=== PATIENT | female | born 1940 | race Native Hawaiian/Other Pacific Islander ===

== ENCOUNTER 2020-03-01 14:12 | Inpatient (IN) | payer MEDICARE, BC, SELFPAY ==
[2020-03-01] VITALS (22 sets, daily range): BP systolic 125–171; BP diastolic 63–90; PULSE 86–110; RESP 13–28; TEMP 36.6–37; O2SAT 82–94; BMI 30.8
--- NOTE | 2020-03-01 14:44 | ECG_ITS ---
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 Security Manager: : 1940 Requested By: Prema Vega Order Number: [id number] Reading MD: CLARK ELLIS Measurements Intervals [place] Rate: 91 P: 61 LA: 145 QRS: 78 QRSD: 129 T: -20 QT: 328 QTc: 405 Interpretive Statements SINUS RHYTHM MODERATE INTRAVENTRICULAR CONDUCTION DELAY [105+ ms QRS DURATION, 80+ ms Q/S IN V1/V2, NO Q AND 60+ ms R IN I/aVL/V5/V6] ABNORMAL QRS-T ANGLE [QRS-T AXIS DIFFERENCE > 60] No previous ECG available for comparison Electronically Signed On 03-02-2020 19:29:42 INVESTIGATOR INTERNAL AFFAIRS by CLARK ELLIS [id number]
--- NOTE | 2020-03-01 14:44 | XR_ITS ---
WS: [id number] XR chest 1V portable [id number] REASON FOR EXAM: sob FINDINGS: There is presumed marked elevation of the right hemidiaphragm which was present on examination of . No change. Inspiratory effort is not optimal however there is concern for early infiltrative change in both lowe r lungs. No other interval change or new finding. XR/XR chest 1V portable [id number] IMPRESSION: Possible early infiltrative changes in the lung bases. Follow-up chest x-ray w ith better inspiration. CT chest without contrast would be definitive. As per u coty the differentiation here is between congestive heart failure and Covid pne umonitis in the aged patient.
--- NOTE | 2020-03-01 14:45 | ED_ITS ---
HPI - COVID General: Chief Complaint: COVID symptoms Stated Complaint: COVID + (02.28.20), LOW O2 Time Seen by Provider: 03/01/20 14:27 Source: patient Mode of arrival: ambulatory Limitations: no limitations Triage information: Has fever, cough or shortness of breath . Exposure to COVID + person last 14 days History of Present Illness: HPI Narrative: 80-year-old female states she tested positive for Covid 2 days ago. She states she had increasing shortness of breath. She does have a history of COPD. She is typically on 2 L oxygen is currently requiring 5 L. She denies any fever she had a slight cough. She said generalized weakness COVID 19 common symptoms: positive dyspnea; negative fever(s), chills, body aches, headache(s), throat pain, nausea, vomiting or diarrhea COVID 19 other sytmptoms: negative chest pain COVID Results: No Data to Display Review of Systems Const: Denies: fever(s), chills, body aches or change in appetite Eyes: Denies: blurry vision or eye discomfort ENMT: Denies: throat pain or dental pain Card: Denies: chest pain Resp: Reports: dyspnea GI: Denies: abdominal pain, nausea, vomiting or diarrhea : Denies: dysuria Musc: Denies: neck pain or back pain Skin/Breast: Denies: rash Neuro: Denies: headache(s) Psych: Denies: depression Norbert/Lymph: Denies: easy bruising All/Imm: Denies: urticaria Physical Exam Const: COMMON NORMALS: patient oriented x3 GENERAL APPEARANCE: in distress and ill appearing HENMT: COMMON NORMALS: normocephalic and atraumatic HEAD & SCALP: normocephalic and atraumatic Eye: COMMON NORMALS: Equal, round and reactive pupils present and EOMs intact bilaterally PUPIL: Yes Equal, round and reactive pupils present Neck/C-Spine: COMMON NORMALS: full ROM and supple Chest: COMMONS NORMALS: normal inspection of the chest and normal palpation of entire chest wall Resp: COMMON NORMALS: No retractions and No use of accessory muscles EFFORT & INSPECTION: Yes respiratory distress AUSCULTATION: rales Cardio: COMMON NORMALS: regular rate, regular rhythm and No murmurs present (Cardio) RATE: regular rate RHYTHM: regular rhythm GI: COMMON NORMALS: Normal to inspection, nondistended, normoactive bowel sounds present, Soft to palpation, non-tender and no masses PALPATION: Yes So ft to palpation Extremity: COMMON NORMALS: normal to inspection and full ROM Neuro: COMMON NORMALS: patient oriented x3, moves all extremities and no focal motor deficits Psych: COMMON NORMALS: mental status grossly normal, Normal thought process present and cooperative THOUGHT PROCESS: Normal thought process present Skin: COMMON NORMALS: no rashes or lesions noted and no wounds GENERAL SKIN EXAM: no rashes or lesions noted Course Vital Signs: Vital signs: Vital Signs Temperature 98.6 F 03/01/20 14:37 Pulse Rate 92 03/01/20 14:37 Respiratory Rate 28 H 03/01/20 14:37 Blood Pressure 171/86 03/01/20 14:37 Pulse Oximetry 93 03/01/20 14:37 MDM - COVID MDM Narrative Medical decision making narrative: Patient presents here with shortness of breath with COVID-19 pneumonia. Patient is requiring more oxygen at this time. She is typically on 2 L and is currently on 5. Patient given remdesivir along with steroid. Spoke to hospitalist will admit to the viral ICU. Patient has b een stable while in the ER. Lab Data Result diagrams: 03/01/20 15:19 03/01/20 15:19 Labs: Lab Results 03/01/20 03/01/20 03/01/20 Range/Units 15:11 15:19 15:19 WBC 9.2 (4.0-10.0) 10^3/uL RBC 4.72 (4.1-5.3) 10^6/uL Hgb 13.3 (11.5-15.3) g/dL Hct 43.4 (37.0-47.0) % MCV 91.9 (81-99) fL MCH 28.2 (28.0-34.0) pg MCHC 30.6 (30.0-36.0) g/dL RDW 12.5 (12.1-15.1) % Plt Count 246 (130-400) 10^3/cmm MPV 10.3 (7.4-10.4) fL Neut % (Auto) 65.3 % Lymph % (Auto) 17.4 % [place] % (Auto) 16.6 % Eos % (Auto) 0.0 % Baso % (Auto) 0.2 % Neut # (Auto) 5.98 (1.8-7.7) 10^3/uL Lymph # (Auto) 1.6 (0.8-4.8) 10^3/uL [place] # (Auto) 1.5 H (0.2-0.9) 10^3/uL Eos # (Auto) 0.0 (0.0-0.8) 10^3/uL Baso # (Auto) 0.0 (0.0-0.1) 10^3/uL Nucleated RBC % (auto) 0 % Nucleated RBCs # 0.0 /100WBC PT 13.40 (12.1-14.9) SECONDS INR 0.99 (0.8-1.2) Fibrinogen 603 H (174-498) mg/dL D-Dimer 1.45 H (0-0.59) ug/mIFEU Specimen Type Arterial Sample Site Radial, right ABG pH 7.37 (7.35-7.45) ABG pCO2 57.0 H (35-45) mmHg ABG pO2 72.4 L (80.0-100.0) mmHg ABG HCO3 33.1 H (22-26) mmol/L ABG Base Excess 6.1 H (-2.0-2.0) mmol/L Jean Paul Test Pos Hematocrit 42.0 (37-47) % O2 Delivery Device Nc O2 Liters/Min 6.0 % FiO2 44.0 % Forest Fire Management Officer ID Ed Sodium (136-145) mmol/L Potassium (3.5-5.1) mmol/L Chloride (98-107) mmol/L Carbon Dioxide (22-29) mmol/L Anion Gap (5-19) BUN (8-23) mg/dL Creatinine (0.5-0.9) mg/dL GFR Calculation Glucose (65-115) mg/dL Calculated Osmolality (285-295) mOsm/kg Lactic Acid (0.5-2.2) mmol/L Calcium (8.5-10.5) mg/dL Total Bilirubin (0.15-1.2) mg/dL AST (0-32) U/L ALT (0-33) U/L Alkaline Phosphatase (35-105) IU/L C-Reactive Protein (0.0-4.9) mg/L NT-Pro-B Natriuret Pep (0-450) pg/mL Total Protein (6.6-8.7) g/dL Albumin (3.5-5.2) g/dL Globulin (1.3-4.6) g/dL 03/01/20 03/01/20 Range/Units 15:19 15:19 WBC (4.0-10.0) 10^3/uL RBC (4.1-5.3) 10^6/uL Hgb (11.5-15.3) g/dL Hct (37.0-47.0) % MCV (81-99) fL MCH (28.0-34.0) pg MCHC (30.0-36.0) g/dL RDW (12.1-15.1) % Plt Count (130-400) 10^3/cmm MPV (7.4-10.4) fL Neut % (Auto) % Lymph % (Auto) % [place] % (Auto) % Eos % (Auto) % Baso % (Auto) % Neut # (Auto) (1.8-7.7) 10^3/uL Lymph # (Auto) (0.8-4.8) 10^3/uL [place] # (Auto) (0.2-0.9) 10^3/uL Eos # (Auto) (0.0-0.8) 10^3/uL Baso # (Auto) (0.0-0.1) 10^3/uL Nucleated RBC % (auto) % Nucleated RBCs # /100WBC PT (12.1-14.9) SECONDS INR (0.8-1.2) Fibrinogen (174-498) mg/dL D-Dimer (0-0.59) ug/mIFEU Specimen Type Sample Site ABG pH (7.35-7.45) ABG pCO2 (35-45) mmHg ABG pO2 (80.0-100.0) mmHg ABG HCO3 (22-26) mmol/L ABG Base Excess (-2.0-2.0) mmol/L Jean Paul Test Hematocrit (37-47) % O2 Delivery Device O2 Liters/Min % FiO2 % Forest Fire Management Officer ID Sodium 139 (136-145) mmol/L Potassium 4.9 (3.5-5.1) mmol/L Chloride 100 (98-107) mmol/L Carbon Dioxide 32 H (22-29) mmol/L Anion Gap 11.9 (5-19) BUN 16 (8-23) mg/dL Creatinine 0.6 (0.5-0.9) mg/dL GFR Calculation Not Reportable Glucose 125 H (65-115) mg/dL Calculated Osmolality 291 (285-295) mOsm/kg Lactic Acid 1.0 (0.5-2.2) mmol/L Calcium 8.9 (8.5-10.5) mg/dL Total Bilirubin 0.2 (0.15-1.2) mg/dL AST 35 H (0-32) U/L ALT 19 (0-33) U/L Alkaline Phosphatase 89 (35-105) IU/L C-Reactive Protein 99.2 H (0.0-4.9) mg/L NT-Pro-B Natriuret Pep 849 H (0-450) pg/mL Total Protein 7.0 (6.6-8.7) g/dL Albumin 3.1 L (3.5-5.2) g/dL Globulin 3.9 (1.3-4.6) g/dL COVID Results: No Data to Display Imaging Data CXR: Attestation: I personally reviewed and interpreted this imaging study as follows: Radiologist's impression: [address] [address] XRay Report Signed Patient: La Aranda Unit #: [id number] : 1940 Age/Sex: 80 / F ADM Date: 03/01/20 Loc: ER Room/Bed: Attending Dr: Ordering Provider/Ordering MD: Prema Vega MD Date of Service: 03/01/20 Procedure(s): XR chest 1V portable [id number] Accession Number(s): [id number] Report Number: [id number] WS: [id number] XR chest 1V portable [id number] REASON FOR EXAM: sob FINDINGS: There is presumed marked elevation of the right hemidiaphragm which was present on examination of 06/21/2018. No change. Inspiratory effort is not optimal however there is concern for early infiltrative change in both lower lungs. No other interval change or new finding. XR/XR chest 1V portable [id number] IMPRESSION: Possible early infiltrative changes in the lung bases. Follow-up chest x-ray with better inspiration. CT chest without contrast would be definitive. As per usual the differentiation here is between congestive heart failure and Covid pneumonitis in the aged patient. CT Chest: Attestation: I personally reviewed and interpreted this imaging study as follows: Radiologist's impression: [address] [address] [address] Scan Report Signed Patient: La Aranda Unit #: [id number] : 1940 Age/Sex: 80 / F ADM Date: 03/01/20 Loc: ER Room/Bed: Attending Dr: Ordering Provider/Ordering MD: Prema Vega MD Date of Service: 03/01/20 Procedure(s): CT angio chest PE protcl [id number] Accession Number(s): [id number] Report Number: [id number] PROCEDURE INFORMATION: Exam: CT Angiography Chest With Contrast Exam date and time: 03/01/2020 4:21 PM Age: 80 years old Clinical indication: Shortness of breath; Patient HX: Covid +. HX copd; Additional info: SOB TECHNIQUE: Imaging protocol: Computed tomographic angiography of the chest with intravenous contrast. 3D rendering (Not supervised by radiologist): MIP and/or 3D reconstructed images were created by the technologist. Radiation optimization: All CT scans at this facility use at least one of these dose optimization techniques: automated exposure control; mA and/or kV adjustment per patient size (includes targeted exams where dose is matched to clinical indication); or iterative reconstruction. Contrast material: OMNI 350; Contrast volume: 65 ml; Contrast route: INTRAVENOUS (IV); COMPARISON: CR XR chest 1V portable [id number] 03/01/2020 2:47 PM RADIATION DOSE METRICS: Total DLP (mGy-cm): 511.83 FINDINGS: Pulmonary arteries: There is no pulmonary embolus. Aorta: Unremarkable. No aortic aneurysm. No aortic dissection. Lungs: Multifocal extensive airspace and ground-glass opacities are noted in both lungs. Pleural space: Unremarkable. No pneumothorax. No pleural effusion. Heart: The heart is enlarged. Lymph nodes: There is no axillary adenopathy. There is mediastinal adenopathy including the 1.3 cm short axis right paratracheal lymph node image 126. There is a 1.4 cm right paratracheal lymph node image 157. There is a 1.2 cm short axis left hilar lymph node image 172. There is a right hilar lymph node measuring 1.4 cm in short axis image 176. Diaphragm: There is nonspecific elevation of the right hemidiaphragm. Kidneys and ureters: There is a 2.3 cm upper pole simple cyst in the left kidney. No follow-up is necessary. Stomach and bowel: Moderate diverticulosis is present in the distal colon. Bones/joints: Unremarkable. No acute fracture. Soft tissues: Unremarkable. CT/CT angio chest PE protcl [id number] IMPRESSION: 1. There is no pulmonary embolus. 2. Multifocal extensive airspace and ground-glass opacities are noted in both lungs. Commonly reported imaging features of COVID-19 pneumonia are present. Other processes such as influenza pneumonia and organizing pneumonia, as can be seen with drug toxicity and connective tissue disease, can cause a similar imaging pattern. (Reference: Red) EKG Data EKG 1: Attestation: I personally reviewed and interpreted this EKG as follows: EKG interpretation date: 03/01/20 EKG interpretation time: 15:09 Interpretation: nsr hr [address] or t wave abnormalities qrs 129 qtc 377 Critical Care Time Critical Care Time: Critical Care Time: Yes Total Critical Care Time: 35 Attestation: This case had a high probability of a clinically significant, sudden, or life threatening deterioration of this patient's condition which required my full and direct attention, intervention and personal management. Discharge Plan Discharge Patient Disposition: Admitted As Inpatient Clinical Impression: Suspected severe acute respiratory syndrome coronavirus 2 (SARS-CoV-2) infection Condition: Stable Referrals: Gloria Urbina MD [Primary Care Provider] - Coding Level of Care Code ED Watch Parts Inspector for Chg Fwd Exam Comprehensive
[2020-03-01 15:21] LABS: ABG PH Result 7.37 (7.35-7.45); Base Excess ABG 6.1 mmol/L (-2.0-2.0); Blood Gas Allen Test Pos; Blood Gas Sample Type Arterial; HCO3 ABG 33.1 mmol/L (22-26); PO2 ABG 72.4 mmHg (80.0-100.0)
[2020-03-01 15:22] LABS: Blood Gas Operator Identificat ED; Blood Gas Sample Site Radial, right; Oxygen Device NC
[2020-03-01 15:28] LABS: Basophils % 0.2 %; Hematocrit 43.4 % (37.0-47.0); Hemoglobin 13.3 g/dL (11.5-15.3); Lymphocytes # 1.6 10^3/uL (0.8-4.8); Lymphocytes % 17.4 %; Mean Corpuscular HGB Conc 30.6 g/dL (30.0-36.0); Mean Corpuscular Hemoglobin 28.2 pg (28.0-34.0); Mean Corpuscular Volume 91.9 fL (81-99); Mean Platelet Volume 10.3 fL (7.4-10.4); Monocytes # 1.5 10^3/uL (0.2-0.9); Monocytes % 16.6 %; Neutrophils # 5.98 10^3/uL (1.8-7.7); Neutrophils % 65.3 %; Nucleated Red Blood Cells % 0 %; Platelet Count 246 10^3/cmm (130-400); Red Blood Count 4.72 10^6/uL (4.1-5.3); Red Cell Distribution Width 12.5 % (12.1-15.1); White Blood Count 9.2 10^3/uL (4.0-10.0)
[2020-03-01] MEDS: dexamethasone 4 mg/mL INJ 6 MG IVP (15:33)
[2020-03-01 15:58] LABS: Fibrinogen 603 mg/dL (174-498); INR 0.99 (0.8-1.2)
[2020-03-01 16:01] LABS: D Dimer 1.45 ug/mIFEU (0-0.59)
--- NOTE | 2020-03-01 16:02 | CTR_ITS ---
PROCEDURE INFORMATION: Exam: CT Angiography Chest With Contrast Exam date and time: 03/01/2020 4:21 PM Age: 80 years old Clinical indication: Shortness of breath; Patient HX: Covid +. HX copd; Additional info: SOB TECHNIQUE: Imaging protocol: Computed tomographic angiography of the chest with intravenous contrast. 3D rendering (Not supervised by radiologist): MIP and/or 3D reconstructed images were created by the technologist. Radiation optimization: All CT scans at this facility use at least one of these dose optimization techniques: automated exposure control; mA and/or kV adjustment per patient size (includes targeted exams where dose is matched to clinical indication); or iterative reconstruction. Contrast material: OMNI 350; Contrast volume: 65 ml; Contrast route: INTRAVENOUS (IV); COMPARISON: CR XR chest 1V portable [id number] 03/01/2020 2:47 PM RADIATION DOSE METRICS: Total DLP (mGy-cm): 511.83 FINDINGS: Pulmonary arteries: There is no pulmonary embolus. Aorta: Unremarkable. No aortic aneurysm. No aortic dissection. Lungs: Multifocal extensive airspace and ground-glass opacities are noted in both lungs. Pleural space: Unremarkable. No pneumothorax. No pleural effusion. Heart: The heart is enlarged. Lymph nodes: There is no axillary adenopathy. There is mediastinal adenopathy including the 1.3 cm short axis right paratracheal lymph node image 126. There is a 1.4 cm right paratracheal lymph node image 157. There is a 1.2 cm short axis left hilar lymph node image 172. There is a right hilar lymph node measuring 1.4 cm in short axis image 176. Diaphragm: There is nonspecific elevation of the right hemidiaphragm. Kidneys and ureters: There is a 2.3 cm upper pole simple cyst in the left kidney. No follow-up is necessary. Stomach and bowel: Moderate diverticulosis is present in the distal colon. Bones/joints: Unremarkable. No acute fracture. Soft tissues: Unremarkable. CT/CT angio chest PE protcl [id number] IMPRESSION: 1. There is no pulmonary embolus. 2. Multifocal extensive airspace and ground-glass opacities are noted in both lungs. Commonly reported imaging features of COVID-19 pneumonia are present. Other processes such as influenza pneumonia and organizing pneumonia, as can be seen with drug toxicity and connective tissue disease, can cause a similar imaging pattern. (Reference: Red) COMMENTS: Consistent with the [place] [employer]'s Incidental Findings Committee white paper (J Am Dorian Radiol 2018): Any incidental renal lesion less than 1 cm or classified as too small to characterize, or any incidental cystic renal lesion characterized as simple-appearing, is likely benign. No follow-up imaging is recommended for these lesions per consensus recommendations based on imaging criteria. REFERENCES: Red Mcclain et al., Radiological Society of [place] Expert Consensus Statement on Reporting Chest CT Findings Related to COVID-19. Endorsed by the Society of Thoracic Radiology, the [place] [employer], and RSNA. Published July 20, 2019. Radiation Dose CTDIVOL = (mGy): DLP = 511.83 (mGy-cm)
[2020-03-01 16:09] LABS: Alanine Aminotransferase 19 U/L (0-33); Albumin Level 3.1 g/dL (3.5-5.2); Alkaline Phosphatase 89 IU/L (35-105); Anion Gap 11.9 (5-19); Aspartate Amino Transferase 35 U/L (0-32); Blood Urea Nitrogen 16 mg/dL (8-23); C Reactive Protein 99.2 mg/L (0.0-4.9); Calcium 8.9 mg/dL (8.5-10.5); Carbon Dioxide 32 mmol/L (22-29); Chloride 100 mmol/L (98-107); Globulin 3.9 g/dL (1.3-4.6); Glucose 125 mg/dL (65-115); NT Pro B Type Natriuretic Pept 849 pg/mL (0-450); Osmolality Calculated 291 mOsm/kg (285-295); Potassium 4.9 mmol/L (3.5-5.1); Sodium 139 mmol/L (136-145); Total Bilirubin 0.2 mg/dL (0.15-1.2)
[2020-03-01] MEDS: iohexol 350 mg/mL 100 mL Btl IV (16:54)
--- NOTE | 2020-03-01 19:59 | P.HP_ITS ---
Providers/Chief Complaint Admitting Physician: Jax Villa Primary Care Provider: Gloria Urbina MD Chief Complaint: COVID + (02.28.20), LOW O2 History of Present Illness La Aranda is a pleasant 80-year-old lady with history of COPD, chronically on 2 L of oxygen came to ER due to progressive shortness of breath over the last 2 days, nonproductive cough, and fatigue. In ER she is noted with worsening hypoxia. She is requiring 5 L of oxygen by nasal cannula. D-dimer is found elevated at 1.45. CTA without PE. Multifocal extensive airspace groundglass opacities consistent with COVID-19 pneumonia. Review of Systems Const: Reports: body aches, change in appetite, fatigue and malaise; Denies: fever(s) or chills Eyes: Denies: change in vision or eye redness ENMT: Denies: throat pain, oral sores or ear or mastoid pain Card: Reports: dyspnea on exertion; Denies: chest pain, edema, pre-syncope or orthopnea Resp: Reports: dyspnea and non-productive cough; Denies: productive cough, change in phlegm color or hemoptysis GI: Denies: abdominal pain, nausea, vomiting, diarrhea, constipation, hematochezia or melena : Denies: flank pain, urinary frequency or hematuria Musc: Denies: back pain, joint swelling or joint redness Skin/Breast: Denies: rash, sores or new lesions Neuro: Denies: headache(s), numbness in extremities, weakness in extremities, dizziness, confusion or seizure-like activity Endo: Denies: polyuria or polydipsia Norbert/Lymph: Denies: easy bleeding or purpura All/Imm: Denies: urticaria, throat swelling or tongue swelling Medications/Allergies Home Medications Medication Instructions Recorded Confirmed Last Taken Type CoQ-10 1 tab PO DAILY 03/01/20 03/01/20 03/01/20 History calcium carbonate [Calcium 600] 600 mg PO DAILY 03/01/20 03/01/20 Unknown History fluticasone propion-salmeterol See Rx Instructions .ROUTE .COMPLEX 03/01/20 03/01/20 03/01/20 History [Advair Diskus] glucosamine-chondroitin [Osteo 1 tab PO DAILY 03/01/20 03/01/20 Unknown History Bi-Flex] levofloxacin 500 mg PO DAILY 03/01/20 03/01/20 03/01/20 History lisinopril 20 mg PO DAILY 03/01/20 03/01/20 03/01/20 History lovastatin 20 mg PO DAILY 03/01/20 03/01/20 03/01/20 History metformin 500 mg PO DAILY 03/01/20 03/01/20 03/01/20 History geyU-K2-B-D-dnsska-hqzpgns-min 1 tab PO DAILY 03/01/20 03/01/20 Unknown History [ICaps] Allergies Allergy/AdvReac Type Severity Reaction Status Date / Time No Known Allergies Allergy Verified 03/01/20 14:44 PFSH Acute PFSH: Medical History COPD (chronic obstructive pulmonary disease) DM type 2 (diabetes mellitus, type 2) Surgical History History of ectopic Family History Mother Heart disease Father Heart disease Social History Smoking and tobacco status: former smoker Quit status (tobacco): has quit using tobacco Year quit tobacco: Many decades ago Alcohol intake: current Alcohol intake frequency: 0-2 Drinks per Day Alcohol use comment: 1 drink of whiskey daily Substance/Drug Use: never Lives independently: Yes Household members: spouse Marital status: Vitals/I&O/Wt Last Vital Signs Temp 98.6 F 03/01/20 14:37 Pulse 92 03/01/20 14:37 Resp 28 H 03/01/20 14:37 BP 171/86 03/01/20 14:37 Pulse Ox 93 03/01/20 18:58 Weight last 48 hrs Weight 78.925 kg Physical Exam Const: COMMON NORMALS: no acute distress and patient oriented x3 NUTRITIONAL APPEARANCE: obese HENMT: COMMON NORMALS: oropharynx normal Neck/C-Spine: COMMON NORMALS: no JVD Resp: COMMON NORMALS: normal respiratory effort AUSCULTATION: crackles and diminished lung sounds Cardio: COMMON NORMALS: no JVD, regular rhythm, S1 normal heart sound present, S2 normal heart sound present and No murmurs present (Cardio) RHYTHM: regular rhythm HEART SOUNDS: S1 normal heart sound present and S2 normal heart sound present GI: COMMON NORMALS: Normal to inspection, nondistended, normoactive bowel sounds present, Soft to palpation and non-tender PALPATION: Yes Soft to palpation Extremity: COMMON NORMALS: no joint enlargement GENERAL: Yes edema (1-2+ ankle edema) Neuro: COMMON NORMALS: patient oriented x3 and moves all extremities Skin: COMMON NORMALS: no rashes or lesions noted GENERAL SKIN EXAM: no rashes or lesions noted Data : 03/01/20 15:19 03/01/20 15:19 Micro: Microbiology 03/01/20 18:20 Blood Culture - Preliminary Blood SPECIMEN COLLECTED 03/01/20 17:16 Blood Culture - Preliminary Blood SPECIMEN COLLECTED A&P Assessment and plan (1) Severe acute respiratory syndrome coronavirus 2 (SARS-CoV-2) detected: Reports tested positive for COVID-19 at her PCPs office on Thursday. Hypoxia with severe COVID-19 pneumonia. Continue oxygen support. Remdesivir Decadron Self proning as tolerated. Albuterol MDI. Sputum culture if possible. Continue Levaquin as prescribed by her PCP. Follow-up blood letter. Incentive spirometry. Read D-dimer, CRP. Lovenox DVT prophylaxis. Famotidine GI prophylaxis. Status: Acute (2) COPD (chronic obstructive pulmonary disease): Underlying COPD noted with liters of oxygen. Continue Advair. Albuterol as needed. Status: Acute (3) DM type 2 (diabetes mellitus, type 2): Consistent carbohydrate diet. Mild sliding scale. Hold Metformin for now. Monitor renal function. Status: Acute (4) HTN (hypertension): Syndrome. Monitor blood pressure. Renal function. Status: Acute Attestations Medical Necessity Statement*: Admission of over 2 midnights is continued for assessment management of severe COVID-19 pneumonia, acute on chronic hypoxia, with underlying COPD and additional medical comorbidities. Coding Level of Care Code Acute Laundry Machine Operator for [facility] Diagnoses Severe acute respiratory syndrome coronavirus 2 (SARS-CoV-2) detected U07.1 COPD (chronic obstructive pulmonary disease) J44.9 DM type 2 (diabetes mellitus, type 2) E11.9 HTN (hypertension) I10
--- NOTE | 2020-03-01 20:30 | PC.NURSE ---
Patient recieved to unit via wheelchair accompanied by nurse and security. Patient stable and Alert and oriented X4. No skin issues noted per two skin nurse assessment with Kelley REYNOLDS. Patient able to stand and ambulate with stand by assistance. Patient able to answer questions appropriately. Partient hard of hearing and requires hearing aids which the battery charger tester of said hearing aids is at home. Patient uses oxygen therapy at home at 2 Liters. Patient also uses walker and cane at home for ambulation. Will continue to monitor and assist as needed following CPOC
[2020-03-01] MEDS: enoxaparin 40 mg/0.4 mL Syringe SUBCUT (21:30)
[2020-03-01] MEDS: albuterol 8 gm MDI 2 PUFF INHALATION (21:44)
[2020-03-02] VITALS (78 sets, daily range): BP systolic 109–167; BP diastolic 40–96; PULSE 0–102; RESP 13–31; TEMP 36.6–37.1; O2SAT 78–97; BMI 30.8
[2020-03-02] MEDS: albuterol 8 gm MDI 1 PUFF INHALATION ×7 (00:11→23:50)
[2020-03-02 04:27] LABS: Basophils % 0.3 %; Hematocrit 46.3 % (37.0-47.0); Hemoglobin 14.1 g/dL (11.5-15.3); Lymphocytes # 0.6 10^3/uL (0.8-4.8); Lymphocytes % 8.2 %; Mean Corpuscular HGB Conc 30.5 g/dL (30.0-36.0); Mean Corpuscular Hemoglobin 28.5 pg (28.0-34.0); Mean Corpuscular Volume 93.5 fL (81-99); Mean Platelet Volume 10.9 fL (7.4-10.4); Monocytes # 0.7 10^3/uL (0.2-0.9); Monocytes % 8.6 %; Neutrophils # 6.38 10^3/uL (1.8-7.7); Neutrophils % 81.6 %; Nucleated Red Blood Cells % 0 %; Platelet Count 252 10^3/cmm (130-400); Red Blood Count 4.95 10^6/uL (4.1-5.3); Red Cell Distribution Width 12.6 % (12.1-15.1); White Blood Count 7.8 10^3/uL (4.0-10.0)
[2020-03-02 04:45] LABS: D Dimer 1.78 ug/mIFEU (0-0.59)
[2020-03-02 09:33] LABS: Glucose Point of Care 226 mg/dL (70-110)
[2020-03-02] MEDS: famotidine 20 mg Tablet PO ×2 (09:36→17:10)
[2020-03-02] MEDS: atorvastatin 40 mg Tablet 20 MG PO (09:36)
[2020-03-02] MEDS: levoFLOXacin 500 mg Tablet PO (09:36)
[2020-03-02] MEDS: lisinopril 20 mg Tablet PO (09:37)
[2020-03-02 10:05] LABS: Alanine Aminotransferase 16 U/L (0-33); Albumin Level 2.5 g/dL (3.5-5.2); Alkaline Phosphatase 82 IU/L (35-105); Blood Urea Nitrogen 20 mg/dL (8-23); Carbon Dioxide 29 mmol/L (22-29); Chloride 98 mmol/L (98-107); Globulin 4.3 g/dL (1.3-4.6); Glucose 249 mg/dL (65-115); Osmolality Calculated 295 mOsm/kg (285-295); Sodium 137 mmol/L (136-145); Total Bilirubin 0.2 mg/dL (0.15-1.2); Total Protein 6.8 g/dL (6.6-8.7)
[2020-03-02 10:09] LABS: Anion Gap 14.9 (5-19); Aspartate Amino Transferase 27 U/L (0-32); Potassium 4.9 mmol/L (3.5-5.1)
[2020-03-02 11:45] LABS: Glucose Point of Care 236 mg/dL (70-110)
--- NOTE | 2020-03-02 13:57 | ECG_ITS ---
[facility] ED Test Date: 2020-03-02 Pat Name: La Aranda Department: Room: ICU19 Gender: Female Oracle Analyst: : 1940 Requested By: Jax Villa Order Number: [id number] Iglseia MD: Christina Jama M.D. Measurements Intervals [employer] Rate: 84 P: 36 MI: 147 QRS: 75 QRSD: 137 T: -29 QT: 360 QTc: 426 Interpretive Statements SINUS RHYTHM WITH SINUS ARRHYTHMIA INTRAVENTRICULAR CONDUCTION DELAY [130+ ms QRS DURATION] Compared to ECG 03/01/2020 15:09:11 No significant changes Electronically Signed On 03-03-2020 11:31:19 CUSTOMER SUPPORT AGENT by Christina Jama M.D. [id number]
[2020-03-02] MEDS: dexamethasone 4 mg/mL INJ 6 MG IVP (14:56)
[2020-03-02 15:14] LABS: Troponin(5th) Baseline 32 ng/L (0-10)
--- NOTE | 2020-03-02 15:35 | PC.RESP ---
Pulmonary Rehab information sent to patient.
--- NOTE | 2020-03-02 15:54 | PC.NURSE ---
pATIENT COMPLAINS OF CHEST PRESURE. b/p NOTED. SR 90 PER TELEMETRY. REPORTED TO DR HEREDIA ORDERS RECEIVED FOR tROPONIN SERIES WITH EKG
--- NOTE | 2020-03-02 16:00 | ECG_ITS ---
[facility] ED Test Date: 2020-03-02 Pat Name: La Aranda Department: Room: ICU19 Gender: Female Freight Team Associate: : 1940 Requested By: Jax Villa Order Number: [id number] Iglesia MD: Christina Jama M.D. Measurements Intervals [place] Rate: 85 P: 40 LA: 147 QRS: 75 QRSD: 137 T: -17 QT: 393 QTc: 470 Interpretive Statements SINUS RHYTHM WITH OCCASIONAL SUPRAVENTRICULAR PREMATURE COMPLEXES INTRAVENTRICULAR CONDUCTION DELAY [130+ ms QRS DURATION] POSSIBLE LATERAL MYOCARDIAL INFARCTION [30 ms Q WAVE IN I/aVL/V5/V6], OF INDETERMINATE AGE Compared to ECG 03/02/2020 14:03:21 Myocardial infarct finding now present Sinus arrhythmia no longer present Electronically Signed On 03-03-2020 11:38:22 MIXING MACHINE OPERATOR by Christina Jama M.D. [id number]
--- NOTE | 2020-03-02 16:04 | PC.NURSE ---
ORDERS RECEIVED PER DR CHAU FOR PO XANAX Q6HR PRN PO
[2020-03-02 16:25] LABS: Glucose Point of Care 149 mg/dL (70-110)
[2020-03-02] MEDS: ALPRAZolam 0.25 mg Tablet 0.125 MG PO (17:10)
[2020-03-02 17:11] LABS: Troponin 5 2HR 34.47 ng/L (0-10); Troponin 5 2HR Delta 2.47 ABS# (0-10)
--- NOTE | 2020-03-02 18:25 | P.PN_ITS ---
Subjective Subjective: Interval history: Subjectively she is not feeling well. Having malaise. Otherwise going through the review of systems denies chest pain, no nausea, vomiting. No diarrhea. No abdominal discomfort. Does have some headache. She is extremely hard of hearing, and batteries ran out in hearing aids. Later in the day brought her supervisor production. Vitals/I&O/Wt Last Vital Signs Temp 98.2 F 03/02/20 08:00 Pulse 80 03/02/20 17:12 Resp 16 03/02/20 17:10 BP 120/58 03/02/20 08:00 Pulse Ox 92 03/02/20 17:10 03/02/20 03/02/20 03/02/20 06:59 14:59 22:59 Intake Total 100 / 200 240 / 240 100 / 340 Output Total 150 / 150 Balance 99 / 199 90 / 90 100 / 190 Weight last 48 hrs Weight 78.925 kg Weight 78.925 kg Physical Exam Const: COMMON NORMALS: no acute distress and patient oriented x3 NUTRITIONAL APPEARANCE: obese OTHER: Sitting up in bed. Irritable mood. HENMT: COMMON NORMALS: oropharynx normal Neck/C-Spine: COMMON NORMALS: no JVD Resp: COMMON NORMALS: normal respiratory effort AUSCULTATION: crackles and diminished lung sounds Cardio: COMMON NORMALS: no JVD, regular rhythm, S1 normal heart sound present, S2 normal heart sound present and No murmurs present (Cardio) RHYTHM: regular rhythm HEART SOUNDS: S1 normal heart sound present and S2 normal heart sound present GI: COMMON NORMALS: Normal to inspection, nondistended, normoactive bowel sounds present, Soft to palpation and non-tender PALPATION: Yes Soft to palpation Extremity: COMMON NORMALS: no joint enlargement GENERAL: Yes edema (1-2+ ankle edema) Neuro: COMMON NORMALS: patient oriented x3 and moves all extremities Skin: COMMON NORMALS: no rashes or lesions noted GENERAL SKIN EXAM: no rashes or lesions noted Data : 03/02/20 03:20 03/02/20 09:26 Micro: Microbiology 03/01/20 18:20 Blood Culture - Preliminary Blood NEGATIVE TO DATE 03/01/20 17:16 Blood Culture - Preliminary Blood NEGATIVE TO DATE A&P Assessment and plan (1) Severe acute respiratory syndrome coronavirus 2 (SARS-CoV-2) detected: Oxygenation appears to have plateaued somewhat around 6 L. Subjectively she is not feeling well, but on review of systems only has some headache. Some difficulties in communication due to hearing impairment, but does understand well if spoken to loudly. reportedly brought her hearing aid supervisor production today. At this time continue oxygen support, wean down as tolerating. Continue remdesivir Decadron Decadron Self proning as tolerated. Albuterol MDI. Sputum culture if possible. Continue Levaquin as prescribed by her PCP. Fo llow-up blood culture. So far negative Incentive spirometry. Recheck D-dimer, CRP. Today both are slightly higher. Lovenox DVT prophylaxis. Famotidine GI prophylaxis. Discussed with her . Status: Acute (2) COPD (chronic obstructive pulmonary disease): Underlying COPD noted with liters of oxygen. Continue Advair. Albuterol as needed. Status: Acute (3) DM type 2 (diabetes mellitus, type 2): Consistent carbohydrate diet. Mild sliding scale. Hold Metformin for now. Monitor renal function. reports some episodes of hypoglycemia at home. Recently her oral medications have been changed due to this. No hypoglycemia noted here. Monitor glucose. Status: Acute (4) HTN (hypertension): At goal. Monitor blood pressure. Renal function. Status: Acute Attestations Medical Necessity Statement*: Continue admission for assessment of management of severe COVID-19 pneumonia, respiratory failure with hypoxia. Coding Level of Care Code Acute Central Sterilization Technician for [facility] Fwd Diagnoses Severe acute respiratory syndrome coronavirus 2 (SARS-CoV-2) detected U07.1 COPD (chronic obstructive pulmonary disease) J44.9 DM type 2 (diabetes mellitus, type 2) E11.9 HTN (hypertension) I10
--- NOTE | 2020-03-02 20:00 | ECG_ITS ---
[facility] ED Test Date: 2020-03-02 Pat Name: La Aranda Department: Room: ICU19 Gender: Female Nuclear Engineering Technician: ANITRA DUPREE: 1940 Requested By: Jxa Villa Order Number: [id number] Iglesia MD: Christina Jama M.D. Measurements Intervals [place] Rate: 87 P: 61 OR: 141 QRS: 66 QRSD: 140 T: -3 QT: 381 QTc: 459 Interpretive Statements SINUS RHYTHM RIGHT BUNDLE BRANCH BLOCK [120+ ms QRS DURATION, UPRIGHT V1, 40+ ms S IN I/aVL/V4/V5/V6] Compared to ECG 03/02/2020 16:03:04 Right bundle-branch block now present Intraventricular conduction delay no longer present Myocardial infarct finding no longer present Electronically Signed On 03-03-2020 11:38:05 LIME KILN AND RECAUSTICIZING OPERATOR by Christina Jama M.D. [id number]
[2020-03-02 20:28] LABS: Glucose Point of Care 226 mg/dL (70-110)
[2020-03-02] MEDS: enoxaparin 40 mg/0.4 mL Syringe SUBCUT (21:44)
[2020-03-03] VITALS (113 sets, daily range): BP systolic 106–150; BP diastolic 48–93; PULSE 64–104; RESP 14–33; TEMP 36.3–37; O2SAT 76–98; BMI 30.8
[2020-03-03 01:16] LABS: Hematocrit 46.3 % (37.0-47.0); Hemoglobin 14.5 g/dL (11.5-15.3); Mean Corpuscular HGB Conc 31.3 g/dL (30.0-36.0); Mean Corpuscular Hemoglobin 28.8 pg (28.0-34.0); Mean Corpuscular Volume 91.9 fL (81-99); Mean Platelet Volume 10.9 fL (7.4-10.4); Platelet Count 303 10^3/cmm (130-400); Red Blood Count 5.04 10^6/uL (4.1-5.3); Red Cell Distribution Width 12.4 % (12.1-15.1)
[2020-03-03 01:17] LABS: Alanine Aminotransferase 15 U/L (0-33); Albumin Level 2.7 g/dL (3.5-5.2); Alkaline Phosphatase 84 IU/L (35-105); Aspartate Amino Transferase 26 U/L (0-32); Blood Urea Nitrogen 24 mg/dL (8-23); C Reactive Protein 59.8 mg/L (0.0-4.9); Calcium 8.9 mg/dL (8.5-10.5); Carbon Dioxide 33 mmol/L (22-29); Chloride 101 mmol/L (98-107); Globulin 3.9 g/dL (1.3-4.6); Glucose 241 mg/dL (65-115); Osmolality Calculated 302 mOsm/kg (285-295); Sodium 140 mmol/L (136-145); Total Bilirubin 0.2 mg/dL (0.15-1.2); Total Protein 6.6 g/dL (6.6-8.7)
[2020-03-03 01:18] LABS: Troponin T (5th) Once 27 ng/L (0-10)
[2020-03-03 01:20] LABS: Anion Gap 11.1 (5-19); Potassium 5.1 mmol/L (3.5-5.1)
[2020-03-03 01:38] LABS: Slide Review Slide Review Perform
[2020-03-03 01:43] LABS: Absolute Neutrophil 4.9 10^3/cmm (1.4-6.5); Absolute Segmented Neutrophil 4.1 10/cmm (1.6-7.1); Band Neutrophils Absolute 0.8 10^3/cmm (0.0-1.2); Eosinophils 0 %; Giant Platelets Trace; Lymphocytes 9 %; Monocytes Absolute 0.4 10^3/cmm (0.1-0.6); Platelet Estimate Normal (Normal); Segmented Neutrophils 68 %; Total Cells Counted 100 (0-100)
[2020-03-03 01:44] LABS: Poikilocytosis 1+; Polychromasia 1+
[2020-03-03] MEDS: albuterol 8 gm MDI 1 PUFF INHALATION ×5 (03:25→19:30)
[2020-03-03 07:54] LABS: Glucose Point of Care 155 mg/dL (70-110)
[2020-03-03] MEDS: levoFLOXacin 500 mg Tablet PO (08:20)
[2020-03-03] MEDS: atorvastatin 40 mg Tablet 20 MG PO (08:20)
[2020-03-03] MEDS: lisinopril 20 mg Tablet PO (08:20)
[2020-03-03] MEDS: famotidine 20 mg Tablet PO ×2 (08:20→17:14)
[2020-03-03 11:51] LABS: Glucose Point of Care 210 mg/dL (70-110)
[2020-03-03] MEDS: dexamethasone 4 mg/mL INJ 6 MG IVP (15:12)
[2020-03-03 17:02] LABS: Glucose Point of Care 103 mg/dL (70-110)
--- NOTE | 2020-03-03 17:23 | NUR.SHIFT ---
patient has remained stable throughout this shift and seems to be doing well saturation still dropping from time to time with excretion, patient has been able get her self to the BSC with stand by assistance. patient has set up in chair some today and rotated side to side while in bed. patients appetite has been good this shift. patient is pleasant.
--- NOTE | 2020-03-03 20:25 | PM.PN ---
Subjective Subjective: Interval history: This morning she is somewhat irritable about a number of issues, including that she needs to urinate, and that the hearing aid charging box is not closed. She says otherwise she is doing not the best in terms of breathing which she feels is not improving. She does deny any chest pain or pressure. Says no longer has any headache. No nausea or vomiting. Request for her mouthwash to be brought back. Vitals/I&O/Wt Last Vital Signs Temp 98.6 F 03/03/20 16:02 Pulse 85 03/03/20 19:31 Resp 18 03/03/20 19:31 BP 148/79 03/03/20 12:26 Pulse Ox 95 03/03/20 19:31 03/03/20 03/03/20 03/03/20 06:59 14:59 22:59 Intake Total 100 / 900 600 / 600 240 / 840 Balance 100 / -50 600 / 600 240 / 840 Weight last 48 hrs Weight 78.925 kg Weight 78.925 kg Physical Exam Const: COMMON NORMALS: no acute distress and patient oriented x3 NUTRITIONAL APPEARANCE: obese OTHER: Reclined in bed. We will bit less irritable than yesterday. HENMT: COMMON NORMALS: oropharynx normal Neck/C-Spine: COMMON NORMALS: no JVD Resp: COMMON NORMALS: normal respiratory effort AUSCULTATION: crackles Laterality: bilateral (Bases) Cardio: COMMON NORMALS: no JVD, regular rhythm, S1 normal heart sound present, S2 normal heart sound present and No murmurs present (Cardio) RHYTHM: regular rhythm HEART SOUNDS: S1 normal heart sound present and S2 normal heart sound present GI: COMMON NORMALS: Normal to inspection, nondistended, normoactive bowel sounds present, Soft to palpation and non-tender PALPATION: Yes Soft to palpation Extremity: COMMON NORMALS: no joint enlargement GENERAL: No edema Neuro: COMMON NORMALS: patient oriented x3 and moves all extremities Skin: COMMON NORMALS: no rashes or lesions noted GENERAL SKIN EXAM: no rashes or lesions noted Data : 03/03/20 00:09 03/03/20 00:09 Micro: Microbiology 03/01/20 18:20 Blood Culture - Preliminary Blood NEGATIVE TO DATE 03/01/20 17:16 Blood Culture - Preliminary Blood NEGATIVE TO DATE A&P Assessment and plan (1) Severe acute respiratory syndrome coronavirus 2 (SARS-CoV-2) detected: Oxygenation study, and oxygen requirement actually appears to be little bit better, down to 5 L today. Subjectively she is not feeling better. D-dimer is up a little bit. CRP is better, however. Continue remdesivir, Decadron. Lovenox DVT prophylaxis. Not tolerating proning. Albuterol MDI. We will see if we can get her mobilized little bit with PT. Sputum culture if possible. Continue Levaquin as prescribed by her PCP. Follow-up blood culture. So far negative Incentive spirometry. Recheck D-dimer, CRP. Famotidine GI prophylaxis. Status: Acute (2) COPD (chronic obstructive pulmonary disease): Underlying COPD noted with 2 liters of oxygen. Continue Advair. Albuterol as needed. Status: Acute (3) DM type 2 (diabetes mellitus, type 2): Consistent carbohydrate diet. Mild sliding scale. Hold Metformin for now. Monitor renal function. reports some episodes of hypoglycemia at home. Recently her oral medications have been changed due to this. No hypoglycemia noted here. Monitor glucose. Status: Acute (4) HTN (hypertension): At goal. Monitor blood pressure. Renal function. Status: Acute Attestations Medical Necessity Statement*: Continue admission for assessment and management of hypoxic respiratory failure, severe COVID-19 pneumonia. Coding Level of Care Code Acute Endband Sizer for [facility] Diagnoses Severe acute respiratory syndrome coronavirus 2 (SARS-CoV-2) detected U07.1 COPD (chronic obstructive pulmonary disease) J44.9 DM type 2 (diabetes mellitus, type 2) E11.9 HTN (hypertension) I10
[2020-03-03] MEDS: enoxaparin 40 mg/0.4 mL Syringe SUBCUT (20:52)
[2020-03-03 21:00] LABS: Glucose Point of Care 256 mg/dL (70-110)
[2020-03-04] VITALS (28 sets, daily range): BP systolic 115–171; BP diastolic 53–91; PULSE 59–110; RESP 14–27; TEMP 36.4–37.1; O2SAT 79–100
--- NOTE | 2020-03-04 00:34 | PC.NURSE ---
While assisting patient to the bedside commode, this nurse noticed a moist reddened rash under the patients abdominal fold on the left side. PT complained of itching and burning. Nurse cleansed affected area with NS, patted area dry with gauze, and applied interdry to ABD fold. Hospitalist notified and new orders received for nystatin powder.
[2020-03-04 05:43] LABS: Basophils % 0.1 %; Hematocrit 46.1 % (37.0-47.0); Hemoglobin 13.9 g/dL (11.5-15.3); Lymphocytes # 1.5 10^3/uL (0.8-4.8); Lymphocytes % 13.7 %; Mean Corpuscular HGB Conc 30.2 g/dL (30.0-36.0); Mean Corpuscular Hemoglobin 27.9 pg (28.0-34.0); Mean Corpuscular Volume 92.6 fL (81-99); Mean Platelet Volume 10.6 fL (7.4-10.4); Monocytes # 1.3 10^3/uL (0.2-0.9); Monocytes % 11.9 %; Neutrophils # 7.82 10^3/uL (1.8-7.7); Neutrophils % 73.5 %; Nucleated Red Blood Cells % 0 %; Platelet Count 340 10^3/cmm (130-400); Red Blood Count 4.98 10^6/uL (4.1-5.3); Red Cell Distribution Width 12.5 % (12.1-15.1); White Blood Count 10.6 10^3/uL (4.0-10.0)
[2020-03-04 06:01] LABS: Alanine Aminotransferase 15 U/L (0-33); Albumin Level 3.1 g/dL (3.5-5.2); Alkaline Phosphatase 83 IU/L (35-105); Anion Gap 9.6 (5-19); Aspartate Amino Transferase 19 U/L (0-32); Blood Urea Nitrogen 27 mg/dL (8-23); C Reactive Protein 23.3 mg/L (0.0-4.9); Calcium 9.2 mg/dL (8.5-10.5); Carbon Dioxide 36 mmol/L (22-29); Chloride 98 mmol/L (98-107); Globulin 3.7 g/dL (1.3-4.6); Glucose 177 mg/dL (65-115); Osmolality Calculated 297 mOsm/kg (285-295); Potassium 4.6 mmol/L (3.5-5.1); Sodium 139 mmol/L (136-145); Total Bilirubin 0.2 mg/dL (0.15-1.2); Total Protein 6.8 g/dL (6.6-8.7)
[2020-03-04 06:08] LABS: D Dimer 0.62 ug/mIFEU (0-0.59)
[2020-03-04 07:35] LABS: Glucose Point of Care 132 mg/dL (70-110)
[2020-03-04] MEDS: nystatin powder 15 gm Btl 1 APPLIC TOPICAL ×2 (08:17→17:08)
[2020-03-04] MEDS: lisinopril 20 mg Tablet PO (08:18)
[2020-03-04] MEDS: atorvastatin 40 mg Tablet 20 MG PO (08:18)
[2020-03-04] MEDS: famotidine 20 mg Tablet PO ×2 (08:18→17:08)
[2020-03-04] MEDS: levoFLOXacin 500 mg Tablet PO (08:18)
[2020-03-04] MEDS: albuterol 8 gm MDI 1 PUFF INHALATION ×4 (08:45→20:01)
[2020-03-04 11:40] LABS: Glucose Point of Care 140 mg/dL (70-110)
[2020-03-04] MEDS: dexamethasone 4 mg/mL INJ 6 MG IVP (15:05)
--- NOTE | 2020-03-04 16:24 | DCPLANNER ---
Pg 2 of IM updated and reviewed with Pt's Spouse; Jer via the phone. He appreciates the explanation. Number provided to him should he have any further questions.
[2020-03-04 17:04] LABS: Glucose Point of Care 124 mg/dL (70-110)
--- NOTE | 2020-03-04 18:45 | PC.NURSE ---
Received report on patient from Yuni REYNOLDS. Assumed care at this time.
--- NOTE | 2020-03-04 19:58 | PM.PN ---
Subjective Subjective: Interval history: Today she feels a little bit better. She is sitting up in chair. She worked with physical therapy. Denies chest pain. Has a little bit of a headache. No nausea. We went over how to use the flutter valve. Instructed on incentive spirometry. Vitals/I&O/Wt Last Vital Signs Temp 98.8 F 03/04/20 07:00 Pulse 70 03/04/20 16:00 Resp 22 H 03/04/20 16:00 BP 150/78 03/04/20 16:00 Pulse Ox 89 L 03/04/20 16:00 03/04/20 03/04/20 03/04/20 06:59 14:59 22:59 Intake Total 240 / 1300 720 / 720 360 / 1080 Output Total 600 / 1000 600 / 600 500 / 1100 Balance -360 / 300 120 / 120 -140 / -20 Weight last 48 hrs Weight 81.4 kg Weight 78.925 kg Physical Exam Const: COMMON NORMALS: no acute distress and patient oriented x3 NUTRITIONAL APPEARANCE: obese OTHER: Up in chair. Cooperative. In better spirits. HENMT: COMMON NORMALS: oropharynx normal Neck/C-Spine: COMMON NORMALS: no JVD Resp: COMMON NORMALS: normal respiratory effort AUSCULTATION: crackles Laterality: bilateral (Bases) and diminished lung sounds Cardio: COMMON NORMALS: no JVD, regular rhythm, S1 normal heart sound present, S2 normal heart sound present and No murmurs present (Cardio) RHYTHM: regular rhythm HEART SOUNDS: S1 normal heart sound present and S2 normal heart sound present GI: COMMON NORMALS: Normal to inspection, nondistended, normoactive bowel sounds present, Soft to palpation and non-tender PALPATION: Yes Soft to palpation Extremity: COMMON NORMALS: no joint enlargement GENERAL: No edema Neuro: COMMON NORMALS: patient oriented x3 and moves all extremities Skin: COMMON NORMALS: no rashes or lesions noted GENERAL SKIN EXAM: no rashes or lesions noted Data : 03/04/20 04:30 03/04/20 04:30 A&P Assessment and plan (1) Severe acute respiratory syndrome coronavirus 2 (SARS-CoV-2) detected: Today she is doing better. She is up in chair, working with physical therapy will bit this morning. Takes active interest in using flutter valve, incentive spirometry. In better spirits. Oxygenation with gradual improvement, down to 4 L, then this evening appears to be down to 2. Will request for transfer up to medical floor. Continue remdesivir, Decadron. Lovenox DVT prophylaxis. D-dimer is normalizing. CRP improving. Not tolerating proning. Albuterol MDI. Discussed with her . Sputum culture if possible. Continue Levaquin as prescribed by her PCP. Follow-up blood culture. So far negative. Incentive spirometry. Flutter valve. Recheck D-dimer, CRP. Famotidine GI prophylaxis. Status: Acute (2) COPD (chronic obstructive pulmonary disease): Underlying COPD noted with 2 liters of oxygen. Continue Advair. Albuterol as needed. Status: Acute (3) DM type 2 (diabetes mellitus, type 2): Consistent carbohydrate diet. Mild sliding scale. Hold Metformin for now. Monitor renal function. reports some episodes of hypoglycemia at home. Recently her oral medications have been changed due to this. No hypoglycemia noted here. Monitor glucose. Status: Acute (4) HTN (hypertension): At goal. Monitor blood pressure. Renal function. Status: Acute Attestations Medical Necessity Statement*: Continue admission for assessment management of hypoxic respiratory failure, severe COVID-19 pneumonia, possible bacterial superinfection, with underlying COPD, other comorbidities. Coding Level of Care Code Acute Creative Developer for [facility] Fwd Exam Comprehensive Diagnoses Severe acute respiratory syndrome coronavirus 2 (SARS-CoV-2) detected U07.1 COPD (chronic obstructive pulmonary disease) J44.9 DM type 2 (diabetes mellitus, type 2) E11.9 HTN (hypertension) I10
--- NOTE | 2020-03-04 20:00 | PC.NURSE ---
Patient sitting up in chair. Assessment completed. Patient denies any complaints of pain or discomfort. Tolerating activity well.
[2020-03-04] MEDS: enoxaparin 40 mg/0.4 mL Syringe SUBCUT (21:10)
[2020-03-04 21:15] LABS: Glucose Point of Care 317 mg/dL (70-110)
[2020-03-05] VITALS (18 sets, daily range): BP systolic 123–158; BP diastolic 64–110; PULSE 60–89; RESP 14–22; TEMP 36.5–36.8; O2SAT 92–100; BMI 31.8
[2020-03-05] MEDS: ALPRAZolam 0.25 mg Tablet 0.125 MG PO (03:00)
[2020-03-05 05:43] LABS: D Dimer 0.47 ug/mIFEU (0-0.59)
[2020-03-05 05:54] LABS: Alanine Aminotransferase 14 U/L (0-33); Albumin Level 2.9 g/dL (3.5-5.2); Alkaline Phosphatase 74 IU/L (35-105); Anion Gap 9.5 (5-19); Aspartate Amino Transferase 17 U/L (0-32); Blood Urea Nitrogen 29 mg/dL (8-23); C Reactive Protein 14.7 mg/L (0.0-4.9); Calcium 8.7 mg/dL (8.5-10.5); Carbon Dioxide 36 mmol/L (22-29); Chloride 100 mmol/L (98-107); Globulin 3.3 g/dL (1.3-4.6); Glucose 170 mg/dL (65-115); Osmolality Calculated 302 mOsm/kg (285-295); Potassium 4.5 mmol/L (3.5-5.1); Sodium 141 mmol/L (136-145); Total Bilirubin 0.3 mg/dL (0.15-1.2); Total Protein 6.2 g/dL (6.6-8.7)
[2020-03-05 07:14] LABS: Basophils % 0.2 %; Hematocrit 43.4 % (37.0-47.0); Hemoglobin 13.6 g/dL (11.5-15.3); Lymphocytes # 1.5 10^3/uL (0.8-4.8); Lymphocytes % 16.6 %; Mean Corpuscular HGB Conc 31.3 g/dL (30.0-36.0); Mean Corpuscular Hemoglobin 28.2 pg (28.0-34.0); Mean Platelet Volume 11.2 fL (7.4-10.4); Monocytes # 1.4 10^3/uL (0.2-0.9); Monocytes % 15.6 %; Neutrophils # 5.86 10^3/uL (1.8-7.7); Neutrophils % 66.7 %; Nucleated Red Blood Cells % 0 %; Platelet Count 335 10^3/cmm (130-400); Red Blood Count 4.82 10^6/uL (4.1-5.3); Red Cell Distribution Width 12.3 % (12.1-15.1); White Blood Count 8.8 10^3/uL (4.0-10.0)
[2020-03-05 07:44] LABS: Glucose Point of Care 125 mg/dL (70-110)
[2020-03-05] MEDS: lisinopril 20 mg Tablet PO (08:12)
[2020-03-05] MEDS: levoFLOXacin 500 mg Tablet PO (08:12)
[2020-03-05] MEDS: famotidine 20 mg Tablet PO (08:12)
[2020-03-05] MEDS: nystatin powder 15 gm Btl 1 APPLIC TOPICAL ×2 (08:13→17:16)
[2020-03-05] MEDS: albuterol 8 gm MDI 2 PUFF INHALATION ×2 (08:45→23:00)
[2020-03-05 09:09] LABS: Slide Review Slide Review Perform
[2020-03-05 11:30] LABS: Glucose Point of Care 154 mg/dL (70-110)
--- NOTE | 2020-03-05 13:15 | PC.NURSE ---
Report called to med surg floor to Cris REYNOLDS.
[2020-03-05 13:25] LABS: Thyroid Stimulating Hormone 1.03 uIU/mL (0.27-4.20)
[2020-03-05] MEDS: ascorbic acid 500 mg Tablet PO ×2 (13:34→14:48)
[2020-03-05] MEDS: zinc gluconate 50 mg Tablet PO ×2 (13:34→14:48)
[2020-03-05 13:56] LABS: Procalcitonin 0.06 ng/mL (0-0.5)
[2020-03-05 14:06] LABS: Iron 41 ug/dL (37-145); Total Iron Binding Capacity 178 mcg/dl; Unsaturated Iron Binding 137 ug/dL (112-347)
[2020-03-05] MEDS: benzonatate 100 mg Capsule PO ×4 (14:48→21:53)
[2020-03-05] MEDS: dexamethasone 4 mg/mL INJ 6 MG IVP (14:50)
[2020-03-05 15:57] LABS: Influenza A by IFA Negative (Negative)
[2020-03-05 15:58] LABS: Influenza B by IFA Negative (Negative)
[2020-03-05 16:58] LABS: Glucose Point of Care 115 mg/dL (70-110)
[2020-03-05] MEDS: ferrous gluconate 324 mg Tablet PO (17:17)
--- NOTE | 2020-03-05 17:19 | PM.PN ---
Subjective Subjective: Interval history: Hospital course, labs noted. Patient continues to do well. On examination sitting comfortably in chair saturating 94% 2 L. Denies any nausea, vomiting, headache. States appetite is improving. Vitals/I&O/Wt Last Vital Signs Temp 98.2 F 03/05/20 15:39 Pulse 70 03/05/20 15:39 Resp 16 03/05/20 15:39 BP 148/76 03/05/20 15:39 Pulse Ox 94 03/05/20 15:39 03/05/20 03/05/20 03/05/20 06:59 14:59 22:59 Intake Total 240 / 1680 580 / 580 Output Total 850 / 2451 Balance -610 / -771 580 / 580 Weight last 48 hrs Weight 81.4 kg Weight 81.4 kg Physical Exam Narrative: EXAM NARRATIVE: General: No acute distress, AO x3 HEENT: PERRLA, pupils bilaterally equal and reactive Chest: Bilateral occasional rhonchi, n bilateral bronchial breath sounds, equal good air entry. CVS: S1-S2 regular, no murmurs, no tachycardia, no gallops, no rubs Abdomen: Soft, nontender, no organomegaly, bowel sounds present Neuro: No focal deficits, no facial deformity, AO x3, power 5/5 in all limbs Data : 03/05/20 04:45 03/05/20 04:45 A&P Assessment and plan (1) Hypoxia: Status: Acute (2) Severe acute respiratory syndrome coronavirus 2 (SARS-CoV-2) detected: Status: Acute (3) COPD (chronic obstructive pulmonary disease): Underlying COPD noted with 2 liters of oxygen. Status: Acute (4) DM type 2 (diabetes mellitus, type 2): Status: Acute (5) HTN (hypertension): At goal. Monitor blood pressure. Renal function. Status: Acute Additional A&P Information Hypoxia secondary to COVID-19 pneumonia: Wean off oxygen supplementation keeping saturation over 92%. Continue with antiviral treatment with remdesivir with last dose today. Continue with dexamethasone 6 mg IV daily. We will switch over to prednisone tomorrow. Advair, Spiriva. Vitamin C, zinc. Tessalon Perles. Strict input output charting, daily weights. Continue to follow with inflammatory markers including ferritin, LDH, D-dimer, fibrinogen. D-dimer elevated but patient is improving so we will continue with Lovenox at prophylactic dose. If patient worsens will start on therapeutic dose. Will discharge patient on Eliquis at DVT prophylaxis dose for 14 days. Home O2 evaluation prior to discharge. Pulmonary toilet with flutter valve and incentive spirometry. Hypertension: Goal blood pressure less than 140/90 mmHg. Continue with home dose of lisinopril. If required will start patient on amlodipine. Type 2 diabetes mellitus: Carb consistent diet. Switch sliding scale at moderate dose. Continue to monitor glucose. Transfer patient to [facility] site today. Protonix for PUD prophylaxis. Carb consistent diet. Full code. Lovenox for DVT prophylaxis. Attestations Medical Necessity Statement*: Patient requires further hospitalization for management of hypoxia because of COVID-19 pneumonia while she finishes her antiviral treatment. Time Spent in Patient Care: Greater than 35 minutes (>than 50% of time spent in counselling and/or direct pt care on unit). Coding Level of Care Code Acute Small Wind Energy Installer for [facility] Diagnoses Hypoxia R09.02 Severe acute respiratory syndrome coronavirus 2 (SARS-CoV-2) detected U07.1 COPD (chronic obstructive pulmonary disease) J44.9 DM type 2 (diabetes mellitus, type 2) E11.9 HTN (hypertension) I10
[2020-03-05] MEDS: atorvastatin 40 mg Tablet 20 MG PO (21:10)
[2020-03-05] MEDS: enoxaparin 40 mg/0.4 mL Syringe SUBCUT (21:11)
[2020-03-05 21:32] LABS: Glucose Point of Care 320 mg/dL (70-110)
[2020-03-06] VITALS (14 sets, daily range): BP systolic 123–154; BP diastolic 64–86; PULSE 63–96; RESP 16–20; TEMP 36.4–37.1; O2SAT 88–96
--- NOTE | 2020-03-06 06:00 | XR_ITS ---
WS: [id number] XR chest 1V portable [id number] REASON FOR EXAM: covid FINDINGS: In comparison to the previous examination of 03/01/2020, infiltrative in consolidative changes in the lower lung chandler show some resolution. Moderate residual is present. No new chest findings. XR/XR chest 1V portable [id number] IMPRESSION: Significant interval improvement in the bilateral lung infiltrates compared to previous examination. Moderate residual remains.
--- NOTE | 2020-03-06 07:26 | NUR.SHIFT ---
Patient was able to transition from bed to commode multiple times last night with out aid. Patient had slept most of the night and had zero complaints of pain.
[2020-03-06] MEDS: lisinopril 20 mg Tablet PO ×2 (08:27→10:16)
[2020-03-06] MEDS: ferrous gluconate 324 mg Tablet PO ×2 (08:28→18:00)
[2020-03-06] MEDS: zinc gluconate 50 mg Tablet PO (08:28)
[2020-03-06] MEDS: levoFLOXacin 500 mg Tablet PO (08:28)
[2020-03-06] MEDS: benzonatate 100 mg Capsule PO ×3 (08:28→21:17)
[2020-03-06] MEDS: ascorbic acid 500 mg Tablet PO (08:28)
[2020-03-06] MEDS: albuterol 8 gm MDI 2 PUFF INHALATION ×4 (08:30→22:25)
[2020-03-06 08:45] LABS: Glucose Point of Care 123 mg/dL (70-110)
[2020-03-06] MEDS: nystatin powder 15 gm Btl 1 APPLIC TOPICAL (10:17)
--- NOTE | 2020-03-06 11:04 | PC.SOCIAL ---
IMM Update Pg. 2 of IMM updated with patient's spouse over the phone. Initialed, dated, and timed, placed in chart.
[2020-03-06 11:25] LABS: Glucose Point of Care 189 mg/dL (70-110)
[2020-03-06 11:53] LABS: Basophils % 0.3 %; Eosinophils % 0.1 %; Hematocrit 49.3 % (37.0-47.0); Hemoglobin 15.7 g/dL (11.5-15.3); Lymphocytes # 2.4 10^3/uL (0.8-4.8); Lymphocytes % 17.7 %; Mean Corpuscular HGB Conc 31.8 g/dL (30.0-36.0); Mean Corpuscular Hemoglobin 28.3 pg (28.0-34.0); Mean Corpuscular Volume 88.8 fL (81-99); Mean Platelet Volume 11.2 fL (7.4-10.4); Monocytes # 2.3 10^3/uL (0.2-0.9); Neutrophils # 8.25 10^3/uL (1.8-7.7); Neutrophils % 61.9 %; Nucleated Red Blood Cells % 0 %; Platelet Count 384 10^3/cmm (130-400); Red Blood Count 5.55 10^6/uL (4.1-5.3); Red Cell Distribution Width 12.2 % (12.1-15.1); White Blood Count 13.3 10^3/uL (4.0-10.0)
[2020-03-06 12:01] LABS: Fibrinogen 371 mg/dL (174-498)
[2020-03-06 12:06] LABS: D Dimer 2.38 ug/mIFEU (0-0.59)
[2020-03-06 12:53] LABS: Alanine Aminotransferase 18 U/L (0-33); Alkaline Phosphatase 92 IU/L (35-105); Anion Gap 15.2 (5-19); Aspartate Amino Transferase 23 U/L (0-32); Blood Urea Nitrogen 28 mg/dL (8-23); Calcium 9.4 mg/dL (8.5-10.5); Carbon Dioxide 31 mmol/L (22-29); Chloride 95 mmol/L (98-107); Glucose 156 mg/dL (65-115); Osmolality Calculated 293 mOsm/kg (285-295); Potassium 4.2 mmol/L (3.5-5.1); Sodium 137 mmol/L (136-145); Total Bilirubin 0.3 mg/dL (0.15-1.2)
[2020-03-06 13:04] LABS: C Reactive Protein 10.1 mg/L (0.0-4.9); Chol HDL Ratio 2.63 mg/dL (0.0-4.40); Cholesterol 71 mg/dL (0-200); Creatine Phosphokinase 29 U/L (26-192); Ferritin 377 ng/mL (15-150); HDL Cholesterol 27 mg/dL (60-100); LDL Cholesterol Calculated 10 mg/dL (50-129); Lactate Dehydrogenase 262 U/L (135-214); NT Pro B Type Natriuretic Pept 1014 pg/mL (0-450); Triglycerides 170 mg/dL (0-150); VLDL Cholestrol Calculation 34 mg/dL (0-30)
[2020-03-06 13:09] LABS: Slide Review Slide Review Perform
[2020-03-06] MEDS: dexamethasone 4 mg/mL INJ 6 MG IVP (14:24)
--- NOTE | 2020-03-06 17:02 | P.PN_ITS ---
Subjective Subjective: Interval history: No acute events overnight. Patient was transferred to floors yesterday. On examination she is sitting comfortably in chair able to have complete conversation with me without having any difficulty in breathing. During the day she has remained on 2 L maintaining saturation more than 92%. States her appetite is improving. Denies any nausea, vomiting, headache. Vitals/I&O/Wt Last Vital Signs Temp 98.5 F 03/06/20 15:13 Pulse 90 03/06/20 15:57 Resp 18 03/06/20 15:57 BP 150/86 03/06/20 15:13 Pulse Ox 94 03/06/20 15:57 03/06/20 03/06/20 03/06/20 06:59 14:59 22:59 Intake Total 360 / 360 Output Total 100 / 100 200 / 200 Balance -100 / 680 160 / 160 Weight last 48 hrs Weight 78.381 kg Weight 81.4 kg Physical Exam Narrative: EXAM NARRATIVE: General: No acute distress, AO x3 HEENT: PERRLA, pupils bilaterally equal and reactive Chest: Bilateral occasional rhonchi, n bilateral bronchial breath sounds, equal good air entry. CVS: S1-S2 regular, no murmurs, no tachycardia, no gallops, no rubs Abdomen: Soft, nontender, no organomegaly, bowel sounds present Neuro: No focal deficits, no facial deformity, AO x3, power 5/5 in all limbs Data : 03/06/20 10:42 03/06/20 12:20 Micro: Microbiology 03/05/20 14:40 MRSA Culture - Final Nose A&P Assessment and plan (1) Hypoxia: Status: Acute (2) Severe acute respiratory syndrome coronavirus 2 (SARS-CoV-2) detected: Status: Acute (3) COPD (chronic obstructive pulmonary disease): Underlying COPD noted with 2 liters of oxygen. Status: Acute (4) DM type 2 (diabetes mellitus, type 2): Status: Acute (5) HTN (hypertension): At goal. Monitor blood pressure. Renal function. Status: Acute Additional A&P Information Hypoxia secondary to COVID-19 pneumonia: Wean off oxygen supplementation keeping saturation over 92%. Last dose of remdesivir today. Switch over to prednisone tomorrow. Advair, Spiriva. Vitamin C, zinc. Tessalon Perles. Strict input output charting, daily weights. Continue to follow with inflammatory markers including ferritin, LDH, D-dimer, fibrinogen. D-dimer is elevated today. We will switch over to Eliquis 5 mg twice daily. Patient would most likely require Eliquis for 2 more weeks to finish a 2-week course. Home O2 evaluation prior to discharge. Pulmonary toilet with flutter valve and incentive spirometry. Hypertension: Goal blood pressure less than 140/90 mmHg. Increase to home dose of lisinopril to 40 mg daily. We will continue to monitor blood pressures if still elevated can add amlodipine. Type 2 diabetes mellitus: Carb consistent diet. Switch sliding scale at moderate dose. Continue to monitor glucose. Discharge planning: If patient continues to do well will monitor for 24 more hours and then plan to discharge her tomorrow to home with oxygen with advised to follow-up with her primary care provider within next 3 to 4 days. Protonix for PUD prophylaxis. Carb consistent diet. Full code. Lovenox for DVT prophylaxis. Attestations Medical Necessity Statement*: Requires further hospitalization for management of resolving hypoxia secondary to COVID-19 pneumonia. Time Spent in Patient Care: Greater than 35 minutes (>than 50% of time spent in counselling and/or direct pt care on unit) . Coding Level of Care Code Acute Conventions Assistant for [facility] Fwd Diagnoses Hypoxia R09.02 Severe acute respiratory syndrome coronavirus 2 (SARS-CoV-2) detected U07.1 COPD (chronic obstructive pulmonary disease) J44.9 DM type 2 (diabetes mellitus, type 2) E11.9 HTN (hypertension) I10
[2020-03-06 17:08] LABS: Estmated Average Glucose 108; Hemoglobin A1C 5.4 % (4.0-6.0)
[2020-03-06 17:36] LABS: Glucose Point of Care 203 mg/dL (70-110)
[2020-03-06] MEDS: apixaban 5 mg Tablet PO (18:01)
[2020-03-06 21:03] LABS: Glucose Point of Care 368 mg/dL (70-110)
[2020-03-06] MEDS: atorvastatin 40 mg Tablet 20 MG PO (21:17)
[2020-03-07] VITALS (7 sets, daily range): BP systolic 130–163; BP diastolic 72–83; PULSE 46–72; RESP 18–20; TEMP 36.4–37.1; O2SAT 76–98
[2020-03-07 07:57] LABS: Basophils # 0.1 10^3/uL (0.0-0.1); Basophils % 0.4 %; Hematocrit 45.7 % (37.0-47.0); Hemoglobin 14.6 g/dL (11.5-15.3); Lymphocytes # 1.9 10^3/uL (0.8-4.8); Lymphocytes % 12.8 %; Mean Corpuscular HGB Conc 31.9 g/dL (30.0-36.0); Mean Corpuscular Volume 87.7 fL (81-99); Mean Platelet Volume 10.7 fL (7.4-10.4); Monocytes # 2.1 10^3/uL (0.2-0.9); Monocytes % 14.3 %; Neutrophils # 10.09 10^3/uL (1.8-7.7); Neutrophils % 69.8 %; Nucleated Red Blood Cells % 0 %; Platelet Count 392 10^3/cmm (130-400); Red Blood Count 5.21 10^6/uL (4.1-5.3); Red Cell Distribution Width 12.2 % (12.1-15.1); White Blood Count 14.5 10^3/uL (4.0-10.0)
[2020-03-07 08:07] LABS: Fibrinogen 451 mg/dL (174-498)
[2020-03-07] MEDS: albuterol 8 gm MDI 2 PUFF INHALATION (08:09)
[2020-03-07 08:11] LABS: Glucose Point of Care 116 mg/dL (70-110)
[2020-03-07] MEDS: levoFLOXacin 500 mg Tablet PO (09:56)
[2020-03-07] MEDS: zinc gluconate 50 mg Tablet PO (09:56)
[2020-03-07] MEDS: predniSONE 20 mg Tablet 40 MG PO (09:57)
[2020-03-07] MEDS: ferrous gluconate 324 mg Tablet PO (09:57)
[2020-03-07] MEDS: benzonatate 100 mg Capsule PO ×2 (09:57→15:11)
[2020-03-07] MEDS: ascorbic acid 500 mg Tablet PO (09:57)
[2020-03-07] MEDS: lisinopril 20 mg Tablet 40 MG PO (09:57)
[2020-03-07] MEDS: apixaban 5 mg Tablet PO (09:57)
[2020-03-07] MEDS: nystatin powder 15 gm Btl 1 APPLIC TOPICAL ×2 (10:04→10:05)
--- NOTE | 2020-03-07 10:38 | P.DS_ITS ---
Discharge Providers Date of Admission: 03/01/20 16:22 Date of Discharge: March 07, 2020 Attending Provider at Admission: Jax Villa Attending Provider at Discharge: Jesus Manuel Dixon MD Primary Care Provider: Gloria Urbina MD Diagnoses at Discharge Discharge Diagnosis (1) Hypoxia: Status: Acute (2) Severe acute respiratory syndrome coronavirus 2 (SARS-CoV-2) detected: Status: Acute (3) COPD (chronic obstructive pulmonary disease): Status: Acute (4) DM type 2 (diabetes mellitus, type 2): Status: Acute (5) HTN (hypertension): Status: Acute Reason for Visit Reason for Visit: COVID + (02.28.20), LOW O2 Hospital Course Hospital Course La Aranda is a pleasant 80-year-old lady with history of COPD, chronically on 2 L of oxygen came to ER due to progressive shortness of breath over the last 2 days, nonproductive cough, and fatigue. In ER she is noted with worsening hypoxia. She is requiring 5 L of oxygen by nasal cannula. D-dimer is found elevated at 1.45. CTA without PE. Multifocal extensive airspace groundglass opacities consistent with COVID-19 pneumonia. She was admitted to the hospital and started on antiviral treatment with remdesivir, dexamethasone along with anticoagulation. She responded well to the treatment and at present is on 2 L to maintain a saturation over 90%. Her hospital stay was unremarkable. She is doing well with physical therapy as well. She has been discharged in hemodynamically stable condition with advised to follow-up with her primary care provider within next 1 to 3 days. She supposed to take anticoagulation with Eliquis for 2 more weeks, continue with Advair and Spiriva for 2 more weeks and vitamin C and zinc for 2 more weeks. Physical Exam Narrative: EXAM NARRATIVE: General: No acute distress, AO x3 HEENT: PERRLA, pupils bilaterally equal and reactive Chest: Bilateral occasional rhonchi, n bilateral bronchial breath sounds, equal good air entry. CVS: S1-S2 regular, no murmurs, no tachycardia, no gallops, no rubs Abdomen: Soft, nontender, no organomegaly, bowel sounds present Neuro: No focal deficits, no facial deformity, AO x3, power 5/5 in all limbs Discharge Data Data Completed and Pending: Completed Studies During Hospitalization Category Date Time Status CT angio chest PE protcl [id number] Urge nt Cat Scan 03/01/20 16:02 Completed XR chest 1V jay ble [id number] Q48H Exams 03/06/20 06:00 Completed XR chest 1V jay ble [id number] Stat Exams 03/01/20 14:44 Completed Pending at discharge Category Date Time Status XR chest 1V jay ble [id number] Q48H Exams 03/08/20 06:00 Ordered XR chest 1V jay ble [id number] Q48H Exams 03/10/20 06:00 Ordered C Reactive Protei n AM LABS Lab 03/08/20 04:00 Ordered C Reactive Protei n Timed Lab 03/07/20 07:36 Received Comprehensive Met abolic Panel AM LA BS Lab 03/07/20 07:36 Received Creatine Phosphok inase AM LABS Lab 03/08/20 04:00 Ordered Creatine Phosphok inase Timed Lab 03/07/20 07:36 Received D Dimer AM LABS Lab 03/07/20 07:36 Results D Dimer AM LABS Lab 03/08/20 04:00 Ordered Ferritin AM LABS Lab 03/08/20 04:00 Ordered Ferritin Timed Lab 03/07/20 07:36 Received Fibrinogen AM LAB S Lab 03/07/20 07:36 Results Fibrinogen AM LAB S Lab 03/08/20 04:00 Ordered Lactate Dehydroge nase AM LABS Lab 03/08/20 04:00 Ordered Lactate Dehydroge nase Timed Lab 03/07/20 07:36 Received NT Pro B Type Jannette riuretic Pept AM L ABS Lab 03/08/20 04:00 Ordered NT Pro B Type Jannette riuretic Pept Time d Lab 03/07/20 07:36 Received Sputum Culture an d Gram Stain Routi ne Lab 03/01/20 20:16 Uncollected Labs from last 24 hours 03/07/20 03/07/20 03/07/20 07:58 07:36 07:36 WBC 14.5 H RBC 5.21 Hgb 14.6 Hct 45.7 MCV 87.7 MCH 28.0 MCHC 31.9 RDW 12.2 Plt Count 392 MPV 10.7 H Neut % (Auto) 69.8 Lymph % (Auto) 12.8 [place] % (Auto) 14.3 Eos % (Auto) 0.0 Baso % (Auto) 0.4 Neut # (Auto) 10.09 H Lymph # (Auto) 1.9 [place] # (Auto) 2.1 H Eos # (Auto) 0.0 Baso # (Auto) 0.1 Nucleated RBC % (a uto) 0 Nucleated RBCs # 0.0 Fibrinogen D-Dimer Sodium Pending Potassium Pending Chloride Pending Carbon Dioxide Pending Anion Gap Pending BUN Pending Creatinine Pending GFR Calculation Pending Glucose Pending POC Glucose 116 Estimat Average Gl ucose Hemoglobin A1c Calculated Osmolal ity Pending Calcium Pending Ferritin Pending Total Bilirubin Pending AST Pending ALT Pending Alkaline Phosphata se Pending Lactate Dehydrogen ase Pending Creatine Kinase Pending C-Reactive Protein Pending NT-Pro-B Natriuret Pep Pending Total Protein Pending Albumin Pending Globulin Pending Triglycerides Cholesterol LDL Cholesterol, C alc Total VLDL Cholest [place] HDL Cholesterol Cholesterol/HDL Ra nelson 03/07/20 03/07/20 03/06/20 07:36 07:36 20:46 WBC RBC Hgb Hct MCV MCH MCHC RDW Plt Count MPV Neut % (Auto) Lymph % (Auto) [place] % (Auto) Eos % (Auto) Baso % (Auto) Neut # (Auto) Lymph # (Auto) [place] # (Auto) Eos # (Auto) Baso # (Auto) Nucleated RBC % (a uto) Nucleated RBCs # Fibrinogen 451 D-Dimer Pending Sodium Potassium Chloride Carbon Dioxide Anion Gap BUN Creatinine GFR Calculation Glucose POC Glucose 368 Estimat Average Gl ucose Hemoglobin A1c Calculated Osmolal ity Calcium Ferritin Cancelled Total Bilirubin AST ALT Alkaline Phosphata se Lactate Dehydrogen ase Cancelled Creatine Kinase Cancelled C-Reactive Protein Cancelled NT-Pro-B Natriuret Pep Cancelled Total Protein Albumin Globulin Triglycerides Cholesterol LDL Cholesterol, C alc Total VLDL Cholest madina HDL Cholesterol Cholesterol/HDL Ra nelson 03/06/20 03/06/20 03/06/20 17:28 12:20 12:20 WBC RBC Hgb Hct MCV MCH MCHC RDW Plt Count MPV Neut % (Auto) Lymph % (Auto) [place] % (Auto) Eos % (Auto) Baso % (Auto) Neut # (Auto) Lymph # (Auto) [place] # (Auto) Eos # (Auto) Baso # (Auto) Nucleated RBC % (a uto) Nucleated RBCs # Fibrinogen D-Dimer Sodium 137 Potassium 4.2 Chloride 95 L Carbon Dioxide 31 H Anion Gap 15.2 BUN 28 H Creatinine 0.6 GFR Calculation Not Reportable Glucose 156 H POC Glucose 203 Estimat Average Gl ucose Hemoglobin A1c Calculated Osmolal ity 293 Calcium 9.4 Ferritin 377 H Total Bilirubin 0.3 AST 23 ALT 18 Alkaline Phosphata se 92 Lactate Dehydrogen ase 262 H Creatine Kinase 29 C-Reactive Protein 10.1 H NT-Pro-B Natriuret Pep 1014 H Total Protein 7.0 Albumin 3.0 L Globulin 4.0 Triglycerides 170 H Cholesterol 71 LDL Cholesterol, C alc 10 L Total VLDL Cholest madina 34 H HDL Cholesterol 27 L Cholesterol/HDL Ra nelson 2.63 03/06/20 03/06/20 03/06/20 11:08 10:42 10:42 WBC 13.3 H RBC 5.55 H Hgb 15.7 H Hct 49.3 H MCV 88.8 MCH 28.3 MCHC 31.8 RDW 12.2 Plt Count 384 MPV 11.2 H Neut % (Auto) 61.9 Lymph % (Auto) 17.7 [place] % (Auto) 17.0 Eos % (Auto) 0.1 Baso % (Auto) 0.3 Neut # (Auto) 8.25 H Lymph # (Auto) 2.4 [place] # (Auto) 2.3 H Eos # (Auto) 0.0 Baso # (Auto) 0.0 Nucleated RBC % (a uto) 0 Nucleated RBCs # 0.0 Fibrinogen 371 D-Dimer 2.38 H Sodium Potassium Chloride Carbon Dioxide Anion Gap BUN Creatinine GFR Calculation Glucose POC Glucose 189 Estimat Average Gl ucose Hemoglobin A1c Calculated Osmolal ity Calcium Ferritin Total Bilirubin AST ALT Alkaline Phosphata se Lactate Dehydrogen ase Creatine Kinase C-Reactive Protein NT-Pro-B Natriuret Pep Total Protein Albumin Globulin Triglycerides Cholesterol LDL Cholesterol, C alc Total VLDL Cholest madina HDL Cholesterol Cholesterol/HDL Ra nelson 03/05/20 04:45 WBC RBC Hgb Hct MCV MCH MCHC RDW Plt Count MPV Neut % (Auto) Lymph % (Auto) [place] % (Auto) Eos % (Auto) Baso % (Auto) Neut # (Auto) Lymph # (Auto) [place] # (Auto) Eos # (Auto) Baso # (Auto) Nucleated RBC % (a uto) Nucleated RBCs # Fibrinogen D-Dimer Sodium Potassium Chloride Carbon Dioxide Anion Gap BUN Creatinine GFR Calculation Glucose POC Glucose Estimat Average Gl ucose 108 Hemoglobin A1c 5.4 Calculated Osmolal ity Calcium Ferritin Total Bilirubin AST ALT Alkaline Phosphata se Lactate Dehydrogen ase Creatine Kinase C-Reactive Protein NT-Pro-B Natriuret Pep Total Protein Albumin Globulin Triglycerides Cholesterol LDL Cholesterol, C alc Total VLDL Cholest [place] HDL Cholesterol Cholesterol/HDL Ra nelson Vitals: Last Vital Signs Temp 97.5 F L 03/07/20 08:00 Pulse 72 03/07/20 08:14 Resp 18 03/07/20 08:10 BP 138/72 03/07/20 08:00 Pulse Ox 98 03/07/20 08:10 Discharge Plan Discharge Patient Disposition: Home Condition: Stable Prescriptions: New lisinopril 20 mg Tablet 40 mg PO DAILY Qty: 60 RF: 0 Vitamin C 500 mg Tablet 500 mg PO DAILY 14 Days Qty: 14 RF: 0 benzonatate 100 mg Capsule 100 mg PO TID PRN (Reason: cough) Qty: 10 RF: 0 zinc gluconate 50 mg Tablet 50 mg PO DAILY Qty: 14 RF: 0 Spiriva with HandiHaler 18 mcg Capsule, W/Inhalation Device 18 mcg inhalation DAILY.RESPIRATORY Qty: 14 RF: 0 ferrous gluconate 324 mg (37.5 mg iron) Tablet 324 mg PO BIDWM Qty: 60 RF: 0 Eliquis 5 mg Tablet 5 mg PO BID 14 Days Qty: 28 RF: 0 Medrol (Emanuel) 4 mg tablets,dose pack See Rx Instructions .ROUTE .COMPLEX Qty: 21 RF: 0 Continued Calcium 600 600 mg calcium (1,500 mg) Tablet 600 mg PO DAILY RF: 0 lovastatin 20 mg tablet 20 mg PO DAILY RF: 0 metformin 500 mg tablet extended release 24 hr 500 mg PO DAILY RF: 0 Osteo Bi-Flex 250-200 mg Tablet 1 tab PO DAILY RF: 0 ICaps [id number],750-0-635-75 [id number]-unit Tablet Extended Release 1 tab PO DAILY RF: 0 CoQ-10 1 tab PO DAILY RF: 0 Advair Diskus 250-50 mcg/dose blister with device See Rx Instructions .ROUTE .COMPLEX Qty: 30 RF: 0 Discontinued lisinopril 20 mg tablet 20 mg PO DAILY RF: 0 levofloxacin 500 mg tablet 500 mg PO DAILY RF: 0 Discharge Orders: Discharge Order (Routine); Ordered 03/07/20 Ordered By: Jesus Manuel Zack Other Ambulatory Orders: DME: Oxygen (Order) Location: None Selected Ordered By: Jesus Manuel Dixon Referrals: Gloria Urbina MD [Primary Care Provider] - 1-3 days Discharge Diet: Cardiac Discharge Activity: Resume usual activity Discharge Attestations Time Spent in Discharge Care*: greater than 30 min Specific Discharge Activities: educating patient, educating and/or supporting family/caregiver, discussing with business case analyst/social workers/dc planners, documenting/other paperwork and evaluating patient/reviewing data Status at Discharge: Cognitive status at discharge: cognitively intact , Behavioral status at discharge: cooperative , Functional status at discharge: uses cane/walker Overall status at discharge: patient is progressing back to baseline Quality Metrics Clinical Quality Measures During this hospital stay, did patient experience: None Coding Level of Care Code Acute Field Return Repairer for Az Mukherjeed Diagnoses Hypoxia R09.02 Severe acute respiratory syndrome coronavirus 2 (SARS-CoV-2) detected U07.1 COPD (chronic obstructive pulmonary disease) J44.9 DM type 2 (diabetes mellitus, type 2) E11.9 HTN (hypertension) I10
[2020-03-07 12:19] LABS: Glucose Point of Care 246 mg/dL (70-110)
[2020-03-07 13:35] LABS: D Dimer <= 0.27 ug/mIFEU (0-0.59)
[2020-03-07 21:11] LABS: Alanine Aminotransferase 19 U/L (0-33); Albumin Level 3.2 g/dL (3.5-5.2); Alkaline Phosphatase 98 IU/L (35-105); Anion Gap 13.8 (5-19); Aspartate Amino Transferase 19 U/L (0-32); Blood Urea Nitrogen 32 mg/dL (8-23); C Reactive Protein 7.3 mg/L (0.0-4.9); Carbon Dioxide 30 mmol/L (22-29); Chloride 100 mmol/L (98-107); Creatine Phosphokinase 24 U/L (26-192); Ferritin 364 ng/mL (15-150); Globulin 2.9 g/dL (1.3-4.6); Glucose 127 mg/dL (65-115); Lactate Dehydrogenase 245 U/L (135-214); NT Pro B Type Natriuretic Pept 673 pg/mL (0-450); Osmolality Calculated 296 mOsm/kg (285-295); Potassium 4.8 mmol/L (3.5-5.1); Sodium 139 mmol/L (136-145); Total Bilirubin 0.4 mg/dL (0.15-1.2); Total Protein 6.1 g/dL (6.6-8.7)
--- NOTE | 2020-03-14 15:33 | PC.SOCIAL ---
Spoke with the patient on the phone about the discharge information they received spoke about signs and symptoms to watch for such as; blue lips or face, fever of 104 or higher, trouble breathing or catching breath, chest pain lasting longer than 5 minute, confusion or trouble waking up. We also spoke about ways to improve the immune system, these included; eating and drinking well, eating fruits and vegetables, lean meat, low fat dairy products, keeping up with immunizations such as flu/pneumonia/shingles shots, going to all appointments and follow ups, lessening and stress. We also spoke about ways to stop or prevent the spread of the COVID 19. These included; social distancing at all times, washing hands longer than 20 seconds with a good lather, sanitizing surfaces in home and in vehicle, masking up when possible and washing any cloth masks after use and allow them to dry completely before next use, sneezing or coughing into arm, restricting company or going out in public. We spoke a little about the benefits of plasma donation. She didn't think she would be able to donate but appreciated the info. She stated that she received the best of care while here. She did see Dr. Urbina on the this month in person. All went very well she said.
== END 2020-03-07 15:58 | disposition home or self-care (01) | DRG 177 ==
LOC: ER 17:28 → ICU 19:37 → MEDSURG 03-05 14:07
PROVIDERS: Family Medicine; Admitting Provider Internal Medicine; Emergency Provider Emergency Medicine; PCP Family Medicine; Visit Provider Student in an Organized Health Care Education/Training Program
DX: U07.1 COVID-19 (principal); J12.89 Other viral pneumonia; J96.21 Acute and chronic respiratory failure with hypoxia; J44.0 Chronic obstructive pulmonary disease with (acute) lower respiratory infection; Z99.81 Dependence on supplemental oxygen; E11.9 Type 2 diabetes mellitus without complications; Z87.891 Personal history of nicotine dependence; I10 Essential (primary) hypertension; Z79.84 Long term (current) use of oral hypoglycemic drugs
CPT/HCPCS: 12345; 36415; 36416; 36600; 71045; 71275; 80053; 80061; 82550; 82728; 82803; 82962; 83036; 83540; 83550; 83605; 83615; 83880; 84145; 84443; 84484; 85007; 85025; 85378; 85384; 85610; 86140; 87040; 87641; 87804; 93005; 94640; 96372; 96375; 97161; 97530; 99283; J1100; J1650; J1815; J3535; J7512; Q9967

== ENCOUNTER 2020-08-22 10:48 | Inpatient (IN) | payer MEDICARE, BC, SELFPAY ==
[2020-08-22] VITALS (49 sets, daily range): BP systolic 95–135; BP diastolic 58–99; PULSE 78–149; RESP 13–37; TEMP 36.6–36.8; O2SAT 89–99; BMI 28.3
--- NOTE | 2020-08-22 11:10 | ECG_ITS ---
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 Measurements Intervals [place] Rate: 128 P: AR: QRS: 106 QRSD: 133 T: -42 QT: 229 QTc: 335 Interpretive Statements ATRIAL FLUTTER/TACHYCARDIA WITH RAPID VENTRICULAR RESPONSE MARKED RIGHT AXIS DEVIATION [QRS AXIS > 100] INTRAVENTRICULAR CONDUCTION DELAY [130+ ms QRS DURATION] INFERIOR MYOCARDIAL INFARCTION [40+ ms Q WAVE AND/OR ST/T ABNORMALITY IN II/aVF], PROBABLY OLD Compared to ECG 08/22/2020 13:46:03 Right-axis deviation now present Intraventricular conduction delay now present Myocardial infarct finding now present Right bundle-branch block no longer present Left posterior fascicular block no longer present T-wave abnormality no longer present Possible ischemia no longer present Electronically Signed On 08-22-2020 18:24:21 CDT by Jerod Hall M.D. [email or web address]
--- NOTE | 2020-08-22 11:10 | XR_ITS ---
WS: [id number] Exam: XR chest 1V portable [id number] Date/Time of Exam: 08/22/2020 11:10 AM Reason For Exam: atrial flutter Comparison 03/06/2020. The lungs are fully expanded. Chronic elevation of the right diaphragm. Heart size is normal. The med iastinum is not widened. No pleural effusions. Regional bony structures are intact. XR/XR chest 1V portable [id number] IMPRESSION: 1. No acute cardiopulmonary finding. 2. Chronically elevated right diaphragm.
--- NOTE | 2020-08-22 11:12 | W.ED.ARRPALP ---
HPI - Arrhythmia/Palpitations General: Chief Complaint: Chest Pain Stated Complaint: irregular heart rate Time Seen by Provider: 08/22/20 11:10 History of Present Illness: HPI narrative: 80-year-old female sent to the emergency room from her primary care doctor's office after presenting with a rapid irregular heart rate on arrival here home rhythm monitor and EKG patient is in a flutter. She has a ventricular rate in the 140s to 150s. She is mildly symptomatic with his sensation of rapid heartbeat. She denies any chest pain lightheadedness or dizziness although she does state for a long time whenever she extends her neck she will get lightheaded and dizzy that is quite severe. She is not been particularly short of breath she is not previously had episodes like this she is only taking aspirin is not on any other anticoagulants. The patient is diabetic she denies any history of coronary artery disease. MD complaint: rapid heart beat and heart racing Onset (ago): day(s) (2) Duration: constant Severity: moderate Context: occurred during rest Associated symptoms: Reports short of breath; Deny anxiety, cough, diaphoresis, muscle cramps, nausea, paresthesias, pre-syncope, sense of impending doom, syncope or vomiting Review of Systems Const: Denies: diaphoresis ENMT: Denies: throat pain, ear or mastoid pain, nasal discharge or nasal congestion Card: Denies: syncope or pre-syncope Resp: Denies: dyspnea, productive cough or non-productive cough GI: Denies: nausea or vomiting : Denies: flank pain, difficulty voiding, dysuria, urinary frequency or urinary urgency Musc: Denies: muscle cramps Skin/Breast: Denies: rash or pruritus Psych: Denies: anxiety PFSH ED PFSH: Medical History COPD (chronic obstructive pulmonary disease) DM type 2 (diabetes mellitus, type 2) Suspected severe acute respiratory syndrome coronavirus 2 (SARS-CoV-2) infection Surgical History H/O: hysterectomy History of ectopic Family History Mother Heart disease Father Heart disease Social History Smoking and tobacco status: former smoker Quit status (tobacco): has quit using tobacco Year quit tobacco: Many decades ago Alcohol intake: current Alcohol intake frequency: 0-2 Drinks per Day Lives independently: Yes Household members: spouse Marital status: Physical Exam Const: COMMON NORMALS: no acute distress GENERAL APPEARANCE: cooperative and comfortable ORIENTATION/CONSCIOUSNESS: Yes awake, Yes oriented to person, Yes oriented to place and Yes oriented to time HENMT: COMMON NORMALS: normocephalic, atraumatic and hearing grossly normal bilaterally HEAD & SCALP: normocephalic and atraumatic Eye: COMMON NORMALS: Equal, round and reactive pupils present, EOMs intact bilaterally, conjunctivae normal and no scleral icterus CONJUNCTIVA: Yes conjunctivae normal PUPIL: Yes Equal, round and reactive pupils present Neck/C-Spine: COMMON NORMALS: no JVD Resp: COMMON NORMALS: normal respiratory effort, No retractions, No use of accessory muscles and clear to auscultation bilaterally AUSCULTATION: clear to auscultation bilaterally Cardio: COMMON NORMALS: no JVD, regular rate, regular rhythm and No murmurs present (Cardio) RATE: regular rate RHYTHM: regular rhythm GI: COMMON NORMALS: Soft to palpation and No hepatosplenomegaly present AUSCULTATION: Yes normoactive bowel sounds PALPATION: Yes Soft to palpation, No Tenderness to palpation present (GI), No Guarding due to palpation present (GI) and Yes No hepatosplenomegaly present Extremity: COMMON NORMALS: normal to inspection, capillary refill normal, no clubbing, cyanosis or edema, no calf tenderness and no pedal edema Neuro: SENSORIUM/ORIENTATION: Yes oriented to person, Yes oriented to place and Yes oriented to time Skin: COMMON NORMALS: no rashes or lesions noted GENERAL SKIN EXAM: no rashes or lesions noted Course Vital Signs: Vital signs: Vital Signs Temperature 98.1 F 08/27/20 10:47 Pulse Rate 114 H 08/27/20 10:47 Respiratory Rate 22 H 08/27/20 10:47 Blood Pressure 105/62 08/27/20 10:47 Pulse Oximetry 98 08/27/20 10:47 MDM - Arrhythmia/Palpitations MDM Narrative: Medical decision making narrative: Dr. Sanchez to consult discussed with Dr. Villa Lab Data: Labs: Lab Results 08/22/20 08/22/20 08/22/20 Range/Units 11:25 11:25 11:25 WBC 14.3 H (4.0-10.0) 10^3/ uL RBC 5.25 (4.1-5.3) 10^6/u L Hgb 15.2 (11.5-15.3) g/dL Hct 47.2 H (37.0-47.0) % MCV 89.9 (81-99) fL MCH 29.0 (28.0-34.0) pg MCHC 32.2 (30.0-36.0) g/dL RDW 13.0 (12.1-15.1) % Plt Count 337 (130-400) 10^3/c mm MPV 11.1 H (7.4-10.4) fL Neut % (Auto) 65.0 % Lymph % (Auto) 22.1 % [place] % (Auto) 11.5 % Eos % (Auto) 0.6 % Baso % (Auto) 0.5 % Neut # (Auto) 9.31 H (1.8-7.7) 10^3/u L Lymph # (Auto) 3.2 (0.8-4.8) 10^3/u L [place] # (Auto) 1.7 H (0.2-0.9) 10^3/u L Eos # (Auto) 0.1 (0.0-0.8) 10^3/u L Baso # (Auto) 0.1 (0.0-0.1) 10^3/u L Nucleated RBC % (a uto) 0 % Nucleated RBCs # 0.0 /100WBC D-Dimer 0.49 (0-0.59) ug/mIFE U Sodium 141 (136-145) mmol/L Potassium 4.8 (3.5-5.1) mmol/L Chloride 103 (98-107) mmol/L Carbon Dioxide 28 (22-29) mmol/L Anion Gap 14.8 (5-19) BUN 23 (8-23) mg/dL Creatinine 0.6 (0.5-0.9) mg/dL GFR Calculation Not Reportable Glucose 137 H (65-115) mg/dL Calculated Osmolal ity 298 H (285-295) mOsm/k g Calcium 9.1 (8.5-10.5) mg/dL Total Bilirubin 0.4 (0.15-1.2) mg/dL GGT (5-36) U/L AST 36 H (0-32) U/L ALT 39 H (0-33) U/L Alkaline Phosphata se 302 H (35-105) IU/L Creatine Kinase 44 (26-192) U/L Troponin T Baselin e (0-10) ng/L Troponin T 120 Min [place] (0-10) ng/L Delta Troponin T (0-10) ABS# Total Protein 6.9 (6.6-8.7) g/dL Albumin 3.8 (3.5-5.2) g/dL Globulin 3.1 (1.3-4.6) g/dL TSH (0.27-4.20) uIU/ mL Urine Color (Yellow) Urine Appearance (CLEAR) Urine pH (5-7) Ur Specific Gravit y (1.005-1.030) Urine Protein (Negative) Urine Glucose (UA) (Normal) Urine Ketones (Negative) Urine Blood (Negative) Urine Nitrate (Negative) Urine Bilirubin (Negative) Urine Urobilinogen (Negative) mg/dL Ur Leukocyte Khushboo ase (Negative) Urine RBC (0-2) /hpf Urine WBC (0-5) /hpf Ur Squamous Epith Cells (0-5) /hpf Amorphous Sediment Urine Bacteria (NONE) /hpf 08/22/20 08/22/20 08/22/20 Range/Units 11:25 11:25 11:25 WBC (4.0-10.0) 10^3/ uL RBC (4.1-5.3) 10^6/u L Hgb (11.5-15.3) g/dL Hct (37.0-47.0) % MCV (81-99) fL MCH (28.0-34.0) pg MCHC (30.0-36.0) g/dL RDW (12.1-15.1) % Plt Count (130-400) 10^3/c mm MPV (7.4-10.4) fL Neut % (Auto) % Lymph % (Auto) % [place] % (Auto) % Eos % (Auto) % Baso % (Auto) % Neut # (Auto) (1.8-7.7) 10^3/u L Lymph # (Auto) (0.8-4.8) 10^3/u L [place] # (Auto) (0.2-0.9) 10^3/u L Eos # (Auto) (0.0-0.8) 10^3/u L Baso # (Auto) (0.0-0.1) 10^3/u L Nucleated RBC % (a uto) % Nucleated RBCs # /100WBC D-Dimer (0-0.59) ug/mIFE U Sodium (136-145) mmol/L Potassium (3.5-5.1) mmol/L Chloride (98-107) mmol/L Carbon Dioxide (22-29) mmol/L Anion Gap (5-19) BUN (8-23) mg/dL Creatinine (0.5-0.9) mg/dL GFR Calculation Glucose (65-115) mg/dL Calculated Osmolal ity (285-295) mOsm/k g Calcium (8.5-10.5) mg/dL Total Bilirubin (0.15-1.2) mg/dL GGT 322 H (5-36) U/L AST (0-32) U/L ALT (0-33) U/L Alkaline Phosphata se (35-105) IU/L Creatine Kinase (26-192) U/L Troponin T Baselin e 47 H (0-10) ng/L Troponin T 120 Min [place] (0-10) ng/L Delta Troponin T (0-10) ABS# Total Protein (6.6-8.7) g/dL Albumin (3.5-5.2) g/dL Globulin (1.3-4.6) g/dL TSH 2.58 (0.27-4.20) uIU/ mL Urine Color (Yellow) Urine Appearance (CLEAR) Urine pH (5-7) Ur Specific Gravit y (1.005-1.030) Urine Protein (Negative) Urine Glucose (UA) (Normal) Urine Ketones (Negative) Urine Blood (Negative) Urine Nitrate (Negative) Urine Bilirubin (Negative) Urine Urobilinogen (Negative) mg/dL Ur Leukocyte Khushboo ase (Negative) Urine RBC (0-2) /hpf Urine WBC (0-5) /hpf Ur Squamous Epith Cells (0-5) /hpf Amorphous Sediment Urine Bacteria (NONE) /hpf 08/22/20 08/22/20 Range/Units 13:21 14:00 WBC (4.0-10.0) 10^3/ uL RBC (4.1-5.3) 10^6/u L Hgb (11.5-15.3) g/dL Hct (37.0-47.0) % MCV (81-99) fL MCH (28.0-34.0) pg MCHC (30.0-36.0) g/dL RDW (12.1-15.1) % Plt Count (130-400) 10^3/c mm MPV (7.4-10.4) fL Neut % (Auto) % Lymph % (Auto) % [place] % (Auto) % Eos % (Auto) % Baso % (Auto) % Neut # (Auto) (1.8-7.7) 10^3/u L Lymph # (Auto) (0.8-4.8) 10^3/u L [place] # (Auto) (0.2-0.9) 10^3/u L Eos # (Auto) (0.0-0.8) 10^3/u L Baso # (Auto) (0.0-0.1) 10^3/u L Nucleated RBC % (a uto) % Nucleated RBCs # /100WBC D-Dimer (0-0.59) ug/mIFE U Sodium (136-145) mmol/L Potassium (3.5-5.1) mmol/L Chloride (98-107) mmol/L Carbon Dioxide (22-29) mmol/L Anion Gap (5-19) BUN (8-23) mg/dL Creatinine (0.5-0.9) mg/dL GFR Calculation Glucose (65-115) mg/dL Calculated Osmolal ity (285-295) mOsm/k g Calcium (8.5-10.5) mg/dL Total Bilirubin (0.15-1.2) mg/dL GGT (5-36) U/L AST (0-32) U/L ALT (0-33) U/L Alkaline Phosphata se (35-105) IU/L Creatine Kinase (26-192) U/L Troponin T Baselin e (0-10) ng/L Troponin T 120 Min [place] 38.57 H (0-10) ng/L Delta Troponin T -8.43 L (0-10) ABS# Total Protein (6.6-8.7) g/dL Albumin (3.5-5.2) g/dL Globulin (1.3-4.6) g/dL TSH (0.27-4.20) uIU/ mL Urine Color Yellow (Yellow) Urine Appearance Hazy A (CLEAR) Urine pH 5 (5-7) Ur Specific Gravit y 1.015 (1.005-1.030) Urine Protein Trace (Negative) Urine Glucose (UA) Norm (Normal) Urine Ketones Negative (Negative) Urine Blood Neg (Negative) Urine Nitrate Positive H (Negative) Urine Bilirubin Neg (Negative) Urine Urobilinogen Norm (Negative) mg/dL Ur Leukocyte Khushboo ase Negative (Negative) Urine RBC 0-4 H (0-2) /hpf Urine WBC 15-25 H (0-5) /hpf Ur Squamous Epith Cells 0-4 H (0-5) /hpf Amorphous Sediment Not Reportable Urine Bacteria 4+ H (NONE) /hpf Discharge Plan Discharge Patient Disposition: Admitted As Inpatient Admit Provider: Jax Villa Clinical Impression: Atrial flutter with rapid ventricular response, UTI (urinary tract infection), Transaminitis, Alkaline phosphatase elevation, Elevated troponin, COPD (chronic obstructive pulmonary disease) Condition: Stable Coding Level of Care Code ED Case Advocate for Chg Fwd Exam Comprehensive
[2020-08-22] MEDS: aspirin 81 mg Chew Tablet 324 MG PO (11:23)
[2020-08-22 11:39] LABS: Basophils # 0.1 10^3/uL (0.0-0.1); Basophils % 0.5 %; Eosinophils # 0.1 10^3/uL (0.0-0.8); Eosinophils % 0.6 %; Hematocrit 47.2 % (37.0-47.0); Hemoglobin 15.2 g/dL (11.5-15.3); Lymphocytes # 3.2 10^3/uL (0.8-4.8); Lymphocytes % 22.1 %; Mean Corpuscular HGB Conc 32.2 g/dL (30.0-36.0); Mean Corpuscular Volume 89.9 fL (81-99); Mean Platelet Volume 11.1 fL (7.4-10.4); Monocytes # 1.7 10^3/uL (0.2-0.9); Monocytes % 11.5 %; Neutrophils # 9.31 10^3/uL (1.8-7.7); Nucleated Red Blood Cells % 0 %; Platelet Count 337 10^3/cmm (130-400); Red Blood Count 5.25 10^6/uL (4.1-5.3); White Blood Count 14.3 10^3/uL (4.0-10.0)
[2020-08-22 11:47] LABS: D Dimer 0.49 ug/mIFEU (0-0.59)
[2020-08-22 11:56] LABS: Alanine Aminotransferase 39 U/L (0-33); Albumin Level 3.8 g/dL (3.5-5.2); Alkaline Phosphatase 302 IU/L (35-105); Anion Gap 14.8 (5-19); Aspartate Amino Transferase 36 U/L (0-32); Blood Urea Nitrogen 23 mg/dL (8-23); Calcium 9.1 mg/dL (8.5-10.5); Carbon Dioxide 28 mmol/L (22-29); Chloride 103 mmol/L (98-107); Creatine Phosphokinase 44 U/L (26-192); Globulin 3.1 g/dL (1.3-4.6); Glucose 137 mg/dL (65-115); Osmolality Calculated 298 mOsm/kg (285-295); Potassium 4.8 mmol/L (3.5-5.1); Sodium 141 mmol/L (136-145); Total Bilirubin 0.4 mg/dL (0.15-1.2); Total Protein 6.9 g/dL (6.6-8.7)
[2020-08-22 12:00] LABS: Troponin(5th) Baseline 47 ng/L (0-10)
[2020-08-22] MEDS: esmolol drip 2,500 MG/250 ML PREMIX 21.8 MG IV (12:57)
--- NOTE | 2020-08-22 13:02 | PC.PHAR ---
PT STATES SHE TAKES THE MEDICATION LISTED. I CALLED ALL THREE PHARMACIES THAT SHE HAS USED AND THE ONLY THING THAT HAS BEEN FILLED RECENTLY IS LISINOPRIL 40MG 1 TAB DAILY, AND ADVAIR DISKUS. 1 PUFF BID. I NOTED ALL THE THINGS THAT THE PATIENT STATES SHE IS TAKING, WITH NOTES EXPLAINING EVERYTHING
--- NOTE | 2020-08-22 13:10 | ECG_ITS ---
[facility] Test Date: 2020-08-22 Pat Name: aL Aranda Department: Room: ICU03 Gender: Female Patch Sander: : 1940 Requested By: Gilmar Dotson Order Number: [id number] Iglesia MD: Jerod Hall M.D. Measurements Intervals [place] Rate: 148 P: CA: QRS: 130 QRSD: 137 T: -71 QT: 348 QTc: 548 Interpretive Statements ATRIAL FLUTTER/TACHYCARDIA WITH RAPID VENTRICULAR RESPONSE RIGHT BUNDLE BRANCH BLOCK [120+ ms QRS DURATION, UPRIGHT V1, 40+ ms S IN I/aVL/V4/V5/V6] LEFT POSTERIOR FASCICULAR BLOCK [QRS AXIS > 109, INFERIOR Q] MODERATE T-WAVE ABNORMALITY, CONSIDER LATERAL ISCHEMIA [-0.1+ mV T WAVE IN I/aVL/V5/V6] MODERATE T-WAVE ABNORMALITY, CONSIDER INFERIOR ISCHEMIA [-0.1+ mV T WAVE IN II/aVF] Compared to ECG 03/02/2020 20:21:39 Left posterior fascicular block now present T-wave abnormality now present Possible ischemia now present Sinus rhythm no longer present Electronically Signed On 08-22-2020 18:29:25 CDT by Jerod Hall M.D. [id number]
[2020-08-22 14:16] LABS: Troponin 5 2HR 38.57 ng/L (0-10)
[2020-08-22 14:17] LABS: Troponin 5 2HR Delta -8.43 ABS# (0-10)
[2020-08-22 14:42] LABS: Add Urine Microscopic? YES; Bilirubin Urine Neg (Negative); Blood Urine Neg (Negative); Glucose Urine UA Norm (Normal); Ketones Urine Negative (Negative); Leukocyte Esterase Urine Negative (Negative); Nitrate Urine Positive (Negative); Protein Urine Trace (Negative); Specific Gravity, Urine 1.015 (1.005-1.030); Urine Appearance Hazy (CLEAR); Urine Color Yellow (Yellow); Urobilinogen Urine Norm (Negative); pH Urine 5 (5-7)
[2020-08-22] MEDS: digoxin 250 mcg/ml INJ 2 mL 500 MCG IVP ×2 (14:52→17:38)
[2020-08-22 15:00] LABS: Add Urine Culture? Yes; Bacteria Urine 4+ /hpf; RBC Urine 0-4 /hpf (0-2); Squamous Epithelial Cell Urine 0-4 /hpf (0-5); WBC Urine 15-25 /hpf (0-5)
--- NOTE | 2020-08-22 16:04 | P.HP_ITS ---
Providers/Chief Complaint Admitting Physician: Jax Villa Primary Care Provider: Gloria Urbina MD Chief Complaint: irregular heart rate History of Present Illness Very pleasant 80-year-old lady, with COPD, chronically on oxygen 2 L, with COVID-19 pneumonia back in February, DM 2, glaucoma, osteoarthritis, hard of hearing, came into ER to be checked due to fast heart rate noted on her Fitbit. This appears may have been going on for about 1-2 days. She had not been symptomatic, but thought she should get it checked since it was persistent. In ER noted to have atrial flutter with RVR, heart rates in 140s-150s. She received Cardizem push, and was started on drip, her, heart rates did not respond. She was then instead started on esmolol drip, with partial improvement in heart rates down to 130s. She states she otherwise has been at baseline state of health. On review of systems she reveals she has been having some burning with urination recently. states she had also had an episode of upper abdominal pain several days back, although currently it is not present. She denies having any chest pain or pressures, denies any prior heart disease or other cardiovascular issues. She has been taking aspirin prophylactically which she states had started on her own a while back. She denies prior history of atrial fibrillation or flutter. Review of Systems Const: Denies: fever(s), chills, body aches or malaise Eyes: Denies: change in vision or eye redness ENMT: Denies: throat pain, oral sores or ear or mastoid pain Card: Denies: chest pain, edema, pre-syncope or dyspnea on exertion Resp: Denies: dyspnea, productive cough, change in phlegm color or hemoptysis GI: Denies: abdominal pain, nausea, vomiting, diarrhea, constipation, hematochezia or melena : Reports: other (dysuria); Denies: flank pain, urinary frequency or hematuria Musc: Denies: back pain, joint swelling or joint redness Skin/Breast: Reports: other (stasis changes on bilateral lower extremities, longstanding); Denies: rash, sores or new lesions Neuro: Denies: headache(s), numbness in extremities, weakness in extremities, dizziness, confusion or seizure-like activity Endo: Denies: polyuria or polydipsia Norbert/Lymph: Denies: easy bleeding or purpura All/Imm: Denies: urticaria, throat swelling or tongue swelling Medications/Allergies Home Medications Medication Instructions Recorded Confirmed Last Taken Type CoQ-10 1 tab PO DAILY@0900 03/01/20 08/22/20 08/22/20 History ICaps 1 tab PO DAILY@0900 03/01/20 08/22/20 08/22/20 History glucosamine-chondroitin [Osteo 2 tab PO DAILY@0900 03/01/20 08/22/20 08/22/20 History Bi-Flex] lovastatin 40 mg PO DAILY 03/01/20 08/22/20 08/22/20 History metformin 500 mg PO DAILY 03/01/20 08/22/20 08/21/20 History fluticasone propion-salmeterol See Rx Instructions .ROUTE 03/07/20 08/22/20 08/22/20 Rx [Advair Diskus] .COMPLEX #30 ea Cbd Oil 4 drp PO DAILY@0900 08/22/20 08/22/20 08/22/20 History Eye Drops (PVA) See Rx Instructions .ROUTE .COMPLEX 08/22/20 08/22/20 08/22/20 History Restore And Balance 1 tab PO DAILY@0900 08/22/20 08/22/20 08/22/20 History albuterol sulfate [Ventolin HFA] See Rx Instructions .ROUTE .COMPLEX 08/22/20 08/22/20 Unknown History biotin 1 tab PO DAILY@0900 08/22/20 08/22/20 08/22/20 History glipizide See Rx Instructions .ROUTE .COMPLEX 08/22/20 08/22/20 08/22/20 History lisinopril 20 mg PO DAILY 08/22/20 08/22/20 08/22/20 History potassium 1 tab PO DAILY@0900 08/22/20 08/22/20 08/22/20 History vitamin E 1 tab PO DAILY@0900 08/22/20 08/22/20 08/22/20 History Allergies Allergy/AdvReac Type Severity Reaction Status Date / Time No Known Allergies Allergy Verified 03/01/20 14:44 PFSH Acute PFSH: Medical History (Updated 08/22/20 @ 16:11 by Jax Villa MD) COPD (chronic obstructive pulmonary disease) DM type 2 (diabetes mellitus, type 2) Suspected severe acute respiratory syndrome coronavirus 2 (SARS-CoV-2) infection Surgical History H/O: hysterectomy History of ectopic Family History Mother Heart disease Father Heart disease Social History Smoking and tobacco status: former smoker Quit status (tobacco): has quit using tobacco Year quit tobacco: Many decades ago Alcohol intake: current Alcohol intake frequency: 0-2 Drinks per Day Lives independently: Yes Household members: spouse Marital status: Vitals/I&O/Wt Last Vital Signs Temp 98.3 F 08/22/20 11:10 Pulse 133 H 08/22/20 15:47 Resp 16 08/22/20 15:47 BP 110/75 08/22/20 15:47 Pulse Ox 97 08/22/20 15:47 08/22/20 08/22/20 08/22/20 06:59 14:59 22:59 Intake Total 21.606 / 21.606 Balance 21.606 / 21.606 Weight last 48 hrs Weight 72.575 kg Physical Exam Narrative: EXAM NARRATIVE: Accompanied by Const: COMMON NORMALS: no acute distress, patient oriented x3 and alert GENERAL APPEARANCE: cooperative and comfortable NUTRITIONAL APPEARANCE: overweight ORIENTATION/CONSCIOUSNESS: Yes awake OTHER: Hard of hearing, but understands and communicates well when spoken to loudly. HENMT: COMMON NORMALS: oropharynx normal Neck/C-Spine: COMMON NORMALS: no JVD Resp: COMMON NORMALS: normal respiratory effort and clear to auscultation bilaterally AUSCULTATION: clear to auscultation bilaterally OTHER: Minute/faint crackle at right base Cardio: COMMON NORMALS: no JVD, regular rhythm, S1 normal heart sound present, S2 normal heart sound present and No murmurs present (Cardio) RATE: tachycardic RHYTHM: abnormal rhythm irregularly irregular HEART SOUNDS: S1 normal heart sound present and S2 normal heart sound present GI: COMMON NORMALS: Normal to inspection, nondistended, normoactive bowel sounds present, Soft to palpation and non-tender PALPATION: Yes Soft to palpation Extremity: COMMON NORMALS: no joint enlargement and no pedal edema Neuro: COMMON NORMALS: patient oriented x3 and moves all extremities Skin: COMMON NORMALS: no rashes or lesions noted RASHES: rashes noted (Bilateral lower extremity venous stasis dermatitis) Data : 08/22/20 11:25 08/22/20 11:25 A&P Assessment and plan (1) Atrial flutter with rapid ventricular response: Did not respond to Cardizem drip, persistent tachycardia. New atrial flutter. Per cardiology recommendation loaded with digoxin. Being admitted to ICU. Denies chest pain or pressure. Will complete troponin EKG series. Denies history of CAD. Potassium is normal. Request check magnesium. Check TSH. TTE once heart rate better controlled. Does appear to have UTI, possibly serving as trigger. In February had COVID-19 pneumonia. Currently at baseline oxygenation, no chest pain or pressure, no hemoptysis, cough, and lateral swelling. D-dimer is normal. Unlikely to have PE. We'll treat UTI. At some point may benefit additionally from risk stratification/closer assessment for CAD. We also discussed regarding risks and benefits of initiating anticoagulation with her and her . They are agreeable. If no evidence of CAD, and since she is taking aspirin only prophylactically, long-term may consider taking anticoagulation alone without aspirin. Appreciate cardiology recommendations. Denies history of sleep apnea. Not normally on CPAP. states she is wakes up at night frequently, but she states it is to urinate. Status: Acute (2) UTI (urinary tract infection): Rocephin. Follow cultures. Status: Acute (3) Transaminitis: Marino had some upper abdominal discomfort several days ago. No abdominal pain or discomfort. No pain on right upper quadrant palpation. Ulloa's negative. Statin related? Recheck levels. Status: Acute (4) Alkaline phosphatase elevation: Will check GGT. Assess right upper quadrant ultrasound. Status: Acute (5) Elevated troponin: Complete troponin EKG series. Suspected secondary to arrhythmia. May bene fit from additional assessment for coronary disease once more stable. TTE once heart rate better controlled. Status: Acute (6) COPD (chronic obstructive pulmonary disease): Chronically on 2 L nasal cannula oxygen. Currently does not appear in exacerbation. Status: Acute Attestations Medical Necessity Statement*: Admission of over two midnights is going to be needed for assessment of management of new atrial flutter with RVR which didn't respond to treatment with Cardizem drip and lady with COPD and chronic hypoxia among other comorbidities. Coding Level of Care Code Acute Technical Staff Assistant for Chg Fwd Diagnoses Atrial flutter with rapid ventricular response I48.92 UTI (urinary tract infection) N39.0 Transaminitis R74.01 Alkaline phosphatase elevation R74.8 Elevated troponin R77.8 COPD (chronic obstructive pulmonary disease) J44.9
[2020-08-22] MEDS: cefTRIAXone 1,000 MG in sodium chloride 0.9% (plus) 50 ML 100 MG IV (16:43)
[2020-08-22] MEDS: esmolol drip 2,500 MG/250 ML PREMIX 26.1 MG IV (16:43)
[2020-08-22] MEDS: enoxaparin 80 mg/0.8 mL Syringe 70 MG SUBCUT (16:44)
--- NOTE | 2020-08-22 17:07 | P.CONIM_ITS ---
Providers/Reason For Consult Consulting Physican/Specialty*: Dr. Jama, cardiology Reason for Consult*: Atrial flutter with rapid ventricular response Attending Physician: Jax Villa Primary Care Provider: Gloria Urbina MD History of Present Illness History of Present Illness La Aranda is a 80 year old female with past medical history of COPD, chronic respiratory failure on oxygen 2 L, diabetes mellitus type 2, osteoarthritis, former smoker, hearing loss and history of COVID-19 pneumonia in February 2020. She has no prior CAD, CVA or TIA history. She wears a Fitbit and noted her heart rate running fast for the last several days (at least since Thursday) and presented to the ER for further evaluation. EKG performed on arrival to the ER showed atrial flutter with rapid response with heart rate in 140s. Patient is not having any chest discomfort or shortness of breath. She received Cardizem 20 mg IV push followed by drip. This was switched to esmolol drip when she did not respond and her blood pressure dropped to high 90s to low 100s systolically. Denies any URI-like symptoms. No chest pain no shortness of breath or worsening of lower extremity swelling. She states she has to wake up multiple times and at night to go to the restroom. Denies any orthopnea or paroxysmal nocturnal dyspnea. She does complain of some burning while urinating and occasional abdominal pain. No fever or chills. Review of Systems General: Reports: 10 or more systems reviewed and unremarkable except in HPI and below Const: Denies: fever(s), chills, body aches or malaise Eyes: Denies: eye redness ENMT: Denies: throat pain or oral sores Card: Denies: chest pain, edema, pre-syncope or dyspnea on exertion Resp: Denies: dyspnea, productive cough, change in phlegm color or hemoptysis GI: Denies: abdominal pain, nausea, vomiting, diarrhea, constipation, hematochezia or melena : Reports: other (dysuria); Denies: urinary frequency or hematuria Musc: Denies: back pain, joint swelling or joint redness Skin/Breast: Reports: other (stasis changes on bilateral lower extremities, longstanding); Denies: rash Neuro: Denies: headache(s), numbness in extremities, weakness in extremities or dizziness Endo: Denies: polyuria or polydipsia Norbert/Lymph: Denies: easy bleeding or purpura All/Imm: Denies: urticaria, throat swelling or tongue swelling Meds/Allergies Home Medications and Allergies Home Medications Medication Instructions Recorded Confirmed Last Taken Type CoQ-10 1 tab PO DAILY@0900 03/01/20 08/22/20 08/22/20 History ICaps 1 tab PO DAILY@0900 03/01/20 08/22/20 08/22/20 History glucosamine-chondroitin [Osteo 2 tab PO DAILY@0900 03/01/20 08/22/20 08/22/20 History Bi-Flex] lovastatin 40 mg PO DAILY 03/01/20 08/22/20 08/22/20 History metformin 500 mg PO DAILY 03/01/20 08/22/20 08/21/20 History fluticasone propion-salmeterol See Rx Instructions .ROUTE 03/07/20 08/22/20 0 08/22/20 Rx [Advair Diskus] .COMPLEX #30 ea Cbd Oil 4 drp PO DAILY@0900 08/22/20 08/22/20 08/22/20 History Eye Drops (PVA) See Rx Instructions .ROUTE .COMPLEX 08/22/20 08/22/20 08/22/20 History Restore And Balance 1 tab PO DAILY@0900 08/22/20 08/22/20 08/22/20 History albuterol sulfate [Ventolin HFA] See Rx Instructions .ROUTE .COMPLEX 08/22/20 08/22/20 Unknown History biotin 1 tab PO DAILY@0900 08/22/20 08/22/20 08/22/20 History glipizide See Rx Instructions .ROUTE .COMPLEX 08/22/20 08/22/20 08/22/20 History lisinopril 20 mg PO DAILY 08/22/20 08/22/20 08/22/20 History potassium 1 tab PO DAILY@0900 08/22/20 08/22/20 08/22/20 History vitamin E 1 tab PO DAILY@0900 08/22/20 08/22/20 08/22/20 History Allergies Allergy/AdvReac Type Severity Reaction Status Date / Time No Known Allergies Allergy Verified 03/01/20 14:44 Current Medications Current Medications Generic Name Dose Route Start Last Admin Trade Name Freq PRN Reason Stop Dose Admin Enoxaparin Sodium 70 mg 08/22/20 17:00 08/22/20 16:44 Enoxaparin 80 Mg/0.8 Ml Syringe SUBCUT 70 mg Q12H JAMAL Administration Esmolol HCl 2,500 mg in 250 mls @ 0 mls/hr 08/22/20 13:00 08/22/20 16:43 Brevibloc Drip IV 60 mcg/kg/min .Q0M JAMAL 26.1 mls/hr Administration Protocol Per Protocol Ceftriaxone Sodium 1,000 mg/ 50 mls @ 100 mls/hr 08/22/20 17:30 08/22/20 16:43 Sodium Chloride IV 100 mls/hr Q24H JAMAL Administration Protocol PFSH Acute PFSH: Medical History COPD (chronic obstructive pulmonary disease) DM type 2 (diabetes mellitus, type 2) Suspected severe acute respiratory syndrome coronavirus 2 (SARS-CoV-2) infection Surgical History H/O: hysterectomy History of ectopic Family History Mother Heart disease Father Heart disease Social History Smoking and tobacco status: former smoker Quit status (tobacco): has quit using tobacco Year quit tobacco: Many decades ago Alcohol intake: current Alcohol intake frequency: 0-2 Drinks per Day Lives independently: Yes Household members: spouse Marital status: Vitals/I&O/Wt Last Vital Signs Temp 98.3 F 08/22/20 11:10 Pulse 133 H 08/22/20 15:47 Resp 16 08/22/20 15:47 BP 110/75 08/22/20 15:47 Pulse Ox 97 08/22/20 15:47 08/22/20 08/22/20 08/22/20 06:59 14:59 22:59 Intake Total .606 / .606 83.955 / 105.561 Balance .606 / 21.606 83.955 / 105.561 Weight last 48 hrs Weight 160 lb Physical Exam Narrative: EXAM NARRATIVE: GENERAL: Averagely built and averagely nourished in no acute distress HEENT: Extraocular movement intact. Pupils equal round reactive to light. No pallor or icterus. NECK: central trachea, [] JVD, [] abdominojugular reflex. No carotid bruit. CARDIOVASCULAR SYSTEM: S1-S2 regular. No S3 or S4 present. [No murmur rubs or gallops.] RESPIRATORY SYSTEM: Chest clear to auscultation. No wheezes rhonchi or rubs heard. [] No use of accessory muscles. ABDOMEN: Soft, nontender and nondistended. Normal bowel sounds present. No hepatosplenomegaly appreciated. [] EXTREMITIES: No cyanosis or clubbing. [No edema]. No signs of chronic venous insufficiency. DISTRICT COMMERCIAL SUPERINTENDENT: Patient is alert oriented ?3. No focal neurological deficits. Cranial nerves intact. [] SKIN: Normal turgor and temperature. No breakdown, rash or nail changes noted. [] PSYCH: Normal insight and judgment. No suicidal or homicidal ideations. A&P Assessment and plan (1) Atrial flutter with rapid ventricular response: Newly diagnosed atrial flutter possible onset onset greater than 48 hours ago -Asymptomatic and hemodynamically stable -[id number]= at least 4/ , 1 for diabetes, 2 for age and 1 for female sex. -She was started on Lovenox 70 mg every 12. Currently on esmolol drip and received digoxin 500 mcg x1. -We will repeat another dose of digoxin in 4 hours. -Follow-up on TSH, echocardiogram. I discussed with patient and her Jer that if these medications do not work, we may have to start amiodarone gtt that can potentially convert her to normal rhythm with a small risk of stroke. They expressed their understanding and agreement with the plan of action. Status: Acute (2) Elevated troponin: Baseline troponin T of 47 that decreased at 2 hours to 39. -Likely type II in setting of atrial flutter with rapid response Status: Acute (3) HTN (hypertension): Status: Acute Qualifiers: Hypertension type: essential hypertension Qualified Code(s): I10 - Essential (primary) hypertension (4) DM type 2 (diabetes mellitus, type 2): Status: Acute Qualifiers: Diabetes mellitus group home insulin use: without technician terminal and repeater use Diabetes mellitus complication status: without complication Qualified Code(s): E11.9 - Type 2 diabetes mellitus without complications (5) COPD (chronic obstructive pulmonary disease): Status: Acute Qualifiers: COPD type: unspecified COPD Qualified Code(s): J44.9 - Chronic obstructive pulmonary disease, unspecified Additional A&P Information UTI: On antibiotics as per primary. Transaminitis : possiblyt secondary to mild decompensation; follow-up on CMP. Elevated alkaline phosphatase Overweight Thank you for allowing me to participate in patient's care. Please feel free to call with questions or concerns Consult Attestations Medical Necessity Statement: hospital stay for atrial flutter with RVR. Time Spent in Patient Care: Greater than 35 minutes (>than 50% of time spent in counselling and/or direct pt care on unit) . Coding Level of Care Code Acute Switchbox Assembler for Chg Fwd Diagnoses Atrial flutter with rapid ventricular response I48.92 Elevated troponin R77.8 HTN (hypertension) I10 Hypertension type: essential hypertension DM type 2 (diabetes mellitus, type 2) E11.9 Diabetes mellitus group home insulin use: without group home use Diabetes mellitus complication status: without complication COPD (chronic obstructive pulmonary disease) J44.9 COPD type: unspecified COPD
--- NOTE | 2020-08-22 17:10 | ECG_ITS ---
[facility] Test Date: 2020-08-22 Pat Name: La Aranda Department: Room: Gender: Female Engine Hostler: : 1940 Requested By: Gilmar Dotson Order Number: [id number] Iglesia MD: Jerod Hall M.D. Measurements Intervals [place] Rate: 137 P: [place]: QRS: 122 QRSD: 146 T: -64 QT: 380 QTc: 575 Interpretive Statements ATRIAL FLUTTER/TACHYCARDIA WITH RAPID VENTRICULAR RESPONSE RIGHT BUNDLE BRANCH BLOCK [120+ ms QRS DURATION, UPRIGHT V1, 40+ ms S IN I/aVL/V4/V5/V6] LEFT POSTERIOR FASCICULAR BLOCK [QRS AXIS > 109, INFERIOR Q] MODERATE T-WAVE ABNORMALITY, CONSIDER LATERAL ISCHEMIA [-0.1+ mV T WAVE IN I/aVL/V5/V6] MODERATE T-WAVE ABNORMALITY, CONSIDER INFERIOR ISCHEMIA [-0.1+ mV T WAVE IN II/aVF] Compared to ECG 03/02/2020 20:21:39 Left posterior fascicular block now present T-wave abnormality now present Possible ischemia now present Sinus rhythm no longer present Electronically Signed On 08-22-2020 18:29:10 CDT by Jerod Hall M.D. [id number]
[2020-08-22] MEDS: famotidine 20 mg Tablet PO (17:38)
[2020-08-22 17:43] LABS: Gamma Glutamyl Transferase 322 U/L (5-36); Thyroid Stimulating Hormone 2.58 uIU/mL (0.27-4.20)
[2020-08-22 17:55] LABS: Glucose Point of Care 98 mg/dL (70-110)
[2020-08-22 18:28] LABS: Troponin 5 6HR 35.18 ng/L (0-10)
[2020-08-22 18:31] LABS: Troponin 5 6HR Delta -11.82 ng/L (0-12)
[2020-08-22] MEDS: esmolol drip 2,500 MG/250 ML PREMIX 87.1 MG IV ×2 (19:54→22:27)
--- NOTE | 2020-08-22 20:07 | PC.NURSE ---
1600 Patient arrived from ER with esmolol drip infusing at 200 mcg/kg/min.
[2020-08-22 21:08] LABS: Glucose Point of Care 104 mg/dL (70-110)
[2020-08-23] VITALS (108 sets, daily range): BP systolic 95–153; BP diastolic 54–96; PULSE 61–132; RESP 0–37; TEMP 36.3–37.2; O2SAT 92–100
--- NOTE | 2020-08-23 01:15 | PC.NURSE ---
Esmolol drip paused during Amio gtt loading dose, blood pressure became soft, see vital signs, heart remained within 115-126 range. Pt re-evaluated and blood pressure stabilized with heart rate remaining the same.
[2020-08-23 04:00] LABS: Basophils # 0.1 10^3/uL (0.0-0.1); Basophils % 0.5 %; Eosinophils # 0.2 10^3/uL (0.0-0.8); Eosinophils % 1.3 %; Lymphocytes # 2.7 10^3/uL (0.8-4.8); Lymphocytes % 18.2 %; Mean Corpuscular HGB Conc 31.1 g/dL (30.0-36.0); Mean Corpuscular Hemoglobin 28.7 pg (28.0-34.0); Mean Corpuscular Volume 92.2 fL (81-99); Mean Platelet Volume 11.1 fL (7.4-10.4); Monocytes # 1.6 10^3/uL (0.2-0.9); Monocytes % 10.6 %; Neutrophils # 10.39 10^3/uL (1.8-7.7); Neutrophils % 68.9 %; Nucleated Red Blood Cells % 0 %; Platelet Count 275 10^3/cmm (130-400); Red Blood Count 4.88 10^6/uL (4.1-5.3); White Blood Count 15.1 10^3/uL (4.0-10.0)
[2020-08-23 04:13] LABS: Alanine Aminotransferase 32 U/L (0-33); Albumin Level 3.3 g/dL (3.5-5.2); Alkaline Phosphatase 253 IU/L (35-105); Anion Gap 9.9 (5-19); Aspartate Amino Transferase 28 U/L (0-32); Blood Urea Nitrogen 22 mg/dL (8-23); Calcium 8.6 mg/dL (8.5-10.5); Carbon Dioxide 29 mmol/L (22-29); Chloride 103 mmol/L (98-107); Globulin 3.6 g/dL (1.3-4.6); Glucose 107 mg/dL (65-115); Osmolality Calculated 288 mOsm/kg (285-295); Potassium 4.9 mmol/L (3.5-5.1); Sodium 137 mmol/L (136-145); Total Bilirubin 0.4 mg/dL (0.15-1.2); Total Protein 6.9 g/dL (6.6-8.7)
[2020-08-23 04:37] LABS: Digoxin 2.3 ng/mL (0.6-1.2)
[2020-08-23] MEDS: enoxaparin 80 mg/0.8 mL Syringe 70 MG SUBCUT ×2 (05:32→17:14)
[2020-08-23] MEDS: metoprolol tartrate 25 mg Tablet PO ×2 (07:35→08:59)
--- NOTE | 2020-08-23 07:42 | PC.NURSE ---
Spoke with Dr. Christina Jama, provided report on how Pt did overnight. There were concerns urine output, Pt unable to tolerate getting up to BSC and became extremely upset when using bedpan or using bedside commode. Education to the Pt about the importance of accurate urine output due to UTI and encourage bedpan. Order received to turn Amio gtt back up to 1 mg/min and give first dose of metoprolol now to replace gtt which was paused.
[2020-08-23 07:50] LABS: Magnesium 1.8 mg/dL (1.7-2.3); NT Pro B Type Natriuretic Pept 3970 pg/mL (0-450)
[2020-08-23 07:51] LABS: Glucose Point of Care 100 mg/dL (70-110)
[2020-08-23] MEDS: atorvastatin 40 mg Tablet 20 MG PO (08:38)
[2020-08-23] MEDS: famotidine 20 mg Tablet PO ×2 (08:38→17:10)
--- NOTE | 2020-08-23 09:03 | P.PN_ITS ---
Subjective Subjective: Interval history: States she is here . Somewhat achy all over. No specific pain. Denies chest pain or pressure. No trouble breathing. No abdominal/right upper quadrant pain. Feels hungry, requesting for some food. Vitals/I&O/Wt Last Vital Signs Temp 98.9 F 08/23/20 04:11 Pulse 125 H 08/23/20 08:45 Resp 14 08/23/20 08:45 BP 128/91 08/23/20 08:45 Pulse Ox 93 08/23/20 08:45 08/22/20 08/23/20 08/23/20 22:59 06:59 14:59 Intake Total 484.147 / 521.137 367.475 / 888.612 27.68 / 27.68 Balance 484.147 / 521.137 367.475 / 888.612 27.68 / 27.68 Weight last 48 hrs Weight 35.834 kg Weight 72.575 kg Physical Exam Const: COMMON NORMALS: no acute distress and alert GENERAL APPEARANCE: c ooperative NUTRITIONAL APPEARANCE: overweight ORIENTATION/CONSCIOUSNESS: Yes awake HENMT: COMMON NORMALS: oropharynx normal Neck/C-Spine: COMMON NORMALS: no JVD Resp: COMMON NORMALS: normal respiratory effort and clear to auscultation bilaterally AUSCULTATION: clear to auscultation bilaterally Cardio: COMMON NORMALS: no JVD, regular rhythm, S1 normal heart sound present, S2 normal heart sound present and No murmurs present (Cardio) RATE: tachycardic RHYTHM: regular rhythm and abnormal rhythm irregularly irregular HEART SOUNDS: S1 normal heart sound present and S2 normal heart sound present GI: COMMON NORMALS: Normal to inspection, nondistended, normoactive bowel sounds present, Soft to palpation and non-tender PALPATION: Yes Soft to palpation Extremity: COMMON NORMALS: no joint enlargement and no pedal edema Neuro: COMMON NORMALS: moves all extremities SENSORIUM/ORIENTATION: Yes alert Skin: COMMON NORMALS: no rashes or lesions noted GENERAL SKIN EXAM: no rashes or lesions noted RASHES: rashes noted (Bilateral lower extremity venous stasis dermatitis) Data : 08/23/20 03:41 08/23/20 03:41 A&P Assessment and plan (1) Atrial flutter with rapid ventricular response: Difficult to control atrial fibrillation with RVR. Appears she had been switched from esmolol drip to amiodarone drip. Heart rates this morning a little bit better, reaching down into the 90s and 100s, but intermittently still going into 120s. Digoxin supratherapeutic. She denies chest pain or pressure. Denies trouble breathing. Continue amnio drip. Appreciate cardiology recommendations. TSH is normal. Potassium normal. Magnesium 1.8. Will give 1 g replacement. TTE pending Does appear to have UTI, possibly serving as trigger. In February had COVID-19 pneumonia. Currently at baseline oxygenation, no chest pain or pressure, no hemoptysis, cough, and lateral swelling. D-dimer is normal. Unlikely to have PE. Treat UTI. At some point may benefit additionally from risk stratification/closer assessment for CAD. Continue anticoagulation. If no evidence of CAD, and since she is taking aspirin only prophylactically, long-term may consider taking anticoagulation alone without aspirin. Appreciate cardiology recommendations. Denies history of sleep apnea. Not normally on CPAP. states she is wakes up at night frequently, but she states it is to urinate. Status: Acute (2) UTI (urinary tract infection): Rocephin. Follow cultures. Status: Acute (3) Transaminitis: Resolved As below. Hepatitis panel. Status: Acute (4) Alkaline phosphatase elevation: Resolved Morphology of possible cirrhosis on ultrasound. AST ALT not elevated. Alk phos, GGT elevated. Albumin 3.3. Check INR. APRI is 0.3, not sensitive or specific enough to determine level of fibrosis or cirrhosis. Will request AMA, ERMIAS, SMA Reportedly had some upper abdominal discomfort several days ago. No abdominal pain or discomfort. No pain on right upper quadrant palpation. Ulloa's negative. Status: Acute (5) Elevated troponin: Complete troponin EKG series. Suspected secondary to arrhythmia. May benefit from additional assessment for coronary disease once more stable. TTE Status: Acute (6) COPD (chronic obstructive pulmonary disease): Chronically on 2 L nasal cannula oxygen. Currently does not appear in exacerbation. Status: Acute Qualifiers: COPD type: unspecified COPD Qualified Code(s): J44.9 - Chronic obstructive pulmonary disease, unspecified Attestations Medical Necessity Statement*: Continue admission for optimization of control of A. fib with RVR, treatment of UTI, assessment of new possible liver cirrhosis. 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
--- NOTE | 2020-08-23 10:05 | PM.PN ---
Subjective Subjective: Interval history: Remains asymptomatic. Last night I ordered amiodarone gtt in addition to esmolol for HR in high 120's-130's. However, esmolol gtt was stopped. Not surprisingly there has been no change in heart rate this morning but as expected BP has improved. She received Digoxin 500 mcg x 2. Medications: Reviewed: Yes Vitals/I&O/Wt Last Vital Signs Temp 97.6 F 08/23/20 09:00 Pulse 99 08/23/20 09:46 Resp 13 08/23/20 09:46 BP 128/91 08/23/20 09:00 Pulse Ox 93 08/23/20 09:46 08/22/20 08/23/20 08/23/20 22:59 06:59 14:59 Intake Total 484.147 / 521.137 367.475 / 888.612 507.68 / 507.68 Balance 484.147 / 521.137 367.475 / 888.612 507.68 / 507.68 Weight last 48 hrs Weight 79 lb Weight 160 lb Physical Exam Narrative: EXAM NARRATIVE: GENERAL: obese woman in no acute distress HEENT: Pupils equal round reactive to light. No pallor or icterus. NECK: No JVD, No carotid bruit. CARDIOVASCULAR SYSTEM: S1-S2 regular. tachycardia+. No murmur appreciated. RESPIRATORY SYSTEM: Chest clear to auscultation. No wheezes rhonchi or rales heard. No use of accessory muscles. ABDOMEN: Soft, nontender and nondistended. Normal bowel sounds present. EXTREMITIES: No cyanosis or clubbing. No edema. reddish discoloration of shins, chronic ELECTRICAL CONTACTS ADJUSTER: Patient is alert oriented ?3. No focal neurological deficits. SKIN: Normal turgor and temperature. Dry skin PSYCH: Normal insight and judgment. Data : 08/23/20 03:41 08/23/20 03:41 A&P Assessment and plan (1) Atrial flutter with rapid ventricular response: Newly diagnosed atrial flutter possible onset onset greater than 48 hours on arrival. -Asymptomatic and hemodynamically stable -[id number]= at least 4/9 , 1 for diabetes, 2 for age and 1 for female sex. -She was started on Lovenox 70 mg every 12. She was taken off esmolol drip and received digoxin 500 mcg x2. -Dig level of no value after just after loading for atrial flutter with stable renal function and no EKG changes. -Normal TSH, f/u on echocardiogram. -start on metoprolol tartrate 50 mg twice a day. -will see if that controls her HR better. Will decide on digoxin maintenance dose based on response. Currently HR intermittently dropping to 60's-70's. Status: Acute (2) Elevated troponin: Baseline troponin T of 47 that decreased at 2 hours to 39. -Likely type II in setting of atrial flutter with rapid response Status: Acute (3) HTN (hypertension): Status: Acute Qualifiers: Hypertension type: essential hypertension Qualified Code(s): I10 - Essential (primary) hypertension (4) DM type 2 (diabetes mellitus, type 2): Status: Acute Qualifiers: Diabetes mellitus senior living insulin use: without equipment operator intermodal yard use Diabetes mellitus complication status: without complication Qualified Code(s): E11.9 - Type 2 diabetes mellitus without complications (5) COPD (chronic obstructive pulmonary disease): Status: Acute Qualifiers: COPD type: unspecified COPD Qualified Code(s): J44.9 - Chronic obstructive pulmonary disease, unspecified Additional A&P Information UTI: On antibiotics as per primary. Transaminitis :decrease in numbers with normalization of AST and ALT. Elevated alkaline phosphatase Overweight Thank you for allowing me to participate in patient's care. Please feel free to call with questions or concerns Attestations Medical Necessity Statement*: needs hospital stay for atrial flutter with RVR Time Spent in Patient Care: 16 - 35 minutes (>than 50% of time spent in counselling and/or direct pt care on unit). Coding Level of Care Code Acute Picking Crew Supervisor for g Fwd Diagnoses Atrial flutter with rapid ventricular response I48.92 Elevated troponin R77.8 HTN (hypertension) I10 Hypertension type: essential hypertension DM type 2 (diabetes mellitus, type 2) E11.9 Diabetes mellitus senior living insulin use: without equipment operator intermodal yard use Diabetes mellitus complication status: without complication COPD (chronic obstructive pulmonary disease) J44.9 COPD type: unspecified COPD
[2020-08-23 10:27] LABS: INR 1.03 (0.8-1.2)
[2020-08-23 11:03] LABS: Hepatitis A Antibody IgM Non-Reactive (Nonreactive); Hepatitis B Core IgM Non-Reactive (Nonreactive); Hepatitis B Surface Antigen Non-Reactive (Nonreactive); Hepatitis C Virus Antibody Non-Reactive (Nonreactive)
[2020-08-23 11:26] LABS: Glucose Point of Care 181 mg/dL (70-110)
[2020-08-23] MEDS: FUROsemide 20 mg Tablet PO (12:44)
[2020-08-23] MEDS: digoxin 250 mcg/ml INJ 2 mL 125 MCG IVP (12:53)
--- NOTE | 2020-08-23 13:14 | ECG_ITS ---
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 Measurements Intervals [place] Rate: 109 P: 262 OR: 186 QRS: 109 QRSD: 130 T: -68 QT: 316 QTc: 427 Interpretive Statements ATRIAL FLUTTER WITH RVR MARKED RIGHT AXIS DEVIATION [QRS AXIS > 100] INTRAVENTRICULAR CONDUCTION DELAY ST DEPRESSION, CONSIDER SUBENDOCARDIAL INJURY [0.1+ mV ST DEPRESSION] WARNING: DATA QUALITY MAY AFFECT INTERPRETATION Compared to ECG 08/22/2020 17:10:54 ST (T wave) deviation now present Myocardial infarct finding no longer present Electronically Signed On 08-24-2020 7:44:24 CDT by Christina Jama M.D. [id number]
--- NOTE | 2020-08-23 16:06 | US_ITS ---
WS: [id number] RIGHT UPPER QUADRANT ULTRASOUND HISTORY: hepatobiliary - AP elevation, transaminitis COMPARISON: None available. Liver: 18.9 cm in length. Moderately enlarged liver. Surface of the liver is slightly nodular. No mas s or intrahepatic dilatation. Gallbladder: Normally distended gallbladder with no stones or wall thickening. CBD: 0.3 cm Pancreas: Normal size and echogenicity. Right kidney: 12.4 cm in length. Normal size and echogenicity. No hydronephrosis or mass. Aorta and IVC: Unremarkable abdominal aorta and IVC. No ascites. US/US abdomen limited 62042 IMPRESSION: 1. Moderate hepatomegaly changes suspicious for cirrhosis. 2. Negative gallbladder.
[2020-08-23 17:00] LABS: Glucose Point of Care 93 mg/dL (70-110)
[2020-08-23] MEDS: cefTRIAXone 1,000 MG in sodium chloride 0.9% (plus) 50 ML 100 MG IV (17:13)
[2020-08-23] MEDS: metoprolol tartrate 50 mg Tablet PO (19:30)
[2020-08-23 20:43] LABS: Glucose Point of Care 146 mg/dL (70-110)
[2020-08-24] VITALS (49 sets, daily range): BP systolic 108–156; BP diastolic 57–118; PULSE 71–134; RESP 13–30; TEMP 36.7–36.8; O2SAT 86–98; BMI 29.9
[2020-08-24 04:04] LABS: Basophils # 0.1 10^3/uL (0.0-0.1); Basophils % 0.5 %; Eosinophils # 0.1 10^3/uL (0.0-0.8); Eosinophils % 0.7 %; Hematocrit 47.5 % (37.0-47.0); Hemoglobin 14.6 g/dL (11.5-15.3); Lymphocytes % 17.2 %; Mean Corpuscular HGB Conc 30.7 g/dL (30.0-36.0); Mean Corpuscular Hemoglobin 28.3 pg (28.0-34.0); Mean Corpuscular Volume 92.2 fL (81-99); Mean Platelet Volume 11.6 fL (7.4-10.4); Monocytes # 1.9 10^3/uL (0.2-0.9); Neutrophils # 12.26 10^3/uL (1.8-7.7); Neutrophils % 70.1 %; Nucleated Red Blood Cells % 0 %; Platelet Count 305 10^3/cmm (130-400); Red Blood Count 5.15 10^6/uL (4.1-5.3); Red Cell Distribution Width 12.9 % (12.1-15.1); White Blood Count 17.5 10^3/uL (4.0-10.0)
[2020-08-24 04:34] LABS: Alanine Aminotransferase 33 U/L (0-33); Albumin Level 3.6 g/dL (3.5-5.2); Alkaline Phosphatase 283 IU/L (35-105); Anion Gap 14.8 (5-19); Aspartate Amino Transferase 32 U/L (0-32); Blood Urea Nitrogen 27 mg/dL (8-23); Carbon Dioxide 29 mmol/L (22-29); Chloride 100 mmol/L (98-107); Globulin 3.7 g/dL (1.3-4.6); Glucose 132 mg/dL (65-115); Osmolality Calculated 295 mOsm/kg (285-295); Potassium 4.8 mmol/L (3.5-5.1); Sodium 139 mmol/L (136-145); Total Bilirubin 0.3 mg/dL (0.15-1.2); Total Protein 7.3 g/dL (6.6-8.7)
[2020-08-24] MEDS: enoxaparin 80 mg/0.8 mL Syringe 70 MG SUBCUT ×2 (06:16→16:28)
[2020-08-24] MEDS: metoprolol tartrate 50 mg Tablet PO (09:23)
[2020-08-24] MEDS: amiodarone 200 mg Tablet 400 MG PO ×2 (09:23→17:21)
[2020-08-24] MEDS: famotidine 20 mg Tablet PO ×2 (09:23→17:21)
[2020-08-24] MEDS: folic acid 1 mg Tablet PO (09:23)
[2020-08-24] MEDS: atorvastatin 40 mg Tablet 20 MG PO (09:23)
[2020-08-24] MEDS: thiamine 100 mg Tablet PO (09:23)
[2020-08-24] MEDS: multivitamin therapeutic Tablet 1 TAB PO (09:23)
[2020-08-24] MEDS: metoprolol tartrate 25 mg Tablet PO ×2 (09:29→13:41)
[2020-08-24 11:04] LABS: Glucose Point of Care 214 mg/dL (70-110)
--- NOTE | 2020-08-24 11:16 | PC.NUTR ---
Pt screened at nutritional risk for low BMI due to wt of 79 lbs on 08/23/20. However, after noting admit wt of 160 lbs on 08/22/20, and wt today of 169 lbs, suspect 79 lbs was in error. Spoke with nursing who state the weight 169 lbs is correct. Low BMI risk factor not present at this time. Will complete further assessments if appropriate per policy.
--- NOTE | 2020-08-24 11:28 | P.PN_ITS ---
Subjective Subjective: Interval history: Reports chest feels occasionally tight, but not currently. No chest pain. Denies shortness of breath. Discussed with her results of abdominal ultrasound, concern of changes suspicious for cirrhosis. Discussed with her that clinically we do not see that there is progression to cirrhosis just yet, however, fibrosis may be possible. Encouraged her complete alcohol cessation. Is not clear that alcohol is the primary underlying issue, however, in settings of other underlying conditions, even nonalcoholic fatty liver disease, even small amounts of alcohol may risk exacerbating risk of progression to fibrosis or cirrhosis. Discussed we are also requesting for abdomen studies, although at her age probably this may be less likely. Discussed with her this will need additional assessment and follow-up with her primary provider to closer delineate underlying etiology, as well as continued long-term monitoring of the condition. She verbalized under standing. Vitals/I&O/Wt Last Vital Signs Temp 98.2 F 08/24/20 07:19 Pulse 122 H 08/24/20 07:33 Resp 18 08/24/20 07:19 BP 123/85 08/24/20 10:30 Pulse Ox 95 08/24/20 10:30 08/23/20 08/24/20 08/24/20 22:59 06:59 14:59 Intake Total 413.983 / 1327.513 405.218 / 1732.731 3.46 / 3.46 Output Total 275 / 275 700 / 975 Balance 138.983 / 1052.513 -294.782 / 757.731 3.46 / 3.46 Weight last 48 hrs Weight 76.771 kg Weight 35.834 kg Physical Exam Narrative: EXAM NARRATIVE: Accompanied by Const: COMMON NORMALS: no acute distress and alert GENERAL APPEARANCE: cooperative NUTRITIONAL APPEARANCE: overweight ORIENTATION/CONSCIOUSNESS: Yes awake OTHER: Hard of hearing, but understands and communicates well when spoken to loudly. HENMT: COMMON NORMALS: oropharynx normal Neck/C-Spine: COMMON NORMALS: no JVD Resp: COMMON NORMALS: normal respiratory effort and clear to auscultation bilaterally AUSCULTATION: clear to auscultation bilaterally OTHER: Minute/faint crackle at right base Cardio: COMMON NORMALS: no JVD, regular rhythm, S1 normal heart sound present, S2 normal heart sound present and No murmurs present (Cardio) RATE: tachycardic RHYTHM: regular rhythm and abnormal rhythm irregularly irregular HEART SOUNDS: S1 normal heart sound present and S2 normal heart sound present GI: COMMON NORMALS: Normal to inspection, nondistended, normoactive bowel sounds present, Soft to palpation and non-tender PALPATION: Yes Soft to palpation Extremity: COMMON NORMALS: no joint enlargement and no pedal edema Neuro: COMMON NORMALS: moves all extremities SENSORIUM/ORIENTATION: Yes alert Skin: COMMON NORMALS: no rashes or lesions noted GENERAL SKIN EXAM: no rashes or lesions noted RASHES: rashes noted (Bilateral lower extremity venous stasis dermatitis) Data : 08/24/20 03:24 08/24/20 03:24 Micro: Microbiology 08/22/20 14:00 Urine Culture - Final Urine,Clean Catch Klebsiella pneumoniae A&P Assessment and plan (1) Atrial flutter with rapid ventricular response: Heart rates appear to vary down as low as 60s, staying there for a while, then increasing again, up to as high as 120s, staying there for some time. Started on oral metoprolol. Continued on amiodarone drip. Transition to oral amiodarone. Discussed with her and cardiology findings of ultrasound of the liver with appearance may be concerning for some progression to liver fibrosis, make a maternal not the best option for long-term treatment. Cirrhosis suggested by imaging, but clinically does not appear to have cirrhosis at this time. Metoprolol dose was increased to 100 mg. Check dig level in a.m. Per cardiology she had declined cardioversion. She denies chest pain or pressure. Denies trouble breathing. Continue amnio drip. Appreciate cardiology recommendations. TSH is normal. Potassium normal. Magnesium replaced. TTE pending Does appear to have UTI, possibly serving as trigger. In February had COVID-19 pneumonia. Currently at baseline oxygenation, no chest pain or pressure, no hemoptysis, cough, and lateral swelling. D-dimer is normal. Unlikely to have PE. Daughter reports she had just finished second dose of COVID-19 vaccine with Moderna, wondering if it could be an adverse effect. Discussed with her shanda carlson listed adverse effects, arrhythmia is not among them. Treat UTI. At some point may benefit additionally from risk stratification/closer assessment for CAD. Continue anticoagulation. If no evidence of CAD, and since she is taking aspirin only prophylactically, long-term may consider taking anticoagulation alone without aspirin. Appreciate cardiology recommendations. Denies history of sleep apnea. Not normally on CPAP. states she is wakes up at night frequently, but she states it is to urinate. Status: Acute (2) UTI (urinary tract infection): Klebsiella. Continue Rocephin. Status: Acute (3) Alkaline phosphatase elevation: Persists. Today 283. Morphology of possible cirrhosis on ultrasound. AST ALT not elevated. Alk phos, GGT elevated. Albumin 3.3. Check INR. APRI is 0.3, not sensitive or specific enough to determine level of fibrosis or cirrhosis. Discussed with her and her daughter. Clinically does not appear to have cirrhosis, however, concern may be may be progressing to fibrosis. Hepatomegaly noted. Encourage complete abstinence from alcohol. Will need additional follow-up regarding assessment for underlying etiology, long-term follow-up. As discussed at a mean condition at her age probably less likely. Requested AMA, ERMIAS, SMA Biliary system normal on ultrasonography. Status: Acute (4) Transaminitis: Resolved Hepatitis panel -ve. Status: Acute (5) Elevated troponin: Complete troponin EKG series. Suspected secondary to arrhythmia. May benefit from additional assessment for coronary disease once more stable. TTE Status: Acute (6) COPD (chronic obstructive pulmonary disease): Chronically on 2 L nasal cannula oxygen. Currently does not appear in exacerbation. Status: Acute Qualifiers: COPD type: unspecified COPD Qualified Code(s): J44.9 - Chronic obst ructive pulmonary disease, unspecified Attestations Medical Necessity Statement*: Continue admission for assessment management of difficult to control new atrial flutter with RVR Coding Level of Care Code Acute Readers' Advisory Service Librarian for Chg Fwd Exam Comprehensive Diagnoses Atrial flutter with rapid ventricular response I48.92 UTI (urinary tract infection) N39.0 Alkaline phosphatase elevation R74.8 Transaminitis R74.01 Elevated troponin R77.8 COPD (chronic obstructive pulmonary disease) J44.9 COPD type: unspecified COPD
--- NOTE | 2020-08-24 11:40 | P.PN_ITS ---
Subjective Subjective: Interval history: Occasional chest tightness Medications: Reviewed: Yes Vitals/I&O/Wt Last Vital Signs Temp 98.2 F 08/24/20 07:19 Pulse 122 H 08/24/20 07:33 Resp 18 08/24/20 07:19 BP 123/85 08/24/20 10:30 Pulse Ox 95 08/24/20 10:30 08/23/20 08/24/20 08/24/20 22:59 06:59 14:59 Intake Total 413.983 / 1327.513 405.218 / 1732.731 3.46 / 3.46 Output Total 275 / 275 700 / 975 Balance 138.983 / 1052.513 -294.782 / 757.731 3.46 / 3.46 Weight last 48 hrs Weight 169 lb 4 oz Weight 79 lb Physical Exam Narrative: EXAM NARRATIVE: GENERAL: obese woman in no acute distress HEENT: Pupils equal round reactive to light. No pallor or icterus. NECK: No JVD, No carotid bruit. CARDIOVASCULAR SYSTEM: S1-S2 irregular. No murmur appreciated. RESPIRATORY SYSTEM: Chest clear to auscultation. No wheezes rhonchi or rales heard. No use of accessory muscles. ABDOMEN: Soft, nontender and nondistended. Normal bowel sounds present. EXTREMITIES: No cyanosis or clubbing. No edema. reddish discoloration of shins, chronic DIRECTOR OF MEDICAL SERVICES: Patient is alert oriented ?3. No focal neurological deficits. SKIN: Normal turgor and temperature. PSYCH: Normal insight and judgment. Data : 08/24/20 03:24 08/24/20 03:24 Micro: Microbiology 08/22/20 14:00 Urine Culture - Final Urine,Clean Catch Klebsiella pneumoniae A&P Assessment and plan (1) Atrial flutter with rapid ventricular response: Newly diagnosed atrial flutter possible onset onset greater than 48 hours on arrival. -She had a similar episode last fall when her HR was in 150's for few hours. -Asymptomatic and hemodynamically stable. Goal is rate control if she converts to sinus that's a bonus. -[id number]= at least 4/9 , 1 for diabetes, 2 for age and 1 for female sex. -She was started on Lovenox 70 mg every 12. May change to Eliquis 5 mg BID on discharge -Normal TSH, f/u on echocardiogram. -increase metoprolol tartrate to 100 mg twice a day. -May add digoxin/cardizem based on BP and take her off amiodarone once HR better controlled. -Recommend stress testing prior to discharge on Thursday given multiple CAD risk factors and intermittent chest pains. Status: Acute (2) Elevated troponin: Baseline troponin T of 47 that decreased at 2 hours to 39. -Likely type II in setting of atrial flutter with rapid response Status: Acute (3) HTN (hypertension): Status: Acute Qualifiers: Hypertension type: essential hypertension Qualified Code(s): I10 - Essential (primary) hypertension (4) DM type 2 (diabetes mellitus, type 2): Status: Acute Qualifiers: Diabetes mellitus half-way insulin use: without half-way use Diabetes mellitus complication status: without complication Qualified Code(s): E11.9 - Type 2 diabetes mellitus without complications (5) COPD (chronic obstructive pulmonary disease): Status: Acute Qualifiers: COPD type: unspecified COPD Qualified Code(s): J44.9 - Chronic o bstructive pulmonary disease, unspecified Additional A&P Information Gram negative robin UTI: On antibiotics as per primary. Transaminitis :decrease in numbers with normalization of AST and ALT. Elevated alkaline phosphatase Overweight ?Liver cirrhosis Thank you for allowing me to participate in patient's care. Please feel free to call with questions or concerns Attestations Medical Necessity Statement*: needs hospital stay for atrial flutter with RVR Time Spent in Patient Care: 16 - 35 minutes (>than 50% of time spent in counselling and/or direct pt care on unit) . 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
[2020-08-24] MEDS: dilTIAZem 30 mg Tablet PO ×2 (16:28→20:54)
[2020-08-24 16:36] LABS: Glucose Point of Care 114 mg/dL (70-110)
[2020-08-24] MEDS: cefTRIAXone 1,000 MG in sodium chloride 0.9% (plus) 50 ML 100 MG IV (17:21)
[2020-08-24 20:27] LABS: Glucose Point of Care 140 mg/dL (70-110)
--- NOTE | 2020-08-24 21:27 | PC.NURSE ---
Patient Transferred to CSU. Report given to Nicholas CSU RN.
--- NOTE | 2020-08-24 21:44 | PC.ADMIT ---
1025 [facility] Admission Note: The patient,La Aranda,80 y/o, was given written information regarding hospital policies, unit procedures and contact persons. Patient's smoking status: former smoker. Vital Signs - 8 hr 08/24/20 14:00 08/24/20 14:30 08/24/20 15:00 Temperature Pulse Rate 128 H 128 H 127 H Respiratory Rate 23 H 23 H 26 H Blood Pressure 141/82 144/85 140/90 Pulse Oximetry 90 95 95 08/24/20 15:30 08/24/20 16:00 08/24/20 16:30 Temperature Pulse Rate 127 H 103 H 126 H Respiratory Rate 19 H 23 H 30 H Blood Pressure 140/118 136/88 116/78 Pulse Oximetry 93 91 08/24/20 17:00 08/24/20 17:30 08/24/20 18:00 Temperature Pulse Rate 130 H 126 H 126 H Respiratory Rate 20 H 18 28 H Blood Pressure 133/104 129/85 124/105 Pulse Oximetry 96 08/24/20 18:30 08/24/20 19:00 08/24/20 19:30 Temperature 98.1 F Pulse Rate 125 H 125 H 127 H Respiratory Rate 25 H 18 23 H Blood Pressure 124/72 144/87 130/97 Pulse Oximetry 96 94 95 08/24/20 19:44 08/24/20 19:55 08/24/20 20:00 Temperature Pulse Rate 129 H 127 H 129 H Respiratory Rate 16 23 H Blood Pressure 117/81 Pulse Oximetry 96 96
--- NOTE | 2020-08-24 21:44 | PC.NURSE ---
Upon transfer, pt stated I need a walker because I'll be getting up every hour in the night to go the the bathroom . Pt was educated by GROUP PRESIDENT to call if needing to use the restroom to prevent a fall. GROUP PRESIDENT put a walker in the room.
[2020-08-24] MEDS: metoprolol tartrate 50 mg Tablet 100 MG PO (21:58)
[2020-08-25] VITALS (13 sets, daily range): BP systolic 93–139; BP diastolic 56–92; PULSE 98–130; RESP 17–28; TEMP 36.4–36.9; O2SAT 94–99
[2020-08-25] MEDS: enoxaparin 80 mg/0.8 mL Syringe 70 MG SUBCUT ×2 (05:20→16:29)
[2020-08-25 05:38] LABS: Basophils # 0.1 10^3/uL (0.0-0.1); Basophils % 0.4 %; Eosinophils # 0.2 10^3/uL (0.0-0.8); Eosinophils % 1.1 %; Hematocrit 47.9 % (37.0-47.0); Hemoglobin 14.8 g/dL (11.5-15.3); Lymphocytes # 3.1 10^3/uL (0.8-4.8); Lymphocytes % 21.3 %; Mean Corpuscular HGB Conc 30.9 g/dL (30.0-36.0); Mean Corpuscular Hemoglobin 28.5 pg (28.0-34.0); Mean Corpuscular Volume 92.3 fL (81-99); Mean Platelet Volume 11.9 fL (7.4-10.4); Monocytes # 1.8 10^3/uL (0.2-0.9); Monocytes % 12.7 %; Neutrophils # 9.16 10^3/uL (1.8-7.7); Neutrophils % 64.2 %; Nucleated Red Blood Cells % 0 %; Platelet Count 322 10^3/cmm (130-400); Red Blood Count 5.19 10^6/uL (4.1-5.3); Red Cell Distribution Width 12.6 % (12.1-15.1); White Blood Count 14.3 10^3/uL (4.0-10.0)
[2020-08-25 06:06] LABS: Alanine Aminotransferase 42 U/L (0-33); Albumin Level 3.3 g/dL (3.5-5.2); Alkaline Phosphatase 315 IU/L (35-105); Anion Gap 12.3 (5-19); Aspartate Amino Transferase 38 U/L (0-32); Blood Urea Nitrogen 33 mg/dL (8-23); Carbon Dioxide 30 mmol/L (22-29); Chloride 102 mmol/L (98-107); Globulin 4.1 g/dL (1.3-4.6); Glucose 119 mg/dL (65-115); Magnesium 1.9 mg/dL (1.7-2.3); Osmolality Calculated 296 mOsm/kg (285-295); Potassium 5.3 mmol/L (3.5-5.1); Sodium 139 mmol/L (136-145); Total Bilirubin 0.3 mg/dL (0.15-1.2); Total Protein 7.4 g/dL (6.6-8.7)
[2020-08-25 06:14] LABS: Digoxin 1.3 ng/mL (0.6-1.2)
[2020-08-25 06:34] LABS: Glucose Point of Care 117 mg/dL (70-110)
[2020-08-25] MEDS: folic acid 1 mg Tablet PO (08:27)
[2020-08-25] MEDS: amiodarone 200 mg Tablet 400 MG PO ×2 (08:27→17:55)
[2020-08-25] MEDS: famotidine 20 mg Tablet PO ×2 (08:27→17:55)
[2020-08-25] MEDS: atorvastatin 40 mg Tablet 20 MG PO (08:27)
[2020-08-25] MEDS: dilTIAZem 30 mg Tablet PO ×3 (08:27→21:03)
[2020-08-25] MEDS: thiamine 100 mg Tablet PO (08:27)
[2020-08-25] MEDS: metoprolol tartrate 50 mg Tablet 100 MG PO ×2 (08:37→21:04)
--- NOTE | 2020-08-25 09:11 | PC.SOCIAL ---
*IMM UPDATE* Risk Management Analyst gave patient IMM update, provided her with copy of page 2 of IMM. Verbalized understanding. 08/25/20 @ 0851 Initialed, dated, timed and placed in chart.
[2020-08-25 11:36] LABS: Glucose Point of Care 194 mg/dL (70-110)
[2020-08-25 16:22] LABS: Glucose Point of Care 121 mg/dL (70-110)
[2020-08-25 17:03] LABS: Potassium 6.2 mmol/L (3.5-5.1)
[2020-08-25] MEDS: cefTRIAXone 1,000 MG in sodium chloride 0.9% (plus) 50 ML 100 MG IV (17:55)
--- NOTE | 2020-08-25 19:47 | PC.NURSE ---
Bedside report received from Pauline Chen RN. Patient is sitting in a chair by the bed playing a game on her tablet. Patient has no complaints of pain at this time. Brought patient a sugar free pudding and sugar free jello. Patient voices no other needs at this time. Nurse will continue to monitor.
[2020-08-25 20:18] LABS: Glucose Point of Care 187 mg/dL (70-110)
--- NOTE | 2020-08-25 23:22 | P.PN_ITS ---
Subjective Subjective: Interval history: Burning with urination has resolved, although reports she is still having urinary frequency. He is not sure whether this may be due to her diabetes. Denies chest pain or pressure. Denies trouble breathing. Vitals/I&O/Wt Last Vital Signs Temp 98.4 F 08/25/20 18:47 Pulse 124 H 08/25/20 22:00 Resp 20 H 08/25/20 20:48 BP 139/77 08/25/20 18:47 Pulse Ox 96 08/25/20 20:48 08/25/20 08/25/20 08/26/20 14:59 22:59 06:59 Intake Total 600 / 600 410 / 1010 Balance 600 / 600 410 / 1010 Weight last 48 hrs Weight 76.771 kg Physical Exam Narrative: EXAM NARRATIVE: Visited by Const: COMMON NORMALS: no acute distress and alert GENERAL APPEARANCE: cooperative NUTRITIONAL APPEARANCE: overweight ORIENTATION/CONSCIOUSNESS: Yes awake OTHER: Pleasant, conversant. Heart rate elevated in 120s. HENMT: COMMON NORMALS: oropharynx normal Neck/C-Spine: COMMON NORMALS: no JVD Resp: COMMON NORMALS: normal respiratory effort and clear to auscultation bilaterally AUSCULTATION: clear to auscultation bilaterally OTHER: Minute/faint crackle at right base Cardio: COMMON NORMALS: no JVD, regular rhythm, S1 normal heart sound present, S2 normal heart sound present and No murmurs present (Cardio) RATE: tachycardic RHYTHM: regular rhythm and abnormal rhythm irregularly irregular HEART SOUNDS: S1 normal heart sound present and S2 normal heart sound present GI: COMMON NORMALS: Normal to inspection, nondistended, normoactive bowel sounds present, Soft to palpation and non-tender PALPATION: Yes Soft to palpation Extremity: COMMON NORMALS: no joint enlargement and no pedal edema Neuro: COMMON NORMALS: moves all extremities SENSORIUM/ORIENTATION: Yes alert Skin: COMMON NORMALS: no rashes or lesions noted GENERAL SKIN EXAM: no rashes or lesions noted RASHES: rashes noted (Bilateral lower extremity venous stasis dermatitis) Data : 08/25/20 04:28 08/25/20 16:26 A&P Assessment and plan (1) Atrial flutter with rapid ventricular response: Heart rate better than on admission, however, still persistently in 120s. Will increase Cardizem dose to 60 mg 3 times daily. We will follow-up additional cardiology recommendations. Hyperkalemia, potassium 6.2. We will give a dose of Kayexalate. Continue metoprolol. Continue amiodarone, will DC amiodarone after heart rates better control due to concern for liver fibrosis. Chronic lung disease. Check dig level 1.3. TSH is normal. Potassium normal. Magnesium replaced. TTE pending Continue treatment of UTI. In February had COVID-19 pneumonia. Currently at baseline oxygenation, no chest pain or pressure, no hemoptysis, cough, and lateral swelling. D-dimer is normal. Unlikely to have PE. Daughter reports she had just finished second dose of COVID-19 vaccine with Moderna, wondering if it could be an adverse effect. Discussed with her reviewing listed adverse effects, arrhythmia is not among them. At some point may benefit additionally from risk stratification/closer assessment for CAD. Continue anticoagulation. If no evidence of CAD, and since she is taking aspirin only prophylactically, long-term may consider taking anticoagulation alone without aspirin. Appreciate cardiology recommendations. Denies history of sleep apnea. Not normally on CPAP. states she is wakes up at night frequently, but she states it is to urinate. Status: Acute (2) Hyperkalemia: Level increased despite changing to low potassium diet. Up to 6.2. We will give one-time 15 g dose of Kayexalate. Continue low potassium diet. Hold multivitamin. Status: Acute (3) UTI (urinary tract infection): Klebsiella. Continue Rocephin. Status: Acute (4) Alkaline phosphatase elevation: Persists. Elevated GGT. Morphology of possible cirrhosis on ultrasound. AST ALT with minimal transaminitis. Albumin 3.3. Normal INR. APRI is 0.3, not sensitive or specific enough to determine level of fibrosis or cirrhosis. Discussed with her and her daughter. Clinically does not appear to have cirrhosis, however, concern may be may be progressing to fibrosis. Hepatomegaly noted. Encourage complete abstinence from alcohol. Will need additional follow-up regarding assessment for underlying etiology, long-term follow-up. As discussed at a mean condition at her age probably less likely. Requested AMA, ERMIAS, SMA Biliary system normal on ultrasonography. Status: Acute (5) Transaminitis: Mild transaminitis, AST 38, ALT 42. 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 Overall does not appear yet to have reached stage of cirrhosis. Hepatitis panel -ve. Status: Acute (6) Elevated troponin: Complete troponin EKG series. Suspected secondary to arrhythmia. May benefit from additional assessment for coronary disease once more stable. TTE pending Status: Acute (7) COPD (chronic obstructive pulmonary disease): Chronically on 2 L nasal cannula oxygen. Currently does not appear in exacerbation. Status: Acute Qualifiers: COPD type: unspecified COPD Qualified Code(s): J44.9 - Chronic obstructive pulmonary disease, unspecified Attestations Medical Necessity Statement*: Continue admission for assessment management of difficult control A. fib with RVR. Coding Level of Care Code Acute Fermentation Engineer for Chg Fwd Diagnoses Atrial flutter with rapid ventricular response I48.92 Hyperkalemia E87.5 UTI (urinary tract infection) N39.0 Alkaline phosphatase elevation R74.8 Transaminitis R74.01 Elevated troponin R77.8 COPD (chronic obstructive pulmonary disease) J44.9 COPD type: unspecified COPD
[2020-08-25] MEDS: sodium polystyrene sulfonate 15 gm/60 mL Btl PO (23:52)
[2020-08-25 23:56] LABS: Creatine Phosphokinase 37 U/L (26-192)
[2020-08-26] VITALS (13 sets, daily range): BP systolic 92–129; BP diastolic 46–77; PULSE 90–124; RESP 14–23; TEMP 36.4–36.8; O2SAT 91–97
[2020-08-26 05:36] LABS: Basophils # 0.1 10^3/uL (0.0-0.1); Basophils % 0.6 %; Eosinophils # 0.2 10^3/uL (0.0-0.8); Eosinophils % 1.2 %; Hematocrit 50.2 % (37.0-47.0); Hemoglobin 14.6 g/dL (11.5-15.3); Lymphocytes # 1.8 10^3/uL (0.8-4.8); Lymphocytes % 15.1 %; Mean Corpuscular HGB Conc 29.1 g/dL (30.0-36.0); Mean Corpuscular Hemoglobin 28.5 pg (28.0-34.0); Mean Platelet Volume 11.5 fL (7.4-10.4); Monocytes # 1.6 10^3/uL (0.2-0.9); Monocytes % 12.9 %; Neutrophils # 8.41 10^3/uL (1.8-7.7); Neutrophils % 69.6 %; Nucleated Red Blood Cells % 0 %; Platelet Count 277 10^3/cmm (130-400); Red Blood Count 5.12 10^6/uL (4.1-5.3); Red Cell Distribution Width 12.9 % (12.1-15.1); White Blood Count 12.1 10^3/uL (4.0-10.0)
[2020-08-26] MEDS: enoxaparin 80 mg/0.8 mL Syringe 70 MG SUBCUT ×2 (05:38→17:14)
[2020-08-26 06:44] LABS: Magnesium 2.2 mg/dL (1.7-2.3)
[2020-08-26 06:48] LABS: Glucose Point of Care 121 mg/dL (70-110)
[2020-08-26] MEDS: atorvastatin 40 mg Tablet 20 MG PO (08:07)
[2020-08-26] MEDS: folic acid 1 mg Tablet PO (08:07)
[2020-08-26] MEDS: amiodarone 200 mg Tablet 400 MG PO ×3 (08:07→20:29)
[2020-08-26] MEDS: famotidine 20 mg Tablet PO ×2 (08:07→17:15)
[2020-08-26] MEDS: thiamine 100 mg Tablet PO (08:07)
[2020-08-26] MEDS: metoprolol tartrate 50 mg Tablet 100 MG PO ×2 (08:07→20:28)
[2020-08-26] MEDS: dilTIAZem 30 mg Tablet 60 MG PO ×2 (08:07→17:15)
--- NOTE | 2020-08-26 10:00 | PC.NURSE ---
pt wants bath tonight
[2020-08-26 11:07] LABS: Glucose Point of Care 199 mg/dL (70-110)
[2020-08-26 11:31] LABS: Alanine Aminotransferase 84 U/L (0-33); Albumin Level 3.3 g/dL (3.5-5.2); Alkaline Phosphatase 370 IU/L (35-105); Anion Gap 14.8 (5-19); Aspartate Amino Transferase 80 U/L (0-32); Blood Urea Nitrogen 38 mg/dL (8-23); Calcium 8.6 mg/dL (8.5-10.5); Carbon Dioxide 29 mmol/L (22-29); Chloride 100 mmol/L (98-107); Glucose 193 mg/dL (65-115); Osmolality Calculated 302 mOsm/kg (285-295); Potassium 4.8 mmol/L (3.5-5.1); Sodium 139 mmol/L (136-145); Total Bilirubin 0.2 mg/dL (0.15-1.2); Total Protein 7.3 g/dL (6.6-8.7)
--- NOTE | 2020-08-26 11:34 | PC.CHAP ---
Pastoral Care Encounter/Spiritual Assessment Type of Contact [] Declined tank systems maintainer visit [] Patient/Family/Request visit [] Outpatient visit [] Follow-up visit [] Physician referral [] Code/Alert [XX] Routine visit [] Staff referral [] Actively dying [] Patient sleeping [] Family support [] [] Out of room [] Palliative care [] [] Receiving care in room [] Pre-surgical visit [] Trauma [] Long length of stay [] ICU visit [] Other: Relational/Emotional Strength [XX] Patient feels connected with others/family/visitors/staff [] Distress [] Loneliness/isolation [] Abandonment Spirituality of Patient [XX] Person of Sudha [] Attends Temple of their Sudha [XX] Believes in Prayer [] Reads Bible or Holiness materials [] There are Spiritual issues to be addressed Director Learning And Development Interventions [XX] Prayer [XX] Active listening [XX] Non-anxious presence [] Spiritual/emotional support [] Crisis/trauma care [] Spiritual counseling [] Bereavement support [] Provided bereavement packet [] Provided Bible/devotional materials [] Provided toy/stuffed animal, coloring book to patient or family member [] Provided Communion [] Anointing/[place] [] Salvation [XX] Completed spiritual assessment [] Other: Impact on Illness or Injury [] Angry [] Fearful [] Anxious [] Often cries [] Exhaustion [] Unable to work [] Unable to attend sikhism [] Unable to walk/stand [] Unable to read [] Unable to drive [] Unable to eat/drink [] Unable to sleep [] Unable to be with family [] Patient intubated [] Other: Summary: Pt in good spirits hoping to be able to return home soon. Pt's present. Time spent with patient: 15 mins
[2020-08-26] MEDS: ondansetron 2 mg/ML SDV 2 mL 4 MG IVP (13:50)
--- NOTE | 2020-08-26 14:00 | PC.NURSE ---
Addendum entered by Pauline Ivy RN 08/26/20 14:18: before leaving patients room Dr arriaga with instructions to change amio bck to BID and remain on Cardizem TID then changed orders again to amio TID 400mg and Cardizem to 60 mg BID Original Note: Dr arriaga at bedside for assessment and discussion of POC with patient and family at bedside verbal instructions to adjust amioderone current dose of 400mg BID to 400mg TID
[2020-08-26 16:50] LABS: Glucose Point of Care 100 mg/dL (70-110)
[2020-08-26] MEDS: cefTRIAXone 1,000 MG in sodium chloride 0.9% (plus) 50 ML 100 MG IV (17:15)
--- NOTE | 2020-08-26 19:28 | PC.NURSE ---
Asked patient if she would like a bath. Patient stated No I am just too sleepy. RN notified.
[2020-08-26 20:43] LABS: Glucose Point of Care 198 mg/dL (70-110)
--- NOTE | 2020-08-26 22:20 | PM.PN ---
Subjective Subjective: Interval history: Having some nausea this afternoon. Denies chest pain or pressure. Heart rates with slight improvement, however, with increased dose of Cardizem blood pressures are also soft. Heart rate still going into 100 teens. Discussing with her and her additional options she states she may consider cardioversion, and would like to hear more about it. Discussed with cardiology who will speak more with her about risks and benefits of the procedure as well as other relatives of treatment of the persistent atrial fibrillation.. Vitals/I&O/Wt Last Vital Signs Temp 98.2 F 08/26/20 19:30 Pulse 114 H 08/26/20 20:31 Resp 20 H 08/26/20 20:30 BP 106/57 08/26/20 19:30 Pulse Ox 91 08/26/20 20:30 08/26/20 08/26/20 08/26/20 06:59 14:59 22:59 Intake Total 720 / 720 290 / 1010 Output Total 300 / 300 30 / 30 Balance -300 / 710 690 / 690 290 / 980 Weight last 48 hrs Weight 78.426 kg Physical Exam Narrative: EXAM NARRATIVE: at bedside. Const: COMMON NORMALS: no acute distress and alert GENERAL APPEARANCE: cooperative NUTRITIONAL APPEARANCE: overweight ORIENTATION/CONSCIOUSNESS: Yes awake OTHER: Heart rate elevated in 105-115 HENMT: COMMON NORMALS: oropharynx normal Neck/C-Spine: COMMON NORMALS: no JVD Resp: COMMON NORMALS: normal respiratory effort and clear to auscultation bilaterally AUSCULTATION: clear to auscultation bilaterally Cardio: COMMON NORMALS: no JVD, regular rhythm, S1 normal heart sound present, S2 normal heart sound present and No murmurs present (Cardio) RATE: tachycardic RHYTHM: regular rhythm and abnormal rhythm irregularly irregular HEART SOUNDS: S1 normal heart sound present and S2 normal heart sound present GI: COMMON NORMALS: Normal to inspection, nondistended, normoactive bowel sounds present, Soft to palpation and non-tender PALPATION: Yes Soft to palpation Extremity: COMMON NORMALS: no joint enlargement and no pedal edema Neuro: COMMON NORMALS: moves all extremities SENSORIUM/ORIENTATION: Yes alert Skin: COMMON NORMALS: no rashes or lesions noted GENERAL SKIN EXAM: no rashes or lesions noted RASHES: rashes noted (Bilateral lower extremity venous stasis dermatitis) Data : 08/26/20 04:35 08/26/20 10:38 A&P Assessment and plan (1) Atrial flutter with rapid ventricular response: Slight improvement in heart rates, 105-115, however, at the expense of soft blood pressure with increase in Cardizem dose. Discussed with her and with cardiology. She may consider further hearing about risks and benefits of cardioversion. For now continue metoprolol, Cardizem. Monitor blood pressures, heart rate. Additional medication adjustments per cardiology. Hyperkalemia responded to Kayexalate. Continue metoprolol. Cardizem. Continue amiodarone, will DC amiodarone after heart rates better control due to concern for liver fibrosis. Chronic lung disease. TSH is normal. Potassium, magnesium good today. TTE pending Continue treatment of UTI. In February had COVID-19 pneumonia. Currently at baseline oxygenation, no chest pain or pressure, no hemoptysis, cough, and lateral swelling. D-dimer is normal. Unlikely to have PE. Daughter reports she had just finished second dose of COVID-19 vaccine with Moderna, wondering if it could be an adverse effect. Discussed with her reviewing listed adverse effects, arrhythmia is not among them. Prior to discharge would also benefit additionally from risk stratification/closer assessment for CAD. Continue anticoagulation. If no evidence of CAD, and since she is taking aspirin only prophylactically, long-term may consider taking anticoagulation alone without aspirin. Appreciate cardiology recommendations. Denies history of sleep apnea. Not normally on CPAP. states she is wakes up at night frequently, but she states it is to urinate. Status: Acute (2) Hyperkalemia: Resolved. Responded to Kayexalate. Continue low potassium diet. Hold multivitamin. Status: Acute (3) UTI (urinary tract infection): Klebsiella. Completed 5 days of Rocephin. Will stop. Status: Acute (4) Alkaline phosphatase elevation: Persists. Elevated GGT. Morphology of possible cirrhosis on ultrasound. AST ALT with minimal transaminitis. Albumin 3.3. Normal INR. APRI is 0.3, not sensitive or specific enough to determine level of fibrosis or cirrhosis. I had discussed with her and her daughter. Clinically does not appear to have cirrhosis, however, concern may be may be progressing to fibrosis. Hepatomegaly noted. Encourage complete abstinence from alcohol. Will need additional follow-up regarding assessment for underlying etiology, long-term follow-up. As discussed at a mean condition at her age probably less likely. Requested AMA, ERMIAS, SMA Biliary system normal on ultrasonography. Status: Acute (5) Transaminitis: Some worsening of transaminitis. We will hold atorvastatin for now. 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 Overall does not appear yet to have reached stage of cirrhosis. Hepatitis panel -ve. Possibly mild component of congestive hepatopathy secondary to decompensated A. fib. Status: Acute (6) Elevated troponin: Complete troponin EKG series. Suspected secondary to arrhythmia. May benefit from additional assessment for coronary disease once more stable. TTE pending Status: Acute (7) COPD (chronic obstructive pulmonary disease): Chronically on 2 L nasal cannula oxygen. Currently does not appear in exacerbation. Status: Acute Qualifiers: COPD type: unspecified COPD Qualified Code(s): J44.9 - Chronic obstructive pulmonary disease, unspecified Attestations Medical Necessity Statement*: Continue admission for additional evaluation and treatment of new difficult to control atrial fibrillation with RVR, reassessment by cardiology, consideration of risks and benefits of cardioversion. Coding Level of Care Code Acute Mobility Architect Manager for Chg Fwd Diagnoses Atrial flutter with rapid ventricular response I48.92 Hyperkalemia E87.5 UTI (urinary tract infection) N39.0 Alkaline phosphatase elevation R74.8 Transaminitis R74.01 Elevated troponin R77.8 COPD (chronic obstructive pulmonary disease) J44.9 COPD type: unspecified COPD
[2020-08-27] VITALS (14 sets, daily range): BP systolic 100–117; BP diastolic 49–69; PULSE 55–117; RESP 8–25; TEMP 36.6–36.8; O2SAT 92–98
[2020-08-27 03:51] LABS: Basophils # 0.1 10^3/uL (0.0-0.1); Basophils % 0.4 %; Eosinophils # 0.2 10^3/uL (0.0-0.8); Eosinophils % 1.6 %; Hematocrit 46.5 % (37.0-47.0); Hemoglobin 14.3 g/dL (11.5-15.3); Lymphocytes # 2.6 10^3/uL (0.8-4.8); Lymphocytes % 21.7 %; Mean Corpuscular HGB Conc 30.8 g/dL (30.0-36.0); Mean Corpuscular Hemoglobin 28.8 pg (28.0-34.0); Mean Corpuscular Volume 93.6 fL (81-99); Monocytes # 1.3 10^3/uL (0.2-0.9); Monocytes % 11.1 %; Neutrophils % 64.7 %; Nucleated Red Blood Cells % 0 %; Platelet Count 328 10^3/cmm (130-400); Red Blood Count 4.97 10^6/uL (4.1-5.3); Red Cell Distribution Width 12.7 % (12.1-15.1); White Blood Count 12.1 10^3/uL (4.0-10.0)
[2020-08-27 04:11] LABS: Alanine Aminotransferase 110 U/L (0-33); Albumin Level 3.3 g/dL (3.5-5.2); Alkaline Phosphatase 359 IU/L (35-105); Anion Gap 11.8 (5-19); Aspartate Amino Transferase 99 U/L (0-32); Blood Urea Nitrogen 42 mg/dL (8-23); Calcium 7.7 mg/dL (8.5-10.5); Carbon Dioxide 34 mmol/L (22-29); Chloride 101 mmol/L (98-107); Glucose 181 mg/dL (65-115); Magnesium 2.1 mg/dL (1.7-2.3); Osmolality Calculated 307 mOsm/kg (285-295); Potassium 5.8 mmol/L (3.5-5.1); Sodium 141 mmol/L (136-145); Total Bilirubin 0.3 mg/dL (0.15-1.2); Total Protein 7.3 g/dL (6.6-8.7)
[2020-08-27] MEDS: enoxaparin 80 mg/0.8 mL Syringe 70 MG SUBCUT ×2 (05:02→17:36)
[2020-08-27 07:00] LABS: Glucose Point of Care 129 mg/dL (70-110)
--- NOTE | 2020-08-27 08:00 | USCV_ITS ---
La Aranda Age: 80 Gender: F : 1940 Exam Date: 08/27/2020 14:35 Ordering Phys: Christina Jama MD ([email or web address]) Technologist: Rachid Lilly Exam Location: [facility] – [place] Indication: AFIB BP: 105 / 62 HR: 74 Rhythm: Atrial flutter Technical Quality: Adequate MEASUREMENTS (Male / Female) Normal Values 2D ECHO LV Diastolic Diameter PLAX 4.3 cm 4.2 - 5.9 / 3.9 - 5.3 cm LV Systolic Diameter PLAX 2.3 cm IVS Diastolic Thickness 1.4 cm 0.6 - 1.0 / 0.6 - 0.9 cm IVS Systolic Thickness 1.4 cm LVPW Diastolic Thickness 1.3 cm 0.6 - 1.0 / 0.6 - 0.9 cm LVPW Systolic Thickness 1.3 cm LVOT Diameter 2.0 cm LV Ejection Fraction 2D Teich 62.2 % LV Ejection Fraction MOD 2C 53.6 % LV Ejection Fraction 2C AL 53.8 % LA Diameter 3.9 cm LA Width 5.0 cm LA Height 5.8 cm RA Width 4.4 cm RA Height 5.4 cm M-MODE LV Diastolic Diameter MM 5.6 cm 4.2 - 5.9 / 3.9 - 5.3 cm LV Systolic Diameter MM 3.4 cm LV Ejection Fraction MM Teich 69.3 % IVS Diastolic Thickness MM 1.0 cm 0.6 - 1.0 / 0.6 - 0.9 cm IVS Systolic Thickness MM 1.6 cm LVPW Diastolic Thickness MM 1.3 cm 0.6 - 1.0 / 0.6 - 0.9 cm LVPW Systolic Thickness MM 1.8 cm RV Diastolic Diameter MM 1.5 cm Aortic Annulus Diameter 3.2 cm LA Ao Ratio MM 1.5 MV E Point Septal Separation 1.1 cm DOPPLER AV Peak Velocity 118.3 cm/s LVOT Peak Velocity 114.0 cm/s AV Area Cont Eq vti 2.9 cm squared AV Area Cont Eq pk 3.0 cm squared MV Area PHT 5.0 cm squared Mitral E to A Ratio 1.4 MV E' Velocity 74.0 cm/s Mitral E to MV E' Ratio 13.5 Mitral E to LV E' Lateral Ratio 13.9 Mitral E to LV E' Septal Ratio 13.1 TR Peak Velocity 218.7 cm/s TR Peak Gradient 19.1 mmHg TV Peak E Velocity 91.0 cm/s Right Atrial Pressure 3.0 mmHg Pulmonary Artery Systolic Pressu 22.1 mmHg PV Peak Velocity 77.0 cm/s FINDINGS Left Ventricle Normal left ventricular cavity size. Normal left ventricular systolic function. Left ventricular ejection fraction is estimated at 55-60 %. No diagnostic regional wall motion abnormality based on the study. Rhythm precludes evaluation of diastolic function. Right Ventricle Normal right ventricular size and systolic function. Right ventricular systolic pressure 33 mmHg. Right Atrium Normal right atrial size. Left Atrium Mildly to moderately increased left atrial size. Mitral Valve Mild mitral annular calcification. Mildly thickened mitral valve. No mitral valve stenosis. Mild-moderate mitral valve regurgitation. Aortic Valve Mildly thickened trileaflet aortic valve. No aortic valve stenosis. No aortic valve regurgitation. Tricuspid Valve Tricuspid valve not well visualized. Mild tricuspid valve regurgitation. Pulmonic Valve Pulmonic valve not well visualized. Pericardium No pericardial effusion. Aorta Normal size aortic root and proximal ascending aorta. CONCLUSIONS 1. Normal left ventricular cavity size. Normal left ventricular systolic function. Left ventricular ejection fraction is estimated at 55-60 %. No diagnostic regional wall motion abnormality based on the study. 2. Normal right ventricular size and systolic function. 3. Mild-moderate mitral valve regurgitation. 4. No prior similar studies to compare. Christina Jama MD (Electronically Signed) Final Date: 27 Aug 2020 18:05 S
--- NOTE | 2020-08-27 09:36 | PC.SOCIAL ---
IMM Update PG.2 of IMM updated and reviewed with patient, who verbalized understanding. Copy provided.
[2020-08-27] MEDS: metoprolol tartrate 50 mg Tablet 100 MG PO ×2 (09:48→20:35)
[2020-08-27] MEDS: thiamine 100 mg Tablet PO (09:49)
[2020-08-27] MEDS: folic acid 1 mg Tablet PO (09:49)
[2020-08-27] MEDS: amiodarone 200 mg Tablet 400 MG PO ×3 (09:49→20:36)
[2020-08-27] MEDS: famotidine 20 mg Tablet PO ×2 (09:49→17:38)
[2020-08-27] MEDS: dilTIAZem 30 mg Tablet 60 MG PO ×2 (09:49→17:38)
--- NOTE | 2020-08-27 10:30 | P.PN_ITS ---
Subjective Subjective: Interval history: Hospital course noted. Labs noted. On exam sitting at the side of the bed. On 2 L saturating 94%. Denies any N/V, headache, chest pain, palpitations, SOB. She continues to be in Afib with RVR with Hr ranging from 110 to 120s at rest Medications: Reviewed: Yes Vitals/I&O/Wt Last Vital Signs Temp 97.9 F 08/27/20 07:04 Pulse 101 H 08/27/20 09:37 Resp 17 08/27/20 09:35 BP 109/65 08/27/20 07:04 Pulse Ox 92 08/27/20 09:35 08/26/20 08/27/20 08/27/20 22:59 06:59 14:59 Intake Total 290 / 1010 240 / 1250 360 / 360 Output Total 500 / 530 Balance 290 / 980 -260 / 720 360 / 360 Weight last 48 hrs Weight 77.111 kg Weight 78.426 kg Physical Exam Narrative: EXAM NARRATIVE: General: No acute distress, AO x3, on 2 Lt NC HEENT: PERRLA, pupils bilaterally equal and reactive Chest: Normal vesicular breath sounds,B/l fine crackles, equal good air entry bilaterally CVS: S1-S2 irregular irregular, PSM at apex2/6 radiating to ant axillary line, no tachycardia, no gallops, no rubs Abdomen: Soft, nontender, no organomegaly, bowel sounds present Neuro: No focal deficits, no facial deformity, AO x3, power 5/5 in all limbs Data : 08/28/20 03:30 08/28/20 03:30 A&P Assessment and plan (1) Atrial flutter with rapid ventricular response: Status: Acute (2) Hyperkalemia: Status: Acute (3) UTI (urinary tract infection): Klebsiella. Completed 5 days of Rocephin. Status: Acute (4) Alkaline phosphatase elevation: Persists. Elevated GGT. Morphology of possible cirrhosis on ultrasound. AST ALT with minimal transaminitis. Albumin 3.3. Normal INR. APRI is 0.3, not sensitive or specific enough to determine level of fibrosis or cirrhosis. I had discussed with her and her daughter. Clinically does not appear to have cirrhosis, however, concern may be may be progressing to fibrosis. Hepatomegaly noted. Encourage complete abstinence from alcohol. Will need additional follow-up regarding assessment for underlying etiology, long-term follow-up. Hepatitis panel in past WNL. Check HIV. ERMIAS and smooth muscle panel awaited. Can be 2/2 malignancy tasia with lymphadenopathy seen on CT done back in Feb 2020. Will repeat CT as lymphadenopathy at that time could be due to covid 19 Biliary system normal on ultrasonography. Status: Acute (5) Transaminitis: Some worsening of transaminitis. Check INR. Med rec done. We will hold atorvastatin for now. 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 Overall does not appear yet to have reached stage of cirrhosis. Hepatitis panel -ve. Possibly mild component of congestive hepatopathy secondary to decompensated A. fib. Status: Acute (6) Elevated troponin: Complete troponin EKG series. Suspected secondary to arrhythmia. May benefit from additional assessment for coronary disease once more stable. TTE pending Status: Acute (7) COPD (chronic obstructive pulmonary disease): Chronically on 2 L nasal cannula oxygen. Currently does not appear in exacerbation. Status: Acute Qualifiers: COPD type: unspecified COPD Qualified Code(s): J44.9 - Chronic obstructive pulmonary disease, unspecified Additional A&P Information Afib with RVR: On multiple medications for rate control for now. C/w Amio 400 TID, Cardizem and Metoprolol. Check TTE for valve abnormality and EF Case discussed with Dr. Evita braun for ECTOR and Cardioverson in AM tomorrow. NPO after mid midnight. [id number]= at least 4/9 , 1 for diabetes, 2 for age and 1 for female sex. C/w Lovenox 70 mg every 12. May change to Eliquis 5 mg BID on discharge Hyperkalemia: Corrected with K-exalate Elevated torponin: Likely type II IA but given her risk factors and family history will have to r/o CAD. Possible stress test prior to d/c Attestations Medical Necessity Statement*: Requires further hospitalization for managemnet of Afib with difficult to control RVR Time Spent in Patient Care: Greater than 35 minutes Coding Level of Care Code Acute Telecommunication Tower Technician for Chg Fwd Diagnoses Atrial flutter with rapid ventricular response I48.92 Hyperkalemia E87.5 UTI (urinary tract infection) N39.0 Alkaline phosphatase elevation R74.8 Transaminitis R74.01 Elevated troponin R77.8 COPD (chronic obstructive pulmonary disease) J44.9 COPD type: unspecified COPD
--- NOTE | 2020-08-27 10:42 | P.PN_ITS ---
Subjective Subjective: Interval history: Patient remains difficult to rate control. SOB on ambulation (chronic), No CP or dizzy spells. Medications: Reviewed: Yes Vitals/I&O/Wt Last Vital Signs Temp 97.9 F 08/27/20 07:04 Pulse 101 H 08/27/20 09:37 Resp 17 08/27/20 09:35 BP 109/65 08/27/20 07:04 Pulse Ox 92 08/27/20 09:35 08/26/20 08/27/20 08/27/20 22:59 06:59 14:59 Intake Total 290 / 1010 240 / 1250 360 / 360 Output Total 500 / 530 Balance 290 / 980 -260 / 720 360 / 360 Weight last 48 hrs Weight 170 lb Weight 172 lb 14.4 oz Physical Exam Narrative: EXAM NARRATIVE: GENERAL: obese woman in no acute distress HEENT: Pupils equal round reactive to light. No pallor or icterus. NECK: No JVD, No carotid bruit. CARDIOVASCULAR SYSTEM: S1-S2 irregular. No murmur appreciated. RESPIRATORY SYSTEM: Chest clear to auscultation. No wheezes rhonchi or rales heard. No use of accessory muscles. ABDOMEN: Soft, nontender and nondistended. Normal bowel sounds present. EXTREMITIES: No cyanosis or clubbing. No edema. reddish discoloration of shins, chronic MANAGER HOME IMPROVEMENT: Patient is alert oriented ?3. No focal neurological deficits. SKIN: Normal turgor and temperature. PSYCH: Normal insight and judgment. Data : 08/27/20 03:41 08/27/20 03:41 A&P Assessment and plan (1) Atrial flutter with rapid ventricular response: Newly diagnosed atrial flutter possible onset onset greater than 48 hours on arrival. -She had a similar episode last fall when her HR was in 150's for few hours. -difficult to rate control. -[id number]= at least 4/9 , 1 for diabetes, 2 for age and 1 for female sex. -She was started on Lovenox 70 mg every 12. May change to Eliquis 5 mg BID on discharge -Normal TSH, f/u on echocardiogram. -on metoprolol tartrate to 100 mg twice a day and cardizem 60 mg PO BID. -also on amiodarone 400 mg TID, HR remains in 110's on telemetry. -Amiodarone may not be the best choice with increasing liver enzymes. Will consider transitioning to sotalol. -Risks and benefits were discussed with the patients. Alternate management options were discussed with the patient as well. Possible complications were reviewed with the patient as well. Plan is to proceed for the procedure at the earliest based on anesthesia schedule. -Recommend stress testing prior to discharge given multiple CAD risk factors and intermittent chest pains. Status: Acute (2) Elevated troponin: Baseline troponin T of 47 that decreased at 2 hours to 39. -Likely type II in setting of atrial flutter with rapid response Status: Acute (3) HTN (hypertension): Status: Acute Qualifiers: Hypertension type: essential hypertension Qualified Code(s): I10 - Essential (primary) hypertension (4) DM type 2 (diabetes mellitus, type 2): Status: Acute Qualifiers: Diabetes mellitus complication status: without complication Diabetes mellitus correction insulin use: without termite inspector use Qualified Code(s): E11.9 - Type 2 diabetes mellitus without complications (5) COPD (chronic obstructive pulmonary disease): Status: Acute Qualifiers: COPD type: unspecified COPD Qualified Code(s): J44.9 - Chronic obstructive pulmonary disease, unspecified Additional A&P Information Gram negative robin UTI: On antibiotics as per primary. Transaminitis. Hyperkalemia Elevated alkaline phosphatase Overweight ?Liver cirrhosis Thank you for allowing me to participate in patient's care. Please feel free to call with questions or concerns Attestations Medical Necessity Statement*: needs hospital stay for atrial flutter with RVR Time Spent in Patient Care: 16 - 35 minutes (>than 50% of time spent in counselling and/or direct pt care on unit) . Coding Level of Care Code Acute Landscaping Supervisor for Chg Fwd Diagnoses Atrial flutter with rapid ventricular response I48.92 Elevated troponin R77.8 HTN (hypertension) I10 Hypertension type: essential hypertension DM type 2 (diabetes mellitus, type 2) E11.9 Diabetes mellitus complication status: without complication Diabetes mellitus termite inspector insulin use: without correction use COPD (chronic obstructive pulmonary disease) J44.9 COPD type: unspecified COPD
--- NOTE | 2020-08-27 10:48 | ECG_ITS ---
[facility] Test Date: 2020-08-27 Pat Name: La Aranda Department: Room: 101 Gender: Female Drum Puller: : 1940 Requested By: Christina Jama Order Number: [id number] Iglesia MD: Christina Jama M.D. Measurements Intervals [place] Rate: 75 P: MI: QRS: 134 QRSD: 130 T: -59 QT: 409 QTc: 459 Interpretive Statements ATRIAL FLUTTER with variable block INDETERMINATE AXIS RIGHT BUNDLE BRANCH BLOCK LEFT POSTERIOR FASCICULAR BLOCK [QRS AXIS > 109, INFERIOR Q] ANTERIOR MYOCARDIAL INFARCTION, OF INDETERMINATE AGE MODERATE T-WAVE ABNORMALITY, CONSIDER INFERIOR ISCHEMIA Compared to ECG 08/23/2020 13:50:17 Right bundle-branch block now present Left posterior fascicular block now present Myocardial infarct finding now present T-wave abnormality now present Possible ischemia now present Electronically Signed On 08-28-2020 22:19:34 CDT by Christina Jama M.D. [email or web address]
[2020-08-27 11:32] LABS: Glucose Point of Care 184 mg/dL (70-110)
[2020-08-27 11:44] LABS: NT Pro B Type Natriuretic Pept 1458 pg/mL (0-450)
[2020-08-27 14:09] LABS: INR 1.03 (0.8-1.2)
[2020-08-27 14:27] LABS: Anti-Nuclear AB Pattern #3 Nuclear, Speckled; Anti-Nuclear Antibody Screen POSITIVE (NEGATIVE); Anti-Nuclear Antibody Titer #2 > OR = 1:1280 titer
[2020-08-27 14:32] LABS: Potassium 5.3 mmol/L (3.5-5.1)
[2020-08-27 14:46] LABS: HIV 1 & 2 Antibody Non-Reactive (Non-Reactiv); HIV 1 & 2 Antigen Non-Reactive (Non-Reactiv)
[2020-08-27 15:30] LABS: SARS Covid-2 Antigen Negative (Negative)
[2020-08-27] MEDS: sodium polystyrene sulfonate 15 gm/60 mL Btl 30 GM PO (15:31)
[2020-08-27 16:13] LABS: Glucose Point of Care 98 mg/dL (70-110)
--- NOTE | 2020-08-27 18:36 | PC.RESP ---
Pulmonary Rehab information sent to patient.
[2020-08-27 21:32] LABS: Glucose Point of Care 193 mg/dL (70-110)
[2020-08-28] VITALS (57 sets, daily range): BP systolic 95–137; BP diastolic 45–81; PULSE 57–120; RESP 13–29; TEMP 36.5–36.8; O2SAT 88–98
[2020-08-28 04:49] LABS: Basophils # 0.1 10^3/uL (0.0-0.1); Basophils % 0.5 %; Eosinophils # 0.3 10^3/uL (0.0-0.8); Eosinophils % 2.4 %; Hematocrit 46.3 % (37.0-47.0); Hemoglobin 13.9 g/dL (11.5-15.3); Lymphocytes # 2.8 10^3/uL (0.8-4.8); Lymphocytes % 23.7 %; Mean Corpuscular Hemoglobin 28.4 pg (28.0-34.0); Mean Corpuscular Volume 94.7 fL (81-99); Mean Platelet Volume 11.9 fL (7.4-10.4); Monocytes # 1.5 10^3/uL (0.2-0.9); Monocytes % 12.9 %; Neutrophils # 7.14 10^3/uL (1.8-7.7); Nucleated Red Blood Cells % 0 %; Platelet Count 330 10^3/cmm (130-400); Red Blood Count 4.89 10^6/uL (4.1-5.3); Red Cell Distribution Width 12.8 % (12.1-15.1); White Blood Count 11.9 10^3/uL (4.0-10.0)
[2020-08-28 05:01] LABS: Alanine Aminotransferase 120 U/L (0-33); Albumin Level 3.1 g/dL (3.5-5.2); Alkaline Phosphatase 339 IU/L (35-105); Blood Urea Nitrogen 40 mg/dL (8-23); Calcium 8.1 mg/dL (8.5-10.5); Carbon Dioxide 31 mmol/L (22-29); Chloride 100 mmol/L (98-107); Globulin 3.6 g/dL (1.3-4.6); Glucose 95 mg/dL (65-115); Osmolality Calculated 296 mOsm/kg (285-295); Sodium 138 mmol/L (136-145); Total Bilirubin 0.2 mg/dL (0.15-1.2); Total Protein 6.7 g/dL (6.6-8.7)
[2020-08-28 05:04] LABS: Anion Gap 11.8 (5-19); Aspartate Amino Transferase 83 U/L (0-32); Potassium 4.8 mmol/L (3.5-5.1)
[2020-08-28] MEDS: enoxaparin 80 mg/0.8 mL Syringe 70 MG SUBCUT ×2 (05:59→17:57)
[2020-08-28 06:41] LABS: Glucose Point of Care 109 mg/dL (70-110)
--- NOTE | 2020-08-28 07:01 | PM.PN ---
Subjective Subjective: Interval history: She was seen prior to cardioversion and then after. She tolerated the procedure well. Medications: Reviewed: Yes Vitals/I&O/Wt Last Vital Signs Temp 98 F 08/28/20 04:00 Pulse 113 H 08/28/20 05:30 Resp 16 08/28/20 04:00 BP 125/81 08/28/20 04:00 Pulse Ox 98 08/28/20 04:00 08/27/20 08/28/20 08/28/20 22:59 06:59 14:59 Intake Total 490 / 1090 Balance 490 / 1090 Weight last 48 hrs Weight 170 lb Weight 170 lb Physical Exam Narrative: EXAM NARRATIVE: GENERAL: obese woman in no acute distress HEENT: Pupils equal round reactive to light. No pallor or icterus. NECK: No JVD, No carotid bruit. CARDIOVASCULAR SYSTEM: S1-S2 regular. No murmur appreciated. RESPIRATORY SYSTEM: Chest clear to auscultation. No wheezes rhonchi or rales heard. No use of accessory muscles. ABDOMEN: Soft, nontender and nondistended. Normal bowel sounds present. EXTREMITIES: No cyanosis or clubbing. No edema. reddish discoloration of shins, chronic MANAGER DELI: Patient is alert oriented ?3. No focal neurological deficits. SKIN: Normal turgor and temperature. Data : 08/28/20 03:30 08/28/20 03:30 A&P Assessment and plan (1) Atrial flutter with rapid ventricular response: Newly diagnosed atrial flutter possible onset onset greater than 48 hours on arrival. -She had a similar episode last fall when her HR was in 150's for few hours. -difficult to rate control. -[id number]= at least 4/9 , 1 for diabetes, 2 for age and 1 for female sex. -She was started on Lovenox 70 mg every 12. May change to Eliquis 5 mg BID on discharge -Normal TSH, LV function on echocardiogram. LA increased in size. -Amiodarone may not be the best choice with increasing liver enzymes. -will transition to sotalol 80 mg BID. -Recommend stress testing prior to discharge given multiple CAD risk factors and intermittent chest pains. Status: Acute (2) Elevated troponin: Baseline troponin T of 47 that decreased at 2 hours to 39. -Likely type II in setting of atrial flutter with rapid response Status: Acute (3) HTN (hypertension): Status: Acute Qualifiers: Hypertension type: essential hypertension Qualified Code(s): I10 - Essential (primary) hypertension (4) DM type 2 (diabetes mellitus, type 2): Status: Acute Qualifiers: Diabetes mellitus complication status: without complication Diabetes mellitus joint terminal attack controller insulin use: without joint terminal attack controller use Qualified Code(s): E11.9 - Type 2 diabetes mellitus without complications (5) COPD (chronic obstructive pulmonary disease): Status: Acute Additional A&P Information Gram negative robin UTI: On antibiotics as per primary. Transaminitis. Hyperkalemia Elevated alkaline phosphatase Overweight ?Liver cirrhosis Thank you for allowing me to participate in patient's care. Please feel free to call with questions or concerns Attestations Medical Necessity Statement*: needs hospital stay for atrial flutter with RVR Time Spent in Patient Care: Greater than 35 minutes (>than 50% of time spent in counselling and/or direct pt care on unit). Coding Level of Care Code Acute Veterans' Counselor for Az Fwd Diagnoses Atrial flutter with rapid ventricular response I48.92 Elevated troponin R77.8 HTN (hypertension) I10 Hypertension type: essential hypertension DM type 2 (diabetes mellitus, type 2) E11.9 Diabetes mellitus complication status: without complication Diabetes mellitus joint terminal attack controller insulin use: without penitentiary use COPD (chronic obstructive pulmonary disease) J44.9
--- NOTE | 2020-08-28 08:00 | USCV_ITS ---
La Aranda Age: 80 Gender: F : 1940 Exam Date: 08/28/2020 07:28 Ordering Phys: Christina Jama MD ([email or web address]) Technologist: Chiqui Pedersen Exam Location: [facility] [place] Indication: ATRIAL FLUTTER, PRE CARDIOVERSION BP: 126 / 80 HR: 116 Rhythm: Sinus Technical Quality: Good MEASUREMENTS (Male / Female) Normal Values Medications Patient given IV sedation by anesthesia service, for details please refer to the anesthesia report. Complications Patient tolerated procedure well. Proc. Components The ECTOR probe was passed into the posterior pharynx , mid- esophagus, distal esophagus, and gastric fundus. The patient tolerated the procedure well and there were no complications. FINDINGS Left Ventricle Normal left ventricular cavity size. Normal left ventricular systolic function. Left ventricular ejection fraction is estimated at 70%. No regional wall motion abnormalities. Right Ventricle Normal right ventricular size and systolic function. Right Atrium Upper normal right atrial size. Left Atrium Mildly increased left atrial size. LA Appendage Normal left atrial appendage. Normal flow velocities in the left atrial appendage. No thrombus visualized in the left atrial appendage. IA Septum Lipomatous hypertrophy of interatrial septum. No ASD or PFO identified by color or agitated saline study. Mitral Valve Moderate mitral annular calcification. Moderately thickened mitral valve. Mild-moderate mitral valve regurgitation. Aortic Valve Mildly thickened trileaflet aortic valve. No aortic valve stenosis. No aortic valve regurgitation. Tricuspid Valve Structurally normal tricuspid valve. Mild tricuspid valve regurgitation. Pulmonic Valve Structurally normal pulmonic valve. Trace pulmonary valve regurgitation. Pericardium No pericardial effusion. Aorta Normal size aortic root and proximal ascending aorta. Grade 3 atheroma noted in descending aorta. No aortic dilation aneurysm or dissection noted. CONCLUSIONS 1. Normal left ventricular cavity size and systolic function. Left ventricular ejection fraction is estimated at 70%. No regional wall motion abnormalities. 2. Normal right ventricular size and systolic function. 3. Mildly increased left atrial size. 4. Lipomatous hypertrophy of interatrial septum. 5. Mild-moderate mitral valve regurgitation. 6. No left atrial or left atrial appendage thrombus noted. Christina Jama MD (Electronically Signed) Final Date: 29 Aug 2020 13:16 S
--- NOTE | 2020-08-28 09:19 | ANES.PREANE2 ---
Pre-Anesthetic Assessment Pre-Anesthetic Assessment: Height/Weight: Height 1.6 m Weight 77.111 kg Temp Pulse Resp BP Pulse Ox 97.8 F 116 H 24 H 126/80 95 08/28/20 07:13 08/28/20 07:13 08/28/20 07:13 08/28/20 07:13 08/28/20 07:13 Preop Diagnosis: afib Proposed Procedure: Operation Date: 08/28/20 08:00 Proposed Procedures p ECTOR (Transesophageal Echocardiogram)(Not Applicable) - Christina Jama MD s Cardioversion(Not Applicable) - Christina Jama MD Social: Social History: No alcohol and No tobacco Airway: Submandibular: WNL Cervical ROM: WNL MP: 2 Dentition: Full Pulmonary: Pulmonary: COPD CV/HEM: CV/HEM: Afib and HTN : : None reported Hepatic: Hepatic: None reported GI: GI: GERD Metabolic: Metabolic: DM and Hyperlipidemia Anesthetic Plan: ASA status: 3 Anesthesia: MAC Meds/Allergies Current Medications: Current Medications Generic Name Dose Route Start Last Admin Trade Name Freq PRN Reason Stop Dose Admin Amiodarone HCl 400 mg 08/26/20 15:00 08/27/20 20:36 Amiodarone 200 M g Tablet PO 400 mg TID JAMAL Administration Atorvastatin Calci um 20 mg 08/23/20 09:00 08/26/20 08:07 Atorvastatin 40 Mg Tablet PO 20 mg DAILY JAMAL Administration Bimatoprost 1 drop 08/22/20 21:00 08/27/20 20:36 Bimatoprost 0.01 % Op Soln 2.5 Ml B tl EYE-BOTH 1 drop BEDTIME JAMAL Administration Diltiazem HCl 60 mg 08/26/20 18:00 08/27/20 17:38 Diltiazem 30 Mg Tablet PO 60 mg BID JAMAL Administration Enoxaparin Sodium 70 mg 08/22/20 17:00 08/28/20 05:59 Enoxaparin 80 Mg /0.8 Ml Syringe SUBCUT 70 mg Q12H JAMAL Administration Famotidine 20 mg 08/22/20 18:00 08/27/20 17:38 Famotidine 20 Mg Tablet PO 20 mg BID JAMAL Administration Folic Acid 1 mg 08/24/20 09:00 08/27/20 09:49 Folic Acid 1 Mg Tablet PO 1 mg DAILY JAMAL Administration Insulin Aspart 0 unit 08/22/20 18:00 08/28/20 09:08 Insulin Aspart 1 00 Unit/1 Ml SUBCUT Not Given WM&BEDTIME JAMAL Protocol Metoprolol Tartrat e 100 mg 08/24/20 21:00 08/27/20 20:35 Metoprolol Tartr ate 50 Mg Tablet PO 100 mg BID@0900,2100 JAMAL Administration Multivitamins Ther apeutic 1 tab 08/24/20 09:00 08/24/20 09:23 Multivitamin The rapeutic Tablet PO 1 tab DAILY JAMAL Administration Ondansetron HCl 4 mg 08/22/20 16:06 08/26/20 13:50 Ondansetron 2 Mg /Ml Sdv 2 Ml IVP 4 mg Q6H PRN Administration NAUSEA AND VOMITI NG Fluticasone/Salmet madina 1 puff 08/22/20 20:00 08/27/20 19:58 Fluticasone-Salm eterol 250-50 Disk us INHALATION 1 puff BID.RESPIRATORY S CH Administration Thiamine Mononitra te 100 mg 08/24/20 09:00 08/27/20 09:49 Thiamine 100 Mg Tablet PO 100 mg DAILY JAMAL Administration PFSH Anesthesia PFSH: Medical History COPD (chronic obstructive pulmonary disease) DM type 2 (diabetes mellitus, type 2) Suspected severe acute respiratory syndrome coronavirus 2 (SARS-CoV-2) infection Surgical History H/O: hysterectomy History of ectopic Family History Mother Heart disease Father Heart disease Social History Smoking and tobacco status: former smoker Quit status (tobacco): has quit using tobacco Year quit tobacco: Many decades ago Alcohol intake: current Alcohol intake frequency: 0-2 Drinks per Day Lives independently: Yes Household members: spouse Marital status: Data Anesthesia CBC & Chem 7: 08/28/20 03:30 08/28/20 03:30 Other Labs: Laboratory Results - last 48 hr 08/23/20 08/26/20 08/26/20 10:06 10:38 10:45 WBC RBC Hgb Hct MCV MCH MCHC RDW Plt Count MPV Neut % (Auto) Lymph % (Auto) Pepin % (Auto) Eos % (Auto) Baso % (Auto) Neut # (Auto) Lymph # (Auto) Pepin # (Auto) Eos # (Auto) Baso # (Auto) Nucleated RBC % (auto) Nucleated RBCs # PT INR Sodium 139 Potassium 4.8 Chloride 100 Carbon Dioxide 29 Anion Gap 14.8 BUN 38 H Creatinine 0.7 GFR Calculation Not Reportable Glucose 193 H POC Glucose 199 H Calculated Osmolality 302 H Calcium 8.6 Magnesium Total Bilirubin 0.2 AST 80 H ALT 84 H Alkaline Phosphatase 370 H NT-Pro-B Natriuret Pep Total Protein 7.3 Albumin 3.3 L Globulin 4.0 ERMIAS Screen Positive A ERMIAS Titer 1:320 H ERMIAS Titer 2 > or = 1:1280 A ERMIAS Titer 3 1:80 H ERMIAS Pattern A ERMIAS Pattern 2 A ERMIAS Pattern 3 Nuclear, speckled A HIV 1&2 Ab & HIV 1 Ag HIV 1&2 Antibody SARS-CoV-2 Ag (Rapid) 08/26/20 08/26/20 08/27/20 16:33 19:45 03:41 WBC 12.1 H RBC 4.97 Hgb 14.3 Hct 46.5 MCV 93.6 MCH 28.8 MCHC 30.8 D RDW 12.7 Plt Count 328 MPV 11.0 H Neut % (Auto) 64.7 Lymph % (Auto) 21.7 Pepin % (Auto) 11.1 Eos % (Auto) 1.6 Baso % (Auto) 0.4 Neut # (Auto) 7.80 H Lymph # (Auto) 2.6 Pepin # (Auto) 1.3 H Eos # (Auto) 0.2 Baso # (Auto) 0.1 Nucleated RBC % (auto) 0 Nucleated RBCs # 0.0 PT INR Sodium Potassium Chloride Carbon Dioxide Anion Gap BUN Creatinine GFR Calculation Glucose POC Glucose 100 198 H Calculated Osmolality Calcium Magnesium Total Bilirubin AST ALT Alkaline Phosphatase NT-Pro-B Natriuret Pep Total Protein Albumin Globulin ERMIAS Screen ERMIAS Titer ERMIAS Titer 2 ERMIAS Titer 3 ERMIAS Pattern ERMIAS Pattern 2 ERMIAS Pattern 3 HIV 1&2 Ab & HIV 1 Ag HIV 1&2 Antibody SARS-CoV-2 Ag (Rapid) 08/27/20 08/27/20 08/27/20 03:41 03:41 06:45 WBC RBC Hgb Hct MCV MCH MCHC RDW Plt Count MPV Neut % (Auto) Lymph % (Auto) Pepin % (Auto) Eos % (Auto) Baso % (Auto) Neut # (Auto) Lymph # (Auto) Pepin # (Auto) Eos # (Auto) Baso # (Auto) Nucleated RBC % (auto) Nucleated RBCs # PT INR Sodium 141 Potassium 5.8 H Cancelled Chloride 101 Carbon Dioxide 34 H Anion Gap 11.8 BUN 42 H Creatinine 0.8 GFR Calculation Not Reportable Glucose 181 H POC Glucose 129 H Calculated Osmolality 307 H Calcium 7.7 L Magnesium 2.1 Total Bilirubin 0.3 AST 99 H ALT 110 H Alkaline Phosphatase 359 H NT-Pro-B Natriuret Pep 1458 H Total Protein 7.3 Albumin 3.3 L Globulin 4.0 ERMIAS Screen ERMIAS Titer ERMIAS Titer 2 ERMIAS Titer 3 ERMIAS Pattern ERMIAS Pattern 2 ERMIAS Pattern 3 HIV 1&2 Ab & HIV 1 Ag HIV 1&2 Antibody SARS-CoV-2 Ag (Rapid) 08/27/20 08/27/20 08/27/20 10:44 13:20 13:30 WBC RBC Hgb Hct MCV MCH MCHC RDW Plt Count MPV Neut % (Auto) Lymph % (Auto) Pepin % (Auto) Eos % (Auto) Baso % (Auto) Neut # (Auto) Lymph # (Auto) Pepin # (Auto) Eos # (Auto) Baso # (Auto) Nucleated RBC % (auto) Nucleated RBCs # PT INR Sodium Potassium Chloride Carbon Dioxide Anion Gap BUN Creatinine GFR Calculation Glucose POC Glucose 184 H Calculated Osmolality Calcium Magnesium Total Bilirubin AST ALT Alkaline Phosphatase NT-Pro-B Natriuret Pep Total Protein Albumin Globulin ERMIAS Screen ERMIAS Titer ERMIAS Titer 2 ERMIAS Titer 3 ERMIAS Pattern ERMIAS Pattern 2 ERMIAS Pattern 3 HIV 1&2 Ab & HIV 1 Ag Non-reactive HIV 1&2 Antibody Non-reactive SARS-CoV-2 Ag (Rapid) Negative 08/27/20 08/27/20 08/27/20 13:30 13:30 16:10 WBC RBC Hgb Hct MCV MCH MCHC RDW Plt Count MPV Neut % (Auto) Lymph % (Auto) Pepin % (Auto) Eos % (Auto) Baso % (Auto) Neut # (Auto) Lymph # (Auto) Pepin # (Auto) Eos # (Auto) Baso # (Auto) Nucleated RBC % (auto) Nucleated RBCs # PT 13.80 INR 1.03 Sodium Potassium 5.3 H Chloride Carbon Dioxide Anion Gap BUN Creatinine GFR Calculation Glucose POC Glucose 98 Calculated Osmolality Calcium Magnesium Total Bilirubin AST ALT Alkaline Phosphatase NT-Pro-B Natriuret Pep Total Protein Albumin Globulin ERMIAS Screen ERMIAS Titer ERMIAS Titer 2 ERMIAS Titer 3 ERMIAS Pattern ERMIAS Pattern 2 ERMIAS Pattern 3 HIV 1&2 Ab & HIV 1 Ag HIV 1&2 Antibody SARS-CoV-2 Ag (Rapid) 08/27/20 08/28/20 08/28/20 20:15 03:30 03:30 WBC 11.9 H RBC 4.89 Hgb 13.9 Hct 46.3 MCV 94.7 MCH 28.4 MCHC 30.0 RDW 12.8 Plt Count 330 MPV 11.9 H Neut % (Auto) 60.0 Lymph % (Auto) 23.7 Pepin % (Auto) 12.9 Eos % (Auto) 2.4 Baso % (Auto) 0.5 Neut # (Auto) 7.14 Lymph # (Auto) 2.8 Pepin # (Auto) 1.5 H Eos # (Auto) 0.3 Baso # (Auto) 0.1 Nucleated RBC % (auto) 0 Nucleated RBCs # 0.0 PT INR Sodium 138 Potassium 4.8 Chloride 100 Carbon Dioxide 31 H Anion Gap 11.8 BUN 40 H Creatinine 0.7 GFR Calculation Not Reportable Glucose 95 POC Glucose 193 H Calculated Osmolality 296 H Calcium 8.1 L Magnesium Total Bilirubin 0.2 AST 83 H ALT 120 H Alkaline Phosphatase 339 H NT-Pro-B Natriuret Pep Total Protein 6.7 Albumin 3.1 L Globulin 3.6 ERMIAS Screen ERMIAS Titer ERMIAS Titer 2 ERMIAS Titer 3 ERMIAS Pattern ERMIAS Pattern 2 ERMIAS Pattern 3 HIV 1&2 Ab & HIV 1 Ag HIV 1&2 Antibody SARS-CoV-2 Ag (Rapid) 08/28/20 06:35 WBC RBC Hgb Hct MCV MCH MCHC RDW Plt Count MPV Neut % (Auto) Lymph % (Auto) Pepin % (Auto) Eos % (Auto) Baso % (Auto) Neut # (Auto) Lymph # (Auto) Pepin # (Auto) Eos # (Auto) Baso # (Auto) Nucleated RBC % (auto) Nucleated RBCs # PT INR Sodium Potassium Chloride Carbon Dioxide Anion Gap BUN Creatinine GFR Calculation Glucose POC Glucose 109 Calculated Osmolality Calcium Magnesium Total Bilirubin AST ALT Alkaline Phosphatase NT-Pro-B Natriuret Pep Total Protein Albumin Globulin ERMIAS Screen ERMIAS Titer ERMIAS Titer 2 ERMIAS Titer 3 ERMIAS Pattern ERMIAS Pattern 2 ERMIAS Pattern 3 HIV 1&2 Ab & HIV 1 Ag HIV 1&2 Antibody SARS-CoV-2 Ag (Rapid) Cardiac Studies: No Data to Display
--- NOTE | 2020-08-28 09:20 | PC.NURSE ---
ECTOR with synchronized cardioversion 09- Time Out with this RN, Dr. Jama, SEMIC[employer]ORS WAFER BREAKER Tom Esau and Chiqui Pedersen, radiologist for this procedure. 924- ECTOR. Oxymask applied. 936- Synchronized cardioversion with 150J delivered to pt. Pt converted to SR/SB HR-60s.
--- NOTE | 2020-08-28 09:43 | ECG_ITS ---
[facility] Test Date: 2020-08-28 Pat Name: La Aranda Department: Room: 101 Gender: Female Form Tamper Operator: : 1940 Requested By: Christina Jama Order Number: [id number] Iglesia MD: Christina Jama M.D. Measurements Intervals [place] Rate: 61 P: 65 SC: 169 QRS: 102 QRSD: 150 T: -5 QT: 439 QTc: 443 Interpretive Statements SINUS RHYTHM MARKED RIGHT AXIS DEVIATION [QRS AXIS > 100] RIGHT BUNDLE BRANCH BLOCK Compared to ECG 08/27/2020 13:41:41 Right-axis deviation now present Atrial flutter no longer present Indeterminate axis no longer present Left posterior fascicular block no longer present Myocardial infarct finding no longer present T-wave abnormality no longer present Possible ischemia no longer present Electronically Signed On 08-28-2020 22:22:07 CDT by Christina Jama M.D. [id number]
--- NOTE | 2020-08-28 09:45 | PC.NURSE ---
Post procedure Post jin w/cardioversion. Pt is alert, awake, denies any pain. Pt is on oxy mask at 10 L. spO2 sat is 92-98%. Pt able to cough secretions, aided with suction at bedside. VS and airway mgt monitored.
--- NOTE | 2020-08-28 09:50 | ANE.PACU2 ---
Inpatient post-anesthesia follow up: Airway intact: Yes Vital signs: Temperature 97.8 F Pulse Rate [Left] 149 Pulse Rate 116 Respiratory Rate 24 Blood Pressure [Le ft Arm] 113/74 Blood Pressure 126/80 Pulse Oximetry 95 Oxygen Delivery Me thod [ Nasal Cannula Current Rate & Del babar] Oxygen Delivery Me thod Nasal Cannula Oxygen Flow Rate [ Current Rate 2 & Delivery] Oxygen Flow Rate 1.5 Fraction of Inspir ed Oxygen Hydration adequate: Yes Nausea and vomiting: No Pain level: 1 Mental status: Baseline
--- NOTE | 2020-08-28 09:56 | PM.ACPR ---
Procedure/Consent Time out: Time Out Performed: Yes Consent: Consent for Procedure: Consent obtained from patient, Risks & Benefits reviewed and Agrees to proceed with procedure Procedure Narrative: ECTOR Procedure note Indication: Atrial flutter difficult to rate control Sedation: Propofol by anesthesia Anticoagulation: Therapeutic Lovenox Procedure was explained to the patient in detail and informed consent was obtained. Timeout was called. After achieving adequate sedation, the probe was inserted on second attempt. No blood on the probe post procedure. Prelim report: Normal left ventricle size and systolic function. No left atrial or left atrial appendage mass or thrombus visualized. No ASD or PFO identified. Full report to follow. Cardioversion procedure note. After ensuring no left atrial or left atrial appendage mass or thrombus. Pads were placed anteroposteriorly. She received 150 J of synchronized biphasic shock ?1 with oriental orthodox of normal sinus rhythm. Patient tolerated the procedure well. Recovery: In unit Acute Procedures Epistaxis Control: Time out performed: Yes
--- NOTE | 2020-08-28 10:37 | CT_ITS ---
WS: [id number] CT CHEST, ABDOMEN, AND PELVIS TECHNIQUE: Noncontrast CT of the chest, abdomen, and pelvis with coronal and sagittal reformatted matt ges. CLINICAL INFORMATION: liver cirrhosis, lymphadenopathy COMPARISON: Ultrasound August 24, 2019 . CTa chest February 2020 DLP: 1747.[address] scans at [facility] use at least one of these dose optimization techniques: automat ed exposure control; mA and/or kV adjustment per patient size (includes targeted exams where dose is matched to clinical indication); or iterative reconstruction. CT CHEST: Both lungs are well aerated. Subsegmental atelectasis in the lung bases. Small left pleural effusion. No focal consolidation or focal pneumonia. Aortic calcification. Coronary calcification. No mediasti nal or hilar lymphadenopathy. No axillary lymphadenopathy. CT ABDOMEN AND PELVIS: Hepatomegaly. Normal spleen. No intrahepatic biliary ductal dilatation. Subsegmental atelectasis in t he lung bases. Tiny left pleural effusion. Normal GE junction. Normal caliber abdominal aorta. Aortic calcification. Adrenal glands are normal. Small left renal cyst. No hydronephrosis in either kidney. Noncontrast pancreas is unremarkable. No abdominal lymphadenopathy. No pelvic lymphadenopathy. Normal sigmoid colon. Fluid distended loops of small bowel in the midabdomen with air-fluid levels me asuring up to 3.7 CM. Terminal ileum is decompressed. Mild thoracic kyphosis. Hypertrophic changes th oracic spine. No pelvic or inguinal lymphadenopathy. CT/CT chest abd pel wo con IMPRESSION: 1. Lungs are well aerated. No acute pulmonary infiltrates. Subsegmental atelec tasis in the lung bases. 2. Tiny left pleural effusion. 3. No mediastinal or hilar lymphadenopathy. 4. No abdominal or pelvic lymphadenopathy. No inguinal lymphadenopathy. 5. Hepatomegaly. No intrahepatic biliary ductal dilatation. Normal noncontrast spleen. 6. Normal caliber abdominal aorta. 7. A few fluid distended loops of small bowel in the midabdomen with air-fluid levels can be seen with ileus versus developing partial small bowel obstructio n. Colon is decompressed.
--- NOTE | 2020-08-28 11:03 | PM.PN ---
Subjective Subjective: Interval history: No acute events overnight. Underwent ECTOR cardioversion in AM today and regained NSR. Currently NSR 80s. Tolerated procedures well. Deniesd any N/v, SOB Medications: Reviewed: Yes Vitals/I&O/Wt Last Vital Signs Temp 97.7 F 08/28/20 10:46 Pulse 61 08/28/20 10:46 Resp 23 H 08/28/20 10:46 BP 121/57 08/28/20 10:46 Pulse Ox 95 08/28/20 10:56 08/27/20 08/28/20 08/28/20 22:59 06:59 14:59 Intake Total 490 / 1090 Balance 490 / 1090 Weight last 48 hrs Weight 77.111 kg Weight 77.111 kg Physical Exam Narrative: EXAM NARRATIVE: General: No acute distress, AO x3, on 2 Lt NC HEENT: PERRLA, pupils bilaterally equal and reactive Chest: Normal vesicular breath sounds,B/l fine crackles, equal good air entry bilaterally CVS: S1-S2 regular PSM at apex2/6 radiating to ant axillary line, no tachycardia, no gallops, no rubs Abdomen: Soft, nontender, no organomegaly, bowel sounds present Neuro: No focal deficits, no facial deformity, AO x3, power 5/5 in all limbs Data : 08/28/20 03:30 08/28/20 03:30 A&P Assessment and plan (1) Atrial flutter with rapid ventricular response: Status: Acute (2) Alkaline phosphatase elevation: Persists. Elevated GGT. Morphology of possible cirrhosis on ultrasound. AST ALT with minimal transaminitis. Albumin 3.3. Normal INR. APRI is 0.3, not sensitive or specific enough to determine level of fibrosis or cirrhosis. I had discussed with her and her daughter. Clinically does not appear to have cirrhosis, however, concern may be may be progressing to fibrosis. Hepatomegaly noted. Encourage complete abstinence from alcohol. Will need additional follow-up regarding assessment for underlying etiology, long-term follow-up. Hepatitis panel in past WNL. Check HIV. ERMIAS and smooth muscle panel awaited. Can be 2/2 malignancy tasia with lymphadenopathy seen on CT done back in Feb 2020. Will repeat CT as lymphadenopathy at that time could be due to covid 19 Biliary system normal on ultrasonography. Status: Acute (3) Transaminitis: Some worsening of transaminitis. Check INR. Med rec done. We will hold atorvastatin for now. 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 Overall does not appear yet to have reached stage of cirrhosis. Hepatitis panel -ve. Possibly mild component of congestive hepatopathy secondary to decompensated A. fib. Status: Acute (4) Elevated troponin: Complete troponin EKG series. Suspected secondary to arrhythmia. May benefit from additional assessment for coronary disease once more stable. TTE pending Status: Acute (5) COPD (chronic obstructive pulmonary disease): Chronically on 2 L nasal cannula oxygen. Currently does not appear in exacerbation. Status: Acute (6) Hyperkalemia: Resolved. Status: Acute (7) UTI (urinary tract infection): Klebsiella. Completed 5 days of Rocephin. Status: Acute Additional A&P Information Afib with RVR: On multiple medications for rate control for now. Post ECTOR Cardioversion. Meds changed as per cardiology. Most amro needs to be off Amio given cirrhosis and worsening transaminitis. Will discuss with cradiology. Echo done and results appreciated. Mild to Mod MR. No DD [id number]= at least 4/9 , 1 for diabetes, 2 for age and 1 for female sex. C/w Lovenox 70 mg every 12. May change to Eliquis 5 mg BID on discharge Hyperkalemia: Corrected with K-exalate Elevated torponin: Likely type II MN but given her risk factors and family history will have to r/o CAD. Plan for stress in AM. NPO after mid night. Lymphadenopathy: Seen on CT chest done in Feb 2021. Will repeat CT today to r/o possible malignancy tasia with transminitis though less likely and will help with liver morphology as well. FC Cardiac diet Full dose lovenox will help with DVT PPx as well. Attestations Medical Necessity Statement*: Needs further hospitalization for management of Afib with RVR Time Spent in Patient Care: Greater than 35 minutes (>than 50% of time spent in counselling and/or direct pt care on unit). Coding Level of Care Code Acute Venetian Blind Assembler for Chg Fwd Diagnoses Atrial flutter with rapid ventricular response I48.92 Alkaline phosphatase elevation R74.8 Transaminitis R74.01 Elevated troponin R77.8 COPD (chronic obstructive pulmonary disease) J44.9 Hyperkalemia E87.5 UTI (urinary tract infection) N39.0
[2020-08-28 11:13] LABS: LAB Peripheral Smear Sent for Review
[2020-08-28 11:16] LABS: Glucose Point of Care 136 mg/dL (70-110)
[2020-08-28] MEDS: famotidine 20 mg Tablet PO (11:34)
[2020-08-28] MEDS: folic acid 1 mg Tablet PO (11:34)
[2020-08-28] MEDS: FUROsemide 20 mg Tablet PO (11:34)
[2020-08-28] MEDS: thiamine 100 mg Tablet PO (11:35)
[2020-08-28] MEDS: LORazepam 2 mg Tablet PO (15:28)
--- NOTE | 2020-08-28 15:30 | PC.NURSE ---
tremors/uncontrolled shaking Pt stated she has been shaking uncontrollably. denies any pain, sob or chest discomfort. she scores 5 for ciwa. pt stated, i am very anxious. she stated she has mild headache. Per protocol Ativan P.O as ordered given to pt. notified of this episode.
[2020-08-28 16:55] LABS: Glucose Point of Care 206 mg/dL (70-110)
--- NOTE | 2020-08-28 17:19 | ECG_ITS ---
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 Interpretive Statements NAME OF STUDY: LEXISCAN SESTAMIBI STRESS TEST INDICATION: Elevated Troponin PROCEDURE: At the baseline, the blood pressure was 102/57 mmHg with a heart rate of 57 bpm. The electrocardiogram showed sinus bradycardia, right axis deviation. Right bundle branch block. The Lexiscan was infused over a period of 20 seconds. A total of 0.4 milligrams of Lexiscan was infused. The stress phase was continued for a total of 5 minutes. Heart rate at the end of the stress phase was 61 bpm with a blood pressure of 89/52 mmHg. The EKG at the peak infusion revealed sinus rhythm with no significant ST-T wave changes. Sestamibi was injected 20 seconds after the Lexiscan infusion. Blood pressure at the end of the recovery phase was 107/61 mmHg with a heart rate of 61 beats per minute. CONCLUSION: 1. No significant EKG changes with the LexiScan infusion. 2. No LexiScan induced chest pain or cardiac arrhythmia. 3. Normal blood pressure and heart rate response. 4. Sestamibi/sestamibi perfusion scan pending; see separate report. Electronically Signed On 08-29-2020 12:41:13 CDT by Christina Jama M.D. [email or web address]/store/[id number]
[2020-08-28] MEDS: sotalol 80 mg Tablet PO (17:57)
--- NOTE | 2020-08-28 17:59 | PC.PT ---
Patient refuses attempted PT evaluation approximately 1600, stated she is too nervous, and receiving medicines for same, will reattempt tomorrow
[2020-08-28 18:33] LABS: Ammonia 55 umol/L (11-51)
--- NOTE | 2020-08-28 18:35 | PC.NURSE ---
Bedside shift change rounding Pt is sleepy, drowsy, able to open eyes, squeeze my fingers both hands. Informed Night nurse of the ativan orally given this shift. will monitor.
--- NOTE | 2020-08-28 20:00 | ECG_ITS ---
[facility] Test Date: 2020-08-28 Pat Name: La Aranda Department: Room: 101 Gender: Female Fish Smoker: : 1940 Requested By: Christina Jama Order Number: [id number] Iglesia MD: Christina Jama M.D. Measurements Intervals [place] Rate: 73 P: 78 CA: 178 QRS: 109 QRSD: 150 T: -38 QT: 333 QTc: 369 Interpretive Statements SINUS RHYTHM WITH OCCASIONAL VENTRICULAR PREMATURE COMPLEXES POSSIBLE LEFT ATRIAL ENLARGEMENT [-0.1mV P WAVE IN V1/V2] MARKED RIGHT AXIS DEVIATION [QRS AXIS > 100] RIGHT BUNDLE BRANCH BLOCK [120+ ms QRS DURATION, UPRIGHT V1, 40+ ms S IN I/aVL/V4/V5/V6] Compared to ECG 08/28/2020 10:43:58 Ventricular premature complex(es) now present Electronically Signed On 08-28-2020 22:20:54 CDT by Christina Jama M.D. [id number]
[2020-08-28 20:41] LABS: Glucose Point of Care 135 mg/dL (70-110)
[2020-08-29] VITALS (13 sets, daily range): BP systolic 83–123; BP diastolic 37–63; PULSE 53–62; RESP 17–22; TEMP 35.9–36.6; O2SAT 92–98
--- NOTE | 2020-08-29 02:56 | PC.NURSE ---
Patient has been responsive to verbal stimuli all evening. Patient received 2mg of Ativan the prior shift and has still been very slow to arouse. Pt will wake up and follow commands such as smile and squeeze your hands as well as push and pull up with her feet. Pt was able to remove her own hearing aids to allow me to place them into their business intelligence reporting analyst. Pt has been closely monitored all evening due to this increased lethargy that is believed to be complicated by some potential poor renal function. I spoke with the pharmacist on duty and was advised that due to this patients age and the decreased renal function that it may be more slowly metabolized. Patient has been in no acute distress and denies any pain when asked.
[2020-08-29 03:51] LABS: Basophils # 0.2 10^3/uL (0.0-0.1); Basophils % 0.4 %; Hematocrit 43.1 % (37.0-47.0); Hemoglobin 12.9 g/dL (11.5-15.3); Lymphocytes # 2.8 10^3/uL (0.8-4.8); Lymphocytes % 6.7 %; Mean Corpuscular HGB Conc 29.9 g/dL (30.0-36.0); Mean Corpuscular Hemoglobin 28.3 pg (28.0-34.0); Mean Corpuscular Volume 94.5 fL (81-99); Mean Platelet Volume 10.8 fL (7.4-10.4); Monocytes # 3.9 10^3/uL (0.2-0.9); Monocytes % 9.2 %; Neutrophils # 34.45 10^3/uL (1.8-7.7); Neutrophils % 82.5 %; Nucleated Red Blood Cells % 0 %; Platelet Count 284 10^3/cmm (130-400); Red Blood Count 4.56 10^6/uL (4.1-5.3); Red Cell Distribution Width 12.7 % (12.1-15.1)
[2020-08-29 04:02] LABS: White Blood Count 41.8 10^3/uL (4.0-10.0)
[2020-08-29 04:16] LABS: Alanine Aminotransferase 91 U/L (0-33); Albumin Level 2.9 g/dL (3.5-5.2); Alkaline Phosphatase 293 IU/L (35-105); Anion Gap 10.3 (5-19); Aspartate Amino Transferase 50 U/L (0-32); Blood Urea Nitrogen 48 mg/dL (8-23); Carbon Dioxide 33 mmol/L (22-29); Chloride 99 mmol/L (98-107); Globulin 3.3 g/dL (1.3-4.6); Glucose 156 mg/dL (65-115); Osmolality Calculated 302 mOsm/kg (285-295); Potassium 4.3 mmol/L (3.5-5.1); Sodium 138 mmol/L (136-145); Total Bilirubin 0.3 mg/dL (0.15-1.2); Total Protein 6.2 g/dL (6.6-8.7)
[2020-08-29 04:24] LABS: Slide Review Slide Review Perform
[2020-08-29 04:35] LABS: Glucose Point of Care 141 mg/dL (70-110)
[2020-08-29 04:51] LABS: D Dimer 0.29 ug/mIFEU (0-0.59)
--- NOTE | 2020-08-29 04:52 | PC.NURSE ---
Pt is now alert and oriented x 4 in no acute distress and requesting to use the bed cardenas. Patient states that she remembers her being at bedside earlier yesterday and her not speaking to him. Pt continues to deny any complaints at this time. Spoke with Dr. Grey regarding the bump in white count and received orders for blood cultures.
[2020-08-29 04:58] LABS: C Reactive Protein 82.8 mg/L (0.0-4.9); Lactate (Lactic Acid level) 0.9 mmol/L (0.5-2.2)
[2020-08-29 05:22] LABS: Erythrocyte Sedimentation Rate 41 mm/hr (0-15)
[2020-08-29] MEDS: enoxaparin 80 mg/0.8 mL Syringe 70 MG SUBCUT ×2 (05:57→16:33)
[2020-08-29 06:53] LABS: Glucose Point of Care 147 mg/dL (70-110)
--- NOTE | 2020-08-29 08:00 | ECG_ITS ---
[facility] Test Date: 2020-08-29 Pat Name: La Aranda Department: Room: 101 Gender: Female Offbearer: : 1940 Requested By: Christina Jama Order Number: [id number] Iglesia MD: Jerod Hall M.D. Measurements Intervals [place] Rate: 61 P: 67 VA: 186 QRS: 98 QRSD: 161 T: 13 QT: 357 QTc: 362 Interpretive Statements SINUS RHYTHM RIGHT BUNDLE BRANCH BLOCK [120+ ms QRS DURATION, UPRIGHT V1, 40+ ms S IN I/aVL/V4/V5/V6] Compared to ECG 08/28/2020 20:50:53 Ventricular premature complex(es) no longer present Right-axis deviation no longer present Electronically Signed On 08-30-2020 9:40:45 CDT by Jerod Hall M.D. [email or web address] regional [facility] centerAvidity NanoMedicinesgrand lake [facility].[employer]/store/OM/[id number]
[2020-08-29] MEDS: regadenoson 0.4 Mg/5 ml Syringe IVP (08:29)
--- NOTE | 2020-08-29 09:04 | PC.NURSE ---
REPORTED HEART RATE AND OVERNIGHT BLOOD PRESSURES TO DR. TAMEZ. ASKED TO CHANGE THE DOSE OF SOTALOL TO 40MG THIS MORNING, THEN 80 MG BID AT 0800 AND 2000 TO START TONIGHT AT 2000. ALSO ASKED TO HOLD THIS MORNINGS LASIX DOSE. WILL CONTINUE TO MONITOR.
--- NOTE | 2020-08-29 09:38 | PC.SOCIAL ---
IMM Updated Updated pt on Pg 2 IMM. No questions voiced. Provided pt a copy. Signed, dated, & timed copy in chart.
[2020-08-29] MEDS: famotidine 20 mg Tablet PO ×2 (09:48→16:34)
[2020-08-29] MEDS: folic acid 1 mg Tablet PO (09:48)
[2020-08-29] MEDS: thiamine 100 mg Tablet PO (09:48)
[2020-08-29] MEDS: sotalol 80 mg Tablet 40 MG PO (09:48)
--- NOTE | 2020-08-29 11:13 | XR_ITS ---
WS: [id number] Portable AP upright chest, 08/29/2020 Clinical Data: possible pna Comparison: Portable chest, 08/22/2020. Findings: There is patchy atelectasis with effusion and/or pneumonia in the left lower lobe. No nodul es, masses or effusions are seen. The heart is normal. The pulmonary vascularity is not increased. No pneumothorax is seen. The right diaphragm is elevated. Monitor leads are on the chest wall. XR/XR chest 1V portable [id number] Impression: 1. Patchy atelectasis and/or pneumonia and left lower lobe and recommend repeat chest x-ray in one to 2 days. 2. Elevation of the right diaphragm.
[2020-08-29 11:45] LABS: Glucose Point of Care 223 mg/dL (70-110)
[2020-08-29] MEDS: vancomycin 1,000 MG in sodium chloride 0.9% 250 ML 250 MG IV (12:04)
--- NOTE | 2020-08-29 12:13 | PM.PN ---
Subjective Subjective: Interval history: Patient has remained in normal sinus rhythm since cardioversion. Overnight patient had an episode of confusion, hypotension and heart rate going down in 50s. Lowest charted blood pressure is 83/37 mmHg. Patient slept well through the night. Examination today morning patient is sitting up in chair awake alert, denies any active complaints. Denies any nausea vomiting, headache, cough, dysuria. She states she has been having diarrhea since yesterday evening. She is not having any further tremors. Denies any hallucinations, photophobia, abdominal pain, neck pain, palpitations or chest pain. Patient did have stress test earlier in the morning. She tolerated the stress test well. Medications: Reviewed: Yes Vitals/I&O/Wt Last Vital Signs Temp 97.9 F 08/29/20 11:07 Pulse 60 08/29/20 11:07 Resp 22 H 08/29/20 11:07 BP 110/51 08/29/20 11:07 Pulse Ox 94 08/29/20 11:07 08/28/20 08/29/20 08/29/20 22:59 06:59 14:59 Intake Total 0 / 222 Output Total 0 / 0 Balance 0 / 222 Weight last 48 hrs Weight 77.111 kg Physical Exam Narrative: EXAM NARRATIVE: General: No acute distress, AO x3, on 2 Lt NC HEENT: PERRLA, pupils bilaterally equal and reactive Chest: Normal vesicular breath sounds,B/l fine crackles, equal good air entry bilaterally CVS: S1-S2 regular PSM at apex2/6 radiating to ant axillary line, no tachycardia, no gallops, no rubs Abdomen: Soft, nontender, no organomegaly, bowel sounds present Neuro: No focal deficits, no facial deformity, AO x3, power 5/5 in all limbs Data : 08/29/20 13:43 08/29/20 13:43 Micro: Microbiology 08/29/20 04:35 Blood Culture - Preliminary Blood SPECIMEN COLLECTED 08/29/20 04:30 Blood Culture - Preliminary Blood SPECIMEN COLLECTED A&P Assessment and plan (1) Leukocytosis: Status: Acute (2) DAWNA (acute kidney injury): Status: Acute (3) Diarrhea: Status: Acute (4) Atrial flutter with rapid ventricular response: Status: Acute (5) Alkaline phosphatase elevation: Status: Acute (6) Transaminitis: Some worsening of transaminitis. Check INR. Med rec done. We will hold atorvastatin for now. 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 Overall does not appear yet to have reached stage of cirrhosis. Hepatitis panel -ve. Possibly mild component of congestive hepatopathy secondary to decompensated A. fib. Status: Acute (7) Elevated troponin: Complete troponin EKG series. Suspected secondary to arrhythmia. May benefit from additional assessment for coronary disease once more stable. TTE pending Status: Acute (8) COPD (chronic obstructive pulmonary disease): Chronically on 2 L nasal cannula oxygen. Currently does not appear in exacerbation. Status: Acute (9) Hyperkalemia: Resolved. Status: Acute (10) UTI (urinary tract infection): Klebsiella. Completed 5 days of Rocephin. Status: Acute Additional A&P Information Afib with RVR: Post ECTOR Cardioversion. Normal sinus rhythm now. Appreciate cardiology recommendations. For now continue patient with sotalol 40 mg twice daily after the creatinine clearance. Switch to Eliquis 5 mg twice daily. Stop full dose Lovenox. [id number]= at least 4/ , 1 for diabetes, 2 for age and 1 for female sex. Leukocytosis: No active signs of sepsis. Patient has remained afebrile, hemodynamically stable. No signs of infection. Patient did have CT chest abdomen pelvis done yesterday for lymphadenopathy which did not show any signs of infection then moderate liquid stools and colon suggestive of ileus or early SBO. Patient has been having diarrhea. Patient did have UTI on admission. Finished course of antibiotics with Rocephin. Recheck CBC, CMP to confirm the labs. Blood cultures. MRSA swab, pro calcitonin, check C. difficile, urine analysis, urine culture. Lactate during the morning normal. Start patient on vancomycin and Zosyn empirically for now. Will de-escalate antibiotics as per culture results. We will monitor vitals. DAWNA: Could be secondary to dehydration from low-dose Lasix given yesterday along with diarrhea. For now hold off on any further fluids hold Lasix. We will continue to monitor. Medical reconciliation done for nephrotoxic drugs. Stop lisinopril for now. Transaminitis/alkaline phosphatase elevation: Persists. Elevated GGT. Morphology of possible cirrhosis on ultrasound. AST/ ALT with minimal transaminitis. Albumin 3.3. Normal INR. APRI is 0.3, not sensitive or specific enough to determine level of fibrosis or cirrhosis. ERMIAS elevated. Smooth muscle panel awaited. Hepatitis panel and HIV negative. ESR, CRP mildly elevated. Medical reconciliation done for hepatotoxic drugs. Amiodarone stopped. Continue to hold off on statins. Biliary system normal on ultrasonography. Hyperkalemia: Resolved. Corrected with K-exalate Elevated torponin: Likely type II HI but given her risk factors and family history will have to r/o CAD. Stress test done today. Negative for any signs of ischemia. Lymphadenopathy: Seen on CT chest done in Feb 2021. Will repeat CT today to r/o possible malignancy tasia with transminitis though less likely and will help with liver morphology as well. FC Cardiac diet Eliquis will help for DVT prophylaxis as well. Attestations Medical Necessity Statement*: Patient requires further hospitalization for management of unexplained leukocytosis in setting of post ECTOR cardioversion for A. fib with RVR, DAWNA Time Spent in Patient Care: Greater than 35 minutes (>than 50% of time spent in counselling and/or direct pt care on unit). Coding Level of Care Code Acute Supervisor Denture Department for Chg Fwd Diagnoses Leukocytosis D72.829 DAWNA (acute kidney injury) N17.9 Diarrhea R19.7 Atrial flutter with rapid ventricular response I48.92 Alkaline phosphatase elevation R74.8 Transaminitis R74.01 Elevated troponin R77.8 COPD (chronic obstructive pulmonary disease) J44.9 Hyperkalemia E87.5 UTI (urinary tract infection) N39.0
[2020-08-29 12:54] LABS: Influenza A by IFA Negative (Negative); Influenza B by IFA Negative (Negative)
--- NOTE | 2020-08-29 13:10 | NMCV_ITS ---
NM nicole perf SPECT r/s* [id number] La Aranda Age: 80 Gender: F : 1940 Exam Date: 08/29/2020 13:10 Ordering Phys: Christina Jama MD ([email or web address]) Technologist: GABBY Carrera Exam Location: [facility] Indications: Atrial flutter, Diabetes, Chest pain, MARTIN STRESS TEST Please [facility] for [facility] IMAGE PROTOCOL Rest/Stress 1 Lexiscan Day Radiopharmaceutical Dose (mCi) Administration Site Administered by Rest: Tc-99m 10.8 IV Sestamibi Stress:Tc-99m 32.8 IV GABBY Morris Sestamibi Rest: 29-Aug-2020 Discovery 630 Stress: 29-Aug-2020 Discovery 630 0.4mg Lexiscan. Supine position only as patient was unable to lay prone. SPECT RESULTS Technical Quality: Excellent Raw Data Analysis: Normal Image Corrections: No attenuation or motion correction applied Summed Stress Score: 5 Summed Rest Score: 7 Summed Difference Score: 1 PERFUSION FINDINGS Small size perfusion abnormality of mild to moderate severity of mid anterolateral, mid inferolateral apical lateral, apical anterior and apical skinner on rest images with subtle improvement in tracer uptake in supine stress images. FUNCTIONAL RESULTS (calculated via Gated SPECT) Stress Image LV EF (%): 80 Stress EDV (mL):94 TID: 1.04 Stress ESV (mL):19 FUNCTIONAL FINDINGS: The left ventricle is normal in size. Transient Ischemia Dilatation of 1. There is normal left ventricular systolic function. The left ventricular ejection fraction is normal with a value of 80%. There is normal left ventricular wall thickening with no regional wall motion abnormality. Normal end-diastolic and end-systolic volumes. IMPRESSIONS 1. Small sized perfusion abnormality of mild to moderate severity of mid anterolateral, mid inferolateral apical lateral, apical anterior and apical skinner on rest images with subtle improvement in tracer uptake in stress images. 2. This very likely represents attenuation artifact. However small old myocardial infarction left anterior descending artery territory cannot be completely ruled out. 3. Overall left ventricular systolic function is normal without regional wall motion abnormalities, LVEF=80%. 4. No coronary ischemia based on the study. Christina Jama MD (Electronically Signed) Final Date: 29 Aug 2020 12:20 S
--- NOTE | 2020-08-29 13:18 | P.PN_ITS ---
Subjective Subjective: Interval history: Patient underwent cardioversion yesterday. She has remained in sinus rhythm/sinus bradycardia since then. Yesterday she also received Lasix 20 mg p.o. x1. Urine output has not been documented but she was hypotensive last night. She also received Ativan and was really drowsy as well. This morning her mentation has improved as well as her blood pressure. She had 2-3 episodes of diarrhea today and this morning. At the time of evaluation patient feels well and was at bedside. Medications: Reviewed: Yes Vitals/I&O/Wt Last Vital Signs Temp 97.9 F 08/29/20 11:07 Pulse 60 08/29/20 11:07 Resp 22 H 08/29/20 11:07 BP 110/51 08/29/20 11:07 Pulse Ox 94 08/29/20 11:07 08/28/20 08/29/20 08/29/20 22:59 06:59 14:59 Intake Total 0 / 222 Output Total 0 / 0 Balance 0 / 222 Weight last 48 hrs Weight 170 lb Physical Exam Narrative: EXAM NARRATIVE: GENERAL: obese woman in no acute distress HEENT: Pupils equal round reactive to light. No pallor or icterus. NECK: No JVD, No carotid bruit. CARDIOVASCULAR SYSTEM: S1-S2 regular. No murmur appreciated. RESPIRATORY SYSTEM: Chest clear to auscultation. No wheezes rhonchi or rales heard. No use of accessory muscles. ABDOMEN: Soft, nontender and nondistended. Normal bowel sounds present. EXTREMITIES: No cyanosis or clubbing. No edema. reddish discoloration of shins, chronic HORSE RIDER: Patient is alert oriented ?3. No focal neurological deficits. SKIN: Normal turgor and temperature. Data : 08/29/20 13:43 08/29/20 13:43 Micro: Microbiology 08/29/20 04:35 Blood Culture - Preliminary Blood SPECIMEN COLLECTED 08/29/20 04:30 Blood Culture - Preliminary Blood SPECIMEN COLLECTED A&P Assessment and plan (1) Atrial flutter with rapid ventricular response: Newly diagnosed atrial flutter -difficult to rate control. Hence, she was cardioverted after ruling out left atrial and left atrial appendage thrombus -[id number]= at least 4/9 , 1 for diabetes, 2 for age and 1 for female sex. -She was started on Lovenox 70 mg every 12. May change to Eliquis 5 mg BID on discharge -Normal TSH, LV function on echocardiogram. LA increased in size. -got sotalol 80 mg p.o. x1 yesterday and 40 mg p.o. this morning. -We will continue sotalol 40 mg p.o. twice daily, based on HR. Status: Acute (2) Elevated troponin: Baseline troponin T of 47 that decreased at 2 hours to 39. -Likely type II in setting of atrial flutter with rapid response. -Patient underwent stress test this morning with no ischemia. Status: Acute (3) HTN (hypertension): Status: Acute Qualifiers: Hypertension type: essential hypertension Qualified Code(s): I10 - Essential (primary) hypertension (4) DM type 2 (diabetes mellitus, type 2): Status: Acute Qualifiers: Diabetes mellitus complication status: without complication Diabetes mellitus long term acute care registered nurse insulin use: without group home use Qualified Code(s): E11.9 - Type 2 diabetes mellitus without complications (5) COPD (chronic obstructive pulmonary disease): Status: Acute Additional A&P Information Leukocytosis DAWNA Klebsiella UTI Transaminitis. Hyperkalemia: Resolved Elevated alkaline phosphatase Overweight ?Liver cirrhosis Thank you for allowing me to participate in patient's care. Please feel free to call with questions or concerns Attestations Medical Necessity Statement*: As per primary team Time Spent in Patient Care: 16 - 35 minutes (>than 50% of time spent in counselling and/or direct pt care on unit) . Coding Level of Care Code Acute Singeing Torch Operator for Az Fwd Diagnoses Atrial flutter with rapid ventricular response I48.92 Elevated troponin R77.8 HTN (hypertension) I10 Hypertension type: essential hypertension DM type 2 (diabetes mellitus, type 2) E11.9 Diabetes mellitus complication status: without complication Diabetes mellitus group home insulin use: without long term acute care registered nurse use COPD (chronic obstructive pulmonary disease) J44.9
[2020-08-29] MEDS: piperacillin-tazobactam 3.375 GM in sodium chloride 0.9% (plus) 50 ML IV ×2 (14:16→20:13)
[2020-08-29 14:28] LABS: Hematocrit 41.7 % (37.0-47.0); Hemoglobin 12.6 g/dL (11.5-15.3); Mean Corpuscular HGB Conc 30.2 g/dL (30.0-36.0); Mean Corpuscular Hemoglobin 28.5 pg (28.0-34.0); Mean Corpuscular Volume 94.3 fL (81-99); Mean Platelet Volume 11.6 fL (7.4-10.4); Platelet Count 300 10^3/cmm (130-400); Procalcitonin 7.91 ng/mL (0-0.5); Red Blood Count 4.42 10^6/uL (4.1-5.3); Red Cell Distribution Width 12.7 % (12.1-15.1)
[2020-08-29 14:37] LABS: White Blood Count 36.6 10^3/uL (4.0-10.0)
[2020-08-29 14:40] LABS: Alanine Aminotransferase 93 U/L (0-33); Albumin Level 3.1 g/dL (3.5-5.2); Alkaline Phosphatase 303 IU/L (35-105); Blood Urea Nitrogen 52 mg/dL (8-23); Calcium 8.2 mg/dL (8.5-10.5); Carbon Dioxide 32 mmol/L (22-29); Chloride 95 mmol/L (98-107); Globulin 3.8 g/dL (1.3-4.6); Glucose 161 mg/dL (65-115); Iron 17 ug/dL (37-145); Osmolality Calculated 296 mOsm/kg (285-295); Sodium 134 mmol/L (136-145); Total Bilirubin 0.3 mg/dL (0.15-1.2); Total Protein 6.9 g/dL (6.6-8.7)
[2020-08-29 14:43] LABS: Anion Gap 11.3 (5-19); Aspartate Amino Transferase 55 U/L (0-32); Percent Saturation 6.5 % (20-50); Potassium 4.3 mmol/L (3.5-5.1); Total Iron Binding Capacity 260 mcg/dl; Unsaturated Iron Binding 243 ug/dL (112-347)
[2020-08-29 15:38] LABS: Absolute Segmented Neutrophil 33.7 10/cmm (1.6-7.1); Lymphocytes 3 %; Monocytes Absolute 1.8 10^3/cmm (0.1-0.6); Segmented Neutrophils 92 %; Total Cells Counted 100 (0-100)
[2020-08-29 15:39] LABS: Absolute Neutrophil 33.7 10^3/cmm (1.4-6.5); Eosinophils 0 %; Lymphocytes Absolute 1.1 10^3/cmm (1.2-3.4); Platelet Estimate Normal (Normal)
[2020-08-29 16:21] LABS: Add Urine Microscopic? YES; Bilirubin Urine Neg (Negative); Blood Urine Neg (Negative); Glucose Urine UA Norm (Normal); Ketones Urine Negative (Negative); Leukocyte Esterase Urine Negative (Negative); Nitrate Urine Negative (Negative); Protein Urine Neg (Negative); Urine Appearance SL Hazy (CLEAR); Urine Color Yellow (Yellow); Urobilinogen Urine Norm (Negative); pH Urine 5 (5-7)
[2020-08-29 16:22] LABS: Add Urine Culture? No; Bacteria Urine 2+ /hpf; WBC Urine RARE /hpf (0-5)
[2020-08-29 16:23] LABS: Glucose Point of Care 84 mg/dL (70-110)
--- NOTE | 2020-08-29 19:21 | PC.NURSE ---
Received bedside report from Pauline Jennings RN. Patient up to bathroom. Patient able to ambulate with standby assist. Patient resting in bed. Positioned x2 assist for comfort. No distress observed. Patient is extremely hard of hearing. Has hearing aids at bedside.
[2020-08-29 20:40] LABS: Glucose Point of Care 137 mg/dL (70-110)
[2020-08-30] VITALS (14 sets, daily range): BP systolic 122–156; BP diastolic 48–60; PULSE 51–69; RESP 17–24; TEMP 36.4–36.8; O2SAT 93–99
[2020-08-30] MEDS: piperacillin-tazobactam 3.375 GM in sodium chloride 0.9% (plus) 50 ML IV ×3 (04:41→21:22)
[2020-08-30 05:25] LABS: Basophils # 0.2 10^3/uL (0.0-0.1); Basophils % 0.6 %; Eosinophils # 0.2 10^3/uL (0.0-0.8); Eosinophils % 0.6 %; Hemoglobin 13.8 g/dL (11.5-15.3); Lymphocytes # 2.6 10^3/uL (0.8-4.8); Lymphocytes % 9.6 %; Mean Corpuscular Hemoglobin 28.8 pg (28.0-34.0); Mean Corpuscular Volume 95.8 fL (81-99); Mean Platelet Volume 11.5 fL (7.4-10.4); Monocytes % 7.6 %; Neutrophils # 21.72 10^3/uL (1.8-7.7); Neutrophils % 80.8 %; Nucleated Red Blood Cells % 0 %; Platelet Count 299 10^3/cmm (130-400); Red Cell Distribution Width 12.8 % (12.1-15.1); White Blood Count 26.9 10^3/uL (4.0-10.0)
[2020-08-30 05:47] LABS: Alanine Aminotransferase 82 U/L (0-33); Alkaline Phosphatase 291 IU/L (35-105); Anion Gap 13.5 (5-19); Aspartate Amino Transferase 40 U/L (0-32); Blood Urea Nitrogen 51 mg/dL (8-23); Calcium 8.5 mg/dL (8.5-10.5); Carbon Dioxide 29 mmol/L (22-29); Chloride 97 mmol/L (98-107); Globulin 4.1 g/dL (1.3-4.6); Glucose 113 mg/dL (65-115); Osmolality Calculated 294 mOsm/kg (285-295); Potassium 4.5 mmol/L (3.5-5.1); Sodium 135 mmol/L (136-145); Total Bilirubin 0.3 mg/dL (0.15-1.2); Total Protein 7.1 g/dL (6.6-8.7)
[2020-08-30 05:49] LABS: Procalcitonin 6.61 ng/mL (0-0.5)
[2020-08-30 06:54] LABS: Glucose Point of Care 104 mg/dL (70-110)
[2020-08-30] MEDS: sotalol 80 mg Tablet 40 MG PO (09:10)
[2020-08-30] MEDS: thiamine 100 mg Tablet PO (09:12)
[2020-08-30] MEDS: folic acid 1 mg Tablet PO (09:12)
[2020-08-30] MEDS: famotidine 20 mg Tablet PO ×2 (09:12→18:05)
--- NOTE | 2020-08-30 10:45 | PC.NURSE ---
spoke with Dr. quiroz during rounding with patient concerns he had bee coughing up some blood and was told by someone to not take eliquis instructions to hold this dose of eliquis until he has spoken with patient
--- NOTE | 2020-08-30 10:48 | P.PN_ITS ---
Subjective Subjective: Interval history: No acute events overnight. Denies any N/V, headache, dizziness, cough more than usual, dysuria, no more diarrhea, chills, abdominal pain. Has remained hemodynamically stable and afebrile in last 24 hrs. Labs reviewed. C/o one episode of blood streaked sputum when she wakes up in morning everyday for last 2 to 3 days since ECTOR. Medications: Reviewed: Yes Vitals/I&O/Wt Last Vital Signs Temp 97.5 F L 08/30/20 09:00 Pulse 69 08/30/20 09:35 Resp 18 08/30/20 09:32 BP 122/60 08/30/20 09:00 Pulse Ox 96 08/30/20 09:32 08/29/20 08/30/20 08/30/20 22:59 06:59 14:59 Intake Total 170 / 660 250 / 910 550 / 550 Output Total 350 / 350 650 / 1000 50 / 50 Balance -180 / 310 -400 / -90 500 / 500 Weight last 48 hrs Weight 80.104 kg Weight 81.193 kg Physical Exam Narrative: EXAM NARRATIVE: General: No acute distress, AO x3, on 2 Lt NC HEENT: PERRLA, pupils bilaterally equal and reactive Chest: Normal vesicular breath sounds,B/l fine crackles, equal good air entry bilaterally CVS: S1-S2 regular PSM at apex2/6 radiating to ant axillary line, no tachycardia, no gallops, no rubs Abdomen: Soft, nontender, no organomegaly, bowel sounds present Neuro: No focal deficits, no facial deformity, AO x3, power 5/5 in all limbs Data : 08/30/20 04:43 08/30/20 04:43 Micro: Microbiology 08/29/20 04:35 Blood Culture - Preliminary Blood NEGATIVE TO DATE 08/29/20 04:30 Blood Culture - Preliminary Blood NEGATIVE TO DATE Laboratory Results WBC 26.9 10^3/uL (4.0-10.0) H 08/30/20 04:43 RBC 4.80 10^6/uL (4.1-5.3) 08/30/20 04:43 Hgb 13.8 g/dL (11.5-15.3) 08/30/20 04:43 Hct 46.0 % (37.0-47.0) 08/30/20 04:43 MCV 95.8 fL (81-99) 08/30/20 04:43 MCH 28.8 pg (28.0-34.0) 08/30/20 04:43 MCHC 30.0 g/dL (30.0-36.0) 08/30/20 04:43 RDW 12.8 % (12.1-15.1) 08/30/20 04:43 Plt Count 299 10^3/cmm (130-400) 08/30/20 04:43 MPV 11.5 fL (7.4-10.4) H 08/30/20 04:43 Neut % (Auto) 80.8 % 08/30/20 04:43 Lymph % (Auto) 9.6 % 08/30/20 04:43 [place] % (Auto) 7.6 % 08/30/20 04:43 Eos % (Auto) 0.6 % 08/30/20 04:43 Baso % (Auto) 0.6 % 08/30/20 04:43 Neut # (Auto) 21.72 10^3/uL (1.8-7.7) H 08/30/20 04:43 Lymph # (Auto) 2.6 10^3/uL (0.8-4.8) 08/30/20 04:43 [place] # (Auto) 2.0 10^3/uL (0.2-0.9) H 08/30/20 04:43 Eos # (Auto) 0.2 10^3/uL (0.0-0.8) 08/30/20 04:43 Baso # (Auto) 0.2 10^3/uL (0.0-0.1) H 08/30/20 04:43 Nucleated RBC % (auto) 0 % 08/30/20 04:43 Total Counted 100 (0-100) 08/29/20 13:43 Atypical Lymphs % 0.0 % (0-5) 08/29/20 13:43 Absolute Neutrophils 33.7 10^3/cmm (1.4-6.5) H 08/29/20 13:43 Segmented Neutrophils 92 % 08/29/20 13:43 Abs Segm Neuts (Man) 33.7 10/cmm (1.6-7.1) H 08/29/20 13:43 Band Neutrophils 0.0 % 08/29/20 13:43 Abs Band Neuts (Man) 0.0 10^3/cmm (0.0-1.2) 08/29/20 13:43 Absolute Lymphocytes 1.1 10^3/cmm (1.2-3.4) L 08/29/20 13:43 Lymphocytes (Manual) 3 % 08/29/20 13:43 Monocytes (Manual) 5.0 % 08/29/20 13:43 Absolute Monocytes 1.8 10^3/cmm (0.1-0.6) H 08/29/20 13:43 Eosinophils (Manual) 0 % 08/29/20 13:43 Absolute Eosinophils 0.0 10^3/cmm (0.0-0.7) 08/29/20 13:43 Basophils (Manual) 0.0 % 08/29/20 13:43 Absolute Basophils 0.0 10^3/cmm (0.0-0.2) 08/29/20 13:43 Nucleated RBCs # 0.0 /100WBC 08/30/20 04:43 Platelet Estimate Normal (Normal) 08/29/20 13:43 ESR 41 mm/hr (0-15) H 08/29/20 03:40 PT 13.80 SECONDS (12.1-14.9) 08/27/20 13:30 INR 1.03 (0.8-1.2) 08/27/20 13:30 D-Dimer 0.29 ug/mIFEU (0-0.59) 08/29/20 03:40 Sodium 135 mmol/L (136-145) L 08/30/20 04:43 Potassium 4.5 mmol/L (3.5-5.1) 08/30/20 04:43 Chloride 97 mmol/L (98-107) L 08/30/20 04:43 Carbon Dioxide 29 mmol/L (22-29) 08/30/20 04:43 Anion Gap 13.5 (5-19) 08/30/20 04:43 BUN 51 mg/dL (8-23) H 08/30/20 04:43 Creatinine 1.1 mg/dL (0.5-0.9) H 08/30/20 04:43 GFR Calculation Not Reportable 08/30/20 04:43 Glucose 113 mg/dL (65-115) 08/30/20 04:43 POC Glucose 215 mg/dL (70-110) H 08/30/20 11:33 Calculated Osmolality 294 mOsm/kg (285-295) 08/30/20 04:43 Lactate 0.9 mmol/L (0.5-2.2) 08/29/20 03:40 Calcium 8.5 mg/dL (8.5-10.5) 08/30/20 04:43 Magnesium 2.0 mg/dL (1.7-2.3) 08/29/20 13:43 Iron 17 ug/dL (37-145) L 08/29/20 13:43 TIBC 260 mcg/dl 08/29/20 13:43 % Saturation 6.5 % (20-50) L 08/29/20 13:43 Unsat Iron Binding 243 ug/dL (112-347) 08/29/20 13:43 Total Bilirubin 0.3 mg/dL (0.15-1.2) 08/30/20 04:43 GGT 322 U/L (5-36) H 08/22/20 11:25 AST 40 U/L (0-32) H 08/30/20 04:43 ALT 82 U/L (0-33) H 08/30/20 04:43 Alkaline Phosphatase 291 IU/L (35-105) H 08/30/20 04:43 Ammonia 55 umol/L (11-51) H 08/28/20 18:01 Creatine Kinase 37 U/L (26-192) 08/25/20 16:26 Troponin T Baseline 47 ng/L (0-10) H 08/22/20 11:25 Troponin T 120 Minute 38.57 ng/L (0-10) H 08/22/20 13:21 Delta Troponin T -8.43 ABS# (0-10) L 08/22/20 13:21 Troponin T Hi Sens 6Hr 35.18 ng/L (0-10) H 08/22/20 17:25 Troponin T Hi Sens 6Hr Delta -11.82 ng/L (0-12) L 08/22/20 17:25 C-Reactive Protein 82.8 mg/L (0.0-4.9) H 08/29/20 03:40 NT-Pro-B Natriuret Pep 1458 pg/mL (0-450) H 08/27/20 03:41 Total Protein 7.1 g/dL (6.6-8.7) 08/30/20 04:43 Albumin 3.0 g/dL (3.5-5.2) L 08/30/20 04:43 Globulin 4.1 g/dL (1.3-4.6) 08/30/20 04:43 Procalcitonin 6.61 ng/mL (0-0.5) H 08/30/20 04:43 TSH 2.58 uIU/mL (0.27-4.20) 08/22/20 11:25 Urine Color Yellow (Yellow) 08/29/20 14:30 Urine Appearance Sl hazy (CLEAR) 08/29/20 14:30 Urine pH 5 (5-7) 08/29/20 14:30 Ur Specific [place] 1.020 (1.005-1.030) 08/29/20 14:30 Urine Protein Neg (Negative) 08/29/20 14:30 Urine Glucose (UA) Norm (Normal) 08/29/20 14:30 Urine Ketones Negative (Negative) 08/29/20 14:30 Urine Blood Neg (Negative) 08/29/20 14:30 Urine Nitrate Negative (Negative) 08/29/20 14:30 Urine Bilirubin Neg (Negative) 08/29/20 14:30 Urine Urobilinogen Norm mg/dL (Negative) 08/29/20 14:30 Ur Leukocyte Esterase Negative (Negative) 08/29/20 14:30 Urine RBC None /hpf (0-2) 08/29/20 14:30 Urine WBC Rare /hpf (0-5) 08/29/20 14:30 Ur Squamous Epith Cells 5-10 /hpf (0-5) H 08/29/20 14:30 Amorphous Sediment Not Reportable 08/29/20 14:30 Urine Bacteria 2+ /hpf (NONE) H 08/29/20 14:30 Digoxin 1.3 ng/mL (0.6-1.2) H 08/25/20 04:28 ERMIAS Screen Positive (NEGATIVE) A 08/23/20 10:06 ERMIAS Titer 1:320 titer H 08/23/20 10:06 ERMIAS Titer 2 > or = 1:1280 titer A 08/23/20 10:06 ERMIAS Titer 3 1:80 titer H 08/23/20 10:06 ERMIAS Pattern A 08/23/20 10:06 ERMIAS Pattern 2 A 08/23/20 10:06 ERMIAS Pattern 3 Nuclear, speckled A 08/23/20 10:06 Hepatitis A IgM Ab Non-reactive (Nonreactive) 08/23/20 10:06 Hep Bs Antigen Non-reactive (Nonreactive) 08/23/20 10:06 Hep B Core IgM Ab Non-reactive (Nonreactive) 08/23/20 10:06 Hepatitis C Antibody Non-reactive (Nonreactive) 08/23/20 10:06 HIV 1&2 Ab & HIV 1 Ag Non-reactive (Non-Reactiv) 08/27/20 13:30 HIV 1&2 Antibody Non-reactive (Non-Reactiv) 08/27/20 13:30 Influenza Type A Ag Negative (Negative) 08/29/20 12:10 Influenza Type B Ag Negative (Negative) 08/29/20 12:10 SARS-CoV-2 Ag (Rapid) Negative (Negative) 08/27/20 13:20 Impressions Abdomen Ultrasound 08/23/20 16:06 IMPRESSION: 1. Moderate hepatomegaly changes suspicious for cirrhosis. 2. Negative gallbladder. Chest/Abdomen/Pelvis CT 08/28/20 10:37 IMPRESSION: 1. Lungs are well aerated. No acute pulmonary infiltrates. Subsegmental atelectasis in the lung bases. 2. Tiny left pleural effusion. 3. No mediastinal or hilar lymphadenopathy. 4. No abdominal or pelvic lymphadenopathy. No inguinal lymphadenopathy. 5. Hepatomegaly. No intrahepatic biliary ductal dilatation. Normal noncontrast spleen. 6. Normal caliber abdominal aorta. 7. A few fluid distended loops of small bowel in the midabdomen with air-fluid levels can be seen with ileus versus developing partial small bowel obstruction. Colon is decompressed. Chest X-Ray 08/29/20 11:13 Impression: 1. Patchy atelectasis and/or pneumonia and left lower lobe and recommend repeat chest x-ray in one to 2 days. 2. Elevation of the right diaphragm. A&P Assessment and plan (1) Leukocytosis: Status: Acute (2) DAWNA (acute kidney injury): Status: Acute (3) Diarrhea: Status: Acute (4) Atrial flutter with rapid ventricular response: Status: Acute (5) Alkaline phosphatase elevation: Status: Acute (6) Transaminitis: Some worsening of transaminitis. Check INR. Med rec done. We will hold atorvastatin for now. 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 Overall does not appear yet to have reached stage of cirrhosis. Hepatitis panel -ve. Possibly mild component of congestive hepatopathy secondary to decompensated A. fib. Status: Acute (7) Elevated troponin: Complete troponin EKG series. Suspected secondary to arrhythmia. May benefit from additional assessment for coronary disease once more stable. TTE pending Status: Acute (8) COPD (chronic obstructive pulmonary disease): Chronically on 2 L nasal cannula oxygen. Currently does not appear in exacerbation. Status: Acute (9) Hyperkalemia: Resolved. Status: Acute (10) UTI (urinary tract infection): Klebsiella. Completed 5 days of Rocephin. Status: Acute Additional A&P Information Afib with RVR: Post ECTOR Cardioversion. Normal sinus rhythm now. Appreciate cardiology recommendations. For now continue patient with sotalol 40 mg. Will titrate the dose as per creatinine clearance. C/w Eliquis 5 mg BID. Discussed with her the need for AC for stroke prevention and that her Hb is stable and that her blood streak is most likely due to recent ECTOR. She has agreed for eliquis. Cephacol lozenges. [id number]= at least 4/9 , 1 for diabetes, 2 for age and 1 for female sex. Leukocytosis: No active signs of sepsis. Patient has remained afebrile, hemodynamically stable. No signs of infection. Patient did have CT chest abdomen pelvis done yesterday for lymphadenopathy which did not show any signs of infection then moderate liquid stools and colon suggestive of ileus or early SBO. Patient has had no more diarrhea. Sample for stool studies awaited. Patient did have UTI on admission. Finished course of antibiotics with Rocephin. Repeat Bcx negative so far. UA clear. Cxr clear. Start patient on vancomycin and Zosyn empirically for now. Will de-escalate antibiotics as per culture results. We will monitor vitals. DAWNA: Resolved. Could be secondary to dehydration from low-dose Lasix given yesterday along with diarrhea. For now hold off on any further fluids hold Lasix. We will continue to monitor. Medical reconciliation done for nephrotoxic drugs. Stop lisinopril for now. Transaminitis/alkaline phosphatase elevation: Persists. Mildly improving. Elevated GGT. Morphology of possible cirrhosis on ultrasound. AST/ ALT with minimal transaminitis. Albumin 3.3. Normal INR. APRI is 0.3, not sensitive or specific enough to determine level of fibrosis or cirrhosis. ERMIAS elevated. Smooth muscle panel awaited. Hepatitis panel and HIV negative. ESR, CRP mildly elevated. Medical reconciliation done for hepatotoxic drugs. Amiodarone stopped. Continue to hold off on statins. Biliary system normal on ultrasonography. Hyperkalemia: Resolved. Corrected with K-exalate Elevated torponin: Likely type II VA but given her risk factors and family history will have to r/o CAD. Stress test done on 08/29 negative for any signs of ischemia. Lymphadenopathy: Seen on CT chest done in Feb 2021. Will repeat CT today to r/o possible malignancy tasia with transminitis though less likely and will help with liver morphology as well. FC Cardiac diet Eliquis will help for DVT prophylaxis as well. Attestations Medical Necessity Statement*: Requires further hospitalization for evaluation of leukocytosis in setting of post cardioversion for afib Time Spent in Patient Care: Greater than 35 minutes Coding Level of Care Code Acute Installation Tech for Chg Fwd Diagnoses Leukocytosis D72.829 DAWNA (acute kidney injury) N17.9 Diarrhea R19.7 Atrial flutter with rapid ventricular response I48.92 Alkaline phosphatase elevation R74.8 Transaminitis R74.01 Elevated troponin R77.8 COPD (chronic obstructive pulmonary disease) J44.9 Hyperkalemia E87.5 UTI (urinary tract infection) N39.0
[2020-08-30 11:37] LABS: Glucose Point of Care 215 mg/dL (70-110)
[2020-08-30] MEDS: iron sucrose 200 MG in sodium chloride 0.9% (100 ml) 100 ML 220 MG IV (11:38)
[2020-08-30 16:46] LABS: Glucose Point of Care 93 mg/dL (70-110)
--- NOTE | 2020-08-30 17:00 | PM.PN ---
Subjective Subjective: Interval history: No acute events overnight. Denies any N/V, headache, dizziness, cough more than usual, dysuria, no more diarrhea, chills, abdominal pain. Has remained hemodynamically stable and afebrile in last 24 hrs. Labs reviewed. C/o one episode of blood streaked sputum when she wakes up in morning everyday for last 2 to 3 days since ECTOR. Medications: Reviewed: Yes Vitals/I&O/Wt Last Vital Signs Temp 98.2 F 08/30/20 12:00 Pulse 56 L 08/30/20 12:00 Resp 23 H 08/30/20 12:00 BP 122/60 08/30/20 12:00 Pulse Ox 96 08/30/20 12:00 08/30/20 08/30/20 08/30/20 06:59 14:59 22:59 Intake Total 250 / 910 780 / 780 Output Total 650 / 1100 150 / 150 300 / 450 Balance -400 / -190 630 / 630 -300 / 330 Weight last 48 hrs Weight 80.104 kg Weight 81.193 kg Physical Exam Narrative: EXAM NARRATIVE: General: No acute distress, AO x3, on 2 Lt NC HEENT: PERRLA, pupils bilaterally equal and reactive Chest: Normal vesicular breath sounds,B/l fine crackles, equal good air entry bilaterally CVS: S1-S2 regular PSM at apex2/6 radiating to ant axillary line, no tachycardia, no gallops, no rubs Abdomen: Soft, nontender, no organomegaly, bowel sounds present Neuro: No focal deficits, no facial deformity, AO x3, power 5/5 in all limbs Data : 08/30/20 04:43 08/30/20 04:43 Micro: Microbiology 08/29/20 12:09 MRSA Culture - Final Nose 08/29/20 04:35 Blood Culture - Preliminary Blood NEGATIVE TO DATE 08/29/20 04:30 Blood Culture - Preliminary Blood NEGATIVE TO DATE A&P Assessment and plan (1) Leukocytosis: Status: Acute (2) DAWNA (acute kidney injury): Status: Acute (3) Diarrhea: Status: Acute (4) Atrial flutter with rapid ventricular response: Status: Acute (5) Alkaline phosphatase elevation: Status: Acute (6) Transaminitis: Some worsening of transaminitis. Check INR. Med rec done. We will hold atorvastatin for now. 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 Overall does not appear yet to have reached stage of cirrhosis. Hepatitis panel -ve. Possibly mild component of congestive hepatopathy secondary to decompensated A. fib. Status: Acute (7) Elevated troponin: Complete troponin EKG series. Suspected secondary to arrhythmia. May benefit from additional assessment for coronary disease once more stable. TTE pending Status: Acute (8) COPD (chronic obstructive pulmonary disease): Chronically on 2 L nasal cannula oxygen. Currently does not appear in exacerbation. Status: Acute (9) Hyperkalemia: Resolved. Status: Acute (10) UTI (urinary tract infection): Klebsiella. Completed 5 days of Rocephin. Status: Acute Additional A&P Information Afib with RVR: Post ECTOR Cardioversion. Normal sinus rhythm now. Controlled Appreciate cardiology recommendations. For now continue patient with sotalol 40 mg. Will titrate the dose as per creatinine clearance. C/w Eliquis 5 mg BID. Discussed with her the need for AC for stroke prevention and that her Hb is stable and that her blood streak is most likely due to recent ECTOR. She has agreed for eliquis. Cephacol lozenges. [id number]= at least 4/ , 1 for diabetes, 2 for age and 1 for female sex. Leukocytosis: No active signs of sepsis. Patient has remained afebrile, hemodynamically stable. No signs of infection. Patient did have CT chest abdomen pelvis done yesterday for lymphadenopathy which did not show any signs of infection then moderate liquid stools and colon suggestive of ileus or early SBO. Patient has had no more diarrhea. Sample for stool studies awaited. Patient did have UTI on admission. Finished course of antibiotics with Rocephin. Repeat Bcx negative so far. UA clear. Cxr clear. Start patient on vancomycin and Zosyn empirically for now. Will de-escalate antibiotics as per culture results. We will monitor vitals. DAWNA: Resolved. Could be secondary to dehydration from low-dose Lasix given yesterday along with diarrhea. For now hold off on any further fluids hold Lasix. We will continue to monitor. Medical reconciliation done for nephrotoxic drugs. Stop lisinopril for now. Transaminitis/alkaline phosphatase elevation: Persists. Mildly improving. Elevated GGT. Morphology of possible cirrhosis on ultrasound. AST/ ALT with minimal transaminitis. Albumin 3.3. Normal INR. APRI is 0.3, not sensitive or specific enough to determine level of fibrosis or cirrhosis. ERMIAS elevated. Smooth muscle panel awaited. Hepatitis panel and HIV negative. ESR, CRP mildly elevated. Medical reconciliation done for hepatotoxic drugs. Amiodarone stopped. Continue to hold off on statins. Biliary system normal on ultrasonography. Hyperkalemia: Resolved. Corrected with K-exalate Elevated torponin: Likely type II VA but given her risk factors and family history will have to r/o CAD. Stress test done on 08/29 negative for any signs of ischemia. Lymphadenopathy: Seen on CT chest done in Feb 2021. Will repeat CT today to r/o possible malignancy tasia with transminitis though less likely and will help with liver morphology as well. FC Cardiac diet Eliquis will help for DVT prophylaxis as well. Attestations Medical Necessity Statement*: Patient requires further hospitalization for further management of leukocytosis without any signs for sepsis in setting of A. fib with RVR postconversion, transaminitis Time Spent in Patient Care: Greater than 35 minutes (>than 50% of time spent in counselling and/or direct pt care on unit). Coding Level of Care Code Acute Certified Lactation Educator for Chg Fwd Diagnoses Leukocytosis D72.829 DAWNA (acute kidney injury) N17.9 Diarrhea R19.7 Atrial flutter with rapid ventricular response I48.92 Alkaline phosphatase elevation R74.8 Transaminitis R74.01 Elevated troponin R77.8 COPD (chronic obstructive pulmonary disease) J44.9 Hyperkalemia E87.5 UTI (urinary tract infection) N39.0
--- NOTE | 2020-08-30 19:21 | P.PN_ITS ---
Subjective Subjective: Interval history: Patient underwent cardioversion day before yesterday. She has remained in sinus rhythm/sinus bradycardia since then. Blood streaked sputum this morning. No blood on probe post procedure and intubation was easy. There was no gagging or hacking cough during or post procedure. Blood streaks not related to ECTOR. No cardiac complaints. Medications: Reviewed: Yes Vitals/I&O/Wt Last Vital Signs Temp 98.1 F 08/30/20 18:48 Pulse 54 L 08/30/20 18:48 Resp 18 08/30/20 18:48 BP 122/50 08/30/20 18:48 Pulse Ox 95 08/30/20 18:48 08/30/20 08/30/20 08/30/20 06:59 14:59 22:59 Intake Total 250 / 910 780 / 780 410 / 1190 Output Total 650 / 1100 150 / 150 300 / 450 Balance -400 / -190 630 / 630 110 / 740 Weight last 48 hrs Weight 176 lb 9.6 oz Weight 179 lb Physical Exam Narrative: EXAM NARRATIVE: GENERAL: obese woman in no acute distress HEENT: Pupils equal round reactive to light. No pallor or icterus. NECK: No JVD, No carotid bruit. CARDIOVASCULAR SYSTEM: S1-S2 regular. No murmur appreciated. RESPIRATORY SYSTEM: Chest clear to auscultation. No wheezes rhonchi or rales heard. No use of accessory muscles. ABDOMEN: Soft, nontender and nondistended. Normal bowel sounds present. EXTREMITIES: No cyanosis or clubbing. No edema. 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 No focal neurological deficits. SKIN: Normal turgor and temperature. Data : 08/30/20 04:43 08/30/20 04:43 Micro: Microbiology 08/29/20 12:09 MRSA Culture - Final Nose 08/29/20 04:35 Blood Culture - Preliminary Blood NEGATIVE TO DATE 08/29/20 04:30 Blood Culture - Preliminary Blood NEGATIVE TO DATE A&P Assessment and plan (1) Atrial flutter with rapid ventricular response: Newly diagnosed atrial flutter -difficult to rate control. Hence, she was cardioverted after ruling out left atrial and left atrial appendage thrombus -[id number]= at least 4/9 , 1 for diabetes, 2 for age and 1 for female sex. -She is on Eliquis 5 mg BID. -Normal TSH, LV function on echocardiogram. LA increased in size. -continue sotalol 40 mg daily. Status: Acute (2) Elevated troponin: Baseline troponin T of 47 that decreased at 2 hours to 39. -Likely type II in setting of atrial flutter with rapid response. -Patient underwent stress test this morning with no ischemia. May consider ASA and statin. Not on ASA given concerns of advanced age and blood streks in sputum. Not on statin currently. May resume once transaminitis resolves. Status: Acute (3) HTN (hypertension): BP low normal Status: Acute Qualifiers: Hypertension type: essential hypertension Qualified Code(s): I10 - Essential (primary) hypertension (4) DM type 2 (diabetes mellitus, type 2): Status: Acute Qualifiers: Diabetes mellitus fdc insulin use: without longshore equipment operator use Diabetes mellitus complication status: without complication Qualified Code(s): E11.9 - Type 2 diabetes mellitus without complications (5) COPD (chronic obstructive pulmonary disease): Status: Acute Additional A&P Information Leukocytosis: on Broad spectrum abx per primary team. DAWNA: creatinine improving Klebsiella UTI Transaminitis. Elevated alkaline phosphatase Overweight ?Liver cirrhosis Thank you for allowing me to participate in patient's care. Please feel free to call with questions or concerns Attestations Medical Necessity Statement*: As per primary team Time Spent in Patient Care: 16 - 35 minutes (>than 50% of time spent in counselling and/or direct pt care on unit) . Coding Level of Care Code Acute [place] for [employer] Diagnoses Atrial flutter with rapid ventricular response I48.92 Elevated troponin R77.8 HTN (hypertension) I10 Hypertension type: essential hypertension DM type 2 (diabetes mellitus, type 2) E11.9 Diabetes mellitus longshore equipment operator insulin use: without fdc use Diabetes mellitus complication status: without complication COPD (chronic obstructive pulmonary disease) J44.9
--- NOTE | 2020-08-30 19:28 | ECG_ITS ---
[facility] Test Date: 2020-08-30 Pat Name: La Aranda Department: Room: 101 Gender: Female Sap Treasury Consultant: : 1940 Requested By: Christina Jama Order Number: [id number] Iglesia MD: Dulce Sharpe M.D. Measurements Intervals [place] Rate: 53 P: 68 MT: 164 QRS: 89 QRSD: 144 T: 24 QT: 390 QTc: 367 Interpretive Statements SINUS BRADYCARDIA INTRAVENTRICULAR CONDUCTION DELAY [130+ ms QRS DURATION] INFERIOR MYOCARDIAL INFARCTION [40+ ms Q WAVE AND/OR ST/T ABNORMALITY IN II/aVF], PROBABLY OLD Compared to ECG 08/29/2020 10:37:17 Intraventricular conduction delay now present Myocardial infarct finding now present Sinus rhythm no longer present Right bundle-branch block no longer present Electronically Signed On 08-30-2020 20:53:51 CDT by Dulce Sharpe M.D. [id number]
--- NOTE | 2020-08-30 19:40 | PC.NURSE ---
Beside report received from Pauline Chen RN. Patient is A & O x4 sitting on the side of the bed playing on her tablet. Bedside commode emptied. Patient voices no C/O of pain or needs at this time. Nurse will continue to monitor.
[2020-08-30] MEDS: apixaban 5 mg Tablet PO (20:18)
[2020-08-30 20:42] LABS: Glucose Point of Care 165 mg/dL (70-110)
[2020-08-31] VITALS (14 sets, daily range): BP systolic 128–144; BP diastolic 55–65; PULSE 52–78; RESP 14–23; TEMP 36.3–36.7; O2SAT 86–100
[2020-08-31] MEDS: vancomycin 1,000 MG in sodium chloride 0.9% 250 ML 250 MG IV (00:17)
--- NOTE | 2020-08-31 00:37 | PC.NURSE ---
Patient is currently up to bedside commode. Vancomycin started. Will continue to monitor patient.
[2020-08-31 05:46] LABS: Basophils # 0.1 10^3/uL (0.0-0.1); Basophils % 0.7 %; Eosinophils # 0.3 10^3/uL (0.0-0.8); Eosinophils % 1.9 %; Hematocrit 40.5 % (37.0-47.0); Hemoglobin 12.1 g/dL (11.5-15.3); Lymphocytes # 2.3 10^3/uL (0.8-4.8); Lymphocytes % 15.3 %; Mean Corpuscular HGB Conc 29.9 g/dL (30.0-36.0); Mean Corpuscular Hemoglobin 28.1 pg (28.0-34.0); Mean Platelet Volume 12.1 fL (7.4-10.4); Monocytes # 1.7 10^3/uL (0.2-0.9); Monocytes % 11.4 %; Neutrophils # 10.65 10^3/uL (1.8-7.7); Neutrophils % 69.8 %; Nucleated Red Blood Cells % 0 %; Platelet Count 286 10^3/cmm (130-400); Red Blood Count 4.31 10^6/uL (4.1-5.3); Red Cell Distribution Width 12.6 % (12.1-15.1); White Blood Count 15.2 10^3/uL (4.0-10.0)
[2020-08-31] MEDS: piperacillin-tazobactam 3.375 GM in sodium chloride 0.9% (plus) 50 ML IV ×3 (05:54→21:32)
[2020-08-31 05:59] LABS: Alanine Aminotransferase 56 U/L (0-33); Albumin Level 3.1 g/dL (3.5-5.2); Alkaline Phosphatase 248 IU/L (35-105); Aspartate Amino Transferase 24 U/L (0-32); Blood Urea Nitrogen 41 mg/dL (8-23); Calcium 8.4 mg/dL (8.5-10.5); Carbon Dioxide 35 mmol/L (22-29); Chloride 100 mmol/L (98-107); Globulin 3.5 g/dL (1.3-4.6); Glucose 96 mg/dL (65-115); Osmolality Calculated 302 mOsm/kg (285-295); Sodium 141 mmol/L (136-145); Total Bilirubin 0.3 mg/dL (0.15-1.2); Total Protein 6.6 g/dL (6.6-8.7)
[2020-08-31 06:04] LABS: Procalcitonin 3.51 ng/mL (0-0.5)
[2020-08-31 06:09] LABS: Anion Gap 10.6 (5-19); Potassium 4.6 mmol/L (3.5-5.1)
[2020-08-31 06:37] LABS: Glucose Point of Care 99 mg/dL (70-110)
--- NOTE | 2020-08-31 07:54 | DCPLANNER ---
Pg 2 of IM updated and reviewed with pt. No questions.
[2020-08-31] MEDS: apixaban 5 mg Tablet PO ×2 (08:09→22:05)
[2020-08-31] MEDS: famotidine 20 mg Tablet PO ×2 (08:09→17:40)
[2020-08-31] MEDS: thiamine 100 mg Tablet PO (08:09)
[2020-08-31] MEDS: folic acid 1 mg Tablet PO (08:09)
[2020-08-31] MEDS: sotalol 80 mg Tablet 40 MG PO (08:20)
--- NOTE | 2020-08-31 10:39 | PM.PN ---
Subjective Subjective: Interval history: No events overnight. Patient has remained hemodynamically and afebrile. Denies any nausea, vomiting, headache. On examination today sitting up in bed. She states she is chronically on 2 L oxygen supplementation. She denies any new complaints. Medications: Reviewed: Yes Vitals/I&O/Wt Last Vital Signs Temp 97.5 F L 08/31/20 08:00 Pulse 61 08/31/20 08:35 Resp 18 08/31/20 08:32 BP 128/55 08/31/20 08:00 Pulse Ox 97 08/31/20 08:32 08/30/20 08/31/20 08/31/20 22:59 06:59 14:59 Intake Total 410 / 1190 300 / 1490 50 / 50 Output Total 650 / 800 550 / 1350 200 / 200 Balance -240 / 390 -250 / 140 -150 / -150 Weight last 48 hrs Weight 80.467 kg Weight 80.104 kg Weight 81.193 kg Physical Exam Narrative: EXAM NARRATIVE: General: No acute distress, AO x3, on 2 Lt NC HEENT: PERRLA, pupils bilaterally equal and reactive Chest: Normal vesicular breath sounds,B/l fine crackles, equal good air entry bilaterally CVS: S1-S2 regular PSM at apex2/6 radiating to ant axillary line, no tachycardia, no gallops, no rubs Abdomen: Soft, nontender, no organomegaly, bowel sounds present Neuro: No focal deficits, no facial deformity, AO x3, power 5/5 in all limbs Data : 08/31/20 04:32 08/31/20 04:32 Micro: Microbiology 08/29/20 12:09 MRSA Culture - Final Nose A&P Assessment and plan (1) Leukocytosis: Status: Acute (2) DAWNA (acute kidney injury): Status: Acute (3) Diarrhea: Status: Acute (4) Atrial flutter with rapid ventricular response: Status: Acute (5) Alkaline phosphatase elevation: Status: Acute (6) Transaminitis: Some worsening of transaminitis. Check INR. Med rec done. We will hold atorvastatin for now. 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 Overall does not appear yet to have reached stage of cirrhosis. Hepatitis panel -ve. Possibly mild component of congestive hepatopathy secondary to decompensated A. fib. Status: Acute (7) Elevated troponin: Complete troponin EKG series. Suspected secondary to arrhythmia. May benefit from additional assessment for coronary disease once more stable. TTE pending Status: Acute (8) COPD (chronic obstructive pulmonary disease): Chronically on 2 L nasal cannula oxygen. Currently does not appear in exacerbation. Status: Acute (9) Hyperkalemia: Resolved. Status: Acute (10) UTI (urinary tract infection): Klebsiella. Completed 5 days of Rocephin. Status: Acute Additional A&P Information Afib with RVR: Post ECTOR Cardioversion. Normal sinus rhythm now. Controlled Appreciate cardiology recommendations. For now continue patient with sotalol 40 mg. Will titrate the dose as per creatinine clearance. C/w Eliquis 5 mg BID. Cephacol lozenges. [id number]= at least / , 1 for diabetes, 2 for age and 1 for female sex. Leukocytosis: Continues to improve. Pro-Higinio improved as well. No active signs of sepsis. Patient has remained afebrile, hemodynamically stable. No signs of infection. Patient did have CT chest abdomen pelvis done yesterday for lymphadenopathy which did not show any signs of infection then moderate liquid stools and colon suggestive of ileus or early SBO. Patient had a bowel movement today. Stool sample sent. Results awaited. Finished course of antibiotics with Rocephin. Bcx negative so far. UA clear. Cxr clear. Continue with vancomycin and Zosyn empirically for now. Will de-escalate antibiotics as per culture results. We will monitor vitals. DAWNA: Resolved. Could be secondary to dehydration from low-dose Lasix given yesterday along with diarrhea. For now hold off on any further fluids hold Lasix. We will continue to monitor. Medical reconciliation done for nephrotoxic drugs. Stop lisinopril for now. Transaminitis/alkaline phosphatase elevation: Resolving.Elevated GGT. Morphology of possible cirrhosis on ultrasound. AST/ ALT with minimal transaminitis. Albumin 3.3. Normal INR. APRI is 0.3, not sensitive or specific enough to determine level of fibrosis or cirrhosis. ERMIAS elevated. Smooth muscle panel awaited. Hepatitis panel and HIV negative. ESR, CRP mildly elevated. Medical reconciliation done for hepatotoxic drugs. Amiodarone stopped. Continue to hold off on statins. Biliary system normal on ultrasonography. Elevated torponin: Likely type II NC but given her risk factors and family history will have to r/o CAD. Stress test done on 08/29 negative for any signs of ischemia. Lymphadenopathy: Seen on CT chest done in Feb 2021. Will repeat CT today to r/o possible malignancy tasia with transminitis though less likely and will help with liver morphology as well. Discharge planning: If patient continues to improve and remains stable tomorrow with negative blood cultures we will plan to discharge. Will have PT/OT evaluation prior to discharge. Home O2 eval prior to discharge. FC Cardiac diet Eliquis will help for DVT prophylaxis as well. Attestations Medical Necessity Statement*: Requires further hospitalization for management of leukocytosis, post ECTOR cardioversion for A. fib with RVR. Time Spent in Patient Care: Greater than 35 minutes (>than 50% of time spent in counselling and/or direct pt care on unit). Coding Level of Care Code Acute Biotech Production Specialist for Chg Fwd Diagnoses Leukocytosis D72.829 DAWNA (acute kidney injury) N17.9 Diarrhea R19.7 Atrial flutter with rapid ventricular response I48.92 Alkaline phosphatase elevation R74.8 Transaminitis R74.01 Elevated troponin R77.8 COPD (chronic obstructive pulmonary disease) J44.9 Hyperkalemia E87.5 UTI (urinary tract infection) N39.0
--- NOTE | 2020-08-31 11:07 | PM.PN ---
Subjective Subjective: Interval history: Patient has remained in sinus rhythm/sinus bradycardia since then. Blood streaked sputum early this morning. No blood on probe post procedure and intubation was easy. There was no gagging or hacking cough during or post procedure. Blood streaks not related to ECTOR. No cardiac complaints. Medications: Reviewed: Yes Vitals/I&O/Wt Last Vital Signs Temp 97.5 F L 08/31/20 08:00 Pulse 61 08/31/20 08:35 Resp 18 08/31/20 08:32 BP 128/55 08/31/20 08:00 Pulse Ox 97 08/31/20 08:32 08/30/20 08/31/20 08/31/20 22:59 06:59 14:59 Intake Total 410 / 1190 300 / 1490 50 / 50 Output Total 650 / 800 550 / 1350 200 / 200 Balance -240 / 390 -250 / 140 -150 / -150 Weight last 48 hrs Weight 177 lb 6.4 oz Weight 176 lb 9.6 oz Weight 179 lb Physical Exam Narrative: EXAM NARRATIVE: GENERAL: obese woman in no acute distress HEENT: Pupils equal round reactive to light. No pallor or icterus. NECK: No JVD, No carotid bruit. CARDIOVASCULAR SYSTEM: S1-S2 regular. No murmur appreciated. RESPIRATORY SYSTEM: Chest clear to auscultation. No wheezes rhonchi or rales heard. No use of accessory muscles. ABDOMEN: Soft, nontender and nondistended. Normal bowel sounds present. EXTREMITIES: No cyanosis or clubbing. No edema. 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 No focal neurological deficits. SKIN: Normal turgor and temperature. Data : 08/31/20 04:32 08/31/20 04:32 Micro: Microbiology 08/29/20 12:09 MRSA Culture - Final Nose A&P Assessment and plan (1) Atrial flutter with rapid ventricular response: Newly diagnosed atrial flutter -difficult to rate control. Hence, she was cardioverted after ruling out left atrial and left atrial appendage thrombus -[id number]= at least / , 1 for diabetes, 2 for age and 1 for female sex. -She is on Eliquis 5 mg BID (age >80, weight >60kg and Cr <1.5). -Normal TSH, LV function on echocardiogram. LA increased in size. -continue sotalol 40 mg daily. Advised to keep a log of BP and HR twice a day on discharge. -f/u with me in [facility] in 1 week on discharge. -f/u BMP and EKG in 1 week. Status: Acute (2) Elevated troponin: Baseline troponin T of 47 that decreased at 2 hours to 39. -Likely type II in setting of atrial flutter with rapid response. -Patient underwent stress test this morning with no ischemia. May consider ASA and statin. Not on ASA given concerns of advanced age and blood streks in sputum. Not on statin currently. May resume once transaminitis resolves. Status: Acute (3) HTN (hypertension): BP low normal Status: Acute Qualifiers: Hypertension type: essential hypertension Qualified Code(s): I10 - Essential (primary) hypertension (4) DM type 2 (diabetes mellitus, type 2): Status: Acute Qualifiers: Diabetes mellitus detention insulin use: without detention use Diabetes mellitus complication status: without complication Qualified Code(s): E11.9 - Type 2 diabetes mellitus without complications (5) COPD (chronic obstructive pulmonary disease): On home oxygen for last several years. Status: Acute Additional A&P Information Leukocytosis: on Broad spectrum abx per primary team. DAWNA: creatinine improving Klebsiella UTI Transaminitis. Elevated alkaline phosphatase Overweight ?Liver cirrhosis Thank you for allowing me to participate in patient's care. Please feel free to call with questions or concerns Attestations Medical Necessity Statement*: As per primary team Time Spent in Patient Care: 16 - 35 minutes (>than 50% of time spent in counselling and/or direct pt care on unit). 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
[2020-08-31] MEDS: iron sucrose 200 MG in sodium chloride 0.9% (100 ml) 100 ML 220 MG IV (11:27)
[2020-08-31 11:33] LABS: Glucose Point of Care 207 mg/dL (70-110)
[2020-08-31 16:18] LABS: Glucose Point of Care 106 mg/dL (70-110)
--- NOTE | 2020-08-31 17:25 | ECG_ITS ---
[facility] Test Date: 2020-08-31 Pat Name: La Aranda Department: Room: 101 Gender: Female Doctor Of Nursing Practice: : 1940 Requested By: Christina Jama Order Number: [id number] Iglesia MD: Christina Jama M.D. Measurements Intervals [place] Rate: 55 P: 77 [place]: 161 QRS: 71 QRSD: 139 T: 34 QT: 432 QTc: 416 Interpretive Statements SINUS BRADYCARDIA INTRAVENTRICULAR CONDUCTION DELAY [130+ ms QRS DURATION] INFERIOR MYOCARDIAL INFARCTION [40+ ms Q WAVE AND/OR ST/T ABNORMALITY IN II/aVF], PROBABLY OLD Compared to ECG 08/30/2020 20:10:12 No significant changes Electronically Signed On 09-02-2020 12:23:30 CDT by Christina Jama M.D. [id number]
--- NOTE | 2020-08-31 19:49 | PC.NURSE ---
Bedside report received from Jurgen RN. Patient is sitting in a chair playing on her tablet. Patient voices no C/O of pain or other needs at this time. Nurse will continue to monitor.
[2020-08-31 20:22] LABS: Glucose Point of Care 153 mg/dL (70-110)
[2020-09-01] VITALS (8 sets, daily range): BP systolic 141–154; BP diastolic 61–78; PULSE 52–64; RESP 13–20; TEMP 36.4–37; O2SAT 95–98
[2020-09-01] MEDS: piperacillin-tazobactam 3.375 GM in sodium chloride 0.9% (plus) 50 ML IV (05:01)
[2020-09-01 06:42] LABS: Glucose Point of Care 102 mg/dL (70-110)
[2020-09-01] MEDS: apixaban 5 mg Tablet PO (08:34)
[2020-09-01] MEDS: folic acid 1 mg Tablet PO (08:34)
[2020-09-01] MEDS: famotidine 20 mg Tablet PO (08:34)
[2020-09-01] MEDS: sotalol 80 mg Tablet 40 MG PO (08:34)
[2020-09-01] MEDS: thiamine 100 mg Tablet PO (08:34)
[2020-09-01 10:47] LABS: Basophils # 0.2 10^3/uL (0.0-0.1); Basophils % 1.3 %; Eosinophils # 0.2 10^3/uL (0.0-0.8); Eosinophils % 1.7 %; Hematocrit 43.3 % (37.0-47.0); Hemoglobin 12.7 g/dL (11.5-15.3); Lymphocytes # 2.2 10^3/uL (0.8-4.8); Lymphocytes % 16.7 %; Mean Corpuscular HGB Conc 29.3 g/dL (30.0-36.0); Mean Corpuscular Hemoglobin 28.2 pg (28.0-34.0); Mean Corpuscular Volume 96.2 fL (81-99); Mean Platelet Volume 11.4 fL (7.4-10.4); Monocytes # 1.4 10^3/uL (0.2-0.9); Monocytes % 10.6 %; Neutrophils # 9.13 10^3/uL (1.8-7.7); Neutrophils % 68.1 %; Nucleated Red Blood Cells % 0 %; Platelet Count 300 10^3/cmm (130-400); Red Cell Distribution Width 12.4 % (12.1-15.1); White Blood Count 13.4 10^3/uL (4.0-10.0)
--- NOTE | 2020-09-01 11:14 | PM.DCS ---
Discharge Providers Date of Admission: 08/22/20 14:35 Date of Discharge: September 01, 2020 Attending Provider at Admission: Jax Villa Attending Provider at Discharge: Jesus Manuel Dixon MD Consults: Cardiology: Dr. Jama Primary Care Provider: Gloria Urbina MD Diagnoses at Discharge Discharge Diagnosis (1) Leukocytosis: Status: Acute (2) DAWNA (acute kidney injury): Status: Acute (3) Diarrhea: Status: Acute (4) Atrial flutter with rapid ventricular response: Status: Acute (5) Alkaline phosphatase elevation: Status: Acute (6) Transaminitis: Status: Acute (7) Elevated troponin: Status: Acute (8) COPD (chronic obstructive pulmonary disease): Status: Acute (9) Hyperkalemia: Status: Acute (10) UTI (urinary tract infection): Status: Acute Reason for Visit Reason for Visit: irregular heart rate Hospital Course Hospital Course La Aranda is a 80 year old female with past medical history of COPD, chronic respiratory failure on oxygen 2 L, diabetes mellitus type 2, osteoarthritis, former smoker, hearing loss and history of COVID-19 pneumonia in February 2020. She has no prior CAD, CVA or TIA history. She wears a Fitbit and noted her heart rate running fast for the last several days (at least since Thursday) and presented to the ER for further evaluation. EKG performed on arrival to the ER showed atrial flutter with rapid response with heart rate in 140s. Patient is not having any chest discomfort or shortness of breath. She received Cardizem 20 mg IV push followed by drip. This was switched to esmolol drip when she did not respond and her blood pressure dropped to high 90s to low 100s systolically. Denies any URI-like symptoms. No chest pain no shortness of breath or worsening of lower extremity swelling. She states she has to wake up multiple times and at night to go to the restroom. Denies any orthopnea or paroxysmal nocturnal dyspnea. She does complain of some burning while urinating and occasional abdominal pain. No fever or chills. She was admitted to the hospital for management of A. fib with RVR. Her heart rate was difficult to control even with multiple medications. Cardiology was consulted. Patient underwent ECTOR cardioversion on August 27 after which she regained normal sinus rhythm. She tolerated the procedure well. Because of her symptoms of difficulty in breathing on and off on exertion along with chest heaviness there was concern for unstable angina especially given her extensive cardiac family history. She underwent cardiac stress test on August 28 active angina or ischemia. Post starting amiodarone patient developed transaminitis. Patient underwent right upper quadrant ultrasound which was concerning for mild liver cirrhosis. Hepatitis panel was negative, HIV was negative, ERMIAS came back to be positive we are still awaiting results of smooth muscle antibodies. Admission she was found to have UTI for which she was started on IV Rocephin and will was given an IV antibiotic course of 5 days. Urine cultures grew Klebsiella. Her hospital stay was complicated by her developing severe leukocytosis with white count going up to 41,000 without developing any signs of sepsis. She remained afebrile and hemodynamically stable. Blood cultures were sent and have remained negative. Patient had elevated procalcitonin going as high as 7.5. She was started on broad-spectrum antibiotics while blood cultures final results are awaited. Repeat urinalysis was negative for any signs of infection. Stool studies were negative and for any signs of infection as well. Patient is being discharged in hemodynamically stable condition after negative blood cultures with advised to take antibiotics for 2 more days and to follow-up with a primary care provider within next [address] Jama in her office in the next 2 weeks. She is been discharged on oral sotalol for rate control which has been titrated as per her creatinine clearance. Patient has tolerated the medication well. PT/OT eval was done prior to discharge and home oxygen eval was done prior to d/c as well. Physical Exam Narrative: EXAM NARRATIVE: General: No acute distress, AO x3, on 2 Lt NC HEENT: PERRLA, pupils bilaterally equal and reactive Chest: Normal vesicular breath sounds,B/l fine crackles, equal good air entry bilaterally CVS: S1-S2 regular PSM at apex2/6 radiating to ant axillary line, no tachycardia, no gallops, no rubs Abdomen: Soft, nontender, no organomegaly, bowel sounds present Neuro: No focal deficits, no facial deformity, AO x3, power 5/5 in all limbs Discharge Data Data Completed and Pending: Completed Studies During Hospitalization Category Date Time Status CT chest abd pel wo con Routine Cat Scan 08/28/20 10:37 Completed Sestamibi Stress Test Request Harper gbibons Exams 08/28/20 17:19 Completed XR chest 1V jay ble [id number] Routine Exams 08/29/20 11:13 Completed XR chest 1V jay ble [id number] Stat Exams 08/22/20 11:10 Completed NM nicole perf SPECT r/s* [id number] Routin e Nuc Med 08/29/20 13:10 Completed CV echo complete* [id number] Routine Ultrasound 08/27/20 08:00 Completed CV echo transesop hageal [id number] Routi ne Ultrasound 08/28/20 08:00 Completed US abdomen limite d [id number] Routine Ultrasound 08/23/20 16:06 Completed Pending at discharge Category Date Time Status ERMIAS Screen w/ Ref ryne Routine Lab 08/23/20 10:06 Results Blood Culture Sta t Lab 08/29/20 04:35 Results Clostridioides Di fficile PCR Routin e Lab 08/29/20 11:14 Results Comprehensive Met abolic Panel Routi ne Lab 09/01/20 10:20 Received Enteric Bacterial Panel by PCR Rout ine Lab 08/29/20 11:14 Results Enteric Parasite Panel by PCR Routi ne Lab 08/29/20 11:14 Results Lactoferrin Routi ne Lab 08/29/20 11:14 Results Miscellaneous Silvia t Routine Lab 08/31/20 14:00 Received Procalcitonin Rou alessandro Lab 09/01/20 10:20 Received Smooth Muscle AB Screen w/Refl Rout ine Lab 08/23/20 10:06 Results Sputum Culture an d Gram Stain Routi ne Lab 08/29/20 11:13 Uncollected Vancomycin Trough Timed Lab 09/01/20 11:30 Ordered Labs from last 24 hours 09/01/20 09/01/20 09/01/20 10:20 10:20 06:33 WBC 13.4 H RBC 4.50 Hgb 12.7 Hct 43.3 MCV 96.2 MCH 28.2 MCHC 29.3 L RDW 12.4 Plt Count 300 MPV 11.4 H Neut % (Auto) 68.1 Lymph % (Auto) 16.7 [place] % (Auto) 10.6 Eos % (Auto) 1.7 Baso % (Auto) 1.3 Neut # (Auto) 9.13 H Lymph # (Auto) 2.2 [place] # (Auto) 1.4 H Eos # (Auto) 0.2 Baso # (Auto) 0.2 H Nucleated RBC % (a uto) 0 Nucleated RBCs # 0.0 Sodium Pending Potassium Pending Chloride Pending Carbon Dioxide Pending Anion Gap Pending BUN Pending Creatinine Pending GFR Calculation Pending Glucose Pending POC Glucose 102 Calculated Osmolal ity Pending Calcium Pending Total Bilirubin Pending AST Pending ALT Pending Alkaline Phosphata se Pending Total Protein Pending Albumin Pending Globulin Pending Procalcitonin Pending Mitochondrial DNA Scrn Misc Test Referenc e 08/31/20 08/31/20 08/31/20 20:15 16:10 14:00 WBC RBC Hgb Hct MCV MCH MCHC RDW Plt Count MPV Neut % (Auto) Lymph % (Auto) [place] % (Auto) Eos % (Auto) Baso % (Auto) Neut # (Auto) Lymph # (Auto) [place] # (Auto) Eos # (Auto) Baso # (Auto) Nucleated RBC % (a uto) Nucleated RBCs # Sodium Potassium Chloride Carbon Dioxide Anion Gap BUN Creatinine GFR Calculation Glucose POC Glucose 153 H 106 Calculated Osmolal ity Calcium Total Bilirubin AST ALT Alkaline Phosphata se Total Protein Albumin Globulin Procalcitonin Mitochondrial DNA Scrn Misc Test Referenc e Pending 08/31/20 08/23/20 11:28 10:06 WBC RBC Hgb Hct MCV MCH MCHC RDW Plt Count MPV Neut % (Auto) Lymph % (Auto) [place] % (Auto) Eos % (Auto) Baso % (Auto) Neut # (Auto) Lymph # (Auto) [place] # (Auto) Eos # (Auto) Baso # (Auto) Nucleated RBC % (a uto) Nucleated RBCs # Sodium Potassium Chloride Carbon Dioxide Anion Gap BUN Creatinine GFR Calculation Glucose POC Glucose 207 H Calculated Osmolal ity Calcium Total Bilirubin AST ALT Alkaline Phosphata se Total Protein Albumin Globulin Procalcitonin Mitochondrial DNA Scrn Negative Misc Test Referenc e Addt'l Data from Hospital Stay: Laboratory Results WBC 13.4 10^3/uL (4.0 -10.0) H 09/01/20 10:20 RBC 4.50 10^6/uL (4.1 -5.3) 09/01/20 10:20 Hgb 12.7 g/dL (11.5-1 5.3) 09/01/20 10:20 Hct 43.3 % (37.0-47.0 ) 09/01/20 10:20 MCV 96.2 fL (81-99) 09/01/20 10:20 MCH 28.2 pg (28.0-34. 0) 09/01/20 10:20 MCHC 29.3 g/dL (30.0-3 6.0) L 09/01/20 10:20 RDW 12.4 % (12.1-15.1 ) 09/01/20 10:20 Plt Count 300 10^3/cmm (130 -400) 09/01/20 10:20 MPV 11.4 fL (7.4-10.4 ) H 09/01/20 10:20 Neut % (Auto) 68.1 % 09/01/20 10:20 Lymph % (Auto) 16.7 % 09/01/20 10:20 [place] % (Auto) 10.6 % 09/01/20 10:20 Eos % (Auto) 1.7 % 09/01/20 10:20 Baso % (Auto) 1.3 % 09/01/20 10:20 Neut # (Auto) 9.13 10^3/uL (1.8 -7.7) H 09/01/20 10:20 Lymph # (Auto) 2.2 10^3/uL (0.8- 4.8) 09/01/20 10:20 [place] # (Auto) 1.4 10^3/uL (0.2- 0.9) H 09/01/20 10:20 Eos # (Auto) 0.2 10^3/uL (0.0- 0.8) 09/01/20 10:20 Baso # (Auto) 0.2 10^3/uL (0.0- 0.1) H 09/01/20 10:20 Nucleated RBC % (a uto) 0 % 09/01/20 10:20 Total Counted 100 (0-100) 08/29/20 13:43 Atypical Lymphs % 0.0 % (0-5) 08/29/20 13:43 Absolute Neutrophi ls 33.7 10^3/cmm (1. 4-6.5) H 08/29/20 13:43 Segmented Neutroph ils 92 % 08/29/20 13:43 Abs Segm Neuts (Ma n) 33.7 10/cmm (1.6- 7.1) H 08/29/20 13:43 Band Neutrophils 0.0 % 08/29/20 13:43 Abs Band Neuts (Ma n) 0.0 10^3/cmm (0.0 -1.2) 08/29/20 13:43 Absolute Lymphocyt es 1.1 10^3/cmm (1.2 -3.4) L 08/29/20 13:43 Lymphocytes (Manua l) 3 % 08/29/20 13:43 Monocytes (Manual) 5.0 % 08/29/20 13:43 Absolute Monocytes 1.8 10^3/cmm (0.1 -0.6) H 08/29/20 13:43 Eosinophils (Manua l) 0 % 08/29/20 13:43 Absolute Eosinophi ls 0.0 10^3/cmm (0.0 -0.7) 08/29/20 13:43 Basophils (Manual) 0.0 % 08/29/20 13:43 Absolute Basophils 0.0 10^3/cmm (0.0 -0.2) 08/29/20 13:43 Nucleated RBCs # 0.0 /100WBC 09/01/20 10:20 Platelet Estimate Normal (Normal) 08/29/20 13:43 ESR 41 mm/hr (0-15) H 08/29/20 03:40 PT 13.80 SECONDS (12 .1-14.9) 08/27/20 13:30 INR 1.03 (0.8-1.2) 08/27/20 13:30 D-Dimer 0.29 ug/mIFEU (0- 0.59) 08/29/20 03:40 Sodium 141 mmol/L (136-1 45) 08/31/20 04:32 Potassium 4.6 mmol/L (3.5-5 .1) 08/31/20 04:32 Chloride 100 mmol/L (98-10 7) 08/31/20 04:32 Carbon Dioxide 35 mmol/L (22-29) H 08/31/20 04:32 Anion Gap 10.6 (5-19) 08/31/20 04:32 BUN 41 mg/dL (8-23) H 08/31/20 04:32 Creatinine 1.1 mg/dL (0.5-0. 9) H 08/31/20 04:32 GFR Calculation Not Reportable 08/31/20 04:32 Glucose 96 mg/dL (65-115) 08/31/20 04:32 POC Glucose 102 mg/dL (70-110 ) 09/01/20 06:33 Calculated Osmolal ity 302 mOsm/kg (285- 295) H 08/31/20 04:32 Lactate 0.9 mmol/L (0.5-2 .2) 08/29/20 03:40 Calcium 8.4 mg/dL (8.5-10 .5) L 08/31/20 04:32 Magnesium 2.0 mg/dL (1.7-2. 3) 08/29/20 13:43 Iron 17 ug/dL (37-145) L 08/29/20 13:43 TIBC 260 mcg/dl 08/29/20 13:43 % Saturation 6.5 % (20-50) L 08/29/20 13:43 Unsat Iron Binding 243 ug/dL (112-34 7) 08/29/20 13:43 Total Bilirubin 0.3 mg/dL (0.15-1 .2) 08/31/20 04:32 GGT 322 U/L (5-36) H 08/22/20 11:25 AST 24 U/L (0-32) 08/31/20 04:32 ALT 56 U/L (0-33) H 08/31/20 04:32 Alkaline Phosphata se 248 IU/L (35-105) H 08/31/20 04:32 Ammonia 55 umol/L (11-51) H 08/28/20 18:01 Creatine Kinase 37 U/L (26-192) 08/25/20 16:26 Troponin T Baselin e 47 ng/L (0-10) H 08/22/20 11:25 Troponin T 120 Min coleman 38.57 ng/L (0-10) H 08/22/20 13:21 Delta Troponin T -8.43 ABS# (0-10) L 08/22/20 13:21 Troponin T Hi Sens 6Hr 35.18 ng/L (0-10) H 08/22/20 17:25 Troponin T Hi Sens 6Hr Delta -11.82 ng/L (0-12 ) L 08/22/20 17:25 C-Reactive Protein 82.8 mg/L (0.0-4. 9) H 08/29/20 03:40 NT-Pro-B Natriuret Pep 1458 pg/mL (0-450 ) H 08/27/20 03:41 Total Protein 6.6 g/dL (6.6-8.7 ) 08/31/20 04:32 Albumin 3.1 g/dL (3.5-5.2 ) L 08/31/20 04:32 Globulin 3.5 g/dL (1.3-4.6 ) 08/31/20 04:32 Procalcitonin 3.51 ng/mL (0-0.5 ) H 08/31/20 04:32 TSH 2.58 uIU/mL (0.27 -4.20) 08/22/20 11:25 Urine Color Yellow (Yellow) 08/29/20 14:30 Urine Appearance Sl hazy (CLEAR) 08/29/20 14:30 Urine pH 5 (5-7) 08/29/20 14:30 Ur Specific Gravit y 1.020 (1.005-1.0 30) 08/29/20 14:30 Urine Protein Neg (Negative) 08/29/20 14:30 Urine Glucose (UA) Norm (Normal) 08/29/20 14:30 Urine Ketones Negative (Negati ve) 08/29/20 14:30 Urine Blood Neg (Negative) 08/29/20 14:30 Urine Nitrate Negative (Negati ve) 08/29/20 14:30 Urine Bilirubin Neg (Negative) 08/29/20 14:30 Urine Urobilinogen Norm mg/dL (Negat anselmo) 08/29/20 14:30 Ur Leukocyte Khushboo ase Negative (Negati ve) 08/29/20 14:30 Urine RBC None /hpf (0-2) 08/29/20 14:30 Urine WBC Rare /hpf (0-5) 08/29/20 14:30 Ur Squamous Epith Cells 5-10 /hpf (0-5) H 08/29/20 14:30 Amorphous Sediment Not Reportable 08/29/20 14:30 Urine Bacteria 2+ /hpf (NONE) H 08/29/20 14:30 Digoxin 1.3 ng/mL (0.6-1. 2) H 08/25/20 04:28 ERMIAS Screen Positive (NEGATI VE) A 08/23/20 10:06 ERMIAS Titer 1:320 titer H 08/23/20 10:06 ERMIAS Titer 2 > or = 1:1280 tit er A 08/23/20 10:06 ERMIAS Titer 3 1:80 titer H 08/23/20 10:06 ERMIAS Pattern A 08/23/20 10:06 ERMIAS Pattern 2 A 08/23/20 10:06 ERMIAS Pattern 3 Nuclear, speckled A 08/23/20 10:06 Hepatitis A IgM Ab Non-reactive (No nreactive) 08/23/20 10:06 Hep Bs Antigen Non-reactive (No nreactive) 08/23/20 10:06 Hep B Core IgM Ab Non-reactive (No nreactive) 08/23/20 10:06 Hepatitis C Antibo dy Non-reactive (No nreactive) 08/23/20 10:06 HIV 1&2 Ab & HIV 1 Ag Non-reactive (No n-Reactiv) 08/27/20 13:30 HIV 1&2 Antibody Non-reactive (No n-Reactiv) 08/27/20 13:30 Influenza Type A A g Negative (Negati ve) 08/29/20 12:10 Influenza Type B A g Negative (Negati ve) 08/29/20 12:10 SARS-CoV-2 Ag (Rap id) Negative (Negati ve) 08/27/20 13:20 Mitochondrial DNA Scrn Negative (Negati ve) 08/23/20 10:06 Impressions Abdomen Ultrasound 08/23/20 16:06 IMPRESSION: 1. Moderate hepatomegaly changes suspicious for cirrhosis. 2. Negative gallbladder. Chest/Abdomen/Pelvis CT 08/28/20 10:37 IMPRESSION: 1. Lungs are well aerated. No acute pulmonary infiltrates. Subsegmental atelectasis in the lung bases. 2. Tiny left pleural effusion. 3. No mediastinal or hilar lymphadenopathy. 4. No abdominal or pelvic lymphadenopathy. No inguinal lymphadenopathy. 5. Hepatomegaly. No intrahepatic biliary ductal dilatation. Normal noncontrast spleen. 6. Normal caliber abdominal aorta. 7. A few fluid distended loops of small bowel in the midabdomen with air-fluid levels can be seen with ileus versus developing partial small bowel obstruction. Colon is decompressed. Chest X-Ray 08/29/20 11:13 Impression: 1. Patchy atelectasis and/or pneumonia and left lower lobe and recommend repeat chest x-ray in one to 2 days. 2. Elevation of the right diaphragm. Microbiology 08/31/20 14:00 Stool Stool Lactoferrin - Final 08/31/20 14:00 Stool C.difficile Toxin B Gene (PCR) - Final 08/29/20 12:09 Nose MRSA Culture - Final 08/29/20 04:35 Blood Blood Culture - Preliminary NEGATIVE TO DATE 08/29/20 04:30 Blood Blood Culture - Preliminary NEGATIVE TO DATE 08/22/20 14:00 Urine,Clean Catch Urine Culture - Final Klebsiella pneumoniae Vitals: Last Vital Signs Temp 98.6 F 09/01/20 11:01 Pulse 52 L 09/01/20 11:01 Resp 19 H 09/01/20 11:01 BP 154/61 09/01/20 11:01 Pulse Ox 96 09/01/20 11:01 Discharge Plan Discharge Patient Disposition: Home Condition: Stable Prescriptions: New Eliquis 5 mg Tablet 5 mg PO BID@0900,2100 Qty: 60 RF: 0 sotalol 80 mg Tablet 40 mg PO 0800 Qty: 30 RF: 0 famotidine 20 mg Tablet 20 mg PO BID Qty: 60 RF: 0 folic acid 1 mg Tablet 1 mg PO DAILY Qty: 30 RF: 0 Vitamin B-1 (mononitrate) 100 mg Tablet 100 mg PO DAILY Qty: 30 RF: 0 Augmentin 875-125 mg tablet 1 tab PO BID 3 Days Qty: 6 RF: 0 levofloxacin 500 mg tablet 500 mg PO DAILY 5 Days Qty: 5 RF: 0 Continued metformin 500 mg tablet extended release 24 hr 500 mg PO DAILY RF: 0 glucosamine-chondroitin [Osteo Bi-Flex] 250-200 mg Tablet 2 tab PO DAILY@0900 RF: 0 ICaps [id number]-hb-cx-unit Tablet Extended Release 1 tab PO DAILY@0900 RF: 0 CoQ-10 1 tab PO DAILY@0900 RF: 0 fluticasone propion-salmeterol [Advair Diskus] 250-50 mcg/dose blister with device See Rx Instructions .ROUTE .COMPLEX Qty: 30 RF: 0 Cbd Oil 4 drp PO DAILY@0900 RF: 0 glipizide 5 mg tablet extended release 24hr See Rx Instructions .ROUTE .COMPLEX RF: 0 Ventolin HFA 90 mcg/actuation Hfa Aerosol Inhaler See Rx Instructions .ROUTE .COMPLEX RF: 0 Eye Drops (PVA) See Rx Instructions .ROUTE .COMPLEX RF: 0 Restore And Balance 1 tab PO DAILY@0900 RF: 0 biotin 1 tab PO DAILY@0900 RF: 0 potassium 1 tab PO DAILY@0900 RF: 0 vitamin E 1 tab PO DAILY@0900 RF: 0 Changed lisinopril 20 mg tablet 10 mg PO DAILY Qty: 0 RF: 0 Discontinued lovastatin 20 mg tablet 40 mg PO DAILY RF: 0 Discharge Orders: Discharge Order (Routine); Ordered 09/01/20 Ordered By: Jesus Manuel Dixon Referrals: Gloria Urbina MD [Primary Care Provider] - 7-10 days Christina Jama MD [Physician] - 4-7 days Patient Instructions: Transesophageal Echocardiogram (DC), Opioid Safety Activity Restrictions/Additional Instructions: Please repeat CBC and CMP in a week. Please follow-up with your primary care provider within a week. You supposed to be on Augmentin levofloxacin for 3 more days to finish a course of antibiotics. Please follow-up with employee relations director within next 4 to 7 days. Discharge Attestations Time Spent in Discharge Care*: greater than 30 min Specific Discharge Activities: educating patient, educating and/or supporting family/caregiver, discussing with pcp/other providers, discussing with director of casework services/social workers/dc planners, documenting/other paperwork and evaluating patient/reviewing data Status at Discharge: Cognitive status at discharge: cognitively intact, Behavioral status at discharge: cooperative, Functional status at discharge: independent ambulation Overall status at discharge: patient is back to baseline Quality Metrics Clinical Quality Measures During this hospital stay, did patient experience: None Coding Level of Care Code Acute Chg FW DC note Diagnoses Leukocytosis D72.829 DAWNA (acute kidney injury) N17.9 Diarrhea R19.7 Atrial flutter with rapid ventricular response I48.92 Alkaline phosphatase elevation R74.8 Transaminitis R74.01 Elevated troponin R77.8 COPD (chronic obstructive pulmonary disease) J44.9 Hyperkalemia E87.5 UTI (urinary tract infection) N39.0
[2020-09-01 11:24] LABS: Procalcitonin 1.68 ng/mL (0-0.5)
[2020-09-01 11:26] LABS: Glucose Point of Care 214 mg/dL (70-110)
[2020-09-01 11:35] LABS: Alanine Aminotransferase 45 U/L (0-33); Albumin Level 3.5 g/dL (3.5-5.2); Alkaline Phosphatase 285 IU/L (35-105); Blood Urea Nitrogen 29 mg/dL (8-23); Calcium 8.8 mg/dL (8.5-10.5); Carbon Dioxide 31 mmol/L (22-29); Chloride 97 mmol/L (98-107); Globulin 3.4 g/dL (1.3-4.6); Glucose 247 mg/dL (65-115); Osmolality Calculated 298 mOsm/kg (285-295); Sodium 137 mmol/L (136-145); Total Bilirubin 0.4 mg/dL (0.15-1.2); Total Protein 6.9 g/dL (6.6-8.7)
[2020-09-01 11:42] LABS: Anion Gap 14.6 (5-19); Aspartate Amino Transferase 24 U/L (0-32); Potassium 5.6 mmol/L (3.5-5.1)
--- NOTE | 2020-09-01 11:47 | PC.NURSE ---
Nurse unable to do meds to beds due to pharmacy not accepting them after 11:30am. Nurse called meds into patients preferred pharmacy.
[2020-09-01] MEDS: iron sucrose 200 MG in sodium chloride 0.9% (100 ml) 100 ML 220 MG IV (12:02)
[2020-09-01] MEDS: vancomycin 1,000 MG in sodium chloride 0.9% 250 ML 250 MG IV (12:40)
--- NOTE | 2020-09-01 14:53 | PC.NURSE ---
D/C INSTRUCTIONS PROVIDED TO PATIENT. PATIENT AND HAVE NO QUESTIONS OR CONCERNS. IV REMOVED WITH NO ISSUES. VS STABLE UPON DEPARTURE. PATIENT WHEELED OUT VIA WHEELCHAIR.
== END 2020-09-01 15:00 | disposition home or self-care (01) | DRG 281 ==
LOC: ER 13:49 → ICU 14:49 → CSU 08-24 21:12
PROVIDERS: Internal Medicine; Internal Medicine Cardiovascular Disease; Admitting Provider Internal Medicine; Emergency Provider Family Medicine; PCP Family Medicine; Visit Provider Student in an Organized Health Care Education/Training Program
DX: I48.92 Unspecified atrial flutter (principal); I21.A1 Myocardial infarction type 2; N39.0 Urinary tract infection, site not specified; J96.11 Chronic respiratory failure with hypoxia; N17.9 Acute kidney failure, unspecified; J44.9 Chronic obstructive pulmonary disease, unspecified; Z99.81 Dependence on supplemental oxygen; Z86.16 Personal history of COVID-19; E11.9 Type 2 diabetes mellitus without complications; H40.9 Unspecified glaucoma; M19.90 Unspecified osteoarthritis, unspecified site; H91.90 Unspecified hearing loss, unspecified ear; Z87.891 Personal history of nicotine dependence; I10 Essential (primary) hypertension; R74.8 Abnormal levels of other serum enzymes; B96.1 Klebsiella pneumoniae [K. pneumoniae] as the cause of diseases classified elsewhere; K74.60 Unspecified cirrhosis of liver; Z79.84 Long term (current) use of oral hypoglycemic drugs; Z82.49 Family history of ischemic heart disease and other diseases of the circulatory system; R19.7 Diarrhea, unspecified; R59.0 Localized enlarged lymph nodes; E87.5 Hyperkalemia; R41.0 Disorientation, unspecified; I95.9 Hypotension, unspecified
CPT/HCPCS: 36415; 36416; 71045; 71250; 74176; 76705; 78452; 80053; 80074; 80162; 80500; 81001; 82140; 82274; 82550; 82962; 82977; 83516; 83540; 83550; 83605; 83630; 83735; 83880; 84132; 84145; 84443; 84484; 85007; 85025; 85027; 85378; 85610; 85651; 86038; 86140; 87040; 87077; 87086; 87186; 87426; 87493; 87506; 87641; 87804; 87806; 93005; 93017; 93306; 93312; 93320; 93325; 94640; 94664; 96365; 96366; 96372; 97110; 97161; 99291; A9500; J0282; J0696; J1160; J1650; J1756; J1815; J2370; J2405; J2543; J2704; J2785; J3370; J3411; J3475; J3490; J7050; J7060

== ENCOUNTER 2020-09-26 07:10 | Outpatient (CLI) | payer MEDICARE, BC, SELFPAY ==
--- NOTE | 2020-09-26 07:24 | USCV_ITS ---
La Aranda Age: 80 Gender: F : 1940 Exam Date: 09/26/2020 07:52 Ordering Phys: Arline Lovelace NP Technologist: SARAH [place] [facility] [place]: S/P FALL LLE PAIN HISTORY: Lower extremity swelling. Lower extremity pain. PROCEDURES: Venous duplex imaging was performed in only the left lower extremity. The following venous structures were evaluated: common femoral vein, profunda vein, proximal portion of the greater saphenous vein, superficial femoral vein, and the popliteal vein. In addition, the posterior tibial and peroneal trunk were evaluated. Serial compression, augmentation maneuvers, and spectral Doppler flow evaluation were performed. FINDINGS: No evidence of DVT seen in any vessel visualized at this time. CONCLUSIONS No evidence of left lower extremity DVT. Angel Nova MD (Electronically Signed) Final Date: 26 September 2020 09:57 S
== END 2020-09-26 07:11 | disposition home or self-care (01) ==
LOC: RAD 07:19
PROVIDERS: PCP Family Medicine; Visit Provider Nurse Practitioner Family
DX: M79.662 Pain in left lower leg (principal)
CPT/HCPCS: 93971

== ENCOUNTER 2020-10-02 14:31 | Outpatient (CLI) | payer MEDICARE, BC, SELFPAY | END 2020-10-02 14:32 | disposition home or self-care (01) | LOC: WOUND 14:32 | PROVIDERS: Visit Provider Thoracic Surgery (Cardiothoracic Vascular Surgery) | DX: L98.492 Non-pressure chronic ulcer of skin of other sites with fat layer exposed (principal) | CPT/HCPCS: G0463 ==

== ENCOUNTER 2020-10-05 14:04 | Inpatient (IN) | payer MEDICARE, BC, SELFPAY ==
[2020-10-05] VITALS (9 sets, daily range): BP systolic 120–155; BP diastolic 81–101; PULSE 127–132; RESP 18–21; TEMP 36.5–36.7; O2SAT 92–99; BMI 29.2
--- NOTE | 2020-10-05 14:31 | ECG_ITS ---
[facility] Test Date: 2020-10-05 Pat Name: La Aranda Department: Room: Gender: Female [employer] C[employer]: : 1940 Requested By: Sara Lund Order Number: [id number] Parekh MD: Christina Jama M.D. Measurements Intervals [place] Rate: 133 P: OR: QRS: 125 QRSD: 135 T: 0 QT: 177 QTc: 263 Interpretive Statements ATRIAL FLUTTER WITH RAPID VENTRICULAR RESPONSE RIGHT BUNDLE BRANCH BLOCK [120+ ms QRS DURATION, UPRIGHT V1, 40+ ms S IN I/aVL/V4/V5/V6] LEFT POSTERIOR FASCICULAR BLOCK [QRS AXIS > 109, INFERIOR Q] PROBABLE ANTERIOR MYOCARDIAL INFARCTION [35 ms Q WAVE IN V3/V4], PROBABLY OLD Compared to ECG 08/31/2020 18:24:14 Right bundle-branch block now present Left posterior fascicular block now present Sinus bradycardia no longer present Intraventricular conduction delay no longer present Myocardial infarct finding still present Electronically Signed On 10-06-2020 23:00:57 CDT by Christina Jama M.D. [email or web address]
--- NOTE | 2020-10-05 14:31 | XR_ITS ---
WS: [id number] PORTABLE CHEST HISTORY: chest pain COMPARISON: 08/29/2020 Moderate elevation RIGHT hemidiaphragm is stable. No pneumonia. Better aeration at the LEFT lung base as compared to the prior study consistent with improving atelectasis. No pleural effusion or pneumot horax. Cardiac size: Normal. Mediastinum/Aorta: Normal mediastinum. No osseous abnormality seen. XR/XR chest 1V portable [id number] IMPRESSION: 1. Improving aeration at the LEFT lung base. No pneumonia. 2. Stable elevation RIGHT hemidiaphragm.
--- NOTE | 2020-10-05 15:20 | W.ED.CHESTPA ---
HPI - Chest Pain General: Chief Complaint: Chest Pain Stated Complaint: chest pain Time Seen by Provider: 10/05/20 15:04 History of Present Illness: HPI narrative: 80-year-old female presents emergency room had been at the cardiology clinic and was noted to be in A. fib with RVR. She states that we did 830 this morning. She also thinks he may have a bladder infection she is having increasing frequency of urination but no flank pain no dysuria no fever. She currently is taking sotalol and apixaban she recently stopped the apixaban after she had a fall has significant bruising to the right side of her face and right arm. She is still currently stating she takes the sotalol regularly has not missed any doses or at any dose changed recently. Patient is diabetic. She has no known drug allergies. [facility] ED PFSH: Medical History (Updated 09/06/20 @ 16:32 by Christina Jama MD) COPD (chronic obstructive pulmonary disease) DM type 2 (diabetes mellitus, type 2) HTN (hypertension) Suspected severe acute respiratory syndrome coronavirus 2 (SARS-CoV-2) infection Surgical History H/O: hysterectomy History of ectopic Family History Mother Heart disease Father Heart disease Social History Smoking and tobacco status: former smoker Quit status (tobacco): has quit using tobacco Year quit tobacco: Many decades ago Alcohol intake: current Alcohol intake frequency: 0-2 Drinks per Day Lives independently: Yes Household members: spouse Marital status: Course Vital Signs: Vital signs: Vital Signs Temperature 98.1 F 10/05/20 14:11 Pulse Rate 132 H 10/05/20 14:11 Respiratory Rate 18 10/05/20 14:11 Blood Pressure 135/85 10/05/20 14:11 Pulse Oximetry 92 10/05/20 14:11 Discharge Plan Discharge Prescriptions: No Action sotalol 80 mg tablet 40 mg PO 0800 Qty: 45 RF: 2 Eliquis 5 mg tablet 5 mg PO BID@0900,2100 Qty: 180 RF: 3 lisinopril 10 mg tablet 10 mg PO DAILY Qty: 90 RF: 2 furosemide 20 mg tablet 20 mg PO DAILY Qty: 30 RF: 2 metformin 500 mg tablet extended release 24 hr 500 mg PO DAILY RF: 0 glucosamine-chondroitin [Osteo Bi-Flex] 250-200 mg Tablet 2 tab PO DAILY@0900 RF: 0 ICaps [id number] Tablet Extended Release 1 tab PO DAILY@0900 RF: 0 CoQ-10 1 tab PO DAILY@0900 RF: 0 fluticasone propion-salmeterol [Advair Diskus] 250-50 mcg/dose blister with device See Rx Instructions .ROUTE .COMPLEX Qty: 30 RF: 0 Cbd Oil 4 drp PO DAILY@0900 RF: 0 glipizide 5 mg tablet extended release 24hr See Rx Instructions .ROUTE .COMPLEX RF: 0 Ventolin HFA 90 mcg/actuation Hfa Aerosol Inhaler See Rx Instructions .ROUTE .COMPLEX RF: 0 Eye Drops (PVA) See Rx Instructions .ROUTE .COMPLEX RF: 0 Restore And Balance 1 tab PO DAILY@0900 RF: 0 biotin 1 tab PO DAILY@0900 RF: 0 vitamin E 1 tab PO DAILY@0900 RF: 0 famotidine 20 mg Tablet 20 mg PO BID Qty: 60 RF: 0 folic acid 1 mg Tablet 1 mg PO DAILY Qty: 30 RF: 0 Vitamin B-1 (mononitrate) 100 mg Tablet 100 mg PO DAILY Qty: 30 RF: 0 Coding Level of Care Code ED Sprinkler Driver for Az Shultz
[2020-10-05] MEDS: metoprolol tartrate 1 mg/1 mL SDV 5 mL 5 MG IV (15:31)
--- NOTE | 2020-10-05 15:40 | PC.NURSE ---
patient denied any chest pain, nausea or dizziness at this time. no acute distress noted.
[2020-10-05 15:48] LABS: Basophils # 0.1 10^3/uL (0.0-0.1); Basophils % 0.4 %; Eosinophils # 0.1 10^3/uL (0.0-0.8); Hematocrit 42.3 % (37.0-47.0); Hemoglobin 12.9 g/dL (11.5-15.3); Lymphocytes # 2.6 10^3/uL (0.8-4.8); Lymphocytes % 21.9 %; Mean Corpuscular HGB Conc 30.5 g/dL (30.0-36.0); Mean Corpuscular Hemoglobin 28.8 pg (28.0-34.0); Mean Corpuscular Volume 94.4 fL (81-99); Mean Platelet Volume 10.3 fL (7.4-10.4); Monocytes # 1.4 10^3/uL (0.2-0.9); Monocytes % 12.1 %; Neutrophils # 7.51 10^3/uL (1.8-7.7); Neutrophils % 64.2 %; Nucleated Red Blood Cells % 0 %; Platelet Count 394 10^3/cmm (130-400); Red Blood Count 4.48 10^6/uL (4.1-5.3); Red Cell Distribution Width 13.2 % (12.1-15.1); White Blood Count 11.7 10^3/uL (4.0-10.0)
[2020-10-05] MEDS: sotalol 80 mg Tablet 40 MG PO ×2 (16:06→21:44)
[2020-10-05 16:10] LABS: Add Urine Microscopic? NO; Charge for UA Resulting for Rev
[2020-10-05 16:15] LABS: Bilirubin Urine Neg (Negative); Blood Urine Neg (Negative); Glucose Urine UA Norm (Normal); Ketones Urine Negative (Negative); Leukocyte Esterase Urine Negative (Negative); Nitrate Urine Negative (Negative); Protein Urine Neg (Negative); Specific Gravity, Urine 1.005 (1.005-1.030); Urine Appearance Clear (CLEAR); Urine Color Yellow (Yellow); Urobilinogen Urine Norm (Negative); pH Urine 6 (5-7)
[2020-10-05 16:17] LABS: Troponin(5th) Baseline 27 ng/L (0-10)
[2020-10-05 16:22] LABS: Alanine Aminotransferase 11 U/L (0-33); Albumin Level 3.5 g/dL (3.5-5.2); Alkaline Phosphatase 173 IU/L (35-105); Aspartate Amino Transferase 19 U/L (0-32); Blood Urea Nitrogen 27 mg/dL (8-23); Calcium 8.7 mg/dL (8.5-10.5); Carbon Dioxide 29 mmol/L (22-29); Chloride 100 mmol/L (98-107); Globulin 3.8 g/dL (1.3-4.6); Glucose 110 mg/dL (65-115); NT Pro B Type Natriuretic Pept 1375 pg/mL (0-450); Osmolality Calculated 292 mOsm/kg (285-295); Sodium 138 mmol/L (136-145); Total Bilirubin 0.2 mg/dL (0.15-1.2); Total Protein 7.3 g/dL (6.6-8.7)
[2020-10-05 16:23] LABS: Anion Gap 13.5 (5-19)
[2020-10-05 16:24] LABS: Potassium 4.5 mmol/L (3.5-5.1)
--- NOTE | 2020-10-05 16:31 | ECG_ITS ---
[facility] Test Date: 2020-10-05 Pat Name: La Aranda Department: Room: 107 Gender: Female Manager Solution: : 1940 Requested By: Sara Lund Order Number: [id number] Iglesia MD: Christina Jama M.D. Measurements Intervals [place] Rate: 133 P: 153 ND: 203 QRS: 0 QRSD: T: 171 QT: 343 QTc: 510 Interpretive Statements ATRIAL FLUTTER WITH FREQUENT VENTRICULAR PREMATURE COMPLEXES WITH OCCASIONAL SUPRAVENTRICULAR PREMATURE COMPLEXES INDETERMINATE AXIS Compared to ECG 10/05/2020 14:51:04 Ventricular premature complex(es) now present Indeterminate axis now present ST (T wave) deviation now present Right bundle-branch block no longer present Left posterior fascicular block no longer present Myocardial infarct finding no longer present Electronically Signed On 10-06-2020 23:14:16 CDT by Christina Jama M.D. [email or web address]
--- NOTE | 2020-10-05 17:13 | ED_ITS ---
HPI - Chest Pain General: Chief Complaint: Chest Pain Stated Complaint: chest pain Time Seen by Provider: 10/05/20 15:04 History of Present Illness: HPI narrative: 80-year-old female. Initial chart started incidentally signed this note completes the visit please combine the 2 charts for full documentation for this visit. MD complaint: chest discomfort Pertinent past history: other (Atrial fibrillation) Onset (ago): hour(s) Timing of current episode: constant Prior episodes: Yes Onset: during rest Pain location: left chest Pain radiation: none Severity: mild Quality: heaviness Relieving factors: nothing Exacerbating factors: nothing Associated symptoms: Reports dyspnea; Deny abdominal pain, diaphoresis, fever(s), leg edema, nausea, palpitations, sense of impending doom, syncope or vomiting Treatment prior to arrival: none Review of Systems Const: Denies: fever(s) or diaphoresis ENMT: Denies: throat pain, ear or mastoid pain, nasal discharge or nasal congestion Card: Denies: palpitations or syncope Resp: Reports: dyspnea GI: Denies: abdominal pain, nausea or vomiting : Denies: flank pain, difficulty voiding, dysuria, urinary frequency or urinary urgency Skin/Breast: Denies: rash or pruritus PFSH ED PFSH: Medical History COPD (chronic obstructive pulmonary disease) DM type 2 (diabetes mellitus, type 2) HTN (hypertension) Suspected severe acute respiratory syndrome coronavirus 2 (SARS-CoV-2) infection Surgical History H/O: hysterectomy History of ectopic Family History Mother Heart disease Father Heart disease Social History Smoking and tobacco status: former smoker Quit status (tobacco): has quit using tobacco Year quit tobacco: Many decades ago Alcohol intake: current Alcohol intake frequency: 0-2 Drinks per Day Lives independently: Yes Household members: spouse Marital status: Physical Exam Const: COMMON NORMALS: no acute distress GENERAL APPEARANCE: cooperative and comfortable ORIENTATION/CONSCIOUSNESS: Yes awake, Yes oriented to person, Yes oriented to place and Yes oriented to time HENMT: COMMON NORMALS: normocephalic, atraumatic, hearing grossly normal bilaterally and external ears normal HEAD & SCALP: normocephalic and atraumatic EXTERNAL EAR: Yes external ears normal Resp: COMMON NORMALS: normal respiratory effort, No retractions, No use of accessory muscles and clear to auscultation bilaterally AUSCULTATION: clear to auscultation bilaterally Cardio: RATE: tachycardic RHYTHM: abnormal rhythm irregularly irregular GI: COMMON NORMALS: Soft to palpation and No hepatosplenomegaly present AUSCULTATION: Yes normoactive bowel sounds PALPATION: Yes Soft to palpation, No Tenderness to palpation present (GI), No Guarding due to palpation present (GI) and Yes No hepatosplenomegaly present Extremity: COMMON NORMALS: normal to inspection, capillary refill normal, no clubbing, cyanosis or edema, no calf tenderness and no pedal edema Neuro: SENSORIUM/ORIENTATION: Yes oriented to person, Yes oriented to place and Yes oriented to time Skin: COMMON NORMALS: no rashes or lesions noted GENERAL SKIN EXAM: no rashes or lesions noted Course Vital Signs: Vital signs: Vital Signs Temperature 98.3 F 10/06/20 10:57 Pulse Rate 57 L 10/06/20 10:57 Respiratory Rate 19 H 10/06/20 10:57 Blood Pressure 98/75 10/06/20 10:57 Pulse Oximetry 100 10/06/20 10:57 MDM - Chest Pain MDM Narrative: Medical decision making narrative: Probable extra sotalol and IV labetalol to get her back under control unable to get her rate down ultimately ended up starting her on Cardizem and titrating. Will admit to CSU discussed with Lab Data: Labs: Lab Results 10/05/20 10/05/20 10/05/20 Range/Units 14:26 15:27 15:27 WBC 11.7 H (4.0-10.0) 10^3/ uL RBC 4.48 (4.1-5.3) 10^6/u L Hgb 12.9 (11.5-15.3) g/dL Hct 42.3 (37.0-47.0) % MCV 94.4 (81-99) fL MCH 28.8 (28.0-34.0) pg MCHC 30.5 (30.0-36.0) g/dL RDW 13.2 (12.1-15.1) % Plt Count 394 (130-400) 10^3/c mm MPV 10.3 (7.4-10.4) fL Neut % (Auto) 64.2 % Lymph % (Auto) 21.9 % [place] % (Auto) 12.1 % Eos % (Auto) 1.0 % Baso % (Auto) 0.4 % Neut # (Auto) 7.51 (1.8-7.7) 10^3/u L Lymph # (Auto) 2.6 (0.8-4.8) 10^3/u L [place] # (Auto) 1.4 H (0.2-0.9) 10^3/u L Eos # (Auto) 0.1 (0.0-0.8) 10^3/u L Baso # (Auto) 0.1 (0.0-0.1) 10^3/u L Nucleated RBC % (a uto) 0 % Nucleated RBCs # 0.0 /100WBC Sodium 138 (136-145) mmol/L Potassium 4.5 (3.5-5.1) mmol/L Chloride 100 (98-107) mmol/L Carbon Dioxide 29 (22-29) mmol/L Anion Gap 13.5 (5-19) BUN 27 H (8-23) mg/dL Creatinine 0.9 (0.5-0.9) mg/dL GFR Calculation Not Reportable Glucose 110 (65-115) mg/dL Calculated Osmolal ity 292 (285-295) mOsm/k g Calcium 8.7 (8.5-10.5) mg/dL Total Bilirubin 0.2 (0.15-1.2) mg/dL AST 19 (0-32) U/L ALT 11 (0-33) U/L Alkaline Phosphata se 173 H (35-105) IU/L Troponin T Baselin e (0-10) ng/L NT-Pro-B Natriuret Pep 1375 H (0-450) pg/mL Total Protein 7.3 (6.6-8.7) g/dL Albumin 3.5 (3.5-5.2) g/dL Globulin 3.8 (1.3-4.6) g/dL Urine Color Yellow (Yellow) Urine Appearance Clear (CLEAR) Urine pH 6 (5-7) Ur Specific Gravit y 1.005 (1.005-1.030) Urine Protein Neg (Negative) Urine Glucose (UA) Norm (Normal) Urine Ketones Negative (Negative) Urine Blood Neg (Negative) Urine Nitrate Negative (Negative) Urine Bilirubin Neg (Negative) Urine Urobilinogen Norm (Negative) mg/dL Ur Leukocyte Khushboo ase Negative (Negative) 10/05/20 Range/Units 15:27 WBC (4.0-10.0) 10^3/ uL RBC (4.1-5.3) 10^6/u L Hgb (11.5-15.3) g/dL Hct (37.0-47.0) % MCV (81-99) fL MCH (28.0-34.0) pg MCHC (30.0-36.0) g/dL RDW (12.1-15.1) % Plt Count (130-400) 10^3/c mm MPV (7.4-10.4) fL Neut % (Auto) % Lymph % (Auto) % [place] % (Auto) % Eos % (Auto) % Baso % (Auto) % Neut # (Auto) (1.8-7.7) 10^3/u L Lymph # (Auto) (0.8-4.8) 10^3/u L [place] # (Auto) (0.2-0.9) 10^3/u L Eos # (Auto) (0.0-0.8) 10^3/u L Baso # (Auto) (0.0-0.1) 10^3/u L Nucleated RBC % (a uto) % Nucleated RBCs # /100WBC Sodium (136-145) mmol/L Potassium (3.5-5.1) mmol/L Chloride (98-107) mmol/L Carbon Dioxide (22-29) mmol/L Anion Gap (5-19) BUN (8-23) mg/dL Creatinine (0.5-0.9) mg/dL GFR Calculation Glucose (65-115) mg/dL Calculated Osmolal ity (285-295) mOsm/k g Calcium (8.5-10.5) mg/dL Total Bilirubin (0.15-1.2) mg/dL AST (0-32) U/L ALT (0-33) U/L Alkaline Phosphata se (35-105) IU/L Troponin T Baselin e 27 H (0-10) ng/L NT-Pro-B Natriuret Pep (0-450) pg/mL Total Protein (6.6-8.7) g/dL Albumin (3.5-5.2) g/dL Globulin (1.3-4.6) g/dL Urine Color (Yellow) Urine Appearance (CLEAR) Urine pH (5-7) Ur Specific Gravit y (1.005-1.030) Urine Protein (Negative) Urine Glucose (UA) (Normal) Urine Ketones (Negative) Urine Blood (Negative) Urine Nitrate (Negative) Urine Bilirubin (Negative) Urine Urobilinogen (Negative) mg/dL Ur Leukocyte Khushboo ase (Negative) Discharge Plan Discharge Patient Disposition: Home Admit Provider: Jax Villa Clinical Impression: Paroxysmal atrial fibrillation with RVR, DM type 2 (diabetes mellitus, type 2) Condition: Stable Coding Level of Care Code ED Street Sprinkler for Az Shultz
--- NOTE | 2020-10-05 17:50 | PC.NURSE ---
attempted to call report, call back pending
[2020-10-05] MEDS: ciprofloxacin 400 MG/200 ML PREMIX 200 MG IV (18:58)
[2020-10-05 19:09] LABS: Troponin 5 2HR 30.89 ng/L (0-10); Troponin 5 2HR Delta 3.89 ABS# (0-10)
[2020-10-05] MEDS: vancomycin 1,000 MG in sodium chloride 0.9% 250 ML 250 MG IV (20:07)
--- NOTE | 2020-10-05 20:08 | P.HP_ITS ---
Providers/Chief Complaint Admitting Physician: Jax Villa Chief Complaint: chest pain History of Present Illness Pleasant 80-year-old lady with history of atrial fibrillation, treated with sotalol, previously on Eliquis for anticoagulation, however, after a fall on 09/20, extensive bruising of the entire left side of the body, abrasion of the left knee, following with wound care, recently being treated with cephalexin for cellulitis of left lower extremity and around the knee wound, Eliquis at that time was discontinued. Presents to emergency room due to A. fib with RVR started this morning. On and off chest discomfort during the day. None currently. He is not short of breath. Denies fever chills. Denies worsening symptoms in the left leg, denies drainage from the knee. Denies pain. Denies missing any doses of any of her medications. Review of Systems Const: Denies: fever(s), chills, body aches or malaise Eyes: Denies: change in vision or eye redness ENMT: Denies: throat pain, oral sores or ear or mastoid pain Card: Reports: chest pain (Reports several on and off episodes during the day, none currently) and palpitations; Denies: edema, pre-syncope or dyspnea on exertion Resp: Denies: dyspnea, productive cough, change in phlegm color or hemoptysis GI: Denies: abdominal pain, nausea, vomiting, diarrhea, constipation, hematochezia or melena : Denies: flank pain, urinary frequency or hematuria Musc: Denies: back pain, joint swelling or joint redness Skin/Breast: Reports: erythema (Cellulitis left lower leg, knee down to above the ankle); Denies: sores or new lesions Neuro: Denies: headache(s), numbness in extremities, weakness in extremities, dizziness, confusion or seizure-like activity Endo: Denies: polyuria or polydipsia Norbert/Lymph: Denies: easy bleeding or purpura All/Imm: Denies: urticaria, throat swelling or tongue swelling Medications/Allergies Home Medications Medication Instructions Recorded Confirmed Last Taken Type CoQ-10 1 tab PO DAILY@0900 03/01/20 10/05/20 10/05/20 History ICaps 1 tab PO DAILY@0900 03/01/20 10/05/20 10/05/20 History glucosamine-chondroitin [Osteo 2 tab PO DAILY@0900 03/01/20 10/05/20 10/05/20 History Bi-Flex] metformin 500 mg PO DAILY 03/01/20 10/05/20 10/05/20 History fluticasone propion-salmeterol See Rx Instructions .ROUTE 03/07/20 10/05/20 10/05/20 Rx [Advair Diskus] .COMPLEX #30 ea Cbd Oil 4 drp PO DAILY@0900 08/22/20 10/05/20 10/05/20 History Restore And Balance 1 tab PO DAILY@0900 08/22/20 10/05/20 10/05/20 History albuterol sulfate [Ventolin HFA] 2 puff INHALATION Q4H PRN 08/22/20 10/05/20 Unknown History biotin 1 tab PO DAILY@0900 08/22/20 10/05/20 10/05/20 History glipizide See Rx Instructions .ROUTE .COMPLEX 08/22/20 10/05/20 10/05/20 History vitamin E 1 tab PO DAILY@0900 08/22/20 10/05/20 10/05/20 History folic acid 1 mg PO DAILY #30 tab 09/01/20 10/05/20 10/05/20 Rx thiamine mononitrate (vit B1) 100 mg PO DAILY #30 tab 09/01/20 10/05/20 10/05/20 Rx [Vitamin B-1 (mononitrate)] lisinopril 10 mg tablet 10 mg PO DAILY #90 tab 09/05/20 10/05/20 10/05/20 Rx bromfenac [Prolensa] 1 drp OPHTHALMIC (EYE) DAILY 10/05/20 10/05/20 10/05/20 History cephalexin [Keflex] 500 mg PO QID 10/05/20 10/05/20 10/05/20 History cyanocobalamin (vitamin B-12) 500 mcg PO DAILY 10/05/20 10/05/20 10/05/20 History [Vitamin B-12] furosemide 20 mg PO DAILY PRN 10/05/20 10/05/20 Unknown History loteprednol etabonate [Lotemax SM] 1 drp OPHTHALMIC (EYE) BID 10/05/20 10/05/20 10/05/20 History sotalol 40 mg PO DAILY 10/05/20 10/05/20 10/05/20 History Allergies Allergy/AdvReac Type Severity Reaction Status Date / Time No Known Allergies Allergy Verified 10/05/20 14:11 PFSH Acute PFSH: Medical History COPD (chronic obstructive pulmonary disease) DM type 2 (diabetes mellitus, type 2) HTN (hypertension) Suspected severe acute respiratory syndrome coronavirus 2 (SARS-CoV-2) infection Surgical History H/O: hysterectomy History of ectopic Family History Mother Heart disease Father Heart disease Social History Smoking and tobacco status: former smoker Quit status (tobacco): has quit using tobacco Year quit tobacco: Many decades ago Alcohol intake: current Alcohol intake frequency: 0-2 Drinks per Day Lives independently: Yes Household members: spouse Marital status: Vitals/I&O/Wt Last Vital Signs Temp 97.7 F 10/05/20 19:02 Pulse 127 H 10/05/20 19:02 Resp 21 H 10/05/20 19:02 BP 120/81 10/05/20 19:02 Pulse Ox 97 10/05/20 19:02 10/05/20 10/05/20 10/05/20 06:59 14:59 22:59 Intake Total 5.625 / 5.625 Balance 5.625 / 5.625 Weight last 48 hrs Weight 74.843 kg Physical Exam Const: COMMON NORMALS: no acute distress and patient oriented x3 HENMT: COMMON NORMALS: oropharynx normal Neck/C-Spine: COMMON NORMALS: no JVD Resp: COMMON NORMALS: normal respiratory effort and clear to auscultation bilaterally AUSCULTATION: clear to auscultation bilaterally Cardio: COMMON NORMALS: no JVD, regular rhythm, S1 normal heart sound present, S2 normal heart sound present and No murmurs present (Cardio) RATE: tachycardic RHYTHM: abnormal rhythm irregularly irregular HEART SOUNDS: S1 normal heart sound present and S2 normal heart sound present GI: COMMON NORMALS: Normal to inspection, nondistended, normoactive bowel sounds present, Soft to palpation and non-tender PALPATION: Yes Soft to palpation Extremity: COMMON NORMALS: no joint enlargement and no pedal edema Neuro: COMMON NORMALS: patient oriented x3 and moves all extremities Skin: COMMON NORMALS: no rashes or lesions noted GENERAL SKIN EXAM: no rashes or lesions noted and ecchymosis (Extensive bruising entire L side, different stages) RASHES: no rashes (Left lower leg, from knees/including patellar wound down above ankle red) Data : 10/05/20 15:27 10/05/20 15:27 A&P Assessment and plan (1) Paroxysmal atrial fibrillation with RVR: Did not respond to additional dose of sotalol, IV 5 mg Toprol, Cardizem push 10 mg, started on Cardizem drip. Not on anticoagulation ever since her fall on 09/20 due to quite extensive bruising, wound of left patella for which he follows with wound care. Consulted cardiology. Appreciate recommendations. Will give additional sotalol dose 40 mg tonight, start on 80 mg twice daily tomorrow. Continue Cardizem drip. Monitor on telemetry. Complete troponin EKG series. Check magnesium. Previously drinking alcohol daily 1-2 drinks: Reports has not drank in a month. Status: Acute (2) Cellulitis: Erythema, warmth of the left lower leg from the knee down to about the ankle, including around the wound on the patella with eschar tissue. Leukocytosis 11.7. There is some swelling noted around the wound specially laterally. We will obtain ultrasound imaging to exclude fluid collection. Has had duplex ultrasound on 09/26 - for DVT. Due to lack of response to cephalexin, underlying diabetes, switch to vancomycin, ciprofloxacin. Check nasal MRSA. Status: Acute Additional A&P Information Possible liver cirrhosis Previously drinking alcohol daily: Reports has not drank in a month COPD Diabetes Attestations Medical Necessity Statement*: Admission of over 2 midnights is anticipated to be required for assessment management of difficult to control atrial fibrillation previously requiring cardioversion, cellulitis unresponsive to outpatient therapy in a lady with underlying diabetes. Coding Level of Care Code Acute Director Speech for [facility] Diagnoses Paroxysmal atrial fibrillation with RVR I48.0 Cellulitis L03.90
[2020-10-05 20:37] LABS: Glucose Point of Care 149 mg/dL (70-110)
[2020-10-05] MEDS: heparin 5,000 unit/mL INJ 1 mL 5000 UNIT SUBCUT (21:45)
[2020-10-05 22:30] LABS: Troponin 5 6HR 29.53 ng/L (0-10); Troponin 5 6HR Delta 2.53 ng/L (0-12)
[2020-10-06] VITALS (14 sets, daily range): BP systolic 97–137; BP diastolic 56–75; PULSE 49–124; RESP 13–19; TEMP 36.3–36.8; O2SAT 89–100
--- NOTE | 2020-10-06 01:26 | PC.NURSE ---
Spoke wit Dr. Yusuf regarding this patient's heart rate. The patient was in a-flutter with RVR 2:1 conduction rates in the 120s-130s. The patient had a cardizem drip going at 15ml/hr. The patient got up to use the bed side commode and it was noted that she had converted back to sinus alex rates in the 50s. BP was obtained and found to be 107/66. Cardizem drip was immediately stopped.
[2020-10-06 05:17] LABS: Basophils # 0.1 10^3/uL (0.0-0.1); Basophils % 0.8 %; Eosinophils # 0.2 10^3/uL (0.0-0.8); Eosinophils % 1.3 %; Hematocrit 41.2 % (37.0-47.0); Hemoglobin 12.5 g/dL (11.5-15.3); Lymphocytes # 2.6 10^3/uL (0.8-4.8); Lymphocytes % 21.9 %; Mean Corpuscular HGB Conc 30.3 g/dL (30.0-36.0); Mean Corpuscular Hemoglobin 28.3 pg (28.0-34.0); Mean Corpuscular Volume 93.4 fL (81-99); Mean Platelet Volume 10.7 fL (7.4-10.4); Monocytes # 1.6 10^3/uL (0.2-0.9); Monocytes % 13.3 %; Neutrophils # 7.46 10^3/uL (1.8-7.7); Neutrophils % 62.3 %; Nucleated Red Blood Cells % 0 %; Platelet Count 392 10^3/cmm (130-400); Red Blood Count 4.41 10^6/uL (4.1-5.3); Red Cell Distribution Width 13.2 % (12.1-15.1)
[2020-10-06 05:46] LABS: Alanine Aminotransferase 10 U/L (0-33); Albumin Level 3.3 g/dL (3.5-5.2); Alkaline Phosphatase 162 IU/L (35-105); Anion Gap 12.4 (5-19); Aspartate Amino Transferase 24 U/L (0-32); Blood Urea Nitrogen 29 mg/dL (8-23); Carbon Dioxide 33 mmol/L (22-29); Chloride 99 mmol/L (98-107); Creatinine Clr Calc Pharmacy 42.0263; Globulin 3.9 g/dL (1.3-4.6); Glucose 97 mg/dL (65-115); Osmolality Calculated 296 mOsm/kg (285-295); Potassium 4.4 mmol/L (3.5-5.1); Sodium 140 mmol/L (136-145); Total Bilirubin 0.2 mg/dL (0.15-1.2); Total Protein 7.2 g/dL (6.6-8.7)
[2020-10-06] MEDS: ciprofloxacin 400 MG/200 ML PREMIX 200 MG IV ×2 (06:28→17:48)
[2020-10-06 06:53] LABS: Glucose Point of Care 74 mg/dL (70-110)
[2020-10-06] MEDS: cyanocobalamin 1,000 mcg Tablet 500 MCG PO (09:13)
[2020-10-06] MEDS: heparin 5,000 unit/mL INJ 1 mL 5000 UNIT SUBCUT (09:13)
[2020-10-06] MEDS: folic acid 1 mg Tablet PO (09:13)
[2020-10-06] MEDS: thiamine 100 mg Tablet PO (09:13)
[2020-10-06] MEDS: sotalol 80 mg Tablet PO (10:00)
[2020-10-06 11:08] LABS: Glucose Point of Care 153 mg/dL (70-110)
[2020-10-06] MEDS: vancomycin 1,000 MG in sodium chloride 0.9% 250 ML 250 MG IV (11:53)
--- NOTE | 2020-10-06 13:02 | ECG_ITS ---
[facility] Test Date: 2020-10-06 Pat Name: La Aranda Department: Room: 107 Gender: Female Candle Maker: : 1940 Requested By: Christina Jama Order Number: [id number] Iglesia MD: Christina Jama M.D. Measurements Intervals [place] Rate: 67 P: 66 [place]: 161 QRS: 72 QRSD: 138 T: 52 QT: 441 QTc: 468 Interpretive Statements SINUS RHYTHM WITH OCCASIONAL VENTRICULAR PREMATURE COMPLEXES INTRAVENTRICULAR CONDUCTION DELAY [130+ ms QRS DURATION] Compared to ECG 10/05/2020 18:40:37 Intraventricular conduction delay now present Indeterminate axis no longer present ST (T wave) deviation no longer present Electronically Signed On 10-06-2020 23:11:10 CDT by Christina Jama M.D. [id number]
--- NOTE | 2020-10-06 14:14 | P.CONIM_ITS ---
Providers/Reason For Consult Consulting Physician/Specialty*: Dr. Jama, cardiology Reason for Consult*: Atrial fibrillation with rapid ventricle response Attending Physician: Jax Villa History of Present Illness History of Present Illness La Aranda is a 80 year old female with past medical history of COPD, chronic respiratory failure on oxygen 2 L, diabetes mellitus type 2, osteoarthritis, former smoker, hearing loss and history of COVID-19 pneumonia in February 2020. She has no prior CAD, CVA or TIA history. EKG performed on arrival to the ER in 08/2019 after noting elevated heart rate on Fitbit showed atrial flutter with rapid response with heart rate in 140s. She was treated for Klebsiella UTI. Her atrial flutter was difficult to rate control in spite of high-dose metoprolol and Cardizem as tolerated by her blood pressure. She also received amiodarone as well as digoxin and attempt to rate control her. Eventually she underwent ECTOR guided cardioversion with scientology of sinus rhythm/sinus bradycardia. She also underwent stress test that did not show any ischemia. She was transitioned from amiodarone to sotalol 40 mg daily given concerns for transaminitis and possible cirrhosis. Unfortunately she had a fall on 20 September when she fell on her left side and hit her head. She had stitches for left forehead wound and also hit her left knee with extensive swelling. She follows with wound care and is being managed conservatively. Yesterday morning she noted fast heart rate in 130s on fitbit without any symptoms of chest pain or shortness of breath. They called [facility] and eventually presented to hospital for further evaluation. She received sotalol 40 mg x 2 yesterday afternoon and around 1 AM last night converted into sinus rhythm. At the time of evaluation patient denies having any complaints. Review of Systems General: Reports: 10 or more systems reviewed and unremarkable except in HPI and below Const: Denies: fever(s), chills, body aches or malaise Eyes: Denies: change in vision or eye redness ENMT: Denies: throat pain, oral sores or ear or mastoid pain Card: Denies: chest pain, palpitations, edema, pre-syncope or dyspnea on exertion Resp: Denies: dyspnea, productive cough, change in phlegm color or hemoptysis GI: Denies: abdominal pain, nausea, vomiting, diarrhea, constipation, hematochezia or melena : Denies: flank pain, urinary frequency or hematuria Musc: Denies: back pain, joint swelling or joint redness Skin/Breast: Reports: erythema (Cellulitis left lower leg, knee down to above the ankle) and changes in skin color (left facial bruising); Denies: sores or new lesions Neuro: Denies: headache(s), numbness in extremities, weakness in extremities, dizziness, confusion or seizure-like activity Endo: Denies: polyuria or polydipsia Norbert/Lymph: Denies: easy bleeding or purpura All/Imm: Denies: urticaria, throat swelling or tongue swelling Meds/Allergies Home Medications and Allergies Home Medications Medication Instructions Recorded Confirmed Last Taken Type CoQ-10 1 tab PO DAILY@0900 03/01/20 10/05/20 10/05/20 History ICaps 1 tab PO DAILY@0900 03/01/20 10/05/20 10/05/20 History glucosamine-chondroitin [Osteo 2 tab PO DAILY@0900 03/01/20 10/05/20 10/05/20 History Bi-Flex] metformin 500 mg PO DAILY 03/01/20 10/05/20 10/05/20 History fluticasone propion-salmeterol See Rx Instructions .ROUTE 03/07/20 10/05/20 10/05/20 Rx [Advair Diskus] .COMPLEX #30 ea Cbd Oil 4 drp PO DAILY@0900 08/22/20 10/05/20 10/05/20 History Restore And Balance 1 tab PO DAILY@0900 08/22/20 10/05/20 10/05/20 History albuterol sulfate [Ventolin HFA] 2 puff INHALATION Q4H PRN 08/22/20 10/05/20 Unknown History biotin 1 tab PO DAILY@0900 08/22/20 10/05/20 10/05/20 History glipizide See Rx Instructions .ROUTE .COMPLEX 08/22/20 10/05/20 10/05/20 History vitamin E 1 tab PO DAILY@0900 08/22/20 10/05/20 10/05/20 History folic acid 1 mg PO DAILY #30 tab 09/01/20 10/05/20 10/05/20 Rx thiamine mononitrate (vit B1) 100 mg PO DAILY #30 tab 09/01/20 10/05/20 10/05/20 Rx [Vitamin B-1 (mononitrate)] lisinopril 10 mg tablet 10 mg PO DAILY #90 tab 09/05/20 10/05/20 10/05/20 Rx bromfenac [Prolensa] 1 drp OPHTHALMIC (EYE) DAILY 10/05/20 10/05/20 10/05/20 History cephalexin [Keflex] 500 mg PO QID 10/05/20 10/05/20 10/05/20 History cyanocobalamin (vitamin B-12) 500 mcg PO DAILY 10/05/20 10/05/20 10/05/20 History [Vitamin B-12] furosemide 20 mg PO DAILY PRN 10/05/20 10/05/20 Unknown History loteprednol etabonate [Lotemax SM] 1 drp OPHTHALMIC (EYE) BID 10/05/20 10/05/20 10/05/20 History sotalol 40 mg PO DAILY 10/05/20 10/05/20 10/05/20 History Allergies Allergy/AdvReac Type Severity Reaction Status Date / Time No Known Allergies Allergy Verified 10/05/20 14:11 Current Medications Current Medications Generic Name Dose Route Start Last Admin Trade Name Freq PRN Reason Stop Dose Admin Cyanocobalamin 500 mcg 10/06/20 09:00 10/06/20 09:13 Cyanocobalamin 1,000 Mcg Tablet PO 500 mcg DAILY JAMAL Administration Folic Acid 1 mg 10/06/20 09:00 10/06/20 09:13 Folic Acid 1 Mg Tablet PO 1 mg DAILY JAMAL Administration Heparin Sodium (Beef Lung) 5,000 unit 10/05/20 20:45 10/06/20 09:13 Heparin 5,000 Unit/Ml Inj 1 Ml SUBCUT 5,000 unit Q12H JAMAL Administration Diltiazem HCl 125 mg/ Sodium 125 mls @ 0 mls/hr 10/05/20 16:45 10/06/20 01:35 Chloride IV 0 mg/hr .Q0M JAMAL 0 mls/hr Titration Protocol Per Protocol Vancomycin HCl 1,000 mg/ 250 mls @ 250 mls/hr 10/05/20 18:30 10/06/20 12:53 Sodium Chloride IV Infused Q18H JAMAL Infusion Protocol Ciprofloxacin/Dextrose 400 mg in 200 mls @ 200 mls/hr 10/05/20 18:00 10/06/20 07:50 Cipro IV Infused Q12H [facility] Infusion Protocol Insulin Aspart 0 unit 10/05/20 21:00 10/06/20 11:53 Insulin Aspart 100 Unit/1 Ml SUBCUT 2 unit WM&BEDTIME JAMAL Administration Protocol Non-Formulary Medication 1 drop 10/06/20 09:00 10/06/20 09:29 Bromfenac [Prolensa] EYEAFF Not Given DAILY [facility] Non-Formulary Medication 1 tab 10/06/20 09:00 10/06/20 09:29 Coq-10 PO Not Given DAILY@0900 [facility] Non-Formulary Medication 1 drop 10/06/20 09:00 10/06/20 09:30 Loteprednol Etabonate [Lotemax Sm] EYEAFF Not Given BID [facility] Non-Formulary Medication 1 tab 10/06/20 09:00 10/06/20 10:10 [id number]-[id number]-Min [Icaps] PO Not Given DAILY@0900 [facility] Non-Formulary Medication 1 tab 10/06/20 09:00 10/06/20 10:10 Vitamin E PO Not Given DAILY@0900 [facility] Non-Formulary Medication 1 tab 10/06/20 09:00 10/06/20 09:30 Restore And Balance PO Not Given DAILY@0900 [facility] Non-Formulary Medication 2 tab 10/06/20 09:00 10/06/20 09:29 Glucosamine-Chondroitin [Osteo Bi-Flex] PO Not Given DAILY@0900 [facility] Non-Formulary Medication 4 drop 10/06/20 09:00 10/06/20 09:29 Cbd Oil PO Not Given DAILY@0900 [facility] Non-Formulary Medication 1 tab 10/06/20 09:00 10/06/20 09:29 Biotin PO Not Given DAILY@0900 [facility] Fluticasone/Salmeterol 1 puff 10/05/20 20:30 10/06/20 08:59 Fluticasone-Salmeterol 250-50 Diskus INHALATION 1 puff BID.RESPIRATORY JAMAL Administration Sotalol HCl 80 mg 10/06/20 09:00 10/06/20 10:00 Sotalol 80 Mg Tablet PO 80 mg BID@0900,2100 JAMAL Administration Thiamine Mononitrate 100 mg 10/06/20 09:00 10/06/20 09:13 Thiamine 100 Mg Tablet PO 100 mg DAILY JAMAL Administration PFSH Acute PFSH: Medical History COPD (chronic obstructive pulmonary disease) DM type 2 (diabetes mellitus, type 2) HTN (hypertension) Suspected severe acute respiratory syndrome coronavirus 2 (SARS-CoV-2) infection Surgical History H/O: hysterectomy History of ectopic Family History Mother Heart disease Father Heart disease Social History Smoking and tobacco status: former smoker Quit status (tobacco): has quit using tobacco Year quit tobacco: Many decades ago Alcohol intake: current Alcohol intake frequency: 0-2 Drinks per Day Lives independently: Yes Household members: spouse Marital status: Vitals/I&O/Wt Last Vital Signs Temp 98.3 F 10/06/20 10:57 Pulse 57 L 10/06/20 10:57 Resp 19 H 10/06/20 10:57 BP 98/75 10/06/20 10:57 Pulse Ox 100 10/06/20 10:57 10/05/20 10/06/20 10/06/20 22:59 06:59 14:59 Intake Total 455.625 / 455.625 78.667 / 534.292 926 / 926 Output Total 100 / 100 Balance 455.625 / 455.625 78.667 / 534.292 826 / 826 Weight last 48 hrs Weight 165 lb Physical Exam Narrative: EXAM NARRATIVE: GENERAL: obese woman in no acute distress HEENT: Pupils equal round reactive to light. No pallor or icterus. NECK: No JVD, No carotid bruit. CARDIOVASCULAR SYSTEM: S1-S2 regular. No murmur appreciated. RESPIRATORY SYSTEM: Chest clear to auscultation. No wheezes rhonchi or rales heard. No use of accessory muscles. ABDOMEN: Soft, nontender and nondistended. Normal bowel sounds present. EXTREMITIES: No cyanosis or clubbing. No edema. reddish discoloration of shins, chronic PAIL TESTER: Patient is alert oriented ?3. No focal neurological deficits. SKIN: Normal turgor and temperature. Data Other Data: Attestation for Other Data: I personally reviewed and interpreted the following: Other data: EKG on arrival showed atrial flutter with rapid response at 133 bpm. Right bundle branch block. Left posterior fascicular block. EKG this morning showed sinus rhythm with occasional PVC at 67 bpm. Right bundle branch block. Right axis deviation. A&P Assessment and plan (1) Atrial flutter with rapid ventricular response: Paroxysmal atrial flutter -difficult to rate control. -episodes of bradicardia last night and this morning. -[id number]= at least 4/9 , 1 for diabetes, 2 for age and 1 for female sex. -She is off Eliquis 5 mg BID given recent falls. -continue sotalol 80 mg daily -continue to monitor closely. -repeat EKG in morning. Status: Acute (2) Elevated troponin: -Minimally elevated -Likely type II in setting of atrial flutter with rapid response. . Status: Resolved (3) HTN (hypertension): BP low normal Qualifiers: Hypertension type: essential hypertension Qualified Code(s): I10 - Essential (primary) hypertension (4) DM type 2 (diabetes mellitus, type 2): Status: Acute (5) COPD (chronic obstructive pulmonary disease): On home oxygen for last several years. Status: Acute Qualifiers: COPD type: unspecified COPD Qualified Code(s): J44.9 - Chronic obstructive pulmonary disease, unspecified Additional A&P Information Cellulitis RBBB Leukocytosis DAWNA Elevated alkaline phosphatase Overweight Possible liver cirrhosis Thank you for allowing me to participate in patient's care. Please feel free to call with questions or concerns Consult Attestations Time Spent in Patient Care: 16 - 35 minutes (>than 50% of time spent in counselling and/or direct pt care on unit) . Coding Level of Care Code Acute Fire[employer]otive for Az Fwirving Diagnoses Atrial flutter with rapid ventricular response I48.92 Elevated troponin R77.8 HTN (hypertension) I10 Hypertension type: essential hypertension DM type 2 (diabetes mellitus, type 2) E11.9 COPD (chronic obstructive pulmonary disease) J44.9 COPD type: unspecified COPD
--- NOTE | 2020-10-06 16:17 | PM.CONSULT ---
Providers/Reason For Consult Consulting Physician/Specialty*: Harvey Moffett MD; orthopedic surgery Reason for Consult*: Swelling left knee Attending Physician: Jax Villa History of Present Illness History of Present Illness La Aranda is a 80 year old female who apparently fell on 09/20/2020 while in a [employer] store sustaining a blow to her anterior left knee and forehead. She noted subsequent swelling over the left anterior leg. She apparently was seen by the wound clinic last Thursday where she stated she had considerable more swelling than presently. She was diagnosed with cellulitis and treated with cephalexin and has had marked improvement in the size of the wound. She presented to the emergency room yesterday with atrial fibrillation and is admitted to the cardiac unit. An ultrasound was obtained of the left knee showing fluid over the anterior knee and orthopedics is consulted for management. Meds/Allergies Home Medications and Allergies Home Medications Medication Instructions Recorded Confirmed Last Taken Type CoQ-10 1 tab PO DAILY@0900 03/01/20 10/05/20 10/05/20 History ICaps 1 tab PO DAILY@0900 03/01/20 10/05/20 10/05/20 History glucosamine-chondroitin [Osteo 2 tab PO DAILY@0900 03/01/20 10/05/20 10/05/20 History Bi-Flex] metformin 500 mg PO DAILY 03/01/20 10/05/20 10/05/20 History fluticasone propion-salmeterol See Rx Instructions .ROUTE 03/07/20 10/05/20 10/05/20 Rx [Advair Diskus] .COMPLEX #30 ea Cbd Oil 4 drp PO DAILY@0900 08/22/20 10/05/20 10/05/20 History Restore And Balance 1 tab PO DAILY@0900 08/22/20 10/05/20 10/05/20 History albuterol sulfate [Ventolin HFA] 2 puff INHALATION Q4H PRN 08/22/20 10/05/20 Unknown History biotin 1 tab PO DAILY@0900 08/22/20 10/05/20 10/05/20 History glipizide See Rx Instructions .ROUTE .COMPLEX 08/22/20 10/05/20 10/05/20 History vitamin E 1 tab PO DAILY@0900 08/22/20 10/05/20 10/05/20 History folic acid 1 mg PO DAILY #30 tab 09/01/20 10/05/20 10/05/20 Rx thiamine mononitrate (vit B1) 100 mg PO DAILY #30 tab 09/01/20 10/05/20 10/05/20 Rx [Vitamin B-1 (mononitrate)] lisinopril 10 mg tablet 10 mg PO DAILY #90 tab 09/05/20 10/05/20 10/05/20 Rx bromfenac [Prolensa] 1 drp OPHTHALMIC (EYE) DAILY 10/05/20 10/05/20 10/05/20 History cephalexin [Keflex] 500 mg PO QID 10/05/20 10/05/20 10/05/20 History cyanocobalamin (vitamin B-12) 500 mcg PO DAILY 10/05/20 10/05/20 10/05/20 History [Vitamin B-12] furosemide 20 mg PO DAILY PRN 10/05/20 10/05/20 Unknown History loteprednol etabonate [Lotemax SM] 1 drp OPHTHALMIC (EYE) BID 10/05/20 10/05/20 10/05/20 History sotalol 40 mg PO DAILY 10/05/20 10/05/20 10/05/20 History Allergies Allergy/AdvReac Type Severity Reaction Status Date / Time No Known Allergies Allergy Verified 10/05/20 14:11 Current Medications Current Medications Generic Name Dose Route Start Last Admin Trade Name Freq PRN Reason Stop Dose Admin Cyanocobalamin 500 mcg 10/06/20 09:00 10/06/20 09:13 Cyanocobalamin 1,000 Mcg Tablet PO 500 mcg DAILY JAMAL Administration Folic Acid 1 mg 10/06/20 09:00 10/06/20 09:13 Folic Acid 1 Mg Tablet PO 1 mg DAILY JAMAL Administration Heparin Sodium (Beef Lung) 5,000 unit 10/05/20 20:45 10/06/20 09:13 Heparin 5,000 Unit/Ml Inj 1 Ml SUBCUT 5,000 unit Q12H JAMAL Administration Vancomycin HCl 1,000 mg/ 250 mls @ 250 mls/hr 10/05/20 18:30 10/06/20 12:53 Sodium Chloride IV Infused Q18H [facility] Infusion Protocol Ciprofloxacin/Dextrose 400 mg in 200 mls @ 200 mls/hr 10/05/20 18:00 10/06/20 07:50 Cipro IV Infused Q12H [facility] Infusion Protocol Insulin Aspart 0 unit 10/05/20 21:00 10/06/20 11:53 Insulin Aspart 100 Unit/1 Ml SUBCUT 2 unit WM&BEDTIME JAMAL Administration Protocol Non-Formulary Medication 1 drop 10/06/20 09:00 10/06/20 09:29 Bromfenac [Prolensa] [id number] Not Given DAILY JAMLA Non-Formulary Medication 1 tab 10/06/20 09:00 10/06/20 09:29 Coq-10 PO Not Given DAILY@0900 [facility] Non-Formulary Medication 1 drop 10/06/20 09:00 10/06/20 09:30 Loteprednol Etabonate [Lotemax Sm] EYEAFF Not Given BID [facility] Non-Formulary Medication 1 tab 10/06/20 09:00 10/06/20 10:10 [id number]-Min [Icaps] PO Not Given DAILY@0900 [facility] Non-Formulary Medication 1 tab 10/06/20 09:00 10/06/20 10:10 Vitamin E PO Not Given DAILY@0900 [facility] Non-Formulary Medication 1 tab 10/06/20 09:00 10/06/20 09:30 Restore And Balance PO Not Given DAILY@0900 [facility] Non-Formulary Medication 2 tab 10/06/20 09:00 10/06/20 09:29 Glucosamine-Chondroitin [Osteo Bi-Flex] PO Not Given DAILY@0900 [facility] Non-Formulary Medication 4 drop 10/06/20 09:00 10/06/20 09:29 Cbd Oil PO Not Given DAILY@0900 [facility] Non-Formulary Medication 1 tab 10/06/20 09:00 10/06/20 09:29 Biotin PO Not Given DAILY@0900 [facility] Fluticasone/Salmeterol 1 puff 10/05/20 20:30 10/06/20 08:59 Fluticasone-Salmeterol 250-50 Diskus INHALATION 1 puff BID.RESPIRATORY JAMAL Administration Thiamine Mononitrate 100 mg 10/06/20 09:00 10/06/20 09:13 Thiamine 100 Mg Tablet PO 100 mg DAILY JAMAL Administration PFSH Acute PFSH: Medical History COPD (chronic obstructive pulmonary disease) DM type 2 (diabetes mellitus, type 2) HTN (hypertension) Suspected severe acute respiratory syndrome coronavirus 2 (SARS-CoV-2) infection Surgical History H/O: hysterectomy History of ectopic Family History Mother Heart disease Father Heart disease Social History Smoking and tobacco status: former smoker Quit status (tobacco): has quit using tobacco Year quit tobacco: Many decades ago Alcohol intake: current Alcohol intake frequency: 0-2 Drinks per Day Lives independently: Yes Household members: spouse Marital status: Vitals/I&O/Wt Last Vital Signs Temp 97.9 F 10/06/20 15:16 Pulse 58 L 10/06/20 15:16 Resp 18 10/06/20 15:16 BP 122/60 10/06/20 15:16 Pulse Ox 98 10/06/20 15:16 10/06/20 10/06/20 10/06/20 06:59 14:59 22:59 Intake Total 78.667 / 534.292 926 / 926 Output Total 100 / 100 Balance 78.667 / 534.292 826 / 826 Weight last 48 hrs Weight 165 lb Physical Exam Narrative: EXAM NARRATIVE: On examination of the patient's left knee there is a fluctuant area of the swelling in the prepatellar knee approximately 4 cm or so in diameter with minimal erythema. There is a central area of necrotic eschar approximately 2 cm in the central portion of the swelling. There is mild erythema and swelling extending into the leg distally. She has no effusion of the knee. Motion is from full extension to 120 degrees. There is no ligamentous laxity in the knee I can appreciate her patella tracks well. She has a palpable left dorsalis pedis pulse. She will flex extend her toes and her ankle without any motor deficits. A&P Assessment and plan (1) Hematoma of left knee region: La appears to have a prepatellar hematoma. She has had significant improvement per her recollection over the past week. Unfortunately there is some central necrosis of the skin. I do not think there is a significant burden of infection here. Ultimate deep cultures will be obtained at the time of debridement. I think she would benefit from surgical debridement to remove eschar over the anterior knee. I discussed this with her. She would like to talk this over with her . I told her we can do this Thursday we will tentatively put her on the schedule. Status: Acute Coding Level of Care Code Acute Author for Az Shultz Diagnoses Hematoma of left knee region S80.02XA
--- NOTE | 2020-10-06 18:14 | USR_ITS ---
PROCEDURE INFORMATION: Exam: Limited ultrasound of the left knee Exam date and time: 10/06/2020 6:14 PM Age: 80 years old Clinical indication: Symptoms: Swelling and tense with fluid, area of left patella; Additional info: L knee/lat patella - swelling, tense w fluid? , Assess for abscess TECHNIQUE: Imaging protocol: Limited ultrasound of the anterior left knee with combined grayscale and color flow imaging. COMPARISON: No relevant prior studies available. FINDINGS: Complex ovoid soft tissue mass about the anterolateral aspect of the patella measuring 5.6 x 2.4 x 5.4 cm. MRI can be performed for improved characterization if clinically indicated. US/US soft tissue/extremity [id number] IMPRESSION: Complex ovoid soft tissue mass about the anterolateral aspect of the patella measuring 5.6 x 2.4 x 5.4 cm.
--- NOTE | 2020-10-06 18:26 | PM.PN ---
Subjective Subjective: Interval history: She is feeling better. Heart rate is improving. Erythema of left lower extremity still extensive, but appears slightly less angry. Swelling around the patella especially laterally without enlargement. No drainage from patellar wound. Vitals/I&O/Wt Last Vital Signs Temp 97.9 F 10/06/20 15:16 Pulse 58 L 10/06/20 15:16 Resp 18 10/06/20 15:16 BP 122/60 10/06/20 15:16 Pulse Ox 98 10/06/20 15:16 10/06/20 10/06/20 10/06/20 06:59 14:59 22:59 Intake Total 78.667 / 534.292 926 / 926 240 / 1166 Output Total 100 / 100 Balance 78.667 / 534.292 826 / 826 240 / 1066 Weight last 48 hrs Weight 74.843 kg Physical Exam Const: COMMON NORMALS: no acute distress and patient oriented x3 HENMT: COMMON NORMALS: oropharynx normal Neck/C-Spine: COMMON NORMALS: no JVD Resp: COMMON NORMALS: normal respiratory effort and clear to auscultation bilaterally AUSCULTATION: clear to auscultation bilaterally Cardio: COMMON NORMALS: no JVD, regular rhythm, S1 normal heart sound present, S2 normal heart sound present and No murmurs present (Cardio) RATE: tachycardic RHYTHM: regular rhythm and abnormal rhythm irregularly irregular HEART SOUNDS: S1 normal heart sound present and S2 normal heart sound present GI: COMMON NORMALS: Normal to inspection, nondistended, normoactive bowel sounds present, Soft to palpation and non-tender PALPATION: Yes Soft to palpation Extremity: COMMON NORMALS: no joint enlargement and no pedal edema Neuro: COMMON NORMALS: patient oriented x3 and moves all extremities Skin: COMMON NORMALS: no rashes or lesions noted GENERAL SKIN EXAM: no rashes or lesions noted and ecchymosis (Extensive bruising entire L side, different stages) RASHES: no rashes (Left lower leg, from knees/including patellar wound down above ankle red) Data : 10/06/20 04:56 10/06/20 04:56 A&P Assessment and plan (1) Cellulitis: Still extensive cellulitis, erythema of left lower extremity below knee, above ankle, but with less angry appearing erythema. Continue IV antibiotics at this time due to lack of response to oral antibiotics. Admission. Concern that she was progressing to sepsis with leukocytosis 12,000, tachycardia on presentation/triggered A. fib with RVR. Did not fit sepsis criteria yesterday. Does not entirely fit him today either, but will obtain blood culture. Continue IV antibiotics with vancomycin, ciprofloxacin. Nasal MRSA requested. Has had duplex ultrasound on 09/26 - for DVT. Status: Acute (2) Hematoma of left knee region: Large complex fluid collection noted peripatellar, laterally at the left knee on ultrasound. On imaging difficult to tell if possibility of hematoma versus abscess. Appreciate orthopedics assessment. Continue IV antibiotics at this time. Given extensive eschar formation at patellar wound, tentatively planned for debridement by orthopedics on Thursday with aspiration and fluid analysis/culture at that time. She states will think about it discussed with her and give the final okay. Discussed with her that we otherwise cannot 100% exclude infection which if present and left untreated may not heal with just antibiotics and lead to complications. She verbalized understanding. Status: Acute (3) Paroxysmal atrial fibrillation with RVR: Appreciate cardiology recommendations. Continue to optimize regimen for control of atrial fibrillation. At this time continue sotalol 80 mg daily. Monitor heart rates. Did not respond to initial therapy yesterday. Not on anticoagulation ever since her fall on 09/20 due to quite extensive bruising, wound of left patella for which he follows with wound care. Troponin abnormality thought to be secondary to demand ischemia. Check magnesium. Previously drinking alcohol daily 1-2 drinks: Reports has not drank in a month. Status: Acute Additional A&P Information Possible liver cirrhosis Previously drinking alcohol daily: Reports has not drank in a month COPD Diabetes Attestations Medical Necessity Statement*: Continue admission for IV antibiotics for extensive cellulitis of left lower extremity with underlying diabetes, failure of outpatient antibiotic treatment, as well as debridement of eschar over the left knee wound, investigation of peripatellar complex fluid collection, and optimization of control of atrial fibrillation as per cardiology recommendations, previously difficult to control requiring cardioversion. Coding Level of Care Code Acute Plant Controls Specialist for g Fwd Diagnoses Cellulitis L03.90 Hematoma of left knee region S80.02XA Paroxysmal atrial fibrillation with RVR I48.0
[2020-10-06 20:11] LABS: Glucose Point of Care 204 mg/dL (70-110)
[2020-10-06] MEDS: lisinopril 10 mg Tablet PO (20:34)
[2020-10-07] VITALS (12 sets, daily range): BP systolic 98–159; BP diastolic 51–67; PULSE 58–101; RESP 16–26; TEMP 36.4–36.7; O2SAT 94–98
[2020-10-07 05:27] LABS: Basophils # 0.1 10^3/uL (0.0-0.1); Basophils % 0.9 %; Eosinophils # 0.2 10^3/uL (0.0-0.8); Eosinophils % 1.6 %; Hematocrit 40.3 % (37.0-47.0); Hemoglobin 12.2 g/dL (11.5-15.3); Lymphocytes # 2.9 10^3/uL (0.8-4.8); Mean Corpuscular HGB Conc 30.3 g/dL (30.0-36.0); Mean Corpuscular Hemoglobin 28.6 pg (28.0-34.0); Mean Corpuscular Volume 94.6 fL (81-99); Mean Platelet Volume 10.7 fL (7.4-10.4); Monocytes # 1.4 10^3/uL (0.2-0.9); Monocytes % 13.6 %; Neutrophils # 5.96 10^3/uL (1.8-7.7); Neutrophils % 56.2 %; Nucleated Red Blood Cells % 0 %; Platelet Count 384 10^3/cmm (130-400); Red Blood Count 4.26 10^6/uL (4.1-5.3); Red Cell Distribution Width 13.3 % (12.1-15.1); White Blood Count 10.6 10^3/uL (4.0-10.0)
[2020-10-07 05:54] LABS: Alanine Aminotransferase 12 U/L (0-33); Albumin Level 3.3 g/dL (3.5-5.2); Alkaline Phosphatase 157 IU/L (35-105); Anion Gap 14.7 (5-19); Aspartate Amino Transferase 22 U/L (0-32); Blood Urea Nitrogen 36 mg/dL (8-23); Calcium 8.8 mg/dL (8.5-10.5); Carbon Dioxide 30 mmol/L (22-29); Chloride 100 mmol/L (98-107); Globulin 3.7 g/dL (1.3-4.6); Glucose 102 mg/dL (65-115); Magnesium 2.1 mg/dL (1.7-2.3); Osmolality Calculated 299 mOsm/kg (285-295); Potassium 4.7 mmol/L (3.5-5.1); Sodium 140 mmol/L (136-145); Total Bilirubin 0.2 mg/dL (0.15-1.2)
[2020-10-07] MEDS: ciprofloxacin 400 MG/200 ML PREMIX 200 MG IV ×2 (05:58→18:12)
[2020-10-07] MEDS: vancomycin 1,000 MG in sodium chloride 0.9% 250 ML 250 MG IV (05:59)
[2020-10-07 06:39] LABS: Glucose Point of Care 135 mg/dL (70-110)
--- NOTE | 2020-10-07 08:20 | PM.PN ---
Subjective Subjective: Interval history: No complaints. She is due to have debridment tomorrow. Medications: Reviewed: Yes Vitals/I&O/Wt Last Vital Signs Temp 97.6 F 10/07/20 02:55 Pulse 100 10/07/20 07:26 Resp 18 10/07/20 07:24 BP 112/58 10/07/20 02:55 Pulse Ox 95 10/07/20 07:24 10/06/20 10/07/20 10/07/20 22:59 06:59 14:59 Intake Total 540 / 1466 500 / 1966 450 / 450 Output Total 450 / 550 Balance 540 / 1366 50 / 1416 450 / 450 Weight last 48 hrs Weight 165 lb Physical Exam Narrative: EXAM NARRATIVE: GENERAL: obese woman in no acute distress HEENT: Pupils equal round reactive to light. No pallor or icterus. NECK: No JVD, No carotid bruit. CARDIOVASCULAR SYSTEM: S1-S2 regular. No murmur appreciated. RESPIRATORY SYSTEM: Chest clear to auscultation. No wheezes rhonchi or rales heard. No use of accessory muscles. ABDOMEN: Soft, nontender and nondistended. Normal bowel sounds present. EXTREMITIES: No cyanosis or clubbing. No edema. 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 No focal neurological deficits. SKIN: Normal turgor and temperature. Data : 10/07/20 04:22 10/07/20 04:22 Micro: Microbiology 10/06/20 19:10 Blood Culture - Preliminary Blood SPECIMEN COLLECTED 10/06/20 18:57 Blood Culture - Preliminary Blood SPECIMEN COLLECTED A&P Assessment and plan (1) Atrial flutter with rapid ventricular response: Paroxysmal atrial flutter -difficult to rate control. -episodes of bradicardia last night and this morning. -[id number]= at least 4/9 , 1 for diabetes, 2 for age and 1 for female sex. -She is off Eliquis 5 mg BID given recent fall. -Decreased sotalol to 40 mg daily -continue to monitor closely. -repeat EKG in morning. Status: Acute (2) Elevated troponin: -Minimally elevated -Likely type II in setting of atrial flutter with rapid response. Status: Resolved (3) HTN (hypertension): BP low normal Qualifiers: Hypertension type: essential hypertension Qualified Code(s): I10 - Essential (primary) hypertension (4) DM type 2 (diabetes mellitus, type 2): Status: Acute (5) COPD (chronic obstructive pulmonary disease): On home oxygen for last several years. Status: Acute Qualifiers: COPD type: unspecified COPD Qualified Code(s): J44.9 - Chronic obstructive pulmonary disease, unspecified Additional A&P Information LLeft leg Cellulitis Left knee hematoma- concern for infection on ultrasound RBBB Leukocytosis DAWNA Elevated alkaline phosphatase Overweight Possible liver cirrhosis Thank you for allowing me to participate in patient's care. Please feel free to call with questions or concerns Attestations Medical Necessity Statement*: As per primary team Time Spent in Patient Care: 16 - 35 minutes (>than 50% of time spent in counselling and/or direct pt care on unit). Coding Level of Care Code Acute Refining Machine Operator for g Fwd Diagnoses Atrial flutter with rapid ventricular response I48.92 Elevated troponin R77.8 HTN (hypertension) I10 Hypertension type: essential hypertension DM type 2 (diabetes mellitus, type 2) E11.9 COPD (chronic obstructive pulmonary disease) J44.9 COPD type: unspecified COPD
[2020-10-07] MEDS: cyanocobalamin 1,000 mcg Tablet 500 MCG PO (08:37)
[2020-10-07] MEDS: thiamine 100 mg Tablet PO (08:37)
[2020-10-07] MEDS: folic acid 1 mg Tablet PO (08:37)
[2020-10-07] MEDS: heparin 5,000 unit/mL INJ 1 mL 5000 UNIT SUBCUT (08:37)
[2020-10-07] MEDS: sotalol 80 mg Tablet 40 MG PO (09:46)
[2020-10-07 11:24] LABS: Glucose Point of Care 142 mg/dL (70-110)
--- NOTE | 2020-10-07 11:30 | ECG_ITS ---
[facility] Test Date: 2020-10-07 Pat Name: La Aranda Department: Room: 107 Gender: Female City Superintendent: : 1940 Requested By: Christina Jama Order Number: [id number] Iglesia MD: Christina Jama M.D. Measurements Intervals Harper Rate: 66 P: 61 IL: 152 QRS: 85 QRSD: 142 T: 35 QT: 437 QTc: 460 Interpretive Statements SINUS RHYTHM WITH OCCASIONAL VENTRICULAR PREMATURE COMPLEXES RIGHT BUNDLE BRANCH BLOCK [120+ ms QRS DURATION, UPRIGHT V1, 40+ ms S IN I/aVL/V4/V5/V6] Compared to ECG 10/06/2020 13:30:36 Right bundle-branch block now present Ventricular premature complex(es) no longer present Intraventricular conduction delay no longer present Electronically Signed On 10-08-2020 23:07:15 CDT by Christina Jama M.D. [email or web address]
[2020-10-07 16:13] LABS: Glucose Point of Care 126 mg/dL (70-110)
--- NOTE | 2020-10-07 17:17 | P.PN_ITS ---
Subjective Subjective: Interval history: Patient was seen this morning, she is quite upset as she continues to be on heparin, she tells me that she is bleeding and we have her on a blood thinner, she does not know why, she tells me that she wants to go ahead and proceed with surgery, currently no chest pain, no palpitations, she did have an episode of bradycardia earlier this morning, her sotalol was held Vitals/I&O/Wt Last Vital Signs Temp 97.9 F 10/07/20 15:08 Pulse 62 10/07/20 15:08 Resp 22 H 10/07/20 15:08 BP 117/58 10/07/20 15:08 Pulse Ox 96 10/07/20 15:08 10/07/20 10/07/20 10/07/20 06:59 14:59 22:59 Intake Total 500 / 1966 810 / 810 Output Total 450 / 550 Balance 50 / 1416 810 / 810 Physical Exam Const: COMMON NORMALS: no acute distress and patient oriented x3 HENMT: OTHER: Significant areas of bruising left temporal region, left side of the face, with sutures in left forehead Neck/C-Spine: COMMON NORMALS: no JVD Resp: COMMON NORMALS: normal respiratory effort, No retractions, No use of accessory muscles and clear to auscultation bilaterally AUSCULTATION: clear to auscultation bilaterally Cardio: COMMON NORMALS: no JVD, regular rate, regular rhythm, S1 normal heart sound present and S2 normal heart sound present RATE: regular rate RHYTHM: regular rhythm HEART SOUNDS: S1 normal heart sound present and S2 normal heart sound present GI: COMMON NORMALS: Normal to inspection, nondistended, normoactive bowel sounds present, Soft to palpation, non-tender, No hepatosplenomegaly present, no masses and no bruits PALPATION: Yes Soft to palpation and Yes No hepatosplenomegaly present Extremity: COMMON NORMALS: capillary refill normal, no clubbing, cyanosis or edema, no calf tenderness and no pedal edema NARRATIVE EXTREMITY EXAM: Left lower extremity, over patella, has a black eschar, measuring 4 x 4 cm, round with surrounding erythema, purple discoloration, erythema extending from the patella all the way down to mid kuhn, with mild pitting edema Neuro: COMMON NORMALS: patient oriented x3 Psych: COMMON NORMALS: mental status grossly normal Data : 10/07/20 04:22 10/07/20 04:22 Micro: Microbiology 10/06/20 19:10 Blood Culture - Preliminary Blood SPECIMEN COLLECTED 10/06/20 18:57 Blood Culture - Preliminary Blood SPECIMEN COLLECTED A&P Assessment and plan (1) Cellulitis: Currently on vancomycin and ciprofloxacin Still extensive cellulitis, erythema of left lower extremity below knee, above ankle, but with less angry appearing erythema Concern that she was progressing to sepsis with leukocytosis 12,000, tachycardia on presentation/triggered A. fib with RVR. Did not fit sepsis criteria Continue IV antibiotics with vancomycin, ciprofloxacin. Nasal MRSA requested. Has had duplex ultrasound on 09/26 negative for DVT. Status: Acute (2) Hematoma of left knee region: Large complex fluid collection noted peripatellar, laterally at the left knee on ultrasound. On imaging difficult to tell if possibility of hematoma versus abscess. Appreciate orthopedics assessment. Continue IV antibiotics at this time. Given extensive eschar formation at patellar wound, tentatively planned for debridement by orthopedics on Thursday with aspiration and fluid analysis/culture at that time. She states will think about it discussed with her and give the final okay. Discussed with her that we otherwise cannot 100% exclude infection which if present and left untreated may not heal with just antibiotics and lead to complications. She verbalized understanding. Agrees to proceed with surgical intervention Status: Acute (3) Paroxysmal atrial fibrillation with RVR: Appreciate cardiology recommendations. Continue to optimize regimen for control of atrial fibrillation. At this time continue sotalol 80 mg daily. Monitor heart rates. Not on anticoagulation ever since her fall on 09/20 due to quite extensive bruising, wound of left patella for which he follows with wound care. Troponin abnormality thought to be secondary to demand ischemia. Check magnesium. Previously drinking alcohol daily 1-2 drinks: Reports has not drank in a month. 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
[2020-10-07 20:22] LABS: Glucose Point of Care 218 mg/dL (70-110)
[2020-10-08] VITALS (15 sets, daily range): BP systolic 119–141; BP diastolic 51–79; PULSE 63–73; RESP 14–21; TEMP 36.3–36.8; O2SAT 93–99
[2020-10-08 00:18] LABS: Vancomycin Trough 15.1 ug/mL (10-15)
[2020-10-08] MEDS: vancomycin 1,000 MG in sodium chloride 0.9% 250 ML 250 MG IV ×2 (00:36→18:54)
[2020-10-08 04:54] LABS: Basophils # 0.1 10^3/uL (0.0-0.1); Basophils % 0.9 %; Eosinophils # 0.2 10^3/uL (0.0-0.8); Eosinophils % 1.8 %; Hematocrit 37.5 % (37.0-47.0); Hemoglobin 11.4 g/dL (11.5-15.3); Lymphocytes # 2.7 10^3/uL (0.8-4.8); Lymphocytes % 25.1 %; Mean Corpuscular HGB Conc 30.4 g/dL (30.0-36.0); Mean Corpuscular Hemoglobin 28.8 pg (28.0-34.0); Mean Corpuscular Volume 94.7 fL (81-99); Mean Platelet Volume 10.5 fL (7.4-10.4); Monocytes # 1.6 10^3/uL (0.2-0.9); Monocytes % 15.2 %; Neutrophils # 6.11 10^3/uL (1.8-7.7); Neutrophils % 56.4 %; Nucleated Red Blood Cells % 0 %; Platelet Count 340 10^3/cmm (130-400); Red Blood Count 3.96 10^6/uL (4.1-5.3); Red Cell Distribution Width 13.2 % (12.1-15.1); White Blood Count 10.8 10^3/uL (4.0-10.0)
[2020-10-08 05:28] LABS: Alanine Aminotransferase 14 U/L (0-33); Albumin Level 3.3 g/dL (3.5-5.2); Alkaline Phosphatase 157 IU/L (35-105); Anion Gap 12.6 (5-19); Aspartate Amino Transferase 22 U/L (0-32); Blood Urea Nitrogen 38 mg/dL (8-23); Calcium 8.7 mg/dL (8.5-10.5); Carbon Dioxide 29 mmol/L (22-29); Chloride 103 mmol/L (98-107); Globulin 3.2 g/dL (1.3-4.6); Glucose 125 mg/dL (65-115); Osmolality Calculated 301 mOsm/kg (285-295); Potassium 4.6 mmol/L (3.5-5.1); Sodium 140 mmol/L (136-145); Total Bilirubin 0.2 mg/dL (0.15-1.2); Total Protein 6.5 g/dL (6.6-8.7)
[2020-10-08] MEDS: ciprofloxacin 400 MG/200 ML PREMIX 200 MG IV ×2 (06:19→17:24)
[2020-10-08 07:26] LABS: Glucose Point of Care 155 mg/dL (70-110)
--- NOTE | 2020-10-08 08:45 | PC.SOCIAL ---
IMM Update Pg. 2 of IMM Updated and reviewed with patient who verbalized understanding. Copy provided.
[2020-10-08] MEDS: thiamine 100 mg Tablet PO (08:49)
[2020-10-08] MEDS: folic acid 1 mg Tablet PO (08:49)
[2020-10-08] MEDS: cyanocobalamin 1,000 mcg Tablet 500 MCG PO (08:49)
[2020-10-08] MEDS: sotalol 80 mg Tablet 40 MG PO (10:05)
[2020-10-08 11:09] LABS: Glucose Point of Care 104 mg/dL (70-110)
[2020-10-08] MEDS: dextrose 5%-sod chloride 0.9% 1,000 ML 50 ML IV (11:46)
--- NOTE | 2020-10-08 14:39 | W.PM.OPSUD ---
Surgery/Procedure H&P Update DATE OF PROCEDURE: October 08, 2020 DATE H&P PERFORMED: 10/06/20 PREOP DIAGNOSIS: afib PLANNED PROCEDURE: Operation Date: 10/08/20 14:50 Proposed Procedures p Debridement of hematoma left anterior knee(Left) - Harvey Moffett MD
--- NOTE | 2020-10-08 15:29 | P.ANESASSM_ITS ---
Pre-Anesthetic Assessment Pre-Anesthetic Assessment: Height/Weight: Height 1.6 m Weight 74.843 kg Temp Pulse Resp BP Pulse Ox 97.9 F 68 18 129/65 96 10/08/20 10:56 10/08/20 10:56 10/08/20 10:56 10/08/20 07:17 10/08/20 10:56 Preop Diagnosis: afib Proposed Procedure: Operation Date: 10/08/20 14:50 Proposed Procedures p Debridement of hematoma left anterior knee(Left) - Harvey Moffett MD Was Beta Kamaljit taken within 24 hours: N/A Was Clonidine taken within 24 hours: N/A Last intake: Intake Last Liquid Date 10/08/20 Last Liquid Time 10:00 Last Solid Date 10/07/20 Last Solid Time 18:00 Social: Social History: Tobacco (Quit in ) and No alcohol Exam: Pre-Anes Outpt Exam: alert, oriented x 3 and regular rate & rhythm Airway: Submandibular: WNL Cervical ROM: WNL MP: 2 Dentition: Full Pulmonary: Pulmonary: COPD CV/HEM: CV/HEM: Afib Metabolic: Metabolic: DM Musc/skel: Musc/skel: OA/DJD and Weakness Anesthetic Plan: ASA status: 3 Anesthesia: General Risk of > 500 ml blood loss (7ml/kg in children): No Meds/Allergies Current Medications: Current Medications Generic Name Dose Route Start Last Admin Trade Name Freq PRN Reason Stop Dose Admin Cyanocobalamin 500 mcg 10/06/20 09:00 10/08/20 08:49 Cyanocobalamin 1 ,000 Mcg Tablet PO 500 mcg DAILY JAMAL Administration Folic Acid 1 mg 10/06/20 09:00 10/08/20 08:49 Folic Acid 1 Mg Tablet PO 1 mg DAILY JAMAL Administration Vancomycin HCl 1,0 00 mg/ 250 mls @ 250 mls /hr 10/05/20 18:30 10/08/20 01:45 Sodium Chloride IV Infused Q18H JAMAL Infusion Protocol Ciprofloxacin/Dext marylou 400 mg in 200 mls @ 200 mls/hr 10/05/20 18:00 10/08/20 07:42 Cipro IV Infused Q12H JAMAL Infusion Protocol Dextrose/Sodium Ch loride 1,000 mls @ 50 ml s/hr 10/08/20 10:30 10/08/20 11:46 Dextrose 5%-Sod Chloride 0.9% IV 50 mls/hr .Q20H JAMAL Administration Insulin Aspart 0 unit 10/05/20 21:00 10/08/20 11:45 Insulin Aspart 1 00 Unit/1 Ml SUBCUT Not Given WM&BEDTIME [facility] Protocol Lisinopril 10 mg 10/06/20 09:00 10/07/20 08:51 Lisinopril 10 Mg Tablet PO Not Given DAILY [facility] Non-Formulary Medi cation 1 drop 10/06/20 09:00 10/08/20 07:55 Bromfenac [Prole nsa] EYEAFF Not Given DAILY [facility] Non-Formulary Medi cation 1 tab 10/06/20 09:00 10/08/20 07:52 Coq-10 PO Not Given DAILY@0900 [facility] Non-Formulary Medi cation 1 drop 10/06/20 09:00 10/08/20 07:53 Loteprednol Etab mecca [Lotemax Sm] EYEAFF Not Given BID [facility] Non-Formulary Medi cation 1 tab 10/06/20 09:00 10/08/20 07:50 Qenh-R7-S-E-Lute eq-Ritlykq-Dnh [Ic aps] PO Not Given DAILY@0900 [facility] Non-Formulary Medi cation 1 tab 10/06/20 09:00 10/08/20 07:51 Vitamin E PO Not Given DAILY@0900 [facility] Non-Formulary Medi cation 1 tab 10/06/20 09:00 10/08/20 07:53 Restore [place] nce PO Not Given DAILY@0900 [facility] Non-Formulary Medi cation 2 tab 10/06/20 09:00 10/08/20 07:53 Glucosamine-Richi droitin [Osteo Bi- Flex] PO Not Given DAILY@0900 [facility] Non-Formulary Medi cation 4 drop 10/06/20 09:00 10/08/20 07:52 Cbd Oil PO Not Given DAILY@0900 [facility] Non-Formulary Medi cation 1 tab 10/06/20 09:00 10/08/20 07:54 Biotin PO Not Given DAILY@0900 [facility] Fluticasone/Salmet madina 1 puff 10/05/20 20:30 10/08/20 08:10 Fluticasone-Salm eterol 250-50 Disk us INHALATION 1 puff BID.RESPIRATORY S CH Administration Sotalol HCl 40 mg 10/07/20 09:45 10/07/20 09:46 Sotalol 80 Mg Ta blet PO 40 mg ONCE JAMAL Administration Sotalol HCl 40 mg 10/08/20 10:00 10/08/20 10:05 Sotalol 80 Mg Ta blet PO 40 mg 0900 JAMAL Administration Thiamine Mononitra te 100 mg 10/06/20 09:00 10/08/20 08:49 Thiamine 100 Mg Tablet PO 100 mg DAILY JAMAL Administration PFSH Anesthesia PFSH: Medical History COPD (chronic obstructive pulmonary disease) DM type 2 (diabetes mellitus, type 2) HTN (hypertension) Suspected severe acute respiratory syndrome coronavirus 2 (SARS-CoV-2) infection Surgical History H/O: hysterectomy History of ectopic Family History Mother Heart disease Father Heart disease Social History Smoking and tobacco status: former smoker Quit status (tobacco): has quit using tobacco Year quit tobacco: Many decades ago Alcohol intake: current Alcohol intake frequency: 0-2 Drinks per Day Lives independently: Yes Household members: spouse Marital status: Data Anesthesia CBC & Chem 7: 10/08/20 04:24 10/08/20 04:24 Other Labs: Laboratory Results - last 48 hr 10/06/20 10/07/20 10/07/20 20:03 04:22 04:22 WBC 10.6 H RBC 4.26 Hgb 12.2 Hct 40.3 MCV 94.6 MCH 28.6 MCHC 30.3 RDW 13.3 Plt Count 384 MPV 10.7 H Neut % (Auto) 56.2 Lymph % (Auto) 27.0 Trinity % (Auto) 13.6 Eos % (Auto) 1.6 Baso % (Auto) 0.9 Neut # (Auto) 5.96 Lymph # (Auto) 2.9 Trinity # (Auto) 1.4 H Eos # (Auto) 0.2 Baso # (Auto) 0.1 Nucleated RBC % (auto) 0 Nucleated RBCs # 0.0 Sodium 140 Potassium 4.7 Chloride 100 Carbon Dioxide 30 H Anion Gap 14.7 BUN 36 H Creatinine 1.1 H GFR Calculation Not Reportable Glucose 102 POC Glucose 204 H Calculated Osmolality 299 H Calcium 8.8 Magnesium 2.1 Total Bilirubin 0.2 AST 22 ALT 12 Alkaline Phosphatase 157 H Total Protein 7.0 Albumin 3.3 L Globulin 3.7 Vancomycin Trough 10/07/20 10/07/20 10/07/20 06:31 11:13 16:07 WBC RBC Hgb Hct MCV MCH MCHC RDW Plt Count MPV Neut % (Auto) Lymph % (Auto) Trinity % (Auto) Eos % (Auto) Baso % (Auto) Neut # (Auto) Lymph # (Auto) Trinity # (Auto) Eos # (Auto) Baso # (Auto) Nucleated RBC % (auto) Nucleated RBCs # Sodium Potassium Chloride Carbon Dioxide Anion Gap BUN Creatinine GFR Calculation Glucose POC Glucose 135 H 142 H 126 H Calculated Osmolality Calcium Magnesium Total Bilirubin AST ALT Alkaline Phosphatase Total Protein Albumin Globulin Vancomycin Trough 10/07/20 10/07/20 10/08/20 20:08 23:40 04:24 WBC 10.8 H RBC 3.96 L Hgb 11.4 L Hct 37.5 MCV 94.7 MCH 28.8 MCHC 30.4 RDW 13.2 Plt Count 340 MPV 10.5 H Neut % (Auto) 56.4 Lymph % (Auto) 25.1 Trinity % (Auto) 15.2 Eos % (Auto) 1.8 Baso % (Auto) 0.9 Neut # (Auto) 6.11 Lymph # (Auto) 2.7 Trinity # (Auto) 1.6 H Eos # (Auto) 0.2 Baso # (Auto) 0.1 Nucleated RBC % (auto) 0 Nucleated RBCs # 0.0 Sodium Potassium Chloride Carbon Dioxide Anion Gap BUN Creatinine GFR Calculation Glucose POC Glucose 218 H Calculated Osmolality Calcium Magnesium Total Bilirubin AST ALT Alkaline Phosphatase Total Protein Albumin Globulin Vancomycin Trough 15.1 H 10/08/20 10/08/20 10/08/20 04:24 07:15 10:57 WBC RBC Hgb Hct MCV MCH MCHC RDW Plt Count MPV Neut % (Auto) Lymph % (Auto) Trinity % (Auto) Eos % (Auto) Baso % (Auto) Neut # (Auto) Lymph # (Auto) Trinity # (Auto) Eos # (Auto) Baso # (Auto) Nucleated RBC % (auto) Nucleated RBCs # Sodium 140 Potassium 4.6 Chloride 103 Carbon Dioxide 29 Anion Gap 12.6 BUN 38 H Creatinine 1.1 H GFR Calculation Not Reportable Glucose 125 H POC Glucose 155 H 104 Calculated Osmolality 301 H Calcium 8.7 Magnesium Total Bilirubin 0.2 AST 22 ALT 14 Alkaline Phosphatase 157 H Total Protein 6.5 L Albumin 3.3 L Globulin 3.2 Vancomycin Trough Micro: Microbiology 10/06/20 19:10 Blood Culture - Preliminary Blood NEGATIVE TO DATE 10/06/20 18:57 Blood Culture - Preliminary Blood NEGATIVE TO DATE Cardiac Studies: No Data to Display
--- NOTE | 2020-10-08 16:36 | PM.OP ---
Operative Report Date of procedure: October 08, 2020 Pre-op Diagnosis: Hematoma left knee Post-op diagnosis: same Post-op Findings: The patient had a hematoma cavity approximately 5 cm in diameter overlying the patellar tendon and patella. There was necrotic eschar centrally over the area of swelling perhaps 2-1/2 cm in diameter. No purulence or evidence of tissue necrosis was identified within the hematoma Procedure Done: Excisional drainage necrotic skin and hematoma Pathology: none sent Anesthesia: General Estimated blood loss (mL): 10 Findings: maria elena centrally over the area of swelling perhaps 2-1/2 cm in diameter. No purulence or evidence of tissue necrosis was identified within the hematoma Condition: stable Disposition: PACU Procedure: The patient was taken to the operating room and given a general anesthesia. No antibiotics were given. Initially the central necrotic lesion consisting of skin and subcutaneous tissue was shelled out with scissors and easily removed gaining access to the large hematoma. Utilizing a digit and later a sponge clotted blood was removed. Deep routine anaerobic cultures were obtained and sent. As the skin was not able to be closed the wound VAC was placed. The sponge was packed within the wound and prepared for the wound VAC. The patient was taken to the recovery room in stable condition.
--- NOTE | 2020-10-08 17:01 | P.PN_ITS ---
Subjective Subjective: Interval history: Patient tells me that her left lower extremity swelling has significantly improved, she continues to have swelling over the left knee, she is awaiting her surgical intervention by Dr. Moffett, she has no significant complaints, currently she is reading on her iPad Vitals/I&O/Wt Last Vital Signs Temp 97.7 F 10/08/20 16:45 Pulse 68 10/08/20 16:45 Resp 15 10/08/20 16:45 BP 136/78 10/08/20 16:45 Pulse Ox 94 10/08/20 16:45 10/08/20 10/08/20 10/08/20 06:59 14:59 22:59 Intake Total 250 / 1700 200 / 200 0 / 200 Output Total 450 / 700 2 / 2 Balance -200 / 1000 200 / 200 -2 / 198 Physical Exam Const: COMMON NORMALS: no acute distress and patient oriented x3 HENMT: OTHER: Significant areas of bruising left temporal region, left side of the face, with sutures in left forehead Resp: COMMON NORMALS: normal respiratory effort, No retractions, No use of accessory muscles and clear to auscultation bilaterally AUSCULTATION: clear to auscultation bilaterally Cardio: COMMON NORMALS: regular rate, regular rhythm, S1 normal heart sound present and S2 normal heart sound present RATE: regular rate RHYTHM: regular rhythm HEART SOUNDS: S1 normal heart sound present and S2 normal heart sound present GI: COMMON NORMALS: Normal to inspection, nondistended, normoactive bowel sounds present and Soft to palpation PALPATION: Yes Soft to palpation Extremity: COMMON NORMALS: no pedal edema NARRATIVE EXTREMITY EXAM: Left lower extremity, over patella, has a black eschar, measuring 4 x 4 cm, round with surrounding erythema, purple discoloration, erythema extending from the patella all the way down to mid kuhn, with mild pitting edema Neuro: COMMON NORMALS: patient oriented x3 Psych: COMMON NORMALS: mental status grossly normal Data : 10/08/20 04:24 10/08/20 04:24 Micro: Microbiology 10/06/20 19:10 Blood Culture - Preliminary Blood NEGATIVE TO DATE 10/06/20 18:57 Blood Culture - Preliminary Blood NEGATIVE TO DATE A&P Assessment and plan (1) Cellulitis: Currently on vancomycin and ciprofloxacin Still extensive cellulitis, erythema of left lower extremity below knee, above ankle, but with less angry appearing erythema Concern that she was progressing to sepsis with leukocytosis 12,000, tachycardia on presentation/triggered A. fib with RVR. Did not fit sepsis criteria Continue IV antibiotics with vancomycin, ciprofloxacin. Nasal MRSA requested. Has had duplex ultrasound on 09/26 negative for DVT. Status: Acute (2) Hematoma of left knee region: Large complex fluid collection noted peripatellar, laterally at the left knee on ultrasound. On imaging difficult to tell if possibility of hematoma versus abscess. Appreciate orthopedics assessment. Continue IV antibiotics at this time. Given extensive eschar formation at patellar wound, tentatively planned for debridement by orthopedics on Thursday with aspiration and fluid analysis/culture at that time. She states will think about it discussed with her and give the final okay. Discussed with her that we otherwise cannot 100% exclude infection which if present and left unt reated may not heal with just antibiotics and lead to complications. She verbalized understanding. Agrees to proceed with surgical intervention Currently n.p.o., will undergo surgical intervention later on this afternoon Status: Acute (3) Paroxysmal atrial fibrillation with RVR: Has had bradycardia this hospital mission Appreciate cardiology recommendations. Continue to optimize regimen for control of atrial fibrillation. At this time continue sotalol 40 mg daily. Monitor heart rates. Not on anticoagulation ever since her fall on 09/20 due to quite extensive bruising, wound of left patella for which he follows with wound care. Troponin abnormality thought to be secondary to demand ischemia. Check magnesium. Previously drinking alcohol daily 1-2 drinks: Reports has not drank in a month. Status: Acute Additional A&P Information Possible liver cirrhosis Previously drinking alcohol daily: Reports has not drank in a month COPD Diabetes Full code DVT prophylaxis, not a candidate for SCDs, given her hematoma of left knee and patient's wishes,she would like to discontinue anticoagulation, for DVT prophylaxis, after discussion of the risk and benefits, she voiced understanding, all questions answered, discontinued DVT prophylaxis Plan for today continue antibiotics, monitor left lower extremity, monitor heart rates, follow surgical cultures, surgery's recommendations, hopefully can discharge the next 24 Attestations Medical Necessity Statement*: Patient requires hospitalization for cellulitis, hematoma left leg Coding Level of Care Code Acute Router Operator Radial for [facility] Diagnoses Cellulitis L03.90 Hematoma of left knee region S80.02XA Paroxysmal atrial fibrillation with RVR I48.0
[2020-10-08 17:10] LABS: Glucose Point of Care 97 mg/dL (70-110)
--- NOTE | 2020-10-08 17:13 | PC.NURSE ---
received from pacu via stretcher at 1705.report received.pt is alert and awake.denies pain at present.left knee with wound vac on and functioning.125mm/hg suction noted.mod amt dark red drng noted in tubing.instructed pt to notify staff for any pain,numbness,sob..or for any concerns at all.pt verb understanding of instructions.
--- NOTE | 2020-10-08 17:27 | ANE.PACU2 ---
Inpatient post-anesthesia follow up: Airway intact: Yes Vital signs: Temperature 97.7 F Pulse Rate [Monito r] 132 Pulse Rate 68 Respiratory Rate 15 Blood Pressure [Le ft Arm] 135/85 Blood Pressure 136/78 Pulse Oximetry 94 Oxygen Delivery Me thod Nasal Cannula Oxygen Flow Rate 2 Fraction of Inspir ed Oxygen Hydration adequate: Yes Nausea and vomiting: No Pain level: 2 Mental status: Baseline
--- NOTE | 2020-10-08 17:54 | PC.RESP ---
Pulmonary Rehab information sent to patient.
[2020-10-08 19:56] LABS: Glucose Point of Care 276 mg/dL (70-110)
--- NOTE | 2020-10-08 20:01 | PM.PN ---
Subjective Subjective: Interval history: She is due to have procedure today. -No PVC's noted. However, frequent PVC's in bigeminal pattern noted. Medications: Reviewed: Yes Vitals/I&O/Wt Last Vital Signs Temp 98.1 F 10/08/20 19:42 Pulse 65 10/08/20 19:42 Resp 19 H 10/08/20 19:42 BP 141/62 10/08/20 19:42 Pulse Ox 99 10/08/20 19:42 10/08/20 10/08/20 10/08/20 06:59 14:59 22:59 Intake Total 250 / 1700 200 / 200 560 / 760 Output Total 450 / 700 2 / 2 Balance -200 / 1000 200 / 200 558 / 758 Physical Exam Narrative: EXAM NARRATIVE: GENERAL: obese woman in no acute distress HEENT: Pupils equal round reactive to light. No pallor or icterus. NECK: No JVD, No carotid bruit. CARDIOVASCULAR SYSTEM: S1-S2 regular. No murmur appreciated. RESPIRATORY SYSTEM: Chest clear to auscultation. No wheezes rhonchi or rales heard. No use of accessory muscles. ABDOMEN: Soft, nontender and nondistended. Normal bowel sounds present. EXTREMITIES: No cyanosis or clubbing. No edema. reddish discoloration of shins, chronic HEAD BOOKKEEPER: Patient is alert oriented ?3. No focal neurological deficits. SKIN: Normal turgor and temperature. Data : 10/08/20 04:24 10/08/20 04:24 Micro: Microbiology 10/06/20 19:10 Blood Culture - Preliminary Blood NEGATIVE TO DATE 10/06/20 18:57 Blood Culture - Preliminary Blood NEGATIVE TO DATE A&P Assessment and plan (1) Atrial flutter with rapid ventricular response: Paroxysmal atrial flutter -difficult to rate control in past. Likely went in flutter with RVR d/t cellulitis -[id number]= at least 4/9 , 1 for diabetes, 2 for age and 1 for female sex. -She is off Eliquis 5 mg BID given recent fall. -continue sotalol 40 mg daily -continue to monitor closely. -repeat EKG in morning. Status: Acute (2) Elevated troponin: -Minimally elevated -Likely type II in setting of atrial flutter with rapid response. Status: Resolved (3) HTN (hypertension): BP low normal Qualifiers: Hypertension type: essential hypertension Qualified Code(s): I10 - Essential (primary) hypertension (4) DM type 2 (diabetes mellitus, type 2): Status: Acute (5) COPD (chronic obstructive pulmonary disease): On home oxygen for last several years. Status: Acute Qualifiers: COPD type: unspecified COPD Qualified Code(s): J44.9 - Chronic obstructive pulmonary disease, unspecified Additional A&P Information Left leg Cellulitis Left knee hematoma- concern for infection on ultrasound, Debridment today RBBB Leukocytosis DAWNA Elevated alkaline phosphatase Overweight Possible liver cirrhosis Thank you for allowing me to participate in patient's care. Please feel free to call with questions or concerns Attestations Medical Necessity Statement*: As per primary team Time Spent in Patient Care: 16 - 35 minutes (>than 50% of time spent in counselling and/or direct pt care on unit). Coding Level of Care Code Acute Plug Machine Operator for [facility] Fwd Diagnoses Atrial flutter with rapid ventricular response I48.92 Elevated troponin R77.8 HTN (hypertension) I10 Hypertension type: essential hypertension DM type 2 (diabetes mellitus, type 2) E11.9 COPD (chronic obstructive pulmonary disease) J44.9 COPD type: unspecified COPD
[2020-10-09] VITALS (14 sets, daily range): BP systolic 128–142; BP diastolic 49–64; PULSE 59–72; RESP 16–21; TEMP 36.6–36.9; O2SAT 95–98
[2020-10-09 05:34] LABS: Basophils # 0.1 10^3/uL (0.0-0.1); Basophils % 1.1 %; Eosinophils # 0.2 10^3/uL (0.0-0.8); Eosinophils % 2.4 %; Hematocrit 36.6 % (37.0-47.0); Hemoglobin 11.3 g/dL (11.5-15.3); Lymphocytes # 2.4 10^3/uL (0.8-4.8); Lymphocytes % 27.7 %; Mean Corpuscular HGB Conc 30.9 g/dL (30.0-36.0); Mean Corpuscular Volume 93.8 fL (81-99); Mean Platelet Volume 11.2 fL (7.4-10.4); Monocytes # 1.5 10^3/uL (0.2-0.9); Monocytes % 17.5 %; Neutrophils # 4.31 10^3/uL (1.8-7.7); Neutrophils % 50.7 %; Nucleated Red Blood Cells % 0 %; Platelet Count 309 10^3/cmm (130-400); Red Cell Distribution Width 13.3 % (12.1-15.1); White Blood Count 8.5 10^3/uL (4.0-10.0)
[2020-10-09] MEDS: ciprofloxacin 400 MG/200 ML PREMIX 200 MG IV ×2 (05:36→19:18)
[2020-10-09] MEDS: dextrose 5%-sod chloride 0.9% 1,000 ML 50 ML IV (05:41)
[2020-10-09 05:55] LABS: Alanine Aminotransferase 15 U/L (0-33); Albumin Level 3.2 g/dL (3.5-5.2); Alkaline Phosphatase 137 IU/L (35-105); Aspartate Amino Transferase 20 U/L (0-32); Blood Urea Nitrogen 31 mg/dL (8-23); Calcium 7.9 mg/dL (8.5-10.5); Carbon Dioxide 32 mmol/L (22-29); Chloride 106 mmol/L (98-107); Globulin 3.1 g/dL (1.3-4.6); Glucose 107 mg/dL (65-115); Osmolality Calculated 303 mOsm/kg (285-295); Sodium 143 mmol/L (136-145); Total Bilirubin 0.2 mg/dL (0.15-1.2); Total Protein 6.3 g/dL (6.6-8.7)
[2020-10-09 06:05] LABS: Anion Gap 9.4 (5-19); Potassium 4.4 mmol/L (3.5-5.1)
[2020-10-09 06:39] LABS: Glucose Point of Care 144 mg/dL (70-110)
[2020-10-09] MEDS: thiamine 100 mg Tablet PO (08:01)
[2020-10-09] MEDS: cyanocobalamin 1,000 mcg Tablet 500 MCG PO (08:01)
[2020-10-09] MEDS: lisinopril 10 mg Tablet PO (08:02)
[2020-10-09] MEDS: folic acid 1 mg Tablet PO (08:10)
[2020-10-09] MEDS: sotalol 80 mg Tablet 40 MG PO (08:12)
[2020-10-09] MEDS: FUROsemide 10 mg/mL SDV 4mL 40 MG IVP (10:46)
[2020-10-09 11:01] LABS: Glucose Point of Care 275 mg/dL (70-110)
--- NOTE | 2020-10-09 11:02 | P.DS_ITS ---
Discharge Providers Date of Admission: 10/05/20 17:15 Date of Discharge: October 09, 2020 Attending Provider at Admission: Jax Villa Attending Provider at Discharge: Benigno Palencia MD Diagnoses at Discharge Discharge Diagnosis (1) Atrial flutter with rapid ventricular response: Status: Acute (2) Elevated troponin: Status: Resolved (3) HTN (hypertension): Qualifiers: Hypertension type: essential hypertension Qualified Code(s): I10 - Essential (primary) hypertension (4) DM type 2 (diabetes mellitus, type 2): Status: Acute (5) COPD (chronic obstructive pulmonary disease): Status: Acute Qualifiers: COPD type: unspecified COPD Qualified Code(s): J44.9 - Chronic obstructive pulmonary disease, unspecified Reason for Visit Reason for Visit: chest pain Hospital Course Hospital Course This is a 80-year-old female with a past medical history of atrial fibrillation on Eliquis, on sotalol, however she had a fall on 527, with extensive bruising of the entire left side of the body, with bruising of the left knee, treated with cellulitis of her left knee, on cephalexin, Eliquis has been discontinued who presents [facility] emergency room due to atrial fibrillation with RVR, and worsening drainage from the left knee. For her paroxysmal atrial fibrillation with RVR, cardiology was consulted, she was managed with sotalol, she clinically improved, heart rates will have been reasonable, discharged on sotalol 40 mg daily. Given her bruising from her fall, and her left knee, for now anticoagulation has been discontinued. After discussion of the risks and benefits of discontinuing anticoagulation, she voiced understanding, all questions answered, she agreed to proceed with discontinuing anticoagulation for now. She was advised to follow-up with cardiology, and have a discussion in the near future about reinstituting anticoagulation based on risks and benefit For left knee cellulitis with black eschar on knee, and hematoma the left knee, she received broad-spectrum antibiotic therapy, orthopedic service was consulted, patient received a debridement of the of necrotic skin with evacuation of hematoma, there was no significant concerns for joint infection however cultures are pending at this time. Wound VAC was placed, she was maintained on antibiotic therapy, remained afebrile, clinically improving. Cultures so far have been unremarkable, but continue to follow as outpatient. We will discharge her with wound VAC in place, hhc, , Augmentin and doxycycline for 7 remaining days, follow with wound care, follow-up cultures. Physical Exam Const: COMMON NORMALS: no acute distress and patient oriented x3 HENMT: OTHER: Significant areas of bruising left temporal region, left side of the face, with sutures in left forehead Resp: COMMON NORMALS: normal respiratory effort, No retractions, No use of accessory muscles and clear to auscultation bilaterally AUSCULTATION: clear to auscultation bilaterally Cardio: COMMON NORMALS: regular rate, regular rhythm, S1 normal heart sound present and S2 normal heart sound present RATE: regular rate RHYTHM: regular rhythm HEART SOUNDS: S1 normal heart sound present and S2 normal he art sound present GI: COMMON NORMALS: Normal to inspection, nondistended, normoactive bowel sounds present, Soft to palpation and non-tender PALPATION: Yes Soft to palpation Extremity: COMMON NORMALS: no pedal edema NARRATIVE EXTREMITY EXAM: Left lower extremity, over patella, wound VAC in place, erythema extending from mid kuhn up to the knee joint has significantly improved, 1+ pitting edema Neuro: COMMON NORMALS: patient oriented x3 Discharge Data Data Completed and Pending: Completed Studies During Hospitalization Category Date Time Status XR chest 1V jay ble 31119 Urgent Exams 10/05/20 14:31 Completed US soft tissue/ex tremity 75505 Rout ine Ultrasound 10/06/20 18:14 Completed Pending at discharge Category Date Time Status Anaerobic Culture Routine Lab 10/08/20 16:20 Results Blood Culture Sta t Lab 10/06/20 19:10 Results Vancomycin Trough Timed Lab 10/09/20 11:30 Ordered Wound Culture and Gram Stain Routin e Lab 10/08/20 16:20 Results Labs from last 24 hours 10/09/20 10/09/20 10/09/20 10:58 06:32 04:30 WBC RBC Hgb Hct MCV MCH MCHC RDW Plt Count MPV Neut % (Auto) Lymph % (Auto) [place] % (Auto) Eos % (Auto) Baso % (Auto) Neut # (Auto) Lymph # (Auto) [place] # (Auto) Eos # (Auto) Baso # (Auto) Nucleated RBC % (a uto) Nucleated RBCs # Sodium 143 Potassium 4.4 Chloride 106 Carbon Dioxide 32 H Anion Gap 9.4 BUN 31 H Creatinine 0.9 GFR Calculation Not Reportable Glucose 107 POC Glucose 275 H 144 H Calculated Osmolal ity 303 H Calcium 7.9 L Total Bilirubin 0.2 AST 20 ALT 15 Alkaline Phosphata se 137 H Total Protein 6.3 L Albumin 3.2 L Globulin 3.1 10/09/20 10/08/20 10/08/20 04:30 19:44 17:05 WBC 8.5 RBC 3.90 L Hgb 11.3 L Hct 36.6 L MCV 93.8 MCH 29.0 MCHC 30.9 RDW 13.3 Plt Count 309 MPV 11.2 H Neut % (Auto) 50.7 Lymph % (Auto) 27.7 [place] % (Auto) 17.5 Eos % (Auto) 2.4 Baso % (Auto) 1.1 Neut # (Auto) 4.31 Lymph # (Auto) 2.4 [place] # (Auto) 1.5 H Eos # (Auto) 0.2 Baso # (Auto) 0.1 Nucleated RBC % (a uto) 0 Nucleated RBCs # 0.0 Sodium Potassium Chloride Carbon Dioxide Anion Gap BUN Creatinine GFR Calculation Glucose POC Glucose 276 H 97 Calculated Osmolal ity Calcium Total Bilirubin AST ALT Alkaline Phosphata se Total Protein Albumin Globulin 10/08/20 10:57 WBC RBC Hgb Hct MCV MCH MCHC RDW Plt Count MPV Neut % (Auto) Lymph % (Auto) [place] % (Auto) Eos % (Auto) Baso % (Auto) Neut # (Auto) Lymph # (Auto) [place] # (Auto) Eos # (Auto) Baso # (Auto) Nucleated RBC % (a uto) Nucleated RBCs # Sodium Potassium Chloride Carbon Dioxide Anion Gap BUN Creatinine GFR Calculation Glucose POC Glucose 104 Calculated Osmolal ity Calcium Total Bilirubin AST ALT Alkaline Phosphata se Total Protein Albumin Globulin Vitals: Last Vital Signs Temp 97.9 F 10/09/20 10:40 Pulse 63 10/09/20 10:40 Resp 16 10/09/20 10:40 BP 139/61 10/09/20 10:40 Pulse Ox 96 10/09/20 10:40 Discharge Plan Discharge Patient Disposition: Home Condition: Stable Prescriptions: New hydrocodone-acetaminophen 5-325 mg Tablet 1 tab PO Q6H PRN (Reason: Moderate Pain) 7 Days Qty: 28 RF: 0 sotalol 80 mg Tablet 40 mg PO 0900 30 Days Qty: 15 RF: 0 doxycycline hyclate 100 mg tablet 100 mg PO BID 7 Days Qty: 14 RF: 0 Augmentin 875-125 mg tablet 1 tab PO BID 7 Days Qty: 14 RF: 0 Continued lisinopril 10 mg tablet 10 mg PO DAILY Qty: 90 RF: 2 metformin 500 mg tablet extended release 24 hr 500 mg PO DAILY RF: 0 glucosamine-chondroitin [Osteo Bi-Flex] 250-200 mg Tablet 2 tab PO DAILY@0900 RF: 0 ICaps [id number] aigr-nz-[id number]-unit Tablet Extended Release 1 tab PO DAILY@0900 RF: 0 CoQ-10 1 tab PO DAILY@0900 RF: 0 fluticasone propion-salmeterol [Advair Diskus] 250-50 mcg/dose blister with device See Rx Instructions .ROUTE .COMPLEX Qty: 30 RF: 0 Cbd Oil 4 drp PO DAILY@0900 RF: 0 glipizide 5 mg tablet extended release 24hr See Rx Instructions .ROUTE .COMPLEX RF: 0 albuterol sulfate [Ventolin HFA] 90 mcg/actuation Hfa Aerosol Inhaler 2 puff inhalation Q4H PRN (Reason: Shortness Of Breath) RF: 0 Restore And Balance 1 tab PO DAILY@0900 RF: 0 biotin 1 tab PO DAILY@0900 RF: 0 vitamin E 1 tab PO DAILY@0900 RF: 0 folic acid 1 mg Tablet 1 mg PO DAILY Qty: 30 RF: 0 thiamine mononitrate (vit B1) [Vitamin B-1 (mononitrate)] 100 mg Tablet 100 mg PO DAILY Qty: 30 RF: 0 Vitamin B-12 500 mcg Tablet 500 mcg PO DAILY RF: 0 Prolensa 0.07 % drops 1 drp ophthalmic (eye) DAILY RF: 0 Lotemax SM 0.38 % drops,gel 1 drp ophthalmic (eye) BID RF: 0 furosemide 20 mg tablet 20 mg PO DAILY PRN (Reason: Edema) RF: 0 Discontinued cephalexin [Keflex] 500 mg Capsule 500 mg PO QID RF: 0 sotalol 80 mg tablet 40 mg PO DAILY RF: 0 Discharge Orders: Discharge Order (Routine); Ordered 10/09/20 Ordered By: Benigno Palencia Referrals: Harvey Moffett MD [Physician] - Christina Jama MD [Physician] - 4-7 days [facility], [Staff Physician] - 1 week Discharge Diet: Diabetic Discharge Activity: Increase activity as tolerated Patient Instructions: Doxycycline (By mouth), Hydrocodone/Acetaminophen (By mouth), Amoxicillin/Clavulanate Potassium (By mouth), Sotalol (By mouth), Atrial Fibrillation (DC), Cellulitis (DC), Incision and Drainage (DC), COPD Stoplight, Opioid Safety Activity Restrictions/Additional Instructions: -Take antibiotics as prescribed -Follow-up wound care -Continue wound VAC -Anticoagulation has been discontinued, please follow-up with cardiology and revisit the need to reinstitute Discharge Attestations Time Spent in Discharge Care*: less than 30 min Status at Discharge: Cognitive status at discharge: cognitively intact , Behavioral status at discharge: cooperative , Quality Metrics Clinical Quality Measures During this hospital stay, did patient experience: None Coding Level of Care Code Acute Chg FW DC note Diagnoses Atrial flutter with rapid ventricular response I48.92 Elevated troponin R77.8 HTN (hypertension) I10 Hypertension type: essential hypertension DM type 2 (diabetes mellitus, type 2) E11.9 COPD (chronic obstructive pulmonary disease) J44.9 COPD type: unspecified COPD
[2020-10-09 16:36] LABS: Glucose Point of Care 79 mg/dL (70-110)
--- NOTE | 2020-10-09 16:38 | P.PN_ITS ---
Subjective Subjective: Interval history: She is due to be discharged today. -No events on telemetry. Medications: Reviewed: Yes Vitals/I&O/Wt Last Vital Signs Temp 97.8 F 10/09/20 16:00 Pulse 61 10/09/20 16:00 Resp 19 H 10/09/20 16:00 BP 131/58 10/09/20 16:00 Pulse Ox 97 10/09/20 16:00 10/09/20 10/09/20 10/09/20 06:59 14:59 22:59 Intake Total 1195.833 / 2205.833 850 / 850 Output Total 200 / 202 Balance 995.833 / 2003.833 850 / 850 Physical Exam Narrative: EXAM NARRATIVE: GENERAL: obese woman in no acute distress HEENT: Pupils equal round reactive to light. No pallor or icterus. NECK: No JVD, No carotid bruit. CARDIOVASCULAR SYSTEM: S1-S2 regular. No murmur appreciated. RESPIRATORY SYSTEM: Chest clear to auscultation. No wheezes rhonchi or rales heard. No use of accessory muscles. ABDOMEN: Soft, nontender and nondistended. Normal bowel sounds present. EXTREMITIES: No cyanosis or clubbing. No edema. 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 No focal neurological deficits. SKIN: Normal turgor and temperature. Data : 10/09/20 04:30 10/09/20 04:30 Micro: Microbiology 10/08/20 16:20 Gram Stain - Final Knee - Left A&P Assessment and plan (1) Atrial flutter with rapid ventricular response: Paroxysmal atrial flutter -difficult to rate control in past. Likely went in flutter with RVR d/t cellulitis -[id number]= at least 4/ , 1 for diabetes, 2 for age and 1 for female sex. -She is off Eliquis 5 mg BID given recent fall. -continue sotalol 40 mg daily -f/u in 6-8 weeks in office as scheduled. Status: Acute (2) Elevated troponin: -Minimally elevated -Likely type II in setting of atrial flutter with rapid response. Status: Resolved (3) HTN (hypertension): Qualifiers: Hypertension type: essential hypertension Qualified Code(s): I10 - Essential (primary) hypertension (4) DM type 2 (diabetes mellitus, type 2): Status: Acute (5) COPD (chronic obstructive pulmonary disease): On home oxygen for last several years. Status: Acute Qualifiers: COPD type: unspecified COPD Qualified Code(s): J44.9 - Chronic obstructive pulmonary disease, unspecified Additional A&P Information Left leg Cellulitis Left knee hematoma- s/p Debridment RBBB Leukocytosis DAWNA Elevated alkaline phosphatase Overweight Possible liver cirrhosis Thank you for allowing me to participate in patient's care. Please feel free to call with questions or concerns. I will sign off. Attestations Medical Necessity Statement*: As per primary team Time Spent in Patient Care: 16 - 35 minutes (>than 50% of time spent in counselling and/or direct pt care on unit) . Coding Level of Care Code Acute Pharmacometrician for g Fwd Diagnoses Atrial flutter with rapid ventricular response I48.92 Elevated troponin R77.8 HTN (hypertension) I10 Hypertension type: essential hypertension DM type 2 (diabetes mellitus, type 2) E11.9 COPD (chronic obstructive pulmonary disease) J44.9 COPD type: unspecified COPD
--- NOTE | 2020-10-09 18:06 | PM.PN ---
Subjective Subjective: Interval history: Patient was seen this morning, she tells me she is doing better, she is wondering when she can go home, afebrile, no shortness of breath, no chest pain Vitals/I&O/Wt Last Vital Signs Temp 97.8 F 10/09/20 16:00 Pulse 61 10/09/20 16:00 Resp 19 H 10/09/20 16:00 BP 131/58 10/09/20 16:00 Pulse Ox 97 10/09/20 16:00 10/09/20 10/09/20 10/09/20 06:59 14:59 22:59 Intake Total 1195.833 / 2205.833 850 / 850 240 / 1090 Output Total 200 / 202 Balance 995.833 / 2003.833 850 / 850 240 / 1090 Physical Exam Const: COMMON NORMALS: no acute distress and patient oriented x3 HENMT: OTHER: Significant areas of bruising left temporal region, left side of the face, with sutures in left forehead Resp: COMMON NORMALS: normal respiratory effort, No retractions, No use of accessory muscles and clear to auscultation bilaterally AUSCULTATION: clear to auscultation bilaterally Cardio: COMMON NORMALS: regular rate, regular rhythm, S1 normal heart sound present and S2 normal heart sound present RATE: regular rate RHYTHM: regular rhythm HEART SOUNDS: S1 normal heart sound present and S2 normal heart sound present GI: COMMON NORMALS: Normal to inspection, nondistended, normoactive bowel sounds present, Soft to palpation and non-tender PALPATION: Yes Soft to palpation Extremity: NARRATIVE EXTREMITY EXAM: Left lower extremity, over patella, wound VAC in place, erythema extending from mid kuhn up to the knee joint has significantly improved, 1+ pitting edema Neuro: COMMON NORMALS: patient oriented x3 Data : 10/09/20 04:30 10/09/20 04:30 Micro: Microbiology 10/08/20 16:20 Gram Stain - Final Knee - Left A&P Assessment and plan (1) Atrial flutter with rapid ventricular response: Status: Acute (2) Elevated troponin: Status: Resolved (3) HTN (hypertension): Qualifiers: Hypertension type: essential hypertension Qualified Code(s): I10 - Essential (primary) hypertension (4) DM type 2 (diabetes mellitus, type 2): Status: Acute (5) COPD (chronic obstructive pulmonary disease): Status: Acute Qualifiers: COPD type: unspecified COPD Qualified Code(s): J44.9 - Chronic obstructive pulmonary disease, unspecified Additional A&P Information (1) Cellulitis: Currently on vancomycin and ciprofloxacin Improving cellulitis, erythema of left lower extremity below knee, above ankle, but with less angry appearing erythema Concern that she was progressing to sepsis with leukocytosis 12,000, tachycardia on presentation/triggered A. fib with RVR. Did not fit sepsis criteria Continue IV antibiotics with vancomycin, ciprofloxacin. Nasal MRSA requested. Has had duplex ultrasound on 09/26 negative for DVT. (2) Hematoma of left knee region: Large complex fluid collection noted peripatellar, laterally at the left knee on ultrasound. On imaging difficult to tell if possibility of hematoma versus abscess. Appreciate orthopedics assessment. Continue IV antibiotics at this time. Status post incision and drainage of hematoma and black eschar by Dr. oMffett, wound VAC in place Follow cultures We will need a wound VAC on discharge (3) Paroxysmal atrial fibrillation with RVR: Has had bradycardia this hospital mission Appreciate cardiology recommendations. Continue to optimize regimen for control of atrial fibrillation. At this time continue sotalol 40 mg daily. Monitor heart rates. Not on anticoagulation ever since her fall on 09/20 due to quite extensive bruising, wound of left patella for which he follows with wound care. Troponin abnormality thought to be secondary to demand ischemia. Previously drinking alcohol daily 1-2 drinks: Reports has not drank in a month. Possible liver cirrhosis Previously drinking alcohol daily: Reports has not drank in a month COPD Diabetes Full code DVT prophylaxis, not a candidate for SCDs, given her hematoma of left knee and patient's wishes,she would like to discontinue anticoagulation, for DVT prophylaxis, after discussion of the risk and benefits, she voiced understanding, all questions answered, discontinued DVT prophylaxis Plan for today, continue mobilization, follow cultures, arrange for wound VAC, hopefully can be discharged the next 24 hours Attestations Medical Necessity Statement*: Patient requires hospitalization for cellulitis, hematoma of the leg, paroxysmal A. fib Coding Level of Care Code Acute Cafeteria Counter Attendant for Chg Fwd Diagnoses Atrial flutter with rapid ventricular response I48.92 Elevated troponin R77.8 HTN (hypertension) I10 Hypertension type: essential hypertension DM type 2 (diabetes mellitus, type 2) E11.9 COPD (chronic obstructive pulmonary disease) J44.9 COPD type: unspecified COPD
[2020-10-09] MEDS: vancomycin 1,000 MG in sodium chloride 0.9% 250 ML 250 MG IV (18:14)
[2020-10-09 20:24] LABS: Glucose Point of Care 246 mg/dL (70-110)
[2020-10-09] MEDS: diphenhydrAMINE 50 mg Capsule PO (23:11)
[2020-10-10] VITALS (7 sets, daily range): BP systolic 128–160; BP diastolic 52–90; PULSE 52–77; RESP 16–18; TEMP 36.4–36.8; O2SAT 15–100
--- NOTE | 2020-10-10 00:24 | PC.NURSE ---
Permission given by Dr. Zeng to move patient to Med-Surg.
[2020-10-10] MEDS: ciprofloxacin 400 MG/200 ML PREMIX 200 MG IV (05:05)
[2020-10-10 06:30] LABS: Glucose Point of Care 114 mg/dL (70-110)
--- NOTE | 2020-10-10 09:36 | PC.SOCIAL ---
IMM Update Pg. 2 of IMM Updated and reviewed with patient who verbalized understanding. Copy provided.
[2020-10-10] MEDS: lisinopril 10 mg Tablet PO (10:59)
[2020-10-10] MEDS: thiamine 100 mg Tablet PO (11:01)
[2020-10-10] MEDS: folic acid 1 mg Tablet PO (11:01)
[2020-10-10] MEDS: sotalol 80 mg Tablet 40 MG PO ×2 (11:01→11:03)
[2020-10-10] MEDS: cyanocobalamin 1,000 mcg Tablet 500 MCG PO (11:01)
[2020-10-10 11:25] LABS: Glucose Point of Care 240 mg/dL (70-110)
[2020-10-10 11:45] LABS: Basophils # 0.1 10^3/uL (0.0-0.1); Basophils % 0.7 %; Eosinophils # 0.2 10^3/uL (0.0-0.8); Eosinophils % 1.8 %; Hematocrit 42.1 % (37.0-47.0); Hemoglobin 12.9 g/dL (11.5-15.3); Lymphocytes # 2.3 10^3/uL (0.8-4.8); Lymphocytes % 27.1 %; Mean Corpuscular HGB Conc 30.6 g/dL (30.0-36.0); Mean Corpuscular Hemoglobin 28.8 pg (28.0-34.0); Monocytes % 12.3 %; Neutrophils # 4.77 10^3/uL (1.8-7.7); Neutrophils % 57.6 %; Nucleated Red Blood Cells % 0 %; Platelet Count 348 10^3/cmm (130-400); Red Blood Count 4.48 10^6/uL (4.1-5.3); Red Cell Distribution Width 13.4 % (12.1-15.1); White Blood Count 8.3 10^3/uL (4.0-10.0)
[2020-10-10 12:09] LABS: Alanine Aminotransferase 18 U/L (0-33); Albumin Level 3.5 g/dL (3.5-5.2); Alkaline Phosphatase 159 IU/L (35-105); Anion Gap 10.5 (5-19); Aspartate Amino Transferase 23 U/L (0-32); Blood Urea Nitrogen 25 mg/dL (8-23); Calcium 8.2 mg/dL (8.5-10.5); Carbon Dioxide 34 mmol/L (22-29); Chloride 97 mmol/L (98-107); Globulin 3.8 g/dL (1.3-4.6); Glucose 256 mg/dL (65-115); Osmolality Calculated 297 mOsm/kg (285-295); Potassium 4.5 mmol/L (3.5-5.1); Sodium 137 mmol/L (136-145); Total Bilirubin 0.3 mg/dL (0.15-1.2); Total Protein 7.3 g/dL (6.6-8.7)
[2020-10-10] MEDS: vancomycin 1,000 MG in sodium chloride 0.9% 250 ML 250 MG IV (14:24)
--- NOTE | 2020-10-10 16:37 | PC.NURSE ---
AT [id number] PT PULLED OUT HER IV, NOTIFIED DR. STEVEN, WAS OK WITH LEAVING IV OUT AT THIS TIME, PT REQUESTED.
--- NOTE | 2020-10-15 13:12 | PC.NURSE ---
wound vac was d/c 10/09/20 ref #[id number] called in by tab byrd 10/15/20
== END 2020-10-10 17:55 | disposition home or self-care (01) | DRG 264 ==
LOC: ER 15:04 → CSU 17:40 → MEDSURG 10-10 05:50
PROVIDERS: Orthopaedic Surgery; Physician Assistant; Admitting Provider Internal Medicine; Emergency Provider Family Medicine; Visit Provider Family Medicine
PROC: 0JBP0ZZ Excision of Left Lower Leg Subcutaneous Tissue and Fascia, Open Approach (ICD-10-PCS; principal; 2020-10-08 14:30)
DX: I48.0 Paroxysmal atrial fibrillation (principal); L03.116 Cellulitis of left lower limb; J96.10 Chronic respiratory failure, unspecified whether with hypoxia or hypercapnia; N17.9 Acute kidney failure, unspecified; J44.9 Chronic obstructive pulmonary disease, unspecified; E11.9 Type 2 diabetes mellitus without complications; I10 Essential (primary) hypertension; Z87.891 Personal history of nicotine dependence; K70.30 Alcoholic cirrhosis of liver without ascites; F10.21 Alcohol dependence, in remission; Z99.81 Dependence on supplemental oxygen; M19.90 Unspecified osteoarthritis, unspecified site; H91.90 Unspecified hearing loss, unspecified ear; Z86.16 Personal history of COVID-19; I45.10 Unspecified right bundle-branch block; S80.02XA Contusion of left knee, initial encounter; W18.30XA Fall on same level, unspecified, initial encounter; R77.8 Other specified abnormalities of plasma proteins; Z79.84 Long term (current) use of oral hypoglycemic drugs
CPT/HCPCS: 36415; 36416; 71045; 76882; 80053; 80202; 81003; 82962; 83735; 83880; 84484; 85025; 87040; 87070; 87075; 87205; 93005; 94640; 96372; 96374; 96375; 96376; 97161; 99285; G0463; J0744; J1644; J1815; J1940; J3010; J3370; J3490; J7050; Q0163

== ENCOUNTER 2020-10-15 13:16 | Outpatient (CLI) | payer MEDICARE, BC, SELFPAY | END 2020-10-15 13:17 | disposition home or self-care (01) | LOC: WOUND 13:18 | PROVIDERS: Visit Provider Nurse Practitioner Family | DX: T81.89XA Other complications of procedures, not elsewhere classified, initial encounter (principal); Y83.8 Other surgical procedures as the cause of abnormal reaction of the patient, or of later complication, without mention of misadventure at the time of the procedure; L98.499 Non-pressure chronic ulcer of skin of other sites with unspecified severity | CPT/HCPCS: 11042; 97605 ==

== ENCOUNTER 2020-10-18 14:29 | Outpatient (CLI) | payer MEDICARE, BC, SELFPAY | END 2020-10-18 14:30 | disposition home or self-care (01) | LOC: WOUND 14:34 | PROVIDERS: Visit Provider Nurse Practitioner Family | DX: L03.116 Cellulitis of left lower limb (principal) | CPT/HCPCS: 97605 ==

== ENCOUNTER 2020-10-22 14:46 | Outpatient (CLI) | payer MEDICARE, BC, SELFPAY | END 2020-10-22 14:47 | disposition home or self-care (01) | LOC: WOUND 14:49 | PROVIDERS: Visit Provider Nurse Practitioner Family | DX: T81.89XA Other complications of procedures, not elsewhere classified, initial encounter (principal); Y83.8 Other surgical procedures as the cause of abnormal reaction of the patient, or of later complication, without mention of misadventure at the time of the procedure | CPT/HCPCS: 11042 ==

== ENCOUNTER 2020-11-12 14:40 | Outpatient (CLI) | payer MEDICARE, BC, SELFPAY | END 2020-11-12 14:41 | disposition home or self-care (01) | LOC: WOUND 14:42 | PROVIDERS: Visit Provider Thoracic Surgery (Cardiothoracic Vascular Surgery) | DX: T81.89XA Other complications of procedures, not elsewhere classified, initial encounter (principal); Y83.8 Other surgical procedures as the cause of abnormal reaction of the patient, or of later complication, without mention of misadventure at the time of the procedure | CPT/HCPCS: 11042 ==

== ENCOUNTER 2020-11-19 14:17 | Outpatient (CLI) | payer MEDICARE, BC, SELFPAY | END 2020-11-19 14:18 | disposition home or self-care (01) | LOC: WOUND 14:21 | PROVIDERS: Visit Provider Nurse Practitioner Family | DX: T81.89XA Other complications of procedures, not elsewhere classified, initial encounter (principal); Y83.8 Other surgical procedures as the cause of abnormal reaction of the patient, or of later complication, without mention of misadventure at the time of the procedure | CPT/HCPCS: 11042 ==

== ENCOUNTER 2020-11-26 14:00 | Outpatient (CLI) | payer MEDICARE, BC, SELFPAY | END 2020-11-26 14:01 | disposition home or self-care (01) | LOC: WOUND 14:05 | PROVIDERS: Visit Provider Thoracic Surgery (Cardiothoracic Vascular Surgery) | DX: T81.89XA Other complications of procedures, not elsewhere classified, initial encounter (principal); Y83.8 Other surgical procedures as the cause of abnormal reaction of the patient, or of later complication, without mention of misadventure at the time of the procedure | CPT/HCPCS: 11042 ==

== ENCOUNTER 2020-12-03 14:22 | Outpatient (CLI) | payer MEDICARE, BC, SELFPAY | END 2020-12-03 14:23 | disposition home or self-care (01) | LOC: WOUND 14:23 | PROVIDERS: Visit Provider Nurse Practitioner Family | DX: T81.89XA Other complications of procedures, not elsewhere classified, initial encounter (principal); Y83.8 Other surgical procedures as the cause of abnormal reaction of the patient, or of later complication, without mention of misadventure at the time of the procedure; Z87.891 Personal history of nicotine dependence | CPT/HCPCS: 11042 ==

== ENCOUNTER 2020-12-13 13:25 | Outpatient (CLI) | payer MEDICARE, BC, SELFPAY | END 2020-12-13 13:26 | disposition home or self-care (01) | LOC: WOUND 13:26 | PROVIDERS: Visit Provider Thoracic Surgery (Cardiothoracic Vascular Surgery) | DX: I96 Gangrene, not elsewhere classified (principal); T81.89XD Other complications of procedures, not elsewhere classified, subsequent encounter; Y83.8 Other surgical procedures as the cause of abnormal reaction of the patient, or of later complication, without mention of misadventure at the time of the procedure; Z87.891 Personal history of nicotine dependence | CPT/HCPCS: 11042 ==

== ENCOUNTER 2020-12-20 13:08 | Outpatient (CLI) | payer MEDICARE, BC, SELFPAY | END 2020-12-20 13:09 | disposition home or self-care (01) | LOC: WOUND 13:08 | PROVIDERS: Visit Provider Thoracic Surgery (Cardiothoracic Vascular Surgery) | DX: I96 Gangrene, not elsewhere classified (principal); T81.89XA Other complications of procedures, not elsewhere classified, initial encounter; Y83.8 Other surgical procedures as the cause of abnormal reaction of the patient, or of later complication, without mention of misadventure at the time of the procedure; Z87.891 Personal history of nicotine dependence | CPT/HCPCS: 97597 ==

== ENCOUNTER 2020-12-27 14:26 | Outpatient (CLI) | payer MEDICARE, BC, SELFPAY | END 2020-12-27 14:27 | disposition home or self-care (01) | LOC: WOUND 14:28 | PROVIDERS: Visit Provider Nurse Practitioner Family | DX: T81.89XA Other complications of procedures, not elsewhere classified, initial encounter (principal); Y83.8 Other surgical procedures as the cause of abnormal reaction of the patient, or of later complication, without mention of misadventure at the time of the procedure; Z87.891 Personal history of nicotine dependence | CPT/HCPCS: 11042 ==

== ENCOUNTER 2021-01-10 14:07 | Outpatient (CLI) | payer MEDICARE, BC, SELFPAY | END 2021-01-10 14:08 | disposition home or self-care (01) | LOC: WOUND 14:08 | PROVIDERS: Visit Provider Emergency Medicine | DX: Z09 Encounter for follow-up examination after completed treatment for conditions other than malignant neoplasm (principal); Z87.891 Personal history of nicotine dependence | CPT/HCPCS: 99212; A6212 ==

== ENCOUNTER 2021-05-25 10:52 | Inpatient (IN) | payer MEDICARE, BC, SELFPAY ==
[2021-05-25] VITALS (22 sets, daily range): BP systolic 91–152; BP diastolic 47–107; PULSE 73–156; RESP 18–26; TEMP 36.7; O2SAT 86–100; BMI 29.2
--- NOTE | 2021-05-25 11:08 | ECG_ITS ---
[facility] Test Date: 2021-05-25 Pat Name: La Aranda Department: Room: Gender: Female Marketing Area Manager: : 1940 Requested By: Wan Marion Order Number: [id number] Reading MD: CLARK ELLIS Measurements Intervals [place] Rate: 153 P: AR: QRS: 264 QRSD: 182 T: 255 QT: 323 QTc: 517 Interpretive Statements ATRIAL FLUTTER/TACHYCARDIA WITH RAPID VENTRICULAR RESPONSE RIGHT AXIS DEVIATION [QRS AXIS > 100] RIGHT BUNDLE BRANCH BLOCK [120+ ms QRS DURATION, UPRIGHT V1, 40+ ms S IN I/aVL/V4/V5/V6] ANTERIOR MYOCARDIAL INFARCTION , PROBABLY RECENT [40+ ms Q WAVE AND/OR ST/T ABNORMALITY IN V3/V4] ACUTE MO Compared to ECG 10/07/2020 11:41:36 Right-axis deviation now present Myocardial infarct finding now present Sinus rhythm no longer present Ventricular premature complex(es) no longer present Electronically Signed On 05-25-2021 17:44:51 SYSTEM CONFIGURATION SPECIALIST by CLARK ELLIS [id number]
--- NOTE | 2021-05-25 11:08 | XRR_ITS ---
PROCEDURE INFORMATION: Exam: XR Chest Exam date and time: 05/25/2021 11:08 AM Age: 81 years old Clinical indication: Other: Tachycardia TECHNIQUE: Imaging protocol: XR of the chest. Views: 1 view. COMPARISON: CR XR chest 1V portable [id number] 10/05/2020 2:41 PM FINDINGS: Lungs: There is mild subsegmental atelectasis along the diaphragm. The upper lung zones are clear. Pleural spaces: Unremarkable. No pleural effusion. No pneumothorax. Heart/Mediastinum: Unremarkable. No cardiomegaly. Bones/joints: Unremarkable. XR/XR chest 1V portable [id number] IMPRESSION: Mild subsegmental basilar atelectasis. No other acute abnormality.
--- NOTE | 2021-05-25 11:09 | ED_ITS ---
HPI - Arrhythmia/Palpitations General: Chief Complaint: ER Hold Stated Complaint: AFIB WITH RVR Time Seen by Provider: 05/25/21 10:53 History of Present Illness: Ms Aranda is an 81-year-old lady with significant past medical history of hypertension, hyperlipidemia, COPD, chronic hypoxic respiratory failure, and paroxysmal atrial fibrillation/atrial flutter that has been difficult to control in the past who presents emergency department due to abnormal heart rate. She has a complex recent history and saw cardiology on 05/18. She was discharged from a extended hospitalization with severe pneumonia and multiple intubations however had been slowly improving. At that time she had mild volume overload and was given 1 week course of Lasix. She completed the course of Lasix yesterday. Last night at approximately 11 PM she noticed increased heart rate. She is largely asymptomatic from it otherwise however occasionally notes palpitations. She denies lightheadedness, dizziness, syncope, chest pain or pressure, or shortness of breath. She reports compliance with her medication regimen though thinks that the [facility] may be forgetting to give her medications at times. As she is largely asymptomatic there is no intensity, quality, provoking, exacerbating, or relieving factors identified. Of note the patient was on Eliquis however this has been held secondary to falls. Onset (ago): hour(s) Duration: constant Arrhythmia history: atrial fibrillation Review of Systems General: Reports: 10 or more systems reviewed and unremarkable except in HPI and below PFSH ED PFSH: Medical History (Updated 05/25/21 @ 15:34 by Jesus Manuel Dixon MD) Alkaline phosphatase elevation CHF (congestive heart failure), NYHA class III COPD (chronic obstructive pulmonary disease) DM type 2 (diabetes mellitus, type 2) HTN (hypertension) Paroxysmal atrial fibrillation with RVR Severe acute respiratory syndrome coronavirus 2 (SARS-CoV-2) detected Transaminitis Surgical History H/O: hysterectomy History of ectopic Family History Mother Heart disease Father Heart disease Social History (Updated 05/25/21 @ 15:34 by Jesus Manuel Dixon MD) Quit status (tobacco): has quit using tobacco Year quit tobacco: Many decades ago Alcohol intake: current Alcohol intake frequency: 0-2 Drinks per Day Lives independently: Yes Household members: spouse Housing: [place] Marital status: Physical Exam Const: COMMON NORMALS: alert GENERAL APPEARANCE: cooperative and well developed HENMT: COMMON NORMALS: normocephalic and atraumatic HEAD & SCALP: normocephalic and atraumatic Eye: COMMON NORMALS: conjunctivae normal CONJUNCTIVA: Yes conjunctivae normal SCLERA: sclerae normal Neck/C-Spine: COMMON NORMALS: supple GENERAL: Yes trachea midline Resp: COMMON NORMALS: normal respiratory effort EFFORT & INSPECTION: Yes able to speak in complete sentences AUSCULTATION: diminished lung sounds Cardio: RATE: tachycardic RHYTHM: abnormal rhythm irregularly irregular OTHER: Trace to 1+ pitting edema bilateral lower extremities. Normal peripheral perfusion. GI: COMMON NORMALS: Soft to palpation PALPATION: Yes Soft to palpation and No Tenderness to palpation present (GI) PERCUSSION: normal to percussion Extremity: GENERAL: Yes normal exam except as noted and No edema Neuro: COMMON NORMALS: moves all extremities SENSORIUM/ORIENTATION: Yes alert and No Orientation impaired Psych: COMMON NORMALS: mental status grossly normal and Normal thought process present THOUGHT PROCESS: Normal thought process present Course ED course: - Patient was seen and evaluated by me at bedside - Patient placed on cardiac monitors, IV access obtained - Initial evaluation notable for A. fib RVR. Patient has mild evidence of volume overload peripherally however is not grossly edematous. She is on her baseline oxygen. - Attempted 500 cc fluid bolus given recent diuresis. Additionally 5 mg of metoprolol. Mild improvement in heart rate to 140s. - The patient has a complex cardiac history and has been on multiple medications in the past withput satisfactory results. As such, I discussed the case with cardiology on-call, will try 60 mg p.o. sotalol and evaluate for response over the next 1 to 2 hours. - Labs notable for leukocytosis. Metabolic panel without acute electrolyte derangement to explain symptoms. Urinalysis concerning for urinary tract infection. - Rocephin for urinary tract infection ordered. Prior cultures reviewed. - Imaging notable for mild subsegmental basilar atelectasis without other acute abnormality. - As patient remains tachycardic despite treatment in the context of patient with A. fib and stopping anticoagulation as well as prolonged hospitalizations with discharge on 05/01 PE must be considered. The patient is not low risk by Wells and PERC. D-dimer ordered. - D-dimer is elevated. Therefore CTA ordered. Pending at time of admission. - Upon serial reexamination after treatment the patient was similar, continue to tolerate tachycardia relatively well - Based on patient history, evaluation, labs, and imaging as interpreted the most likely cause of the patient's condition is atrial fibrillation with rapid ventricular response, urinary tract infection with leukocytosis which may be underlying trigger. - The results of ED evaluation were discussed with the patient including plan for admission due to requirement for level of care not available if discharged to prevent significant worsening/deterioration. - Admitting service was contacted and Dr Dixon with the hospitalist service to admit the patient - Patient was admitted without further deterioration or significant events. Note: Click bubbles or prepopulated chandler in note writing are used for assistance with data collection and billing and are inherently more limited than narrative and other text portions of this note. Please use narrative for additional clinical history and defer to narrative/free test for any case of contradictory information. If information appears in only free text or click bubble it should be considered present or absent as reported. Please contact note underwriter solicitation director for clarifications of clinical information or contradictory information. MDM is a brief summary, contradictory or erroneous seeming information should be clarified and full note should be reviewed. Vital Signs: Vital signs: Vital Signs Temperature 98.6 F 05/26/21 15:02 Pulse Rate 65 05/26/21 15:02 Respiratory Rate 24 H 05/26/21 15:02 Blood Pressure 112/52 05/26/21 15:02 Pulse Oximetry 97 05/26/21 15:02 MDM - Arrhythmia/Palpitations Medical Decision Making 81-year-old lady with complex medical history including paroxysmal atrial fibrillation with challenge of controlling rate at baseline and recent prolonged hospitalization for severe sepsis presenting to the emergency department with pa lpitations. Patient found to be in atrial fibrillation with RVR, tolerating rates of 150 relatively well. In discussion with cardiology attempted p.o. sotalol, patient on sotalol at baseline, without significant improvement. Patient found to have a UTI which may be triggering event. Patient will be admitted to the hospitalist service for further definitive management and evaluation. Medical Records I reviewed the patient's medical records. Lab Data I reviewed the patient's lab results. : 05/26/21 04:30 05/26/21 04:30 Radiology Impressions Chest X-Ray 05/25/21 11:08 IMPRESSION: Mild subsegmental basilar atelectasis. No other acute abnormality. Chest CTA 05/25/21 15:17 IMPRESSION: 1. No pulmonary embolus. 2. There is mild peribronchial wall thickening; query viral infection/bronchitis, chronic bronchitis and/or asthma. 3. Mild mediastinal and bilateral hilar lymphadenopathy. 4. Cardiomegaly with coronary artery disease. 5. There is mild prominence of the wall of the proximal stomach with slight adjacent stranding. This may reflect gastritis. 6. Possible hepatic cirrhosis. 7. Indeterminate left renal lesion. Recommend nonemergent CT or MRI renal mass protocol with and without contrast to better characterize. 8. Colonic diverticula are noted. Laboratory Results WBC 16.4 10^3/uL (4.0-10.0) H 05/25/21 11:17 RBC 4.03 10^6/uL (4.1-5.3) L 05/25/21 11:17 Hgb 11.6 g/dL (11.5-15.3) 05/25/21 11:17 Hct 37.8 % (37.0-47.0) 05/25/21 11:17 MCV 93.8 fl (81-99) 05/25/21 11:17 MCH 28.8 pg (28.0-34.0) 05/25/21 11:17 MCHC 30.7 g/dL (30.0-36.0) 05/25/21 11:17 RDW 13.2 % (12.1-15.1) 05/25/21 11:17 Plt Count 321 10^3/cmm (130-400) 05/25/21 11:17 MPV 9.8 fL (7.4-10.4) 05/25/21 11:17 Neut % (Auto) 65.2 % 05/25/21 11:17 Lymph % (Auto) 24.3 % 05/25/21 11:17 [place] % (Auto) 8.5 % 05/25/21 11:17 Eos % (Auto) 0.2 % 05/25/21 11:17 Baso % (Auto) 0.5 % 05/25/21 11:17 Neut # (Auto) 10.70 10^3/uL (1.8-7.7) H 05/25/21 11:17 Lymph # (Auto) 4.0 10^3/uL (0.8-4.8) 05/25/21 11:17 [place] # (Auto) 1.4 10^3/uL (0.2-0.9) H 05/25/21 11:17 Eos # (Auto) 0.0 10^3/uL (0.0-0.8) 05/25/21 11:17 Baso # (Auto) 0.1 10^3/uL (0.0-0.1) 05/25/21 11:17 Nucleated RBC % (auto) 0 % 05/25/21 11:17 Nucleated RBCs # 0.0 /100WBC 05/25/21 11:17 Sodium 141 mmol/L (136-145) 05/25/21 12:52 Potassium 4.0 mmol/L (3.5-5.1) 05/25/21 12:52 Chloride 98 mmol/L (98-107) 05/25/21 12:52 Carbon Dioxide 31 mmol/L (22-29) H 05/25/21 12:52 Anion Gap 16.0 (5-19) 05/25/21 12:52 BUN 18 mg/dL (8-23) 05/25/21 12:52 Creatinine 0.7 mg/dL (0.5-0.9) 05/25/21 12:52 GFR Calculation Not Reportable 05/25/21 12:52 Glucose 111 mg/dL (65-115) 05/25/21 12:52 Calculated Osmolality 295 mOsm/kg (285-295) 05/25/21 12:52 Calcium 8.1 mg/dL (8.5-10.5) L 05/25/21 12:52 Magnesium 1.7 mg/dL (1.7-2.3) 05/25/21 12:52 Iron 48 ug/dL (37-145) 05/25/21 12:52 TIBC 234 mcg/dl 05/25/21 12:52 % Saturation 20.5 % (20-50) 05/25/21 12:52 Unsat Iron Binding 186 ug/dL (112-347) 05/25/21 12:52 Total Bilirubin 0.2 mg/dL (0.15-1.2) 05/25/21 12:52 AST 22 U/L (0-32) 05/25/21 12:52 ALT 20 U/L (0-33) 05/25/21 12:52 Alkaline Phosphatase 125 IU/L (35-105) H 05/25/21 12:52 Troponin T Baseline 68 ng/L (0-10) H 05/25/21 12:52 NT-Pro-B Natriuret Pep 5007 pg/mL (0-450) H 05/25/21 12:52 Total Protein 5.8 g/dL (6.6-8.7) L 05/25/21 12:52 Albumin 3.1 g/dL (3.5-5.2) L 05/25/21 12:52 Globulin 2.7 g/dL (1.3-4.6) 05/25/21 12:52 Procalcitonin 0.06 ng/mL (0-0.5) 05/25/21 12:52 Procalcitonin 0.07 ng/mL (0-0.5) 05/25/21 12:52 TSH 1.46 uIU/mL (0.27-4.20) 05/25/21 12:52 Urine Color Yellow (Yellow) 05/25/21 12:28 Urine Appearance Cloudy (CLEAR) 05/25/21 12:28 Urine pH 5 (5-7) 05/25/21 12:28 Ur Specific [place] 1.010 (1.005-1.030) 05/25/21 12:28 Urine Protein Neg (Negative) 05/25/21 12:28 Urine Glucose (UA) Norm (Normal) 05/25/21 12:28 Urine Ketones Negative (Negative) 05/25/21 12:28 Urine Blood Neg (Negative) 05/25/21 12:28 Urine Nitrate Positive (Negative) H 05/25/21 12:28 Urine Bilirubin Neg (Negative) 05/25/21 12:28 Urine Urobilinogen Norm mg/dL (Negative) 05/25/21 12:28 Ur Leukocyte Esterase 1+ (Negative) H 05/25/21 12:28 Urine RBC 0-4 /hpf (0-2) H 05/25/21 12:28 Urine WBC 40-55 /hpf (0-5) H 05/25/21 12:28 Ur Squamous Epith Cells 0-4 /hpf (0-5) H 05/25/21 12:28 Amorphous Sediment Not Reportable 05/25/21 12:28 Urine Bacteria 3+ /hpf (NONE) H 05/25/21 12:28 EKG Data EKG 1: I personally reviewed and interpreted this EKG as follows: EKG interpretation date: 05/25/21 EKG interpretation time: 11:01 Interpretation: Twelve-lead EKG shows an irregular rhythm at a rate of 153. No AR interval, QRS duration 182, QTc 410. Right axis deviation. Interpretation: Atrial flutter or tachycardia with rapid ventricular response. Plan to discuss with cardiology, electronic interpretation indicates acute OR however I do not appreciate ST elevation meeting criteria, interpretation is limited given rate. Other EKG comments: Chest X-Ray 05/25/21 11:08 IMPRESSION: Mild subsegmental basilar atelectasis. No other acute abnormality. Chest CTA 05/25/21 15:17 IMPRESSION: 1. No pulmonary embolus. 2. There is mild peribronchial wall thickening; query viral infection/bronchitis, chronic bronchitis and/or asthma. 3. Mild mediastinal and bilateral hilar lymphadenopathy. 4. Cardiomegaly with coronary artery disease. 5. There is mild prominence of the wall of the proximal stomach with slight adjacent stranding. This may reflect gastritis. 6. Possible hepatic cirrhosis. 7. Indeterminate left renal lesion. Recommend nonemergent CT or MRI renal mass protocol with and without contrast to better characterize. 8. Colonic diverticula are noted. EKG 2: I personally reviewed and interpreted this EKG as follows: EKG interpretation date: 05/25/21 EKG interpretation time: 13:35 Interpretation: Twelve-lead EKG shows an irregular rhythm at a rate of 140. No AR interval, QRS duration 202, QTc 410. Right axis deviation. Interpretation: Atrial flutter or tachycardia with RVR. Other EKG comments: Chest X-Ray 05/25/21 11:08 IMPRESSION: Mild subsegmental basilar atelectasis. No other acute abnormality. Chest CTA 05/25/21 15:17 IMPRESSION: 1. No pulmonary embolus. 2. There is mild peribronchial wall thickening; query viral infection/bronchitis, chronic bronchitis and/or asthma. 3. Mild mediastinal and bilateral hilar lymphadenopathy. 4. Cardiomegaly with coronary artery disease. 5. There is mild prominence of the wall of the proximal stomach with slight adjacent stranding. This may reflect gastritis. 6. Possible hepatic cirrhosis. 7. Indeterminate left renal lesion. Recommend nonemergent CT or MRI renal mass protocol with and without contrast to better characterize. 8. Colonic diverticula are noted. Discharge Plan Discharge Patient Disposition: Admitted As Inpatient Admit Provider: Jesus Manuel Dixon Clinical Impression: Paroxysmal atrial fibrillation with RVR, Acute UTI Condition: Stable Coding Level of Care Code ED Residential Gas Heat Technician for Chg Fwd Exam Comprehensive
[2021-05-25] MEDS: sodium chloride 0.9% 500 ML IV (11:21)
[2021-05-25 11:29] LABS: Basophils # 0.1 10^3/uL (0.0-0.1); Basophils % 0.5 %; Eosinophils % 0.2 %; Hematocrit 37.8 % (37.0-47.0); Hemoglobin 11.6 g/dL (11.5-15.3); Lymphocytes % 24.3 %; Mean Corpuscular HGB Conc 30.7 g/dL (30.0-36.0); Mean Corpuscular Hemoglobin 28.8 pg (28.0-34.0); Mean Corpuscular Volume 93.8 fl (81-99); Mean Platelet Volume 9.8 fL (7.4-10.4); Monocytes # 1.4 10^3/uL (0.2-0.9); Monocytes % 8.5 %; Neutrophils % 65.2 %; Nucleated Red Blood Cells % 0 %; Platelet Count 321 10^3/cmm (130-400); Red Blood Count 4.03 10^6/uL (4.1-5.3); Red Cell Distribution Width 13.2 % (12.1-15.1); White Blood Count 16.4 10^3/uL (4.0-10.0)
[2021-05-25] MEDS: metoprolol tartrate 1 mg/1 mL SDV 5 mL 5 MG IVP (11:42)
[2021-05-25] MEDS: sotalol 80 mg Tablet 60 MG PO (12:38)
[2021-05-25 12:43] LABS: Bilirubin Urine Neg (Negative); Blood Urine Neg (Negative); Glucose Urine UA Norm (Normal); Ketones Urine Negative (Negative); Leukocyte Esterase Urine 1+ (Negative); Nitrate Urine Positive (Negative); Protein Urine Neg (Negative); Urine Appearance Cloudy (CLEAR); Urine Color Yellow (Yellow); Urobilinogen Urine Norm (Negative); pH Urine 5 (5-7)
[2021-05-25 12:48] LABS: RBC Urine 0-4 /hpf (0-2); WBC Urine 40-55 /hpf (0-5)
[2021-05-25 12:49] LABS: Add Urine Culture? Yes; Bacteria Urine 3+ /hpf; Squamous Epithelial Cell Urine 0-4 /hpf (0-5)
[2021-05-25 12:56] LABS: Add Urine Microscopic? YES; Charge for UA Resulting for Rev
--- NOTE | 2021-05-25 13:08 | ECG_ITS ---
[facility] Test Date: 2021-05-25 Pat Name: La Aranda Department: Room: Gender: Female Physician Gynecologist: : 1940 Requested By: Wan Marion Order Number: [id number] Reading MD: CLARK ELLIS Measurements Intervals [place] Rate: 140 P: [place]: QRS: 264 QRSD: 202 T: 240 QT: 329 QTc: 502 Interpretive Statements ATRIAL FLUTTER/TACHYCARDIA WITH RAPID VENTRICULAR RESPONSE RIGHT AXIS DEVIATION [QRS AXIS > 100] RIGHT BUNDLE BRANCH BLOCK [120+ ms QRS DURATION, UPRIGHT V1, 40+ ms S IN I/aVL/V4/V5/V6] POSSIBLE ANTERIOR MYOCARDIAL INFARCTION , OF INDETERMINATE AGE [30 ms Q WAVE IN V3/V4, OR R < 0.2 mV IN V4] MODERATE T-WAVE ABNORMALITY, CONSIDER INFERIOR ISCHEMIA [-0.1+ mV T-WAVE IN II/aVF] Compared to ECG 05/25/2021 11:01:56 T-wave abnormality now present Possible ischemia now present Myocardial infarct finding still present Electronically Signed On 05-25-2021 17:46:09 SENIOR STORAGE ADMINISTRATOR by CLARK ELLIS [id number]
[2021-05-25] MEDS: cefTRIAXone 1,000 MG in sodium chloride 0.9% (plus) 50 ML 100 MG IV (13:09)
[2021-05-25] MEDS: sodium chloride 0.9% 500 ML 999 ML IV (13:10)
[2021-05-25 13:25] LABS: Troponin(5th) Baseline 68 ng/L (0-10)
[2021-05-25 13:31] LABS: NT Pro B Type Natriuretic Pept 5007 pg/mL (0-450); Procalcitonin 0.07 ng/mL (0-0.5); Thyroid Stimulating Hormone 1.46 uIU/mL (0.27-4.20)
[2021-05-25 13:42] LABS: Alanine Aminotransferase 20 U/L (0-33); Albumin Level 3.1 g/dL (3.5-5.2); Alkaline Phosphatase 125 IU/L (35-105); Aspartate Amino Transferase 22 U/L (0-32); Blood Urea Nitrogen 18 mg/dL (8-23); Calcium 8.1 mg/dL (8.5-10.5); Carbon Dioxide 31 mmol/L (22-29); Chloride 98 mmol/L (98-107); Creatinine Clr Calc Pharmacy 51.6272; Globulin 2.7 g/dL (1.3-4.6); Glucose 111 mg/dL (65-115); Magnesium 1.7 mg/dL (1.7-2.3); Osmolality Calculated 295 mOsm/kg (285-295); Sodium 141 mmol/L (136-145); Total Bilirubin 0.2 mg/dL (0.15-1.2); Total Protein 5.8 g/dL (6.6-8.7)
[2021-05-25] MEDS: magnesium sulfate premix 2 GM/50 ML PIGGYBACK IV (14:15)
[2021-05-25 15:10] LABS: D Dimer 0.93 ug/mIFEU (0-0.59)
--- NOTE | 2021-05-25 15:17 | CTR_ITS ---
PROCEDURE INFORMATION: Exam: CTA Chest With Contrast Exam date and time: 05/25/2021 3:17 PM Age: 81 years old Clinical indication: Shortness of breath and tachycardia. Elevated D-dimer. TECHNIQUE: Imaging protocol: Computed tomographic angiography of the chest with contrast. 3D rendering (Not supervised by radiologist): MIP and/or 3D reconstructed images were created by the technologist. Radiation optimization: All CT scans at this facility use at least one of these dose optimization techniques: automated exposure control; mA and/or kV adjustment per patient size (includes targeted exams where dose is matched to clinical indication); or iterative reconstruction. Contrast material: OMNI 350; Contrast volume: 56 ml; Contrast route: INTRAVENOUS (IV); COMPARISON: CT angio chest PE protcl [id number] 03/01/2020 4:49 PM RADIATION DOSE METRICS: Total DLP (mGy-cm): 499.98 FINDINGS: Pulmonary arteries: No pulmonary embolus is seen. Aorta: No thoracic aortic aneurysm. Lungs: Dependent atelectasis is seen bilaterally. Subsegmental atelectasis in the right lower lobe. There is mild peribronchial wall thickening. No pulmonary mass. Pleural spaces: No pleural effusion. No pneumothorax. Heart: Coronary arterial calcifications are noted. The heart is enlarged. No pericardial effusion. Lymph nodes: A right hilar lymph node measures 1.0 x 1.2 cm. A precarinal lymph node measures 1.1 x 1.0 cm. A left hilar lymph node measures 1.1 x 1.5 cm. Diaphragm: Elevation of the right hemidiaphragm. No hiatal hernia. Liver: There is possible hepatic cirrhosis. Indeterminate left renal lesion measuring 1.1 cm. There is mild prominence of the wall of the proximal stomach with slight adjacent stranding. This may reflect gastritis. Colonic diverticula are noted. Bones/joints: No acute fracture is identified. CT/CT angio chest PE protcl [id number] IMPRESSION: 1. No pulmonary embolus. 2. There is mild peribronchial wall thickening; query viral infection/bronchitis, chronic bronchitis and/or asthma. 3. Mild mediastinal and bilateral hilar lymphadenopathy. 4. Cardiomegaly with coronary artery disease. 5. There is mild prominence of the wall of the proximal stomach with slight adjacent stranding. This may reflect gastritis. 6. Possible hepatic cirrhosis. 7. Indeterminate left renal lesion. Recommend nonemergent CT or MRI renal mass protocol with and without contrast to better characterize. 8. Colonic diverticula are noted.
--- NOTE | 2021-05-25 15:32 | P.HP_ITS ---
Providers/Chief Complaint Admitting Physician: Jesus Manuel Dixon MD Primary Care Provider: Bakari Urbina MD Chief Complaint: AFIB WITH RVR History of Present Illness La Aranda is a 81 year old female with past medical history of COPD, sleep apnea on BiPAP ventilation nightly which she has not been using at senior living currently because of nonavailability of some parts, hypertension, type 2 diabetes mellitus, atrial fibrillation, COVID-19 infection in 2019 who was rec ently in hospital at [facility] multiple times over the last 2 months for hypercapnic respiratory failure for which she was even intubated 2 times and then discharged to SNF where she has been since early this month was sent over to the ER today because of palpitations. Patient follows up with Dr. Jama for atrial fibrillation. On review of her chart it seems patient atrial fibrillation was difficult to control in the past and she has failed multiple medications including metoprol ol, Cardizem, amiodarone and digoxin and needed cardioversion with catholic of sinus bradycardia. Currently she is on sotalol at home as she developed transaminitis while being on amiodarone. Patient denies any nausea, vomiting, headache, lightheadedness, dizziness, syncope, chest pain, difficulty in breathing. States she is tired. In the ER patient was given 60 mg of oral sotalol and then started on IV Cardizem. During my examination she is on 5 of IV Cardizem. Blood work showed white count of 16.4, hemoglobin of 11.6, D-dimer of 0.9, sodium of 141, carbon dioxide of 31, creatinine of 0.7, alkaline phosphatase of 125, baseline troponin of 68 with a positive delta of 1, proBNP of 5000, pr ocalcitonin of 0.07, UA showing positive nitrate, 1+ leuk esterase with CTA done as below. Review of Systems General: Reports: 10 or more systems reviewed and unremarkable except in HPI and below Const: Denies: fever(s), chills, body aches, change in appetite, change in weight, malaise, night sweats, diaphoresis, change in sleep pattern, daytime sleepiness or snoring Eyes: Denies: change in vision, blurry vision, photophobia, eye discomfort or eye discharge ENMT: Denies: throat pain, enlarged tonsils, hoarseness, mouth pain, oral sores, dry mouth, tinnitus, nasal congestion or post nasal drip Card: Denies: chest pain, palpitations, irregular heart rhythm, edema, swelling of feet/ankles, lightheadedness, syncope, pre-syncope, dyspnea on exertion, orthopnea, leg pain with exertion or acrocyanosis Resp: Denies: dyspnea, productive cough, non-productive cough, wheezing, stridor, pain on inspiration, change in phlegm color, hemoptysis or chest congestion GI: Denies: abdominal pain, nausea, vomiting, hematemesis, coffee ground em esis, dysphagia, heartburn, diarrhea, constipation, bloating, GI cramping, change in bowel habits, pain on defecation, hematochezia or melena : Denies: flank pain, dysuria, urinary frequency, urinary urgency, urinary hesitancy, nocturia or hematuria Musc: Denies: neck pain, back pain, extremity pain, joint pain, joint swelling, joint redness, joint stiffness or limited range of motion Neuro: Denies: headache(s), numbness in extremities, weakness in extremities, sensory changes, lack of coordination, difficulty walking, frequent falls, dizziness, vertigo, confusion, Slurred speech present, difficulty communicating thoughts or seizure-like activity Psych: Denies: anxiety, depression, mood swings, panic attacks, hopelessness or irritability Endo: Denies: polyuria, polydipsia, tired all the time, cold intolerance, excessive sweating, flushing or heat intolerance Norbert/Lymph: Denies: easy bruising or easy bleeding All/Imm: Denies: tongue swelling, facial swelling or acute wheezing Medications/Allergies Home Medications Medication Instructions Recorded Confirmed Last Taken Type CoQ-10 1 tab PO DAILY@0903/01/20 05/17/21 10/05/20 History glucosamine-chondroitin 250 mg-200 2 tab PO DAILY@89903/01/20 05/17/21 10/05/20 History mg tablet (Osteo Bi-Flex) metformin 500 mg tablet,extended 500 mg PO DAILY 03/01/20 05/17/21 10/05/20 History release 24 hr lzyP-F1-J-H-dlplhv-zytboog-min 1 tab PO DAILY@0900 03/01/20 11/16/20 10/05/20 History 3,300 unit-5 mg-200mg-75 unit tablet ER (ICaps) fluticasone 250 mcg-salmeterol 50 See Rx Instructions .ROUTE 03/07/20 05/17/21 10/05/20 Rx mcg/dose blistr powdr for .COMPLEX #30 ea inhalation (Advair Diskus) Cbd Oil 4 drp PO DAILY@0900 08/22/20 05/17/21 10/05/20 History albuterol sulfate 90 mcg/actuation 2 puff INHALATION Q4H PRN 08/22/20 05/17/21 Unknown History aerosol inhaler (Ventolin HFA) biotin 1 tab PO DAILY@0900 08/22/20 05/17/21 10/05/20 History glipizide 5 mg tablet, extended See Rx Instructions .ROUTE .COMPLEX 08/22/20 05/17/21 10/05/20 History release 24 hr vitamin E 1 tab PO DAILY@0900 08/22/20 11/16/20 10/05/20 History folic acid 1 mg tablet 1 mg PO DAILY #30 tab 09/01/20 05/17/21 10/05/20 Rx thiamine mononitrate (vit B1) 100 100 mg PO DAILY #30 tab 09/01/20 11/16/20 10/05/20 Rx mg tablet (Vitamin B-1 (mononitrate)) lisinopril 10 mg tablet 10 mg PO DAILY #90 tab 09/05/20 05/17/21 10/05/20 Rx meclizine 25 mg tablet 25 mg PO BID PRN #60 tab 02/25/21 05/17/21 Unknown Rx aspirin 81 mg tablet,delayed 81 mg PO DAILY 05/17/21 05/17/21 Unknown History release (Adult Low Dose Aspirin) ferrous sulfate 324 mg (65 mg 324 mg PO DAILY 05/17/21 05/17/21 Unknown History iron) tablet,delayed release fluticasone 250 mcg-salmeterol 50 1 inh INHALATION BID 05/17/21 05/17/21 Unknown History mcg/dose blistr powdr for inhalation melatonin 1 mg tablet 1 mg PO DAILY 05/17/21 05/17/21 Unknown History prednisone 10 mg tablet 10 mg PO DAILY 05/17/21 05/17/21 Unknown History sotalol 80 mg tablet 80 mg PO DAILY tab 05/17/21 05/17/21 Unknown History Allergies Allergy/AdvReac Type Severity Reaction Status Date / Time diphtheria toxoid,fluid Allergy Severe Unknown Verified 05/17/21 11:27 PFSH Acute PFSH: Medical History (Updated 05/25/21 @ 15:34 by Jesus Manuel Dixon MD) Alkaline phosphatase elevation CHF (congestive heart failure), NYHA class III COPD (chronic obstructive pulmonary disease) DM type 2 (diabetes mellitus, type 2) HTN (hypertension) Paroxysmal atrial fibrillation with RVR Severe acute respiratory syndrome coronavirus 2 (SARS-CoV-2) detected Transaminitis Surgical History H/O: hysterectomy History of ectopic Family History Mother Heart disease Father Heart disease Social History (Updated 05/25/21 @ 15:34 by Jesus Manuel Dixon MD) Quit status (tobacco): has quit using tobacco Year quit tobacco: Many decades ago Alcohol intake: current Alcohol intake frequency: 0-2 Drinks per Day Lives independently: Yes Household members: spouse Housing: [facility] Marital status: Vitals/I&O/Wt Last Vital Signs Temp 98.1 F 05/25/21 11:06 Pulse 139 H 05/25/21 15:00 Resp 20 H 05/25/21 15:00 BP 152/107 05/25/21 15:00 Pulse Ox 100 05/25/21 15:00 05/25/21 05/25/21 05/25/21 06:59 14:59 22:59 Intake Total 1050 / 1050 50 / 1100 Balance 1050 / 1050 50 / 1100 Weight last 48 hrs Weight 74.843 kg Physical Exam Narrative: EXAM NARRATIVE: General: No acute distress, AO x3, on 2 L, pleasant, hard of hearing, at bedside HEENT: PERRLA, pupils bilaterally equal and reactive Chest: Normal vesicular breath sounds, no added sounds, equal good air entry bilaterally CVS: S1-S2 irregularly irregular, no murmurs, tachycardia, no gallops, no rubs Abdomen: Soft, nontender, no organomegaly, bowel sounds present Neuro: No focal deficits, no facial deformity, AO x3, power 5/5 in all limbs Data : 05/25/21 11:17 05/25/21 12:52 Other Labs: 08/29/20 STRESS TEST IMPRESSIONS ?1. Small sized perfusion abnormality of mild to moderate severity of mid?anterolateral, mid inferolateral apical lateral, apical anterior and apical?skinner on rest images with subtle improvement in tracer uptake in stress images. ?2.? This very likely represents attenuation artifact.? However small old?myocardial infarction left anterior descending artery territory cannot be?completely ruled out. ?3. Overall left ventricular systolic function is normal without regional wall?motion abnormalities, LVEF=80%. ?4. No coronary ischemia based on the study. ?CONCLUSION: 1. No significant EKG changes with the LexiScan infusion. 2. No LexiScan induced chest pain or cardiac arrhythmia. 3. Normal blood pressure and heart rate response. 4. Sestamibi/sestamibi perfusion scan pending; see separate report. 08/28/20 ECTOR CONCLUSIONS ?1. Normal left ventricular cavity size and systolic function. ?Left ventricular ejection fraction is estimated at 70%. No?regional wall motion abnormalities. ?2. Normal right ventricular size and systolic function. ?3. Mildly increased left atrial size. ?4. Lipomatous hypertrophy of interatrial septum. ?5. Mild-moderate mitral valve regurgitation. ?6. No left atrial or left atrial appendage thrombus noted. 08/27/20 ECHO CONCLUSIONS ?1.? Normal left ventricular cavity size. Normal left ventricular?systolic function. Left ventricular ejection fraction is?estimated at 55-60 %.? No diagnostic regional wall motion?abnormality based on the study. ?2. Normal right ventricular size and systolic function. ?3.? Mild-moderate mitral valve regurgitation. ?4.? No prior similar studies to compare. A&P Assessment and plan (1) Paroxysmal atrial fibrillation with RVR: Status: Acute (2) CHF (congestive heart failure), NYHA class III: Status: Acute Qualifiers: Congestive heart failure chronicity: chronic Congestive heart failure type: diastolic Qualified Code(s): I50.32 - Chronic diastolic (congestive) heart failure (3) Acute UTI: Status: Acute (4) COPD (chronic obstructive pulmonary disease): Status: Acute Qualifiers: COPD type: unspecified COPD Qualified Code(s): J44.9 - Chronic o bstructive pulmonary disease, unspecified (5) DM type 2 (diabetes mellitus, type 2): Status: Acute Plan Atrial fibrillation with rapid ventricular response: Difficult to control in the past even with metoprolol, Cardizem, digoxin, amiodarone. Required cardioversion last time On sotalol 80 mg at home. Amiodarone discontinued in the past because of transaminitis. Continue sotalol 80 mg twice daily. Continue IV Cardizem drip titratable. Start on oral Cardizem 30 mg every [address] Urbina has been consulted from the ER. Appreciate recommendations. Gian vas score 4. Eliquis held in the past because of recurrent falls. Continue with baby aspirin. Congestive heart failure: Diastolic in nature. Last echocardiogram from August 2020 showed an EF of 70%, hypertrophy of IAS, mild to moderate MR. IV Lasix 40 mg one-time. Strict input output charting, daily weights. Saravia catheterization. UTI: History of UTI with Klebsiella in the past. UA consistent with UTI. Follow-up urine culture. For now continue with IV ceftriaxone once daily. COPD: No exacerbation currently. DuoNebs every 6 hour. Sleep apnea: Uses BiPAP at home. Currently not able to use at senior living because of unavailability of parts. Continue with home settings of 20/8 nightly. Type 2 diabetes mellitus: Last A1c 5.9. Recheck HbA1c. Hold off on insulin sliding scale for now. Full code. We will request documents from [facility] regarding recent admission. Lovenox for DVT prophylaxis. Protonix for PUD prophylaxis. Cardiac diet. Admit to CSU. Attestations Medical Necessity Statement*: Admission for more than 2 midnights for management of atrial fibrillation with rapid ventricular response UTI, congestive heart failure Time Spent in Patient Care: Greater than 35 minutes Coding Level of Care Code Acute Pega Developer for [facility] Fwd Diagnoses Paroxysmal atrial fibrillation with RVR I48.0 CHF (congestive heart failure), NYHA class III I50.32 Congestive heart failure chronicity: chronic Congestive heart failure type: diastolic Acute UTI N39.0 COPD (chronic obstructive pulmonary disease) J44.9 COPD type: unspecified COPD DM type 2 (diabetes mellitus, type 2) E11.9
[2021-05-25 15:35] LABS: Troponin 5 2HR 69.54 ng/L (0-10)
[2021-05-25 15:36] LABS: Troponin 5 2HR Delta 1.54 ABS# (0-10)
--- NOTE | 2021-05-25 15:50 | PC.NURSE ---
PATIENT GIVEN TITRATE OF 15 MG PER PROVIDER OF CARDIZEM DRIP.
[2021-05-25] MEDS: iohexol 350 mg/mL 100 mL Btl IV (16:22)
--- NOTE | 2021-05-25 17:08 | ECG_ITS ---
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[id number] Requested By: Wan Marion Order Number: [id number] Iglesia MD: CLARK ELLIS Measurements Intervals K[place]miller Rate: 140 P: LA: QRS: 249 QRSD: 158 T: -49 QT: 328 QTc: 502 Interpretive Statements ATRIAL FLUTTER/TACHYCARDIA WITH RAPID VENTRICULAR RESPONSE RIGHT AXIS DEVIATION [QRS AXIS > 100] RIGHT BUNDLE BRANCH BLOCK [120+ ms QRS DURATION, UPRIGHT V1, 40+ ms S IN I/aVL/V4/V5/V6] POSSIBLE ANTERIOR MYOCARDIAL INFARCTION , OF INDETERMINATE AGE [30 ms Q WAVE IN V3/V4, OR R < 0.2 mV IN V4] MARKED ST ELEVATION, CONSIDER SEPTAL INJURY [MARKED ST ELEVATION W/O NORMALLY INFLECTED T-WAVE IN V1/V2] ACUTE LA Compared to ECG 05/25/2021 13:32:54 ST (T wave) deviation now present T-wave abnormality no longer present Possible ischemia no longer present Myocardial infarct finding still present Electronically Signed On 05-26-2021 19:20:04 CONCRETE VIBRATOR OPERATOR by CLARK ELLIS [email or web address]
[2021-05-25 17:53] LABS: Procalcitonin 0.06 ng/mL (0-0.5)
[2021-05-25 17:53] LABS: Glucose Point of Care 115 mg/dL (70-110)
[2021-05-25] MEDS: FUROsemide 10 mg/mL SDV 4mL 40 MG IVP (18:11)
[2021-05-25] MEDS: dilTIAZem 30 mg Tablet PO ×2 (18:11→23:49)
[2021-05-25] MEDS: ferrous gluconate 324 mg Tablet PO (18:11)
--- NOTE | 2021-05-25 18:11 | PC.NURSE ---
nurse at bedside
[2021-05-25] MEDS: enoxaparin 40 mg/0.4 mL Syringe SUBCUT (18:12)
[2021-05-25 18:17] LABS: Iron 48 ug/dL (37-145); Percent Saturation 20.5 % (20-50); Total Iron Binding Capacity 234 mcg/dl; Unsaturated Iron Binding 186 ug/dL (112-347)
--- NOTE | 2021-05-25 18:43 | PC.NURSE ---
On arrival from the ER patient had a saturated disposable brief. Brief removed and patient washed. Approx 15 minutes later patient was incontinent of urine, saturation 2 blue underpads. Patient washed and dry pads placed.
--- NOTE | 2021-05-25 18:45 | PM.CONSULT ---
Providers/Reason For Consult Consulting Physician/Specialty*: Cardiology Reason for Consult*: Atrial fibrillation rapid ventricular response Requesting Physician: Dr. Villalobos Attending Physician: Jesus Manuel Dixon MD Primary Care Provider: Bakari Urbina MD History of Present Illness History of Present Illness La Aranda is a 81 year old female who is complicated for control of atrial fibrillation whose past medical history significant for difficult to control atrial fibrillation with tachybradycardia syndrome recent long admission for respiratory failure history of Covid in the past history of heart failure with preserved ejection fraction presented with A. fib with RVR. She was admitted for uncontrolled A. fib. Patient has prior history of uncontrolled atrial fibrillation even with digoxin metoprolol and Cardizem and transaminitis secondary to amiodarone. There is conflicting reports some says patient was on 60 mg once a day other says 40 mg once a day of sotalol which is not the usual dose however it is possible patient may have underlying sick sinus syndrome or tachybradycardia syndrome. At the moment we will optimize sotalol combined with Cardizem to control the heart rate. She has been given IV fluid. Review of Systems General: Reports: 10 or more systems reviewed and unremarkable except in HPI and below Const: Denies: fever(s), chills, body aches, change in appetite, change in weight, malaise, night sweats, diaphoresis, change in sleep pattern, daytime sleepiness or snoring Eyes: Denies: change in vision, blurry vision, photophobia, eye discomfort or eye discharge ENMT: Denies: throat pain, enlarged tonsils, hoarseness, mouth pain, oral sores, dry mouth, tinnitus, nasal congestion or post nasal drip Card: Denies: chest pain, palpitations, irregular heart rhythm, edema, swelling of feet/ankles, lightheadedness, syncope, pre-syncope, dyspnea on exertion, orthopnea, leg pain with exertion or acrocyanosis Resp: Denies: dyspnea, productive cough, non-productive cough, wheezing, stridor, pain on inspiration, change in phlegm color, hemoptysis or chest congestion GI: Denies: abdominal pain, nausea, vomiting, hematemesis, coffee ground emesis, dysphagia, heartburn, diarrhea, constipation, bloating, GI cramping, change in bowel habits, pain on defecation, hematochezia or melena : Denies: flank pain, dysuria, urinary frequency, urinary urgency, urinary hesitancy, nocturia or hematuria Musc: Denies: neck pain, back pain, extremity pain, joint pain, joint swelling, joint redness, joint stiffness or limited range of motion Neuro: Denies: headache(s), numbness in extremities, weakness in extremities, sensory changes, lack of coordination, difficulty walking, frequent falls, dizziness, vertigo, confusion, Slurred speech present, difficulty communicating thoughts or seizure-like activity Psych: Denies: anxiety, depression, mood swings, panic attacks, hopelessness or irritability Endo: Denies: polyuria, polydipsia, tired all the time, cold intolerance, excessive sweating, flushing or heat intolerance Norbert/Lymph: Denies: easy bruising or easy bleeding All/Imm: Denies: tongue swelling, facial swelling or acute wheezing Medications/Allergies Home Medications Medication Instructions Recorded Confirmed Last Taken Type coenzyme Q10 10 mg capsule 10 mg PO DAILY #0 03/01/20 05/26/21 10/05/20 History glucosamine-chondroitin 250 mg-200 1 tab PO DAILY 03/01/20 05/26/21 10/05/20 History mg tablet (Osteo Bi-Flex) metformin 500 mg tablet,extended 500 mg PO DAILY 03/01/20 05/26/21 10/05/20 History release 24 hr albuterol sulfate 90 mcg/actuation 2 puff INHALATION Q4H PRN 08/22/20 05/26/21 Unknown History aerosol inhaler (Ventolin HFA) folic acid 1 mg tablet 1 mg PO DAILY #30 tab 09/01/20 05/26/21 10/05/20 Rx lisinopril 10 mg tablet 10 mg PO DAILY #90 tab 09/05/20 05/26/21 10/05/20 Rx aspirin 81 mg tablet,delayed 81 mg PO DAILY 05/17/21 05/26/21 Unknown History release (Adult Low Dose Aspirin) ferrous sulfate 324 mg (65 mg 324 mg PO DAILY 05/17/21 05/26/21 Unknown History iron) tablet,delayed release fluticasone 250 mcg-salmeterol 50 1 inh INHALATION BID 05/17/21 05/26/21 Unknown History mcg/dose blistr powdr for inhalation melatonin 1 mg tablet 1 mg PO BEDTIME 05/17/21 05/26/21 Unknown History sotalol 80 mg tablet 40 mg PO DAILY tab 05/17/21 05/26/21 Unknown History albuterol sulfate 2.5 mg INHALATION Q6H PRN 05/26/21 05/26/21 Unknown History calcium carb-ergocalciferol (vit 1 tab PO DAILY 05/26/21 05/26/21 Unknown History D2) 600 mg calcium-200 unit tablet furosemide 20 mg tablet (Lasix) 20 mg PO DAILY 05/26/21 05/26/21 Unknown History insulin aspart U-100 100 unit/mL See Rx Instructions .ROUTE .COMPLEX 05/26/21 05/26/21 Unknown History (3 mL) subcutaneous pen (Novolog Flexpen U-100 Insulin aspart) magnesium hydroxide 400 mg/5 mL 30 ml PO DAILY PRN 05/26/21 05/26/21 Unknown History oral suspension (Milk of Magnesia) multivitamin 1 tab PO DAILY 05/26/21 05/26/21 Unknown History Allergies Allergy/AdvReac Type Severity Reaction Status Date / Time diphtheria toxoid,fluid Allergy Severe Unknown Verified 05/17/21 11:27 Current Medications Generic Name Dose Route Start Last Admin Trade Name Freq PRN Reason Stop Dose Admin Diltiazem HCl 30 mg 05/25/21 17:00 05/25/21 18:11 Diltiazem 30 Mg Tablet PO 30 mg Q6H JAMAL Administration Enoxaparin Sodium 40 mg 05/25/21 18:00 05/25/21 18:12 Enoxaparin 40 Mg/0.4 Ml Syringe SUBCUT 40 mg Q24H JAMAL Administration Ferrous Gluconate 324 mg 05/25/21 18:00 05/25/21 18:11 Ferrous Gluconate 324 Mg Tablet PO 324 mg BIDWM JAMAL Administration Diltiazem HCl 125 mg/ Sodium 125 mls @ 0 mls/hr 05/25/21 14:30 05/25/21 18:00 Chloride IV 15 mg/hr .Q0M JAMAL 15 mls/hr Titration Protocol Per Protocol Insulin Human Lispro 0 unit 05/25/21 18:00 05/25/21 18:15 Insulin Lispro 100 Unit/1 Ml SUBCUT Not Given WM&BEDTIME JAMAL Protocol PFSH Acute PFSH: Medical History (Updated 05/25/21 @ 15:34 by Jesus Manuel Dixon MD) Alkaline phosphatase elevation CHF (congestive heart failure), NYHA class III COPD (chronic obstructive pulmonary disease) DM type 2 (diabetes mellitus, type 2) HTN (hypertension) Paroxysmal atrial fibrillation with RVR Severe acute respiratory syndrome coronavirus 2 (SARS-CoV-2) detected Transaminitis Surgical History H/O: hysterectomy History of ectopic Family History Mother Heart disease Father Heart disease Social History (Updated 05/25/21 @ 15:34 by Jesus Manuel Dixon MD) Quit status (tobacco): has quit using tobacco Year quit tobacco: Many decades ago Alcohol intake: current Alcohol intake frequency: 0-2 Drinks per Day Lives independently: Yes Household members: spouse Housing: Residential Marital status: Dietary Habits: Current diet type/program: regular Caffeine: No Vitals/I&O/Wt Last Vital Signs Temp 98.1 F 05/25/21 11:06 Pulse 138 H 05/25/21 16:50 Resp 20 H 05/25/21 16:50 BP 152/105 05/25/21 16:50 Pulse Ox 94 05/25/21 18:05 05/25/21 05/25/21 05/25/21 06:59 14:59 22:59 Intake Total 1050 / 1050 72.375 / 1122.375 Balance 1050 / 1050 72.375 / 1122.375 Weight last 48 hrs Weight 165 lb Physical Exam Chest: OTHER: GENERAL: Patient is alert, awake and oriented x3. NECK: No jugular vein distension. HEENT: No cyanosis. No icterus. No pallor. HEART: Irregularly irregular S1 and S2. No murmur, rub or gallop. LUNGS: Clear to auscultate bilaterally. ABDOMEN: Soft, nontender and nondistended. Positive bowel sounds. No guarding, rebound or tenderness. CENTRAL NERVOUS SYSTEM: Grossly nonfocal. EXTREMITIES: Lower extremities without edema bilaterally. Urinary Catheter Management: Saravia: Cath Placed During This Visit: yes Reason for Continuing Indwelling Catheter: Accurate Measurement of Urinary Output in Critically Ill Patients Urinary Catheter Date of Insertion: 05/25/21 Urinary Catheter Time of Insertion: 17:45 Data : 05/26/21 04:30 05/26/21 04:30 A&P Assessment and plan (1) Paroxysmal atrial fibrillation with RVR: As defined above we will prefer to control heart rate but converting her to sinus rhythm. At the moment we will give her extra sotalol. We can use IV Cardizem to see how she does. Further plan will be devised as per progress the patient. Status: Acute (2) CHF (congestive heart failure), NYHA class III: Well compensated. 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
[2021-05-25 18:56] LABS: Troponin 5 6HR 68.08 ng/L (0-10)
[2021-05-25 19:04] LABS: Troponin 5 6HR Delta 0.08 ng/L (0-12)
[2021-05-25] MEDS: ipratropium-albuterol 3 mL Neb INHALATION (20:00)
[2021-05-25 20:17] LABS: Glucose Point of Care 304 mg/dL (70-110)
[2021-05-25] MEDS: insulin lispro 100 unit/1 mL SUBCUT (20:54)
[2021-05-25] MEDS: sotalol 80 mg Tablet PO (21:03)
[2021-05-25] MEDS: hyDROXYzine 25 mg Capsule PO (22:01)
[2021-05-26] VITALS (19 sets, daily range): BP systolic 91–112; BP diastolic 39–67; PULSE 60–140; RESP 15–28; TEMP 36.2–37; O2SAT 93–98
[2021-05-26] MEDS: digoxin 250 mcg/ml INJ 2 mL IVP ×2 (03:40→04:33)
--- NOTE | 2021-05-26 04:58 | ECG_ITS ---
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1940 Requested By: Benigno Palencia Order Number: [id number] Iglesia MD: CLARK ELLIS Measurements Intervals [place] Rate: 120 P: DC: QRS: 266 QRSD: 157 T: 0 QT: 288 QTc: 408 Interpretive Statements ATRIAL FLUTTER/TACHYCARDIA WITH RAPID VENTRICULAR RESPONSE RIGHT AXIS DEVIATION [QRS AXIS > 100] RIGHT BUNDLE BRANCH BLOCK [120+ ms QRS DURATION, UPRIGHT V1, 40+ ms S IN I/aVL/V4/V5/V6] POSSIBLE ANTERIOR MYOCARDIAL INFARCTION , PROBABLY OLD [30 ms Q WAVE IN V3/V4, OR R < 0.2 mV IN V4] ST ELEVATION, CONSIDER SEPTAL INJURY [MARKED ST ELEVATION W/O NORMALLY INFLECTED T-WAVE IN V1/V2] ACUTE MO Compared to ECG 05/25/2021 18:21:49 No significant changes Electronically Signed On 05-26-2021 19:19:42 FRONT END MECHANIC by CLARK ELLIS [id number]
[2021-05-26] MEDS: dilTIAZem 30 mg Tablet PO ×3 (05:03→22:31)
[2021-05-26 05:51] LABS: Basophils # 0.1 10^3/uL (0.0-0.1); Basophils % 0.5 %; Eosinophils # 0.1 10^3/uL (0.0-0.8); Eosinophils % 0.4 %; Hematocrit 36.3 % (37.0-47.0); Hemoglobin 10.9 g/dL (11.5-15.3); Lymphocytes # 3.3 10^3/uL (0.8-4.8); Lymphocytes % 19.7 %; Mean Corpuscular Hemoglobin 28.5 pg (28.0-34.0); Mean Platelet Volume 10.1 fL (7.4-10.4); Monocytes # 1.6 10^3/uL (0.2-0.9); Monocytes % 9.5 %; Neutrophils # 11.28 10^3/uL (1.8-7.7); Neutrophils % 68.1 %; Nucleated Red Blood Cells % 0 %; Platelet Count 337 10^3/cmm (130-400); Red Blood Count 3.82 10^6/uL (4.1-5.3); Red Cell Distribution Width 13.2 % (12.1-15.1); White Blood Count 16.6 10^3/uL (4.0-10.0)
[2021-05-26] MEDS: sotalol 80 mg Tablet PO (06:33)
--- NOTE | 2021-05-26 06:34 | PC.NURSE ---
Patient is at the maximum rate on Cardizem and heart rate is holding steady at 122. Orders received to give 0900 sotalol early.
[2021-05-26 06:36] LABS: Glucose Point of Care 89 mg/dL (70-110)
[2021-05-26 06:41] LABS: Alanine Aminotransferase 16 U/L (0-33); Albumin Level 2.8 g/dL (3.5-5.2); Alkaline Phosphatase 105 IU/L (35-105); Anion Gap 11.7 (5-19); Aspartate Amino Transferase 19 U/L (0-32); Blood Urea Nitrogen 18 mg/dL (8-23); Carbon Dioxide 34 mmol/L (22-29); Chloride 99 mmol/L (98-107); Globulin 2.6 g/dL (1.3-4.6); Glucose 76 mg/dL (65-115); Osmolality Calculated 293 mOsm/kg (285-295); Phosphorus 3.2 mg/dL (2.5-4.5); Potassium 3.7 mmol/L (3.5-5.1); Sodium 141 mmol/L (136-145); Total Bilirubin 0.2 mg/dL (0.15-1.2); Total Protein 5.4 g/dL (6.6-8.7)
[2021-05-26 07:27] LABS: Estmated Average Glucose 140; Hemoglobin A1C 6.5 % (4.0-6.0)
[2021-05-26] MEDS: pantoprazole DR 40 mg Tablet PO (08:21)
[2021-05-26] MEDS: ferrous gluconate 324 mg Tablet PO ×2 (08:21→17:22)
[2021-05-26] MEDS: aspirin 81 mg EC Tablet PO (08:21)
[2021-05-26] MEDS: ipratropium-albuterol 3 mL Neb INHALATION ×3 (08:34→21:10)
--- NOTE | 2021-05-26 09:30 | ECG_ITS ---
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1940 Requested By: Kaley Urbina Order Number: [id number] Reading MD: KALEY URBINA Measurements Intervals [place] Rate: 51 P: RI: QRS: 269 QRSD: 139 T: 0 QT: 435 QTc: 404 Interpretive Statements ATRIAL FIBRILLATION WITH SLOW VENTRICULAR RESPONSE WITH ABERRANT CONDUCTION OR VENTRICULAR PREMATURE COMPLEXES RIGHT AXIS DEVIATION [QRS AXIS > 100] RIGHT BUNDLE BRANCH BLOCK [120+ ms QRS DURATION, UPRIGHT V1, 40+ ms S IN I/aVL/V4/V5/V6] POSSIBLE ANTERIOR MYOCARDIAL INFARCTION , OF INDETERMINATE AGE [30 ms Q WAVE IN V3/V4, OR R < 0.2 mV IN V4] MODERATE T-WAVE ABNORMALITY, CONSIDER LATERAL ISCHEMIA [-0.1+ mV T-WAVE IN I/aVL/V5/V6] Compared to ECG 05/26/2021 05:15:57 Atrial fibrillation is now present as compared to the previous atrial flutter Electronically Signed On 05-26-2021 19:18:58 LAB CLERK by KALEY URBINA [id number]
[2021-05-26] MEDS: DOPamine drip 400 MG/250 ML PREMIX 14.33 MG IV (09:38)
--- NOTE | 2021-05-26 09:41 | PC.NURSE ---
Provided patient with a sponge bath.
--- NOTE | 2021-05-26 10:24 | PC.NURSE ---
at 0900 pt's heart rate decreased in to 30's-40's (afib)..bp soft,but with map's above 65.cardizem drip dc'd.ekg obtained.pt denied any dizziness,chest pain,sob.no diaphoresis noted.dr keen and dr arriaga notified.dopamine drip initiated at 5 mcg/kg/min per order dr arriaga.magnesium sulfate began iv per order dr keen.hr remained low and bp decreased (80/30) so at 10:00 dopamine increased to 7.5mcg/kg/min.at 1020 hr increased into 60-70's (afib) and bp increased.dr keen called to check on pt and ordered the dopamine to be decreased to 5 mcg/kg/min.dopamine decreased at 10:40
[2021-05-26 11:21] LABS: Digoxin 1.1 ng/mL (0.6-1.2)
[2021-05-26 11:28] LABS: Glucose Point of Care 256 mg/dL (70-110)
[2021-05-26] MEDS: insulin lispro 100 unit/1 mL SUBCUT ×2 (12:10→17:22)
--- NOTE | 2021-05-26 12:25 | PC.NURSE ---
pt's heart rate increased to 130-150's at approx 11:55 (afib).bp stable.denied sob,cp,dizziness,diaphoresis.dopamine drip stopped.dr arriaga notified.he ordered to hold sotolol and resume cardizem drip.drip began at 5 mg/hr at 12:00.at 12:20 increased to 10 mg/hr for contiued heart rate 130-140's
--- NOTE | 2021-05-26 13:05 | PC.NURSE ---
heart rate now in 60's (afib).
--- NOTE | 2021-05-26 13:31 | PC.NURSE ---
dr keen called to check on pt.heart rate in 60's (afib).on 10 mg/hr of cardizem iv.he ordered to decrease cardizem to 5mg/hr and to give po cardizem dose early..now.
[2021-05-26 16:23] LABS: Glucose Point of Care 157 mg/dL (70-110)
[2021-05-26] MEDS: enoxaparin 40 mg/0.4 mL Syringe SUBCUT (17:21)
--- NOTE | 2021-05-26 17:35 | P.PN_ITS ---
Subjective Subjective: Interval history: Patient became bradycardic with sotalol and Cardizem heart rate dropped down to 30s. Blood pressure also became soft, Cardizem and sotalol was stopped, do pamine was started to improve the heart rate and patient went back expectedly into A. fib with RVR. Currently feeling better Vitals/I&O/Wt Last Vital Signs Temp 98.6 F 05/26/21 15:02 Pulse 65 05/26/21 15:02 Resp 24 H 05/26/21 15:02 BP 112/52 05/26/21 15:02 Pulse Ox 97 05/26/21 15:02 05/26/21 05/26/21 05/26/21 06:59 14:59 22:59 Intake Total 118.834 / 1241.209 511.666 / 511.666 Output Total 1974 445 / 445 Balance -1856.166 / -973.791 66.666 / 66.666 Weight last 48 hrs Weight 168 lb 8 oz Weight 165 lb Physical Exam Chest: OTHER: GENERAL: Patient is alert, awake and oriented x3. NECK: No jugular vein distension. HEENT: No cyanosis. No icterus. No pallor. HEART: Irregularly irregular S1 and S2. No murmur, rub or gallop. LUNGS: Clear to auscultate bilaterally. ABDOMEN: Soft, nontender and nondistended. Positive bowel sounds. No guarding, rebound or tenderness. CENTRAL NERVOUS SYSTEM: Grossly nonfocal. EXTREMITIES: Lower extremities without edema bilaterally. Urinary Catheter Management: Saravia: Cath Placed During This Visit: yes Reason for Continuing Indwelling Catheter: Acute Urinary Retention or Obstruction Urinary Catheter Date of Insertion: 05/25/21 Urinary Catheter Time of Insertion: 17:45 Data : 05/26/21 04:30 05/26/21 04:30 Micro: Microbiology 05/25/21 12:28 Urine Culture - Preliminary Urine,Clean Catch Gram Negative Rods A&P Assessment and plan (1) Paroxysmal atrial fibrillation with RVR: Patient has underlying tachybradycardia syndrome, her heart rate increases whenever we try to slow her down either with jean stanton or antiarrhythmic she slows down too much into her 30s. She reports lack of energy she reports that her quality of life is compromised she cannot move around. At this point we recommend permanent pacemaker placement. I will consult Dr. Wan for it. Patient and her is in agreement with it. For now we will hold jean stanton. We will hold anticoagulation. Status: Acute (2) CHF (congestive heart failure), NYHA class III: Well compensated. Continue current regimen Status: Acute Qualifiers: Congestive heart failure type: diastolic Congestive heart failure chronicity: chronic Qualified Code(s): I50.32 - Chronic diastolic (congestive) heart failure Attestations Medical Necessity Statement*: Patient require continuation hospitalization for above defined care Coding Level of Care Code Acute District Loss Prevention Manager for [facility] Fwd Diagnoses Paroxysmal atrial fibrillation with RVR I48.0 CHF (congestive heart failure), NYHA class III I50.32 Congestive heart failure type: diastolic Congestive heart failure chronicity: chronic
--- NOTE | 2021-05-26 17:37 | PM.PN ---
Subjective Subjective: Interval history: Overnight patient remained in rapid ventricular response. She went to 7 to 50 x 2 doses of digoxin, continued on Cardizem drip and oral Cardizem and given sotalol early in the morning. During the day patient underwent bradycardia with heart rate going into the 40s at around 9 AM at which she was started on dopamine drip. She required dopamine drip maximum of 10. While being on dopamine drip keep patient went back into atrial fibrillation with rapid ventricular response for which she was started on Cardizem drip again which was titrated down and currently running at five. Patient was symptomatic during bradycardia. Currently is hemodynamically stable and afebrile. Vitals/I&O/Wt Last Vital Signs Temp 98.6 F 05/26/21 15:02 Pulse 65 05/26/21 15:02 Resp 24 H 05/26/21 15:02 BP 112/52 05/26/21 15:02 Pulse Ox 97 05/26/21 15:02 05/26/21 05/26/21 05/26/21 06:59 14:59 22:59 Intake Total 118.834 / 1241.209 511.666 / 511.666 Output Total 1974 / 2215 445 / 445 Balance -1856.166 / -973.791 66.666 / 66.666 Weight last 48 hrs Weight 76.43 kg Weight 74.843 kg Physical Exam Narrative: EXAM NARRATIVE: General: No acute distress, AO x3, on 2 L, pleasant, hard of hearing, at bedside HEENT: PERRLA, pupils bilaterally equal and reactive Chest: Normal vesicular breath sounds, no added sounds, equal good air entry bilaterally CVS: S1-S2 irregularly irregular, no murmurs, tachycardia, no gallops, no rubs Abdomen: Soft, nontender, no organomegaly, bowel sounds present Neuro: No focal deficits, no facial deformity, AO x3, power 5/5 in all limbs Urinary Catheter Management: Saravia: Cath Placed During This Visit: yes Reason for Continuing Indwelling Catheter: Acute Urinary Retention or Obstruction Urinary Catheter Date of Insertion: 05/25/21 Urinary Catheter Time of Insertion: 17:45 Data : 05/26/21 04:30 05/26/21 04:30 Micro: Microbiology 05/25/21 12:28 Urine Culture - Preliminary Urine,Clean Catch Gram Negative Rods A&P Assessment and plan (1) Paroxysmal atrial fibrillation with RVR: Status: Acute (2) CHF (congestive heart failure), NYHA class III: Status: Acute Qualifiers: Congestive heart failure type: diastolic Congestive heart failure chronicity: chronic Qualified Code(s): I50.32 - Chronic diastolic (congestive) heart failure (3) Acute UTI: Status: Acute (4) COPD (chronic obstructive pulmonary disease): Status: Acute Qualifiers: COPD type: unspecified COPD Qualified Code(s): J44.9 - Chronic obstructive pulmonary disease, unspecified (5) DM type 2 (diabetes mellitus, type 2): Status: Acute Plan Atrial fibrillation with rapid ventricular response: Difficult to control in the past even with metoprolol, Cardizem, digoxin, amiodarone. Required cardioversion last time On sotalol 80 mg at home. Amiodarone discontinued in the past because of transaminitis. Continue sotalol 80 mg twice daily. Monitor Qtc. Continue IV Cardizem drip titratable. Start on oral Cardizem 30 mg every 6 hourly. Appreciate carddiology recommendations. Gian vas score 4. Eliquis held in the past because of recurrent falls. Continue with baby aspirin. Keep potassium around 4, Mag over 2. Congestive heart failure: Diastolic in nature. Last echocardiogram from August 2020 showed an EF of 70%, hypertrophy of IAS, mild to moderate MR. Currently euvoluemic. Hold off on any further diuretic or fluid. Strict input output charting, daily weights. Saravia catheterization. UTI: History of UTI with Klebsiella in the past. UA consistent with UTI. Follow-up urine culture. For now continue with IV ceftriaxone once daily. COPD: No exacerbation currently. DuoNebs every 6 hour. Sleep apnea: Uses BiPAP at home. Currently not able to use at assisted because of unavailability of parts. Continue with home settings of 20/8 nightly. Type 2 diabetes mellitus: Last A1c 5.9. Recheck HbA1c. Hold off on insulin sliding scale for now. Full code. We will request documents from [facility] regarding recent admission. Lovenox for DVT prophylaxis. Protonix for PUD prophylaxis. Cardiac diet. Attestations Medical Necessity Statement*: Requires further hospitalization for management of atrial fibrillation with rapid ventricular response which has been difficult to control in past, now with complications of bradycardia needing dopamine drip Time Spent in Patient Care: Greater than 35 minutes Coding Level of Care Code Acute Elementary School Teacher for g Fwd Diagnoses Paroxysmal atrial fibrillation with RVR I48.0 CHF (congestive heart failure), NYHA class III I50.32 Congestive heart failure type: diastolic Congestive heart failure chronicity: chronic Acute UTI N39.0 COPD (chronic obstructive pulmonary disease) J44.9 COPD type: unspecified COPD DM type 2 (diabetes mellitus, type 2) E11.9
[2021-05-26] MEDS: cefTRIAXone 1,000 MG in sodium chloride 0.9% (plus) 50 ML 100 MG IV (18:45)
--- NOTE | 2021-05-26 19:44 | PC.NURSE ---
pt went back into afib with rvr with rates 130-140 [address]x [address] keen notified.will titrate cardizem as needed.plan for pacemaker insertion tomorrow
[2021-05-26 21:42] LABS: Glucose Point of Care 125 mg/dL (70-110)
[2021-05-26] MEDS: hyDROXYzine 25 mg Capsule PO (22:56)
[2021-05-27] VITALS (54 sets, daily range): BP systolic 62–131; BP diastolic 47–86; PULSE 64–145; RESP 13–30; TEMP 36.5–36.8; O2SAT 83–97
--- NOTE | 2021-05-27 | SCC_ITS ---
Procedure done: Dual-chamber pacemaker implantation 70.8 seconds of fluoroscopic guidance, for a cumulative dose of 14.66 mGy, was provided to Dr. Wan by the radiology department. C-arm images of the chest were saved for the patient's permanent record. [facility]
[2021-05-27] MEDS: dilTIAZem 30 mg Tablet PO ×3 (04:41→20:09)
[2021-05-27 06:32] LABS: Glucose Point of Care 131 mg/dL (70-110)
--- NOTE | 2021-05-27 06:45 | P.CONIM_ITS ---
Providers/Reason For Consult Consulting Physician/Specialty*: Dr. Wan/cardiothoracic surgery Reason for Consult*: Tachycardia/bradycardia syndrome with atrial fibrillation and RVR Requesting Physician: Dr. Urbina/cardiology Attending Physician: Jesus Manuel Dixon MD Primary Care Provider: Bakari Urbina MD History of Present Illness History of Present Illness La Aranda is an 81 year old female with numerous medical problems who is a resident of a local skilled care facility and presented to the emergency department on May 25 with atrial fibrillation and rapid ventricular response. He was acutely treated in the emergency department with sotalol and IV Cardizem for rate control. She was also felt to have acute CHF and urinary tract infection. She was administer Lasix and started on IV Rocephin. Dr. Urbina, from our cardiology service, was consulted. She has a prior history for A. fib which has been uncontrolled at times. She also has a history of CHF as well as hypercapnic syndrome and has required hospitalization and at least 2 episodes of intubation. She also had COVID-19 in 2019. Sotalol and IV Cardizem, the patient developed acute bradycardia with heart rate into the 30s. She did require dopamine acutely for improvement of heart rate and blood pressure, and did develop again, A. fib with RVR. To allow for maximization of medical management, Dr. Urbina is recommended pacemaker implantation. Review of Systems Const: Reports: body aches and fatigue Eyes: Denies: change in vision ENMT: Denies: hoarseness Card: Reports: palpitations, irregular heart rhythm, edema and dyspnea on exertion Resp: Reports: dyspnea and non-productive cough GI: Denies: coffee ground emesis, dysphagia or change in bowel habits Musc: Reports: neck pain, extremity swelling, joint pain and joint swelling Neuro: Denies: numbness in extremities or weakness in extremities Psych: Denies: anxiety or depression Medications/Allergies Home Medications Medication Instructions Recorded Confirmed Last Taken Type coenzyme Q10 10 mg capsule 10 mg PO DAILY #0 03/01/20 05/26/21 10/05/20 History glucosamine-chondroitin 250 mg-200 1 tab PO DAILY 03/01/20 05/26/21 10/05/20 History mg tablet (Osteo Bi-Flex) metformin 500 mg tablet,extended 500 mg PO DAILY 03/01/20 05/26/21 10/05/20 History release 24 hr albuterol sulfate 90 mcg/actuation 2 puff INHALATION Q4H PRN 08/22/20 05/26/21 Unknown History aerosol inhaler (Ventolin HFA) folic acid 1 mg tablet 1 mg PO DAILY #30 tab 09/01/20 05/26/21 10/05/20 Rx lisinopril 10 mg tablet 10 mg PO DAILY #90 tab 09/05/20 05/26/21 10/05/20 Rx aspirin 81 mg tablet,delayed 81 mg PO DAILY 05/17/21 05/26/21 Unknown History release (Adult Low Dose Aspirin) ferrous sulfate 324 mg (65 mg 324 mg PO DAILY 05/17/21 05/26/21 Unknown History iron) tablet,delayed release fluticasone 250 mcg-salmeterol 50 1 inh INHALATION BID 05/17/21 05/26/21 Unknown History mcg/dose blistr powdr for inhalation melatonin 1 mg tablet 1 mg PO BEDTIME 05/17/21 05/26/21 Unknown History sotalol 80 mg tablet 40 mg PO DAILY tab 05/17/21 05/26/21 Unknown History albuterol sulfate 2.5 mg INHALATION Q6H PRN 05/26/21 05/26/21 Unknown History calcium carb-ergocalciferol (vit 1 tab PO DAILY 05/26/21 05/26/21 Unknown History D2) 600 mg calcium-200 unit tablet furosemide 20 mg tablet (Lasix) 20 mg PO DAILY 05/26/21 05/26/21 Unknown History insulin aspart U-100 100 unit/mL See Rx Instructions .ROUTE .COMPLEX 05/26/21 05/26/21 Unknown History (3 mL) subcutaneous pen (Novolog Flexpen U-100 Insulin aspart) magnesium hydroxide 400 mg/5 mL 30 ml PO DAILY PRN 05/26/21 05/26/21 Unknown History oral suspension (Milk of Magnesia) multivitamin 1 tab PO DAILY 05/26/21 05/26/21 Unknown History Allergies Allergy/AdvReac Type Severity Reaction Status Date / Time diphtheria toxoid,fluid Allergy Severe Unknown Verified 05/17/21 11:27 Current Medications Generic Name Dose Route Start Last Admin Trade Name Freq PRN Reason Stop Dose Admin Albuterol/Ipratropium 3 ml 05/25/21 21:00 05/27/21 03:04 Ipratropium-Albuterol 3 Ml Neb INHALATION Not Given Q6H.RESPIRATORY JAMAL Aspirin 81 mg 05/26/21 09:00 05/26/21 08:21 Aspirin 81 Mg Ec Tablet PO 81 mg DAILY JAMAL Administration Diltiazem HCl 30 mg 05/25/21 17:00 05/27/21 04:41 Diltiazem 30 Mg Tablet PO 30 mg Q6H JAMAL Administration Enoxaparin Sodium 40 mg 05/25/21 18:00 05/26/21 17:21 Enoxaparin 40 Mg/0.4 Ml Syringe SUBCUT 40 mg Q24H JAMAL Administration Ferrous Gluconate 324 mg 05/25/21 18:00 05/26/21 17:22 Ferrous Gluconate 324 Mg Tablet PO 324 mg BIDWM JAMAL Administration Diltiazem HCl 125 mg/ Sodium 125 mls @ 0 mls/hr 05/25/21 14:30 05/27/21 05:09 Chloride IV 15 mg/hr .Q0M JAMAL 15 mls/hr Titration Protocol Per Protocol Dopamine HCl/Dextrose 400 mg in 250 mls @ 14.331 mls/hr 05/26/21 09:30 12:01 Intropin Drip IV Infused CONT JAMAL Titration Protocol 5 MCG/KG/MIN Ceftriaxone Sodium 1,000 mg/ 50 mls @ 100 mls/hr 05/26/21 18:00 05/26/21 19:15 Sodium Chloride IV Infused Q24H JAMAL Infusion Protocol Insulin Human Lispro 0 unit 05/25/21 18:00 05/26/21 20:18 Insulin Lispro 100 Unit/1 Ml SUBCUT Not Given WM&BEDTIME JAMAL Protocol Pantoprazole Sodium 40 mg 05/26/21 09:00 05/26/21 08:[address] 40 Mg Tablet PO 40 mg DAILY JAMAL Administration PFSH Acute PFSH: Medical History Alkaline phosphatase elevation CHF (congestive heart failure), NYHA class III COPD (chronic obstructive pulmonary disease) DM type 2 (diabetes mellitus, type 2) HTN (hypertension) Paroxysmal atrial fibrillation with RVR Severe acute respiratory syndrome coronavirus 2 (SARS-CoV-2) detected Transaminitis Surgical History H/O: hysterectomy History of ectopic Family History Mother Heart disease Father Heart disease Social History Quit status (tobacco): has quit using tobacco Year quit tobacco: Many decades ago Alcohol intake: current Alcohol intake frequency: 0-2 Drinks per Day Lives independently: Yes Household members: spouse Housing: Intermediate Marital status: Vitals/I&O/Wt Last Vital Signs Temp 97.7 F 05/27/21 04:00 Pulse 64 05/27/21 05:12 Resp 23 H 05/27/21 04:00 BP 105/50 05/27/21 04:00 Pulse Ox 95 05/27/21 04:00 05/26/21 05/26/21 05/27/21 14:59 22:59 06:59 Intake Total 511.666 / 511.666 443.584 / 955.250 69.000 / 1024.250 Output Total 445 / 445 0 / 445 1200 / 1645 Balance 66.666 / 66.666 443.584 / 510.250 -1131.000 / -620.750 Weight last 48 hrs Weight 162 lb Weight 168 lb 8 oz Weight 165 lb Physical Exam Const: COMMON NORMALS: patient oriented x3 HENMT: COMMON NORMALS: normocephalic and atraumatic HEAD & SCALP: normal to inspection, normocephalic and atraumatic Eye: GENERAL EYE: appearance normal, both eyes and all related structures Neck/C-Spine: COMMON NORMALS: no lymphadenopathy; negative for full ROM Chest: COMMONS NORMALS: negative for normal inspection of the chest (Kyphosis) Resp: COMMON NORMALS: normal respiratory effort, No retractions and No use of accessory muscles; negative for clear to auscultation bilaterally (Basilar crackles) AUSCULTATION: not clear to auscultation bilaterally (Basilar crackles) Cardio: COMMON NORMALS: No murmurs present (Cardio); negative for regular rate (Tachycardia to 140 bpm) RATE: abnormal rate (Tachycardia to 140 bpm) GI: COMMON NORMALS: Normal to inspection, nondistended, normoactive bowel sounds present Extremity: COMMON NORMALS: negative for normal to inspection (Ulnar deviation of the digits) and negative for full ROM Neuro: COMMON NORMALS: patient oriented x3, moves all extremities, no focal motor deficits and no sensory deficits noted CRANIAL NERVES: Yes CN VIII (vestibulocochlear) Details: auditory deficiency Psych: COMMON NORMALS: mental status grossly normal, Normal thought process present, cooperative and normal affect THOUGHT PROCESS: Normal thought process present Urinary Catheter Management: Saravia: Cath Placed During This Visit: yes Reason for Continuing Indwelling Catheter: Accurate Measurement of Urinary Output in Critically Ill Patients Urinary Catheter Date of Insertion: 05/25/21 Urinary Catheter Time of Insertion: 17:45 Data : 05/26/21 04:30 05/26/21 04:30 Micro: Microbiology 05/25/21 12:28 Urine Culture - Preliminary Urine,Clean Catch Gram Negative Rods A&P Assessment and plan (1) Tachycardia-bradycardia syndrome: I have conferred with my colleague, Dr. Urbina. Ms. Aranda has been difficult to control her A. fib/RVR due to tachybradycardia syndrome and profound bradycardia with maximization of medical management. I discussed this carefully with her and her recommendation for pacemaker to allow for more aggressive and consistent medical management. She stated understanding and agrees. Will repeat a ur inalysis this morning since she is currently been under treatment and presenting urinalysis was consistent with urinary tract infection. She denies symptoms at this time. Details and risks of the procedure were carefully and frankly discussed. Risks reviewed include the possibility of , stroke, heart attack, major bleeding, infection, pneumonia, pneumothorax requiring chest tube, organ failure, failure to benefit, migration of the leads requiring revision, prolonged hospital stay, pain after the procedure, need for further procedures, inability to complete the procedure, and possible need for long-term followup. All questions were answered. Appropriate consents be provided for review and signature. She will be at increased risk for complications due to several factors including her overall condition, her pulmonary status, arthritic condition which makes positioning challenging, CHF, and diabetes mellitus. As well, her pulmonary status may make intraoperative and postoperative management difficult. Status: Acute Consult Attestations Medical Necessity Statement: Atrial fibrillation with RVR and tachybradycardia syndrome Coding Level of Care Code New Pt Acute Marketing Operations Assistant for Chg Fwd Patient Type New History Detailed Exam Detailed Medical Decision Making Moderate Complexity Diagnoses Tachycardia-bradycardia syndrome I49.5 Time Spent (min) 40
[2021-05-27] MEDS: lactated ringers 1,000 ML 150 ML IV (07:52)
[2021-05-27] MEDS: aspirin 81 mg EC Tablet PO (07:53)
[2021-05-27] MEDS: ferrous gluconate 324 mg Tablet PO ×2 (07:53→17:57)
[2021-05-27] MEDS: pantoprazole DR 40 mg Tablet PO (07:53)
[2021-05-27] MEDS: chlorhexidine gluconate 4% Btl 118 mL 1 APPLIC TOPICAL (07:54)
[2021-05-27 08:40] LABS: Basophils # 0.1 10^3/uL (0.0-0.1); Basophils % 0.7 %; Eosinophils % 0.3 %; Hematocrit 35.7 % (37.0-47.0); Hemoglobin 10.8 g/dL (11.5-15.3); Lymphocytes # 3.6 10^3/uL (0.8-4.8); Lymphocytes % 29.6 %; Mean Corpuscular HGB Conc 30.3 g/dL (30.0-36.0); Mean Corpuscular Hemoglobin 28.1 pg (28.0-34.0); Mean Platelet Volume 10.1 fL (7.4-10.4); Monocytes # 1.3 10^3/uL (0.2-0.9); Monocytes % 10.3 %; Neutrophils # 7.14 10^3/uL (1.8-7.7); Neutrophils % 58.1 %; Nucleated Red Blood Cells % 0 %; Platelet Count 319 10^3/cmm (130-400); Red Blood Count 3.84 10^6/uL (4.1-5.3); Red Cell Distribution Width 13.4 % (12.1-15.1); White Blood Count 12.3 10^3/uL (4.0-10.0)
[2021-05-27 09:13] LABS: Blood Urea Nitrogen 18 mg/dL (8-23); Carbon Dioxide 32 mmol/L (22-29); Chloride 99 mmol/L (98-107); Glucose 107 mg/dL (65-115); Osmolality Calculated 288 mOsm/kg (285-295); Sodium 138 mmol/L (136-145)
[2021-05-27 09:17] LABS: Anion Gap 11.3 (5-19); Potassium 4.3 mmol/L (3.5-5.1)
[2021-05-27 09:34] LABS: Bilirubin Urine Neg (Negative); Blood Urine Neg (Negative); Glucose Urine UA Norm (Normal); Ketones Urine Negative (Negative); Nitrate Urine Negative (Negative); Protein Urine Neg (Negative); Specific Gravity, Urine 1.005 (1.005-1.030); Urine Appearance SL Hazy (CLEAR); Urine Color Straw (Yellow); pH Urine 5 (5-7)
[2021-05-27 09:35] LABS: Add Urine Microscopic? YES; Leukocyte Esterase Urine 2+ (Negative); Urobilinogen Urine Norm (Negative)
[2021-05-27] MEDS: ipratropium-albuterol 3 mL Neb INHALATION ×2 (10:00→21:13)
--- NOTE | 2021-05-27 10:02 | PC.RESP ---
RT Shift Note Frequent safety and respiratory rounds continue. Orders completed as indicated. Patient monitored pre and post treatments throughout shift. Patient [Did.] tolerate treatments appropriately. Condition [.DidNotChange]. Patient and/or bilingual inside sales representative educated on respiratory treatment and medications. Patient and/or bilingual inside sales representative [verbalized understanding]. Will continue to monitor patient progress.
[2021-05-27 10:11] LABS: Add Urine Culture? Yes; Bacteria Urine TRACE /hpf; RBC Urine 0-4 /hpf (0-2); WBC Urine 25-40 /hpf (0-5)
--- NOTE | 2021-05-27 10:58 | SC_ITS ---
WS: [id number] C-arm [place] for Pacemaker REASON FOR EXAM: PACEMAKER IMPLANTATION FINDINGS: Battery pack overlying the left anterolateral chest. Transvenous left subclavian vein placement of pacemaker leads to the right atrium and right ventricul ar apex. Leads are intact. SC/C-arm [place] for Pacemaker IMPRESSION: Pacemaker placement as above.
--- NOTE | 2021-05-27 11:13 | P.ANESASSM_ITS ---
Pre-Anesthetic Assessment Height/Weight: Height 1.6 m Weight 73.482 kg Temp Pulse Resp BP Pulse Ox 97.7 F 69 18 110/55 95 05/27/21 04:00 05/27/21 10:01 05/27/21 10:01 05/27/21 07:58 05/27/21 10:01 Preop Diagnosis: Hematoma left knee Operation Date: 05/27/21 12:00 Proposed Procedures p Pacemaker Insertion(Not Applicable) - Denis Wan MD Familial anesthetic complications: none Last intake: > 8 hrs Social No alcohol and No tobacco Exam alert, oriented x 3, clear to auscultation bilaterally and regular rate & rhythm Airway Mallampati: Class II Dentition: full Pulmonary Chronic Obstructive Pulmonary Disease CV/HEM Atrial Fibrillation, Arrythmia, Congestive Heart Failure and Hypertension Metabolic Diabetes Mellitus Anesthetic Plan ASA status: 4 Anesthesia: MAC Medications/Allergies Home Medications Medication Instructions Recorded Confirmed Last Taken Type coenzyme Q10 10 mg capsule 10 mg PO DAILY #0 03/01/20 05/26/21 10/05/20 History glucosamine-chondroitin 250 mg-200 1 tab PO DAILY 03/01/20 05/26/21 10/05/20 History mg tablet (Osteo Bi-Flex) metformin 500 mg tablet,extended 500 mg PO DAILY 03/01/20 05/26/21 10/05/20 History release 24 hr albuterol sulfate 90 mcg/actuation 2 puff INHALATION Q4H PRN 08/22/20 05/26/21 Unknown History aerosol inhaler (Ventolin HFA) folic acid 1 mg tablet 1 mg PO DAILY #30 tab 09/01/20 05/26/21 10/05/20 Rx lisinopril 10 mg tablet 10 mg PO DAILY #90 tab 09/05/20 05/26/21 10/05/20 Rx aspirin 81 mg tablet,delayed 81 mg PO DAILY 05/17/21 05/26/21 Unknown History release (Adult Low Dose Aspirin) ferrous sulfate 324 mg (65 mg 324 mg PO DAILY 05/17/21 05/26/21 Unknown History iron) tablet,delayed release fluticasone 250 mcg-salmeterol 50 1 inh INHALATION BID 05/17/21 05/26/21 Unknown History mcg/dose blistr powdr for inhalation melatonin 1 mg tablet 1 mg PO BEDTIME 05/17/21 05/26/21 Unknown History sotalol 80 mg tablet 40 mg PO DAILY tab 05/17/21 05/26/21 Unknown History albuterol sulfate 2.5 mg INHALATION Q6H PRN 05/26/21 05/26/21 Unknown History calcium carb-ergocalciferol (vit 1 tab PO DAILY 05/26/21 05/26/21 Unknown History D2) 600 mg calcium-200 unit tablet furosemide 20 mg tablet (Lasix) 20 mg PO DAILY 05/26/21 05/26/21 Unknown History insulin aspart U-100 100 unit/mL See Rx Instructions .ROUTE .COMPLEX 05/26/21 05/26/21 Unknown History (3 mL) subcutaneous pen (Novolog Flexpen U-100 Insulin aspart) magnesium hydroxide 400 mg/5 mL 30 ml PO DAILY PRN 05/26/21 05/26/21 Unknown History oral suspension (Milk of Magnesia) multivitamin 1 tab PO DAILY 05/26/21 05/26/21 Unknown History Allergies Allergy/AdvReac Type Severity Reaction Status Date / Time diphtheria toxoid,fluid Allergy Severe Unknown Verified 05/17/21 11:27 Current Medications Generic Name Dose Route Start Last Admin Trade Name Freq PRN Reason Stop Dose Admin Albuterol/Ipratropium 3 ml 05/25/21 21:00 05/27/21 10:00 Ipratropium-Albuterol 3 Ml Neb INHALATION 3 ml Q6H.RESPIRATORY JAMAL Administration Aspirin 81 mg 05/26/21 09:00 05/27/21 07:53 Aspirin 81 Mg Ec Tablet PO 81 mg DAILY JAMAL Administration Chlorhexidine Gluconate 1 applic 05/27/21 09:00 05/27/21 07:54 Chlorhexidine Gluconate 4% Btl 118 Ml TOPICAL 1 applic BID JAMAL Administration Diltiazem HCl 30 mg 05/25/21 17:00 05/27/21 04:41 Diltiazem 30 Mg Tablet PO 30 mg Q6H JAMAL Administration Enoxaparin Sodium 40 mg 05/25/21 18:00 05/26/21 17:21 Enoxaparin 40 Mg/0.4 Ml Syringe SUBCUT 40 mg Q24H JAMAL Administration Ferrous Gluconate 324 mg 05/25/21 18:00 05/27/21 07:53 Ferrous Gluconate 324 Mg Tablet PO 324 mg BIDWM JAMAL Administration Diltiazem HCl 125 mg/ Sodium 125 mls @ 0 mls/hr 05/25/21 14:30 05/27/21 10:10 Chloride IV 10 mg/hr .Q0M JAMAL 10 mls/hr Titration Protocol Per Protocol Dopamine HCl/Dextrose 400 mg in 250 mls @ 14.331 mls/hr 05/26/21 09:30 05/26/21 12:01 Intropin Drip IV Infused CONT JAMAL Titration Protocol 5 MCG/KG/MIN Ceftriaxone Sodium 1,000 mg/ 50 mls @ 100 mls/hr 05/26/21 18:00 05/26/21 19:15 Sodium Chloride IV Infused Q24H JAMAL Infusion Protocol Lactated Ringer's 1,000 mls @ 150 mls/hr 05/27/21 06:45 05/27/21 07:52 Lactated Ringers IV 150 mls/hr .Q6H40M JAMAL Administration Insulin Human Lispro 0 unit 05/25/21 18:00 05/27/21 07:22 Insulin Lispro 100 Unit/1 Ml SUBCUT Not Given WM&BEDTIME JAMAL Protocol Pantoprazole Sodium 40 mg 05/26/21 09:00 05/27/21 07:[address] 40 Mg Tablet PO 40 mg DAILY JAMAL Administration PFSH Anesthesia Medical History Alkaline phosphatase elevation CHF (congestive heart failure), NYHA class III COPD (chronic obstructive pulmonary disease) DM type 2 (diabetes mellitus, type 2) HTN (hypertension) Paroxysmal atrial fibrillation with RVR Severe acute respiratory syndrome coronavirus 2 (SARS-CoV-2) detected Transaminitis Surgical History H/O: hysterectomy History of ectopic Family History Mother Heart disease Father Heart disease Social History Quit status (tobacco): has quit using tobacco Year quit tobacco: Many decades ago Alcohol intake: current Alcohol intake frequency: 0-2 Drinks per Day Lives independently: Yes Household members: spouse Housing: Intermediate Marital status: Data Anesthesia : 05/27/21 08:05 05/27/21 08:05 Short CBC 05/25/21 05/26/21 05/27/21 Range/Units 11:17 04:30 08:05 WBC 16.4 H 16.6 H 12.3 H (4.0-10.0) 10^3/uL Hgb 11.6 10.9 L 10.8 L (11.5-15.3) g/dL Hct 37.8 36.3 L 35.7 L (37.0-47.0) % MCV 93.8 95.0 93.0 (81-99) fl Plt Count 321 337 319 (130-400) 10^3/cmm Neut % (Auto) 65.2 68.1 58.1 % Neut # (Auto) 10.70 H 11.28 H 7.14 (1.8-7.7) 10^3/uL BMP 05/25/21 05/25/21 05/26/21 11:17 12:52 04:30 Sodium Cancelled 141 141 Potassium Cancelled 4.0 3.7 Chloride Cancelled 98 99 Carbon Dioxide Cancelled 31 H 34 H BUN Cancelled 18 18 Creatinine Cancelled 0.7 0.7 Glucose Cancelled 111 76 Calcium Cancelled 8.1 L 8.0 L 05/27/21 08:05 Sodium 138 Potassium 4.3 Chloride 99 Carbon Dioxide 32 H BUN 18 Creatinine 0.7 Glucose 107 Calcium 8.0 L Cardiac Enzymes 05/25/21 05/25/21 05/25/21 Range/Units 11:17 11:17 12:52 Troponin T Baseline Cancelled Troponin T 120 Minute (0-10) ng/L Delta Troponin T (0-10) ABS# Troponin T Hi Sens 6Hr (0-10) ng/L Troponin T Hi Sens 6Hr Delta (0-12) ng/L NT-Pro-B Natriuret Pep Cancelled 5007 H 05/25/21 05/25/21 05/25/21 Range/Units 12:52 14:44 18:17 Troponin T Baseline 68 H Troponin T 120 Minute 69.54 H (0-10) ng/L Delta Troponin T 1.54 (0-10) ABS# Troponin T Hi Sens 6Hr 68.08 H (0-10) ng/L Troponin T Hi Sens 6Hr Delta 0.08 (0-12) ng/L NT-Pro-B Natriuret Pep Liver Function 05/25/21 05/25/21 05/26/21 Range/Units 11:17 12:52 04:30 Total Bilirubin Cancelled 0.2 0.2 AST Cancelled 22 19 ALT Cancelled 20 16 Alkaline Phosphatase Cancelled 125 H 105 Albumin Cancelled 3.1 L 2.8 L Urine 05/25/21 05/27/21 Range/Units 12:28 07:40 Urine Color Yellow Straw (Yellow) Urine Appearance Cloudy Sl hazy (CLEAR) Urine pH 5 5 (5-7) Ur Specific [place] 1.010 1.005 (1.005-1.030) Urine Protein Neg Neg (Negative) Urine Glucose (UA) Norm Norm (Normal) Urine Ketones Negative Negative (Negative) Urine Nitrate Positive H Negative (Negative) Urine Bilirubin Neg Neg (Negative) Ur Leukocyte Esterase 1+ H 2+ H (Negative) Urine RBC 0-4 H 0-4 H (0-2) /hpf Urine WBC 40-55 H 25-40 H (0-5) /hpf Blood Bank 05/27/21 08:00 Blood Type O Positive Rho(D) Type Positive Antibody Screen Negative Coags 05/25/21 14:44 D-Dimer 0.93 H Microbiology 05/25/21 12:28 Urine Culture - Preliminary Urine,Clean Catch Gram Negative Rods Cardiac Studies: Echocardiogram Ultrasound 08/27/20 Transesophageal Echocardiogram 08/28/20 Sestamibi Stress Test (Cardiology) 08/28/20
[2021-05-27 11:21] LABS: Glucose Point of Care 113 mg/dL (70-110)
--- NOTE | 2021-05-27 11:38 | PC.NURSE ---
to or via stretcher at this time
[2021-05-27] MEDS: ceFAZolin 1,000 mg SDV 1000 MG IRRIGATION (12:08)
[2021-05-27] MEDS: lidocaine 1% INJ 20 mL XX (12:39)
--- NOTE | 2021-05-27 13:02 | PM.PN ---
Subjective Subjective: Interval history: Patient is going for permanent pacemaker placement. Vitals/I&O/Wt Last Vital Signs Temp 98.2 F 05/27/21 11:27 Pulse 140 H 05/27/21 11:27 Resp 27 H 05/27/21 11:27 BP 119/73 05/27/21 11:27 Pulse Ox 93 05/27/21 11:27 05/26/21 05/27/21 05/27/21 22:59 06:59 14:59 Intake Total 443.584 / 955.250 69.000 / 1024.250 62.917 / 62.917 Output Total 0 / 445 1200 / 1645 800 / 800 Balance 443.584 / 510.250 -1131.000 / -620.750 -737.083 / -737.083 Weight last 48 hrs Weight 162 lb Weight 168 lb 8 oz Physical Exam Chest: OTHER: GENERAL: Patient is alert, awake and oriented x3. NECK: No jugular vein distension. HEENT: No cyanosis. No icterus. No pallor. HEART: Irregularly irregular S1 and S2. No murmur, rub or gallop. LUNGS: Clear to auscultate bilaterally. ABDOMEN: Soft, nontender and nondistended. Positive bowel sounds. No guarding, rebound or tenderness. CENTRAL NERVOUS SYSTEM: Grossly nonfocal. EXTREMITIES: Lower extremities without edema bilaterally. Urinary Catheter Management: Saravia: Cath Placed During This Visit: yes Reason for Continuing Indwelling Catheter: Accurate Measurement of Urinary Output in Critically Ill Patients Urinary Catheter Date of Insertion: 05/25/21 Urinary Catheter Time of Insertion: 17:45 Data : 05/27/21 08:05 05/27/21 08:05 Micro: Microbiology 05/25/21 12:28 Urine Culture - Final Urine,Clean Catch Enterobacter cloacae A&P Assessment and plan (1) Tachycardia-bradycardia syndrome: Patient began to have dual-chamber permanent pacemaker today with Dr. Wan for tachybradycardia syndrome and not able to take jean stanton or antiarrhythmic to control her difficult atrial flutter/A. fib. Patient would like to proceed with it. Status: Acute (2) CHF (congestive heart failure), NYHA class III: Well compensated. Continue current regimen Status: Acute Qualifiers: Congestive heart failure type: diastolic Congestive heart failure chronicity: chronic Qualified Code(s): I50.32 - Chronic diastolic (congestive) heart failure Attestations Medical Necessity Statement*: Patient require continuation hospitalization for above defined Coding Level of Care Code Established Pt Acute Lens Coating Technician for Az Shultz Patient Type Established History Detailed Exam Detailed Medical Decision Making Moderate Complexity Diagnoses Tachycardia-bradycardia syndrome I49.5 CHF (congestive heart failure), NYHA class III I50.32 Congestive heart failure type: diastolic Congestive heart failure chronicity: chronic
--- NOTE | 2021-05-27 14:09 | PM.OP ---
Operative Report Date of procedure: May 27, 2021 Pre-op diagnosis: Preop Diagnosis atrial fibrillation with rapid ventricular response; tachybradycardia syndrome Post-op diagnosis: same Procedure done: Dual-chamber pacemaker implantation Implants: Atrial and ventricular leads Pacing generator Pathology: none sent Surgeon: Denis Wan Surgeon: Soco Anesthesia: MAC and Local Complications: None Condition: stable Brief History: Ms. Aranda is an 81-year-old female with multiple medical issues and with presentation on May 25 of atrial fibrillation with rapid ventricular response. During therapy, she developed acute bradycardia to 30 bpm alternating with atrial fibrillation/atrial flutter and occasional sinus rhythms. Dr. Urbina feels that her tachybradycardia syndrome would be best managed with pacemaker implantation to allow for more aggressive medical management of her rapid heart rate and atrial irregularity. Rationale was carefully discussed with her. She was in agreement. Proper consents were reviewed and signed. Procedure: Procedure: Ms. Aranda was taken to the OR suite and placed in the supine position over a shoulder roll. [He/She] received conscious sedation with continuous anesthesia monitoring by. [His/Her] entire chest was sterilely prepped and draped. 1% lidocaine was infiltrated in the [left/right] subclavicular region. While in Trendelenburg position, utilizing modified seldinger technique, 2 guidewires were placed in the [left/right] subclavian vein. This was confirmed in position by fluoroscopy. Next, after infiltration with lidocaine, a subcutaneous pocket was created beginning from the exit point of the guidewire and extending laterally and inferiorly. Cautery was utilized to create the pocket just above the pectoralis musculature. Hemostasis was confirmed. An antibiotic-soaked sponge was placed in the wound. A dilator and tear-away sheath was placed over the first guidewire and advanced under fluoroscopy. Guidewire and dilator were removed. Next using a combination of curved and straight stylettes, the right ventricular lead was placed in position by fluoroscopy. The distal screw was extended. Interrogation was then performed confirming appropriate parameters. The tear-away sheath was then removed and the ventricular lead was sewn to the floor of the subcutaneous pocket. In a similar fashion dilator and tear-away sheath was placed over the 2nd guide wire and advanced under fluoroscopy. Guidewire and dilator were removed. Straight and curved stylettes were used to position the right atrial lead with fluoroscopy. Distal screw was extended. Interrogation was then performed. Tear-away sheath was then removed. Atrial lead was secured to the floor of the subcutaneous pocket. Pocket was irrigated with antibiotic solution and hemostasis again confirmed. Pacing generator was brought into the field, and after confirmation of hemostasis in the subcutaneous pocket, the leads were connected to the generator with appropriate capture. The entire system was interrogated by fluoroscopy. Leads and generator were secured in the pocket. Sponge and needle count was correct. The wound was then closed in 2 layers of 3-0 Vicryl suture. Skin was reapproximated in a subcuticular manner with 4-0 Monocryl suture. A pressure dressing was applied. The left arm was placed in a sling. The patient had equal breath sounds bilaterally. [He/She] was then transferred to the [PACU/outpatient surgery dept.], where chest x-ray is currently pending. I did counseling psychologist with the family at the completion of the procedure. Following are the specifics of this system: Right ventricular lead is 52 cm and model 5076. Serial number [id number] Right atrial lead is 45 cm and is model 5076. Serial number [id number]. Ventricular lead had sensing of 7.8 mV with an impedance of 740 ohms. Threshold was 0.4 V Atrial lead had sensing of 1.2 mV with an impedance of 410 ohms. Rhythm was atrial flutter at the time of atrial lead implantation. No threshold was obtained. [employer] generator: Model # [id number] Serial #[id number]
--- NOTE | 2021-05-27 14:37 | XR_ITS ---
WS: [id number] XR chest 1V portable [id number] REASON FOR EXAM: s/p pacemaker (perform in PACU please) FINDINGS: Pacemaker device in place over the left anterolateral chest with transvenous left subclavian leads to the right atrium and right ventricular apex. No left pneumothorax. Areas of linear atelectasis in the left lower lung. Elevation of the right hemidiaphragm with linear areas of atelectasis in the adjacent right lung. XR/XR chest 1V portable [id number] IMPRESSION: Chest appears relatively unchanged compared to 05/25/2021 with the exception of the pacemaker placement.
--- NOTE | 2021-05-27 15:07 | P.PN_ITS ---
Subjective Subjective: Interval history: No acute events overnight. Has been on Cardizem drip. Today morning seen post pacemaker placement. Tolerated procedure well. Denies any nausea vomiting, headache. at bedside. Vitals/I&O/Wt Last Vital Signs Temp 97.9 F 05/27/21 14:08 Pulse 130 H 05/27/21 14:08 Resp 18 05/27/21 14:08 BP 105/68 05/27/21 14:08 Pulse Ox 95 05/27/21 14:08 05/27/21 05/27/21 05/27/21 06:59 14:59 22:59 Intake Total 69.000 / 1024.250 468.417 / 468.417 3.167 / 471.584 Output Total 1200 / 1645 825 / 825 Balance -1131.000 / -620.750 -356.583 / -356.583 3.167 / -353.416 Weight last 48 hrs Weight 73.482 kg Weight 76.43 kg Physical Exam Narrative: EXAM NARRATIVE: General: No acute distress, AO x3, on 2 L, pleasant, hard of hearing, at bedside HEENT: PERRLA, pupils bilaterally equal and reactive Chest: Normal vesicular breath sounds, no added sounds, equal good air entry bilaterally CVS: S1-S2 irregularly irregular, no murmurs, tachycardia, no gallops, no rubs Abdomen: Soft, nontender, no organomegaly, bowel sounds present Neuro: No focal deficits, no facial deformity, AO x3, power 5/5 in all limbs Urinary Catheter Management: Saravia: Cath Placed During This Visit: yes Reason for Continuing Indwelling Catheter: Accurate Measurement of Urinary Output in Critically Ill Patients Urinary Catheter Date of Insertion: 05/25/21 Urinary Catheter Time of Insertion: 17:45 Data : 05/27/21 08:05 05/27/21 08:05 Micro: Microbiology 05/25/21 12:28 Urine Culture - Final Urine,Clean Catch Enterobacter cloacae A&P Assessment and plan (1) Tachycardia-bradycardia syndrome: Status: Acute (2) Paroxysmal atrial fibrillation with RVR: Status: Acute (3) CHF (congestive heart failure), NYHA class III: Status: Acute Qualifiers: Congestive heart failure chronicity: chronic Congestive heart failure type: diastolic Qualified Code(s): I50.32 - Chronic diastolic (congestive) heart failure (4) Acute UTI: Status: Acute (5) COPD (chronic obstructive pulmonary disease): Status: Acute Qualifiers: COPD type: unspecified COPD Qualified Code(s): J44.9 - Chronic obstructive pulmonary disease, unspecified (6) DM type 2 (diabetes mellitus, type 2): Status: Acute Plan Tachybradycardia syndrome: Post pacemaker implantation. Day 0. Atrial fibrillation with rapid ventricular response: Difficult to control in the past even with metoprolol, Cardizem, digoxin, amiodarone. Required cardioversion last time On sotalol 80 mg at home. Amiodarone discontinued in the past because of transaminitis. Continue Cardizem drip with oral Cardizem 30 mg every 6 hours. We will confirm with cardiology regarding sotalol. Most likely once the pacemaker has been implanted can plan for sotalol reinitiation. Appreciate carddiology recommendations. Gian vas score 4. Eliquis held in the past because of recurrent falls. Continue with baby aspirin. Keep potassium around 4, Mag over 2. Appreciate Dr. Wan's and Dr. Urbina's recommendation and help. Congestive heart failure: Diastolic in nature. Last echocardiogram from August 2020 showed an EF of 70%, hypertrophy of IAS, mild to moderate MR. Currently euvoluemic. Hold off on any further diuretic or fluid. Strict input output charting, daily weights. Saravia catheterization. UTI: History of UTI with Klebsiella in the past. Urine cultures and consistent with Enterobacter. Sensitive to ceftriaxone. For now continue with IV ceftriaxone once daily to finish a 5-day course COPD: No exacerbation currently. DuoNebs every 6 hour. Sleep apnea: Uses BiPAP at home. Currently not able to use at intermediate because of unavailability of parts. Continue with home settings of 20/8 nightly. Type 2 diabetes mellitus: Last A1c 5.9. Recheck HbA1c. Hold off on insulin sliding scale for now. Full code. We will request documents from [facility] regarding recent admission. Lovenox for DVT prophylaxis. Protonix for PUD prophylaxis. Cardiac diet. Attestations Medical Necessity Statement*: Requires further hospitalization for management of tachybradycardia syndrome needing pacemaker implantation, UTI Time Spent in Patient Care: Greater than 35 minutes Coding Level of Care Code Acute Civil Cadd Technician for [facility] Fwd Diagnoses Paroxysmal atrial fibrillation with RVR I48.0 CHF (congestive heart failure), NYHA class III I50.32 Congestive heart failure chronicity: chronic Congestive heart failure type: diastolic Acute UTI N39.0 COPD (chronic obstructive pulmonary disease) J44.9 COPD type: unspecified COPD DM type 2 (diabetes mellitus, type 2) E11.9 Tachycardia-bradycardia syndrome I49.5
--- NOTE | 2021-05-27 16:14 | ANE.PACU2 ---
Inpatient post-anesthesia follow up: Airway intact: Yes Vital signs: Temperature 97.9 F Pulse Rate 130 Respiratory Rate 18 Blood Pressure 105/68 Pulse Oximetry 95 Oxygen Delivery Me thod [ Nasal Cannula Current Rate & Del babar] Oxygen Delivery Me thod Nasal Cannula Oxygen Flow Rate [ Current Rate 2 & Delivery] Oxygen Flow Rate 3 Fraction of Inspir ed Oxygen 28 Hydration adequate: Yes Nausea and vomiting: No Pain level: 2 Mental status: Baseline
[2021-05-27 16:48] LABS: Glucose Point of Care 207 mg/dL (70-110)
[2021-05-27] MEDS: sotalol 80 mg Tablet PO (16:50)
[2021-05-27] MEDS: polyethylene glycol 3350 Pkt 17 gm PO (17:57)
[2021-05-27] MEDS: cefTRIAXone 1,000 MG in sodium chloride 0.9% (plus) 50 ML 100 MG IV (17:57)
[2021-05-27] MEDS: insulin lispro 100 unit/1 mL SUBCUT ×2 (17:57→21:32)
--- NOTE | 2021-05-27 19:14 | PC.NURSE ---
return from or at 1425 via bed.report received.pt is drowsy,but easily awakened.denies pain.afib on monitor..rate 130's.cardizem drip infusing at 10 mg/hr...will titrate as ordered.left upper chest pacemaker site with bulky drsg dry and intact.left arm immobilizer on.will continue to observe.
--- NOTE | 2021-05-27 19:21 | PC.NURSE ---
at 1650 sotolol 80 mg began per order dr arriaga.hr remains 130's with cardizem drip at 15mg/hr.bp stable.pt denies cp,dizziness,sob.
--- NOTE | 2021-05-27 19:51 | PC.NURSE ---
Patient requested something to to help her sleep. Notified Dr. Walden, Hospitalist. Orders received, see JUN.
[2021-05-27] MEDS: hyDROXYzine 25 mg Capsule PO (20:09)
[2021-05-27 20:40] LABS: Glucose Point of Care 266 mg/dL (70-110)
[2021-05-28] VITALS (46 sets, daily range): BP systolic 98–125; BP diastolic 42–83; PULSE 65–144; RESP 16–32; TEMP 36.5–36.6; O2SAT 90–96
[2021-05-28] MEDS: dilTIAZem 30 mg Tablet PO ×2 (02:29→10:00)
[2021-05-28] MEDS: ipratropium-albuterol 3 mL Neb INHALATION ×3 (03:17→20:52)
[2021-05-28 03:41] LABS: Basophils # 0.1 10^3/uL (0.0-0.1); Basophils % 0.5 %; Eosinophils # 0.1 10^3/uL (0.0-0.8); Eosinophils % 0.3 %; Hemoglobin 10.9 g/dL (11.5-15.3); Lymphocytes # 3.4 10^3/uL (0.8-4.8); Lymphocytes % 19.1 %; Mean Corpuscular HGB Conc 29.5 g/dL (30.0-36.0); Mean Corpuscular Hemoglobin 28.4 pg (28.0-34.0); Mean Corpuscular Volume 96.4 fl (81-99); Mean Platelet Volume 10.4 fL (7.4-10.4); Monocytes # 1.5 10^3/uL (0.2-0.9); Monocytes % 8.5 %; Neutrophils # 12.42 10^3/uL (1.8-7.7); Neutrophils % 70.5 %; Nucleated Red Blood Cells % 0 %; Platelet Count 321 10^3/cmm (130-400); Red Blood Count 3.84 10^6/uL (4.1-5.3); Red Cell Distribution Width 13.6 % (12.1-15.1); White Blood Count 17.6 10^3/uL (4.0-10.0)
[2021-05-28 04:03] LABS: Alanine Aminotransferase 12 U/L (0-33); Albumin Level 2.6 g/dL (3.5-5.2); Alkaline Phosphatase 100 IU/L (35-105); Aspartate Amino Transferase 24 U/L (0-32); Blood Urea Nitrogen 20 mg/dL (8-23); Carbon Dioxide 30 mmol/L (22-29); Chloride 103 mmol/L (98-107); Globulin 2.7 g/dL (1.3-4.6); Glucose 99 mg/dL (65-115); Osmolality Calculated 293 mOsm/kg (285-295); Sodium 140 mmol/L (136-145); Total Bilirubin 0.2 mg/dL (0.15-1.2); Total Protein 5.3 g/dL (6.6-8.7)
[2021-05-28 04:05] LABS: Anion Gap 11.6 (5-19); Potassium 4.6 mmol/L (3.5-5.1)
[2021-05-28] MEDS: sotalol 80 mg Tablet PO ×2 (04:26→16:29)
--- NOTE | 2021-05-28 06:09 | P.PN_ITS ---
Subjective Subjective: Interval history: Postop day #1 status post dual-chamber pacemaker implantation. Nurses report no concerning issues overnight. Vitals/I&O/Wt Last Vital Signs Temp 98 F 05/27/21 23:29 Pulse 90 05/28/21 05:12 Resp 24 H 05/28/21 04:00 BP 125/74 05/28/21 04:00 Pulse Ox 94 05/28/21 04:00 05/27/21 05/27/21 05/28/21 14:59 22:59 06:59 Intake Total 1468.417 / 1468.417 374.667 / 1843.084 373.334 / 2216.418 Output Total 825 / 825 700 / 1525 Balance 643.417 / 643.417 374.667 / 1018.084 -326.666 / 691.418 Weight last 48 hrs Weight 166 lb 12.8 oz Weight 162 lb Physical Exam Narrative: EXAM NARRATIVE: Bedside acute interrogation was performed with no concerns of malfunction or lead displacement noted. Nurses report heart rate continues to fluctuate between low 80s up to 120 acutely. Appears to be in atrial fibrillation at this time. Chest: OTHER: Outer pressure dressing was removed from the left subclavicular incision. The inner dressing remains in place, clean and dry. No substantial swelling or ecchymosis at the insertion site. Urinary Catheter Management: Saravia: Cath Placed During This Visit: yes Reason for Continuing Indwelling Catheter: Accurate Measurement of Urinary Output in Critically Ill Patients Urinary Catheter Date of Insertion: 05/25/21 Urinary Catheter Time of Insertion: 17:45 Data : 05/28/21 02:30 05/28/21 02:30 Micro: Microbiology 05/25/21 12:28 Urine Culture - Final Urine,Clean Catch Enterobacter cloacae A&P Assessment and plan (1) Status post placement of cardiac pacemaker: Postop day #1 status post dual-chamber pacemaker implantation. Acute interrogation reveals appropriate function. Medical management for tachycardia continues. Status: Acute Attestations Medical Necessity Statement*: POD #1 status post dual-chamber pacemaker implantation. Coding Level of Care Code Acute Infectious Waste Technician for [facility] Fwd Diagnoses Status post placement of cardiac pacemaker Z95.0
[2021-05-28 06:28] LABS: Glucose Point of Care 98 mg/dL (70-110)
--- NOTE | 2021-05-28 08:47 | PC.CHAP ---
Pastoral Care Encounter/Spiritual Assessment Type of Contact [] Declined transport nurse visit [] Patient/Family/Request visit [] Outpatient visit [] Follow-up visit [] Physician referral [] Code/Alert [x] Routine visit [] Staff referral [] Actively dying [] Patient sleeping [] Family support [] [] Out of room [] Palliative care [] [] Receiving care in room [] Pre-surgical visit [] Trauma [] Long length of stay [] ICU visit [] Other: Relational/Emotional Strength [] Patient feels connected with others/family/visitors/staff [] Distress [] Loneliness/isolation [] Abandonment Spirituality of Patient [] Person of Sudha [] Attends Oriental Orthodox of their Sudha [] Believes in Prayer [] Reads Bible or Alevism materials [] There are Spiritual issues to be addressed [employer] Interventions [] Prayer [] Active listening [x] Non-anxious presence [x] Spiritual/emotional support [] Crisis/trauma care [] Spiritual counseling [] Bereavement support [] Provided bereavement packet [] Provided Bible/devotional materials [] Provided toy/stuffed animal, coloring book to patient or family member [] Provided Communion [] Anointing/Boyd [] Salvation [] Completed spiritual assessment [] Other: Impact on Illness or Injury [] Angry [] Fearful [] Anxious [] Often cries [] Exhaustion [] Unable to work [] Unable to attend religious [] Unable to walk/stand [] Unable to read [] Unable to drive [] Unable to eat/drink [] Unable to sleep [] Unable to be with family [] Patient intubated [] Other: Summary Attempted transport nurse visit. Pt extremely hard hearing. She said she had not put in her hearing aids this morning. [employer] R[employer] spoke as loud as possible and Pt still could not hear what was being said. She could not read lips due to masking. Time spent with patient 5<
[2021-05-28] MEDS: pantoprazole DR 40 mg Tablet PO (10:00)
[2021-05-28] MEDS: aspirin 81 mg EC Tablet PO (10:00)
[2021-05-28] MEDS: ferrous gluconate 324 mg Tablet PO ×2 (10:00→17:48)
--- NOTE | 2021-05-28 10:02 | PC.SOCIAL ---
IMM update IMM updated with patient. Copy Pg 2 provided. Verbalized an understanding. Initialled, dated, timed, and placed in chart.
[2021-05-28 11:57] LABS: Glucose Point of Care 217 mg/dL (70-110)
[2021-05-28] MEDS: insulin lispro 100 unit/1 mL SUBCUT ×3 (12:09→20:24)
--- NOTE | 2021-05-28 12:44 | PM.PN ---
Subjective Subjective: Interval history: Patient is status post permanent placement for tachybradycardia syndrome, heart rate is not under control she is in A. fib Vitals/I&O/Wt Last Vital Signs Temp 98 F 05/27/21 23:29 Pulse 73 05/28/21 09:45 Resp 24 H 05/28/21 09:45 BP 107/52 05/28/21 09:45 Pulse Ox 96 05/28/21 09:45 05/27/21 05/28/21 05/28/21 22:59 06:59 14:59 Intake Total 374.667 / 1843.084 379.834 / 2222.918 260.833 / 260.833 Output Total 700 / 1525 Balance 374.667 / 1018.084 -320.166 / 697.918 260.833 / 260.833 Weight last 48 hrs Weight 166 lb 12.8 oz Weight 162 lb Physical Exam Chest: OTHER: GENERAL: Patient is alert, awake and oriented x3. NECK: No jugular vein distension. HEENT: No cyanosis. No icterus. No pallor. HEART: Irregularly irregularS1 and S2. No murmur, rub or gallop. LUNGS: Clear to auscultate bilaterally. ABDOMEN: Soft, nontender and nondistended. Positive bowel sounds. No guarding, rebound or tenderness. [] CENTRAL NERVOUS SYSTEM: Grossly nonfocal. EXTREMITIES: Lower extremities without edema bilaterally. Urinary Catheter Management: Saravia: Cath Placed During This Visit: yes Reason for Continuing Indwelling Catheter: Accurate Measurement of Urinary Output in Critically Ill Patients Urinary Catheter Date of Insertion: 05/25/21 Urinary Catheter Time of Insertion: 17:45 Data : 05/28/21 02:30 05/28/21 02:30 Micro: Microbiology 05/27/21 07:40 Urine Culture - Preliminary Urine,Clean Catch 05/25/21 12:28 Urine Culture - Final Urine,Clean Catch Enterobacter cloacae A&P Assessment and plan (1) Status post placement of cardiac pacemaker: Status post permanent pacemaker placement dual-chamber. Patient has been started on sotalol Status: Acute (2) CHF (congestive heart failure), NYHA class III: Well compensated continue medicine to Status: Acute Qualifiers: Congestive heart failure type: diastolic Congestive heart failure chronicity: chronic Qualified Code(s): I50.32 - Chronic diastolic (congestive) heart failure (3) Atrial fibrillation and flutter: Patient heart rate is not well controlled I will add Cardizem 120 mg will continue sotalol 80 mg twice daily. We will try to control the heart rate with best approach to convert her into sinus rhythm. 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
[2021-05-28] MEDS: dilTIAZem ER (24HR) 120 mg Capsule PO (14:15)
--- NOTE | 2021-05-28 16:25 | PM.PN ---
Subjective Subjective: Interval history: Patient was seen this morning, she remains in A. fib, she is alert oriented x3, currently complaining of a binder that she is in after pacemaker placement, no fevers, chills, nausea, vomiting, she continues to be in A. fib, having episodes of tachycardia Vitals/I&O/Wt Last Vital Signs Temp 98 F 05/27/21 23:29 Pulse 140 H 05/28/21 15:31 Resp 24 H 05/28/21 15:31 BP 125/69 05/28/21 15:31 Pulse Ox 96 05/28/21 15:31 05/28/21 05/28/21 05/28/21 06:59 14:59 22:59 Intake Total 379.834 / 2222.918 620.833 / 620.833 Output Total 700 / 1525 Balance -320.166 / 697.918 620.833 / 620.833 Weight last 48 hrs Weight 75.659 kg Weight 73.482 kg Physical Exam Const: COMMON NORMALS: no acute distress and patient oriented x3 Chest: OTHER: Pacemaker in place Chest binder in place Resp: COMMON NORMALS: normal respiratory effort, No retractions, No use of accessory muscles and clear to auscultation bilaterally AUSCULTATION: clear to auscultation bilaterally Cardio: COMMON NORMALS: S1 normal heart sound present and S2 normal heart sound present RATE: tachycardic RHYTHM: abnormal rhythm irregularly irregular HEART SOUNDS: S1 normal heart sound present and S2 normal heart sound present GI: COMMON NORMALS: Normal to inspection, nondistended, normoactive bowel sounds present, Soft to palpation, non-tender, No hepatosplenomegaly present, no masses and no bruits PALPATION: Yes Soft to palpation and Yes No hepatosplenomegaly present Extremity: COMMON NORMALS: no pedal edema Neuro: COMMON NORMALS: patient oriented x3 Psych: COMMON NORMALS: mental status grossly normal Urinary Catheter Management: Saravia: Cath Placed During This Visit: yes Reason for Continuing Indwelling Catheter: Accurate Measurement of Urinary Output in Critically Ill Patients Urinary Catheter Date of Insertion: 05/25/21 Urinary Catheter Time of Insertion: 17:45 Data : 05/28/21 02:30 05/28/21 02:30 Micro: Microbiology 05/27/21 07:40 Urine Culture - Preliminary Urine,Clean Catch 05/25/21 12:28 Urine Culture - Final Urine,Clean Catch Enterobacter cloacae A&P Assessment and plan (1) Tachycardia-bradycardia syndrome: Status: Acute (2) Paroxysmal atrial fibrillation with RVR: Status: Acute (3) CHF (congestive heart failure), NYHA class III: Status: Acute Qualifiers: Congestive heart failure type: diastolic Congestive heart failure chronicity: chronic Qualified Code(s): I50.32 - Chronic diastolic (congestive) heart failure (4) Acute UTI: Status: Acute (5) COPD (chronic obstructive pulmonary disease): Status: Acute Qualifiers: COPD type: unspecified COPD Qualified Code(s): J44.9 - Chronic obstructive pulmonary disease, unspecified (6) DM type 2 (diabetes mellitus, type 2): Status: Acute Plan Tachybradycardia syndrome: Post pacemaker implantation day 1 Anticoagulation to be resumed as per cardiothoracic recommendations Atrial fibrillation with rapid ventricular response: Difficult to control in the past even with metoprolol, Cardizem, digoxin, amiodarone. Required cardioversion last time On sotalol 80 mg at home. Amiodarone discontinued in the past because of transaminitis. Currently on sotalol 80 twice daily, 120 mg daily Appreciate carddiology recommendations. Gian vas score 4. Eliquis held in the past because of recurrent falls. Continue with baby aspirin. Keep potassium around 4, Mag over 2. Appreciate Dr. Wan's and Dr. Urbina's recommendation and help. Congestive heart failure: Diastolic in nature. Last echocardiogram from August 2020 showed an EF of 70%, hypertrophy of IAS, mild to moderate MR. Currently euvoluemic. Hold off on any further diuretic or fluid. Strict input output charting, daily weights. Saravia catheterization. UTI: History of UTI with Klebsiella in the past. Urine cultures and consistent with Enterobacter. Sensitive to ceftriaxone. For now continue with IV ceftriaxone once daily to finish a 5-day course COPD: No exacerbation currently. DuoNebs every 6 hour. Sleep apnea: Uses BiPAP at home. Currently not able to use at assisted because of unavailability of parts. Continue with home settings of 20/8 nightly. Type 2 diabetes mellitus: Last A1c 5.9. Recheck HbA1c. Hold off on insulin sliding scale for now. Full code. We will request documents from [facility] regarding recent admission. Lovenox for DVT prophylaxis. Protonix for PUD prophylaxis. Cardiac diet. Attestations Medical Necessity Statement*: Patient requires hospitalization for A. fib with RVR, continue tachycardia Coding Level of Care Code Acute Greenhouse Laborer for [facility] Fwd Diagnoses Tachycardia-bradycardia syndrome I49.5 Paroxysmal atrial fibrillation with RVR I48.0 CHF (congestive heart failure), NYHA class III I50.32 Congestive heart failure type: diastolic Congestive heart failure chronicity: chronic Acute UTI N39.0 COPD (chronic obstructive pulmonary disease) J44.9 COPD type: unspecified COPD DM type 2 (diabetes mellitus, type 2) E11.9
[2021-05-28 16:39] LABS: Glucose Point of Care 144 mg/dL (70-110)
[2021-05-28 17:33] LABS: SARS Covid-2 Antigen Negative (Negative)
[2021-05-28] MEDS: metoprolol tartrate 1 mg/1 mL SDV 5 mL 5 MG IVP (18:25)
[2021-05-28] MEDS: cefTRIAXone 1,000 MG in sodium chloride 0.9% (plus) 50 ML 100 MG IV (20:10)
[2021-05-28] MEDS: hyDROXYzine 25 mg Capsule PO (20:10)
[2021-05-28 20:25] LABS: Glucose Point of Care 228 mg/dL (70-110)
[2021-05-29] VITALS (13 sets, daily range): BP systolic 105–149; BP diastolic 69–98; PULSE 69–136; RESP 17–27; TEMP 36.2–36.9; O2SAT 94–100; BMI 29.5
[2021-05-29] MEDS: metoprolol tartrate 1 mg/1 mL SDV 5 mL 5 MG IVP ×2 (01:22→07:15)
[2021-05-29] MEDS: acetaminophen 325 mg Tablet 650 MG PO (01:22)
[2021-05-29 03:39] LABS: Basophils % 0.3 %; Eosinophils # 0.1 10^3/uL (0.0-0.8); Eosinophils % 0.4 %; Hematocrit 34.3 % (37.0-47.0); Hemoglobin 10.1 g/dL (11.5-15.3); Lymphocytes # 3.7 10^3/uL (0.8-4.8); Lymphocytes % 25.8 %; Mean Corpuscular HGB Conc 29.4 g/dL (30.0-36.0); Mean Corpuscular Hemoglobin 28.2 pg (28.0-34.0); Mean Corpuscular Volume 95.8 fl (81-99); Mean Platelet Volume 10.4 fL (7.4-10.4); Monocytes # 1.6 10^3/uL (0.2-0.9); Monocytes % 10.7 %; Neutrophils # 9.01 10^3/uL (1.8-7.7); Nucleated Red Blood Cells % 0 %; Platelet Count 282 10^3/cmm (130-400); Red Blood Count 3.58 10^6/uL (4.1-5.3); Red Cell Distribution Width 13.6 % (12.1-15.1); White Blood Count 14.5 10^3/uL (4.0-10.0)
[2021-05-29 04:14] LABS: NT Pro B Type Natriuretic Pept 7974 pg/mL (0-450); Procalcitonin 0.08 ng/mL (0-0.5)
[2021-05-29 04:27] LABS: Alanine Aminotransferase 10 U/L (0-33); Albumin Level 2.7 g/dL (3.5-5.2); Alkaline Phosphatase 99 IU/L (35-105); Anion Gap 14.7 (5-19); Aspartate Amino Transferase 17 U/L (0-32); Blood Urea Nitrogen 20 mg/dL (8-23); C Reactive Protein 22.1 mg/L (0.0-4.9); Calcium 8.5 mg/dL (8.5-10.5); Carbon Dioxide 29 mmol/L (22-29); Chloride 102 mmol/L (98-107); Globulin 2.7 g/dL (1.3-4.6); Glucose 118 mg/dL (65-115); Magnesium 1.9 mg/dL (1.7-2.3); Osmolality Calculated 296 mOsm/kg (285-295); Phosphorus 3.2 mg/dL (2.5-4.5); Potassium 4.7 mmol/L (3.5-5.1); Sodium 141 mmol/L (136-145); Total Bilirubin 0.2 mg/dL (0.15-1.2); Total Protein 5.4 g/dL (6.6-8.7)
[2021-05-29 06:38] LABS: Glucose Point of Care 125 mg/dL (70-110)
--- NOTE | 2021-05-29 07:00 | XR_ITS ---
WS: [id number] XR chest 1V portable [id number] REASON FOR EXAM: sob FINDINGS: Increasing opacity of the right lower hemithorax compared to the previous examination of 05/27/2021. T his has the appearance of pleural fluid. There may be interstitial opacities within the underlying ri ght lung. Increased opacification in the left lower lung field with obscuration of the left hemidiaphragmatic c ontour. Consolidation/atelectasis. XR/XR chest 1V portable [id number] IMPRESSION: There appears to be increasing pleural effusion in the right chest and consolid ation in the left lower lung compared with the previous examination of 2.
[2021-05-29] MEDS: sotalol 80 mg Tablet PO ×2 (07:15→17:17)
[2021-05-29] MEDS: ferrous gluconate 324 mg Tablet PO ×2 (08:38→17:17)
[2021-05-29] MEDS: aspirin 81 mg EC Tablet PO (08:39)
[2021-05-29] MEDS: dilTIAZem ER (24HR) 120 mg Capsule PO (08:39)
[2021-05-29] MEDS: pantoprazole DR 40 mg Tablet PO (08:39)
--- NOTE | 2021-05-29 10:14 | PC.OT ---
OT EVALUATION ORDERS RECIEVED. PATIENT HR IS 132 WHILE SLEEPING; WILL HOLD AND CHECK THIS AFTERNOON.
[2021-05-29 11:29] LABS: Glucose Point of Care 217 mg/dL (70-110)
[2021-05-29] MEDS: insulin lispro 100 unit/1 mL SUBCUT ×3 (12:55→21:58)
--- NOTE | 2021-05-29 13:20 | PC.OT ---
PATIENT'S HR CONTINUES TO RANGE FROM 130-132. WILL HOLD OT FOR TODAY DUE TO THIS; NURSING INFORMED
--- NOTE | 2021-05-29 14:01 | PM.PN ---
Subjective Subjective: Interval history: Patient was seen this morning, her heart rates in the 130s, A. fib, denies any chest pain, no shortness of breath, she is a bit frustrated about her continued A. fib Vitals/I&O/Wt Last Vital Signs Temp 98.5 F 05/29/21 10:49 Pulse 83 05/29/21 13:54 Resp 26 H 05/29/21 13:54 BP 118/77 05/29/21 13:54 Pulse Ox 98 05/29/21 13:54 05/28/21 05/29/21 05/29/21 22:59 06:59 14:59 Intake Total 350 / 970.833 150 / 1120.833 Output Total 760 / 760 450 / 1210 Balance -410 / 210.833 -300 / -89.167 Weight last 48 hrs Weight 75.659 kg Weight 75.659 kg Physical Exam Const: COMMON NORMALS: no acute distress and patient oriented x3 Resp: COMMON NORMALS: normal respiratory effort, No retractions, No use of accessory muscles and clear to auscultation bilaterally AUSCULTATION: clear to auscultation bilaterally Cardio: COMMON NORMALS: S1 normal heart sound present and S2 normal heart sound present RATE: tachycardic RHYTHM: abnormal rhythm irregularly irregular HEART SOUNDS: S1 normal heart sound present and S2 normal heart sound present GI: COMMON NORMALS: Normal to inspection, nondistended, normoactive bowel sounds present, Soft to palpation, non-tender and No hepatosplenomegaly present PALPATION: Yes Soft to palpation and Yes No hepatosplenomegaly present Extremity: COMMON NORMALS: capillary refill normal, no clubbing, cyanosis or edema, no calf tenderness and no pedal edema Neuro: COMMON NORMALS: patient oriented x3 Psych: COMMON NORMALS: mental status grossly normal Urinary Catheter Management: Saravia: Cath Placed During This Visit: yes Reason for Continuing Indwelling Catheter: Acute Urinary Retention or Obstruction Urinary Catheter Date of Insertion: 05/25/21 Urinary Catheter Time of Insertion: 17:45 Data : 05/29/21 02:43 05/29/21 02:43 Micro: Microbiology 05/27/21 07:40 Urine Culture - Final Urine,Clean Catch A&P Assessment and plan (1) Tachycardia-bradycardia syndrome: Status: Acute (2) Paroxysmal atrial fibrillation with RVR: Status: Acute (3) CHF (congestive heart failure), NYHA class III: Status: Acute Qualifiers: Congestive heart failure type: diastolic Congestive heart failure chronicity: chronic Qualified Code(s): I50.32 - Chronic diastolic (congestive) heart failure (4) Acute UTI: Status: Acute (5) COPD (chronic obstructive pulmonary disease): Status: Acute Qualifiers: COPD type: unspecified COPD Qualified Code(s): J44.9 - Chronic obstructive pulmonary disease, unspecified (6) DM type 2 (diabetes mellitus, type 2): Status: Acute Plan Tachybradycardia syndrome: Post pacemaker implantation day 1 Anticoagulation to be resumed as per cardiothoracic recommendations Atrial fibrillation with rapid ventricular response: Difficult to control in the past even with metoprolol, Cardizem, digoxin, amiodarone. Required cardioversion last time On sotalol 80 mg at home. Amiodarone discontinued in the past because of transaminitis. Currently on sotalol 80 twice daily, 120 mg daily Appreciate carddiology recommendations. Gian vas score 4. Eliquis held in the past because of recurrent falls. Start Eliquis 5 mg twice daily tonight Keep potassium around 4, Mag over 2. Appreciate Dr. Wan's and Dr. Urbina's recommendation and help. Congestive heart failure: Diastolic in nature. Last echocardiogram from August 2020 showed an EF of 70%, hypertrophy of IAS, mild to moderate MR. Currently euvoluemic. Hold off on any further diuretic or fluid. Strict input output charting, daily weights. Saravia catheterization. UTI: History of UTI with Klebsiella in the past. Urine cultures and consistent with Enterobacter. Sensitive to ceftriaxone. For now continue with IV ceftriaxone once daily to finish a 5-day course COPD: No exacerbation currently. DuoNebs every 6 hour. Sleep apnea: Uses BiPAP at home. Currently not able to use at prison because of unavailability of parts. Continue with home settings of 20/8 nightly. Type 2 diabetes mellitus: HbA1c 6.5 Start insulin sliding scale Full code. Lovenox for DVT prophylaxis. Protonix for PUD prophylaxis. Cardiac diet. Attestations Medical Necessity Statement*: Patient requires hospitalization for atrial fibrillation, heart rates in the 130s, better rate control Coding Level of Care Code Acute Bolting Machine Operator for [facility] Diagnoses Tachycardia-bradycardia syndrome I49.5 Paroxysmal atrial fibrillation with RVR I48.0 CHF (congestive heart failure), NYHA class III I50.32 Congestive heart failure type: diastolic Congestive heart failure chronicity: chronic Acute UTI N39.0 COPD (chronic obstructive pulmonary disease) J44.9 COPD type: unspecified COPD DM type 2 (diabetes mellitus, type 2) E11.9
--- NOTE | 2021-05-29 16:28 | P.PN_ITS ---
Subjective Subjective: Interval history: Heart rate is under control around 70 with intermittent pacemaker intervention, Vitals/I&O/Wt Last Vital Signs Temp 98.5 F 05/29/21 10:49 Pulse 83 05/29/21 14:36 Resp 20 H 05/29/21 14:36 BP 118/77 05/29/21 13:54 Pulse Ox 100 05/29/21 14:36 05/29/21 05/29/21 05/29/21 06:59 14:59 22:59 Intake Total 150 / 1120.833 Output Total 450 / 1210 Balance -300 / -89.167 Weight last 48 hrs Weight 166 lb 12.8 oz Weight 166 lb 12.8 oz Physical Exam Chest: OTHER: GENERAL: Patient is alert, awake and oriented x3. She says she is sleepy fatigue and lethargic NECK: No jugular vein distension. HEENT: No cyanosis. No icterus. No pallor. HEART: Irregularly irregularS1 and S2. No murmur, rub or gallop. LUNGS: Clear to auscultate bilaterally. ABDOMEN: Soft, nontender and nondistended. Positive bowel sounds. No guarding, rebound or tenderness. [] CENTRAL NERVOUS SYSTEM: Grossly nonfocal. EXTREMITIES: Lower extremities without edema bilaterally. Urinary Catheter Management: Saravia: Cath Placed During This Visit: yes Reason for Continuing Indwelling Catheter: Acute Urinary Retention or Obstruction Urinary Catheter Date of Insertion: 05/25/21 Urinary Catheter Time of Insertion: 17:45 Data : 05/29/21 02:43 05/29/21 02:43 Micro: Microbiology 05/27/21 07:40 Urine Culture - Final Urine,Clean Catch A&P Assessment and plan (1) Status post placement of cardiac pacemaker: Status post permanent pacemaker placement dual-chamber. Patient has been started on sotalol Patient has intermittent more frequent pacemaker intervention with impression of some inappropriate intervention I may will ask for pacemaker interrogation at the same time I will hold calcium channel stanton Status: Acute (2) CHF (congestive heart failure), NYHA class III: Well compensated continue medicine to Status: Acute Qualifiers: Congestive heart failure type: diastolic Congestive heart failure chronicity: chronic Qualified Code(s): I50.32 - Chronic diastolic (congestive) heart failure (3) Atrial fibrillation and flutter: Continue sotalol discontinue Cardizem. Status: Acute Attestations Medical Necessity Statement*: Patient require continuation hospitalization for above defined care. 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
[2021-05-29 16:32] LABS: Glucose Point of Care 183 mg/dL (70-110)
[2021-05-29] MEDS: cefTRIAXone 1,000 MG in sodium chloride 0.9% (plus) 50 ML 100 MG IV (20:03)
[2021-05-29] MEDS: apixaban 5 mg Tablet PO (20:03)
--- NOTE | 2021-05-29 20:26 | PC.NURSE ---
Patient lethargic and refusing to take PO Eliquis. Patient sternal rubbed and moaned at me. Dr. Walden came to see patient and patient stated that she wanted us to leave her alone. Patient was able to move legs and chief data officer on command. Patient educated on need for Eliquis and took it.
[2021-05-29 21:19] LABS: Glucose Point of Care 155 mg/dL (70-110)
--- NOTE | 2021-05-29 22:14 | PC.NURSE ---
Patient was asked if she wanted her door closed x3. Patient did not respond. Nurse went to shut patient's door and patient yelled loudly at nurse, you leave that door open.
--- NOTE | 2021-05-29 22:29 | PC.NURSE ---
Patient refusing to turn on side to allow nurse to assess sacrum.
[2021-05-30] VITALS (26 sets, daily range): BP systolic 93–139; BP diastolic 45–85; PULSE 66–121; RESP 16–33; TEMP 36.6–37.2; O2SAT 93–100
[2021-05-30 03:44] LABS: Basophils # 0.1 10^3/uL (0.0-0.1); Basophils % 0.6 %; Eosinophils % 0.1 %; Lymphocytes # 3.3 10^3/uL (0.8-4.8); Lymphocytes % 18.4 %; Mean Corpuscular HGB Conc 28.2 g/dL (30.0-36.0); Mean Corpuscular Hemoglobin 28.6 pg (28.0-34.0); Mean Corpuscular Volume 101.3 fl (81-99); Mean Platelet Volume 10.1 fL (7.4-10.4); Monocytes # 1.5 10^3/uL (0.2-0.9); Monocytes % 8.3 %; Neutrophils # 12.43 10^3/uL (1.8-7.7); Neutrophils % 69.7 %; Nucleated Red Blood Cells % 0 %; Platelet Count 303 10^3/cmm (130-400); Red Blood Count 3.85 10^6/uL (4.1-5.3); Red Cell Distribution Width 13.6 % (12.1-15.1); White Blood Count 17.8 10^3/uL (4.0-10.0)
[2021-05-30 04:21] LABS: NT Pro B Type Natriuretic Pept 11032 pg/mL (0-450); Procalcitonin 0.08 ng/mL (0-0.5)
--- NOTE | 2021-05-30 04:25 | PC.NURSE ---
Addendum entered by Shayla Singh RN 05/30/21 04:26: Patient educated on importance of taking Sotalol. Patient did not respond to education. Dr. Walden notified. Original Note: Patient refusing PO Sotalol at this time. Will attempt again later.
[2021-05-30 04:30] LABS: Alanine Aminotransferase 19 U/L (0-33); Alkaline Phosphatase 162 IU/L (35-105); Anion Gap 9.8 (5-19); Aspartate Amino Transferase 37 U/L (0-32); Blood Urea Nitrogen 28 mg/dL (8-23); Calcium 8.1 mg/dL (8.5-10.5); Carbon Dioxide 34 mmol/L (22-29); Chloride 103 mmol/L (98-107); Globulin 2.8 g/dL (1.3-4.6); Glucose 198 mg/dL (65-115); Magnesium 2.2 mg/dL (1.7-2.3); Osmolality Calculated 303 mOsm/kg (285-295); Phosphorus 4.6 mg/dL (2.5-4.5); Potassium 5.8 mmol/L (3.5-5.1); Sodium 141 mmol/L (136-145); Total Bilirubin 0.2 mg/dL (0.15-1.2); Total Protein 5.8 g/dL (6.6-8.7)
[2021-05-30 06:36] LABS: Glucose Point of Care 203 mg/dL (70-110)
--- NOTE | 2021-05-30 07:00 | PC.NURSE ---
during bedside report patient resting with eyes closed patient arousable with touch patient opened eyes but did not speak
--- NOTE | 2021-05-30 08:49 | PC.NURSE ---
bedside rounding with Dr fountain reported patient had a night of telling other to just leave her alone and she was hard to arouse Dr fountain and this nurse attempted to wake patient with touch voice and painful stimuli patient remains unresponsive Bi pap placed and orders recieved to obtain blood gas stat and give narcan
[2021-05-30 08:58] LABS: Glucose Point of Care 217 mg/dL (70-110)
--- NOTE | 2021-05-30 09:13 | XR_ITS ---
WS: [id number] PORTABLE CHEST HISTORY: intubation COMPARISON: 05/29/2021 Endotracheal tube and nasogastric tubes are in good position. RIGHT central line has been inserted. T he tip of the RIGHT central line has probably within the RIGHT atrium. Suggest retracting 2 to 3 cm. Hazy opacifications over both lungs. Slightly better aeration throughout the LEFT lung. Increasing alberts ziness at the RIGHT lung base. Small RIGHT pleural effusion. Effusion has probably improved since the prior study. No pneumothorax. No pneumopericardium. Cardiac size: Partially obscured by the airspace disease in the RIGHT lung. Mediastinum/Aorta: Mild atherosclerosis aorta. No osseous abnormality seen. XR/XR chest 1V portable [id number] IMPRESSION: 1. Endotracheal and nasogastric tubes are in good position. 2. RIGHT IJ line has been placed. The tip is probably in the RIGHT atrium. Sug gest retracting 2 to 3 cm for more optimal positioning. 3. There are aeration throughout the LEFT lower lung field. 4. Small RIGHT pleural effusion with slightly better aeration at the RIGHT jessica g base.
--- NOTE | 2021-05-30 09:21 | ANES.PROC ---
Anesthesia Procedures Procedure/Date: 05/30/21 Intubation: Time Out Performed: No Consent: emergency procedure Sedative (amount): other (propofol) Paralytic (amount): rocuronium Laryngoscope: Joyce (3.5) ET Tube Size: 7.5 ET Tube Uncuffed: Yes Tube Secured Depth (cm): 22 Tube Secured Location: teeth Tube Placement Confirmation: visualized tube passing through cords, equal breath sounds bilaterally, no breath sounds over epigastrium and color change noted Patient Tolerated Procedure: well and no complications Intubation Complications: none Additional Comments: Emergent intubation on floor after rapid response.
--- NOTE | 2021-05-30 09:41 | PC.NURSE ---
rapid response called patient intubated stabilized and transferred to ICU 5
--- NOTE | 2021-05-30 09:41 | PC.CHAP ---
Pastoral Care Encounter/Spiritual Assessment Type of Contact [] Declined mcat tutor visit [] Patient/Family/Request visit [] Outpatient visit [] Follow-up visit [] Physician referral [] Code/Alert [x] Routine visit [] Staff referral [] Actively dying [] Patient sleeping [] Family support [] [] Out of room [] Palliative care [] [] Receiving care in room [] Pre-surgical visit [] Trauma [] Long length of stay [x] ICU visit [x] Other: vent.. moved from Card.stepdown #108 Relational/Emotional Strength [] Patient feels connected with others/family/visitors/staff [] Distress [] Loneliness/isolation [] Abandonment Spirituality of Patient [] Person of Sudha [] Attends Anglican of their Sudha [] Believes in Prayer [] Reads Bible or Episcopal materials [] There are Spiritual issues to be addressed Criminology Teacher Interventions [x] Prayer [] Active listening [] Non-anxious presence [] Spiritual/emotional support [] Crisis/trauma care [] Spiritual counseling [] Bereavement support [] Provided bereavement packet [] Provided Bible/devotional materials [] Provided toy/stuffed animal, coloring book to patient or family member [] Provided Communion [] Anointing/Eighty Four [] Salvation [x] Completed spiritual assessment [] Other: Impact on Illness or Injury [] Angry [] Fearful [] Anxious [] Often cries [] Exhaustion [] Unable to work [] Unable to attend zoroastrianism [] Unable to walk/stand [] Unable to read [] Unable to drive [] Unable to eat/drink [] Unable to sleep [] Unable to be with family [] Patient intubated [] Other: Summary Time spent with patient
[2021-05-30 09:47] LABS: ABG PCO2 47.2 mmHg (35-45); ABG PH Result 7.43 (7.35-7.45); Alveolar-Arterial Oxygen Gradi 49.9 mmHg (5-10); Arterial Blood Gas Hematocrit 31.5 % (37-47); Base Excess ABG 5.8 mmol/L (-2.0-2.0); Blood Gas Allen Test Pos; Blood Gas Operator Identificat CAAK; Blood Gas Sample Site Radial, left; Blood Gas Sample Type Arterial; Blood Gas Tidal Volume 0.45; Carboxyhemoglobin 0.6 %THgb (0.4-20.1); HGB O2 Sat 98.8 % (95-100); Ionized Calcium Level - ABG 1.2 mmol/L (1.1-1.4); Oxygen Device VENT; Oxygen Saturation ABG > 100.0; Potassium Level - ABG 5.7 mmol/L (3.5-5.0); Total Hemoglobin 10.3 g/dL (12-16)
--- NOTE | 2021-05-30 10:58 | PC.SOCIAL ---
IMM not updated IMM not updated as patient is now intubated and not expected to DC in the next 24-48 hours.
[2021-05-30] MEDS: sotalol 80 mg Tablet PO ×2 (11:09→18:08)
[2021-05-30] MEDS: FUROsemide 10 mg/mL SDV 4mL 40 MG IVP ×2 (11:10→18:07)
[2021-05-30] MEDS: dilTIAZem ER (24HR) 120 mg Capsule PO (11:10)
[2021-05-30] MEDS: polyethylene glycol 3350 Pkt 17 gm PO ×2 (11:10→18:08)
[2021-05-30] MEDS: aspirin 81 mg EC Tablet PO (11:10)
[2021-05-30] MEDS: pantoprazole DR 40 mg Tablet PO (11:10)
[2021-05-30] MEDS: ferrous gluconate 324 mg Tablet PO ×2 (11:10→18:07)
[2021-05-30] MEDS: insulin regular-human 10 UNIT in SYRINGE 1 EACH 2 UNIT IVP (11:11)
[2021-05-30] MEDS: dextrose 50% syringe 50 mL IVP (11:11)
[2021-05-30 11:22] LABS: Glucose Point of Care 243 mg/dL (70-110)
--- NOTE | 2021-05-30 11:43 | CT_ITS ---
WS: [id number] CT HEAD NONCONTRAST HISTORY: ams TECHNIQUE: Contiguous axial imaging performed through the brain in 2.5 mm imaging. Bone and soft tiss ue windows. Sagittal and coronal reformats reviewed. All CT scans at [facility] use at least one of these dose optimization techniques: automated exposure control; mA and/or kV adjustment per pa tient size (includes targeted exams where dose is matched to clinical indication); or iterative recon struction. DLP: 936.22 mGy.cm COMPARISON: None available. No acute intracranial hemorrhage, midline shift or mass effect. Mild bilateral atrophy and mild chronic microvascular ischemic disease. No focal area of sulcal effac ement. There is also mild bilateral cerebellar atrophy. Ventricles: Ventricles are mildly dilated overall from the atrophy. No inferior displacement of cerebellar tonsils. Paranasal sinuses: Very tiny air-fluid level in the LEFT maxillary sinus. Mastoid air cells: Extensive consolidation of the LEFT mastoid air cells. Increased fluid throughout the mastoid air cells. The RIGHT mastoid air cells are nearly normally aerated. Calvarium and scalp: Skull is intact with no soft tissue edema or swelling. CT/CT head wo con* [id number] IMPRESSION: 1. No acute intracranial hemorrhage or edema. 2. Mild atrophy and chronic ischemic disease. 3. Mild ventriculomegaly from the atrophy.
--- NOTE | 2021-05-30 12:37 | PC.OT ---
OT EVALUATION HELD DUE TO RAPID RESPONSE AND TRANSFER TO ICU.
--- NOTE | 2021-05-30 13:16 | CT_ITS ---
WS: [id number] CT chest wo con [id number] REASON FOR EXAM: aspiration IV CONTRAST ADMINISTERED: Noncontrast TOTAL EXAM DLP: 1042.[address] scans at [facility] use at least one of these dose optimization techniques: automat ed exposure control; mA and/or kV adjustment per patient size (includes targeted exams where dose is matched to clinical indication); or iterative reconstruction. FINDINGS: Compared to the previous examination of 05/25/2021, the patient has developed bilateral pleural effusi ons, small on the left, moderate on the right. The consolidative opacities in the right lower lobe posteriorly, have not changed significantly. The consolidative opacities in the left lower lung have increased in volume with air bronchograms now evident. No lung opacities to suggest pulmonary edema. No other significant interval change in previously described abnormalities or other new finding is id entified. CT/CT chest wo con [id number] IMPRESSION: Interval development of bilateral pleural effusions and an increase in the cons olidative changes in the left lower lung.
--- NOTE | 2021-05-30 14:41 | PM.PN ---
Subjective Subjective: Interval history: Patient is status post intubation due to unresponsiveness Vitals/I&O/Wt Last Vital Signs Temp 98.6 F 05/30/21 07:42 Pulse 119 H 05/30/21 09:15 Resp 17 05/30/21 14:17 BP 93/70 05/30/21 09:15 Pulse Ox 98 05/30/21 14:17 05/29/21 05/30/21 05/30/21 22:59 06:59 14:59 Intake Total 286 / 286 0 / 286 Output Total 400 / 400 Balance 286 / 286 -400 / -114 Weight last 48 hrs Weight 168 lb Weight 166 lb 12.8 oz Physical Exam Chest: OTHER: GENERAL: Patient is unresponsive she opens her eyes try to track but does not move her extremities NECK: No jugular vein distension. HEENT: No cyanosis. No icterus. No pallor. Left pacemaker site is swollen HEART: Irregularly irregularS1 and S2. No murmur, rub or gallop. LUNGS: Clear to auscultate bilaterally. ABDOMEN: Soft, nontender and nondistended. Positive bowel sounds. No guarding, rebound or tenderness. [] CENTRAL NERVOUS SYSTEM: Unresponsive opens her eyes and track but does not move her extremities EXTREMITIES: Lower extremities without edema bilaterally. Urinary Catheter Management: Saravia: Cath Placed During This Visit: yes Reason for Continuing Indwelling Catheter: Other Urinary Catheter Date of Insertion: 05/25/21 Urinary Catheter Time of Insertion: 17:45 Data : 05/30/21 03:15 05/30/21 03:15 Micro: Microbiology 05/27/21 07:40 Urine Culture - Final Urine,Clean Catch A&P Assessment and plan (1) Unresponsive: Patient was found to be unresponsive, she was intubated for airway protection. CT scan was performed which showed no acute bleed, differential diagnosis metabolic versus neurological. Continue management as per medicine. Status: Acute (2) Status post placement of cardiac pacemaker: Status post permanent pacemaker placement dual-chamber. Patient has been started on sotalol Patient has intermittent more frequent pacemaker intervention with impression of some inappropriate intervention I may will ask for pacemaker interrogation at the same time I will hold calcium channel stanton Status post pacemaker placement, pacemaker hematoma was noticed however pacemaker is working. Will assess pacemaker in detail through interrogation Status: Acute (3) CHF (congestive heart failure), NYHA class III: Well compensated continue medicine to Status: Acute Qualifiers: Congestive heart failure type: diastolic Congestive heart failure chronicity: chronic Qualified Code(s): I50.32 - Chronic diastolic (congestive) heart failure (4) Atrial fibrillation and flutter: Continue sotalol discontinue Cardizem. Continue anticoagulation Status: Acute Attestations Medical Necessity Statement*: Patient require continuation hospitalization for baseline care. Coding Level of Care Code Established Pt Acute Building Carpenter Helper for [facility] Fwirving Patient Type Established History Comprehensive Exam Comprehensive Medical Decision Making High Complexity Diagnoses Status post placement of cardiac pacemaker Z95.0 CHF (congestive heart failure), NYHA class III I50.32 Congestive heart failure type: diastolic Congestive heart failure chronicity: chronic Atrial fibrillation and flutter I48.91; I48.92 Unresponsive R41.89
--- NOTE | 2021-05-30 14:59 | ECG_ITS ---
Test Date: 2021-05-30 Pat Name: La Aranda Department: Room: ICU05 Gender: Female Associate Designer: : 1940 Requested By: Kaley Urbina Order Number: [id number] Iglesia MD: Christina Jama M.D. Measurements Intervals [place] Rate: 73 P: 88 [place]: 135 QRS: 269 QRSD: 130 T: 168 QT: 426 QTc: 472 Interpretive Statements SINUS RHYTHM RIGHT AXIS DEVIATION [QRS AXIS > 100] RIGHT BUNDLE BRANCH BLOCK POSSIBLE ANTERIOR MYOCARDIAL INFARCTION , OF INDETERMINATE AGE MODERATE T-WAVE ABNORMALITY, CONSIDER LATERAL ISCHEMIA Compared to ECG 05/26/2021 09:05:24 Atrial fibrillation no longer present Aberrant conduction of supraventricular beat(s) no longer present Ventricular premature complex(es) no longer present Myocardial infarct finding still present T-wave abnormality still present Possible ischemia still present Electronically Signed On 05-31-2021 10:57:57 LIGHTING ENGINEERING TECHNICIAN by Christina Jama M.D. [email or web address]
--- NOTE | 2021-05-30 16:23 | P.PN_ITS ---
Subjective Subjective: Interval history: Patient was seen multiple times throughout the morning Early in the morning, patient was seen, according to nursing staff, patient refused medications late in the evening, and early in the morning, was lethargic according to nursing staff, was seen by physician, patient got quite agitated with nursing staff and physician when awakening and wanted to be left alone She did not use the BiPAP overnight During my examination this morning, she did not open her eyes to sternal rub, on 3 L, saturating high 90s, normotensive, afebrile, respiratory 17, atrial fibrillation heart rate 113, she did not receive any sedating medications overnight The thought was likely she was hypercarbic due to noncompliance with the BiPAP machine, thus I placed patient on BiPAP, AVAPS setting, monitored for about 15 minutes, the respiratory therapy came in and adjusted BiPAP settings on AVAPS, and patient was monitored Intermittently she would open up her eyes, with hard sternal rub, but would fall back asleep, did not follow commands, it was difficult for respiratory therapy to get an ABG, blood sugar was 217 morning blood work showed a potassium 5.8, I had ordered D50 with 10 units IV push insulin, no arrhythmia events overnight except atrial fibrillation, she does not look fluid overloaded, no crackles on exam Subsequently patient started to develop hypotension, thus rapid response was called, concerns for acute hypoxic respiratory failure, shock, I discussed with Dr. Cardenas, he agreed to urgently, intubate patient, patient was intubated in CSU, moved to the ICU In ICU, I placed a right central line, patient was kept off sedation, and monitored Reexamine in the afternoon, off sedation, she opens her eyes, opens her eyes to sternal rub, she tracks me around the room, does not follow commands, does not withdraw from pain, Babinski is downward going bilaterally, pupils equal round reactive to light CT of the head was obtained, negative for acute stroke I spoke to patient's , who tells me that this is happened 3 times in the past, recently when she was at [facility], just before discharge, she became unresponsive requiring intubation, found to have high CO2 levels, Vitals/I&O/Wt Last Vital Signs Temp 98.6 F 05/30/21 07:42 Pulse 66 05/30/21 14:54 Resp 17 05/30/21 14:17 BP 111/62 05/30/21 14:54 Pulse Ox 100 05/30/21 14:54 05/30/21 05/30/21 05/30/21 06:59 14:59 22:59 Intake Total 0 / 286 100 / 100 Output Total 400 / 400 Balance -400 / -114 100 / 100 Weight last 48 hrs Weight 76.204 kg Weight 75.659 kg Physical Exam Const: COMMON NORMALS: no acute distress OTHER: Opens her eyes, falls back asleep, intubated, sedated Chest: OTHER: Left chest, pacemaker in place, swelling over pacemaker site Resp: COMMON NORMALS: normal respiratory effort, No retractions, No use of accessory muscles and clear to auscultation bilaterally AUSCULTATION: clear to auscultation bilaterally Cardio: COMMON NORMALS: regular rate, regular rhythm, S1 normal heart sound present and S2 normal heart sound present RATE: regular rate RHYTHM: regular rhythm HEART SOUNDS: S1 normal heart sound present and S2 normal heart sound present GI: COMMON NORMALS: Normal to inspection, nondistended, normoactive bowel sounds present, Soft to palpation, non-tender and No hepatosplenomegaly present PALPATION: Yes Soft to palpation and Yes No hepatosplenomegaly present Extremity: COMMON NORMALS: no pedal edema Urinary Catheter Management: Saravia: Cath Placed During This Visit: yes Reason for Continuing Indwelling Catheter: Other Urinary Catheter Date of Insertion: 05/25/21 Urinary Catheter Time of Insertion: 17:45 Data : 05/30/21 03:15 05/30/21 03:15 Micro: Microbiology 05/27/21 07:40 Urine Culture - Final Urine,Clean Catch A&P Assessment and plan (1) Tachycardia-bradycardia syndrome: Status: Acute (2) Paroxysmal atrial fibrillation with RVR: Status: Acute (3) CHF (congestive heart failure), NYHA class III: Status: Acute Qualifiers: Congestive heart failure type: diastolic Congestive heart failure chronicity: chronic Qualified Code(s): I50.32 - Chronic diastolic (congestive) heart failure (4) Acute UTI: Status: Acute (5) COPD (chronic obstructive pulmonary disease): Status: Acute Qualifiers: COPD type: unspecified COPD Qualified Code(s): J44.9 - Chronic obstructive pulmonary disease, unspecified (6) DM type 2 (diabetes mellitus, type 2): Status: Acute Plan Acute hypoxic respiratory failure/nonresponsive -Intubated, sedated for airway protection, concerns for hypercarbia -Currently intubated -Allow for sedation vacation, monitor mentation, neurochecks -Fentanyl, propofol for sedation -Protonix for GI prophylaxis -Eliquis for DVT prophylaxis -Full code Tachybradycardia syndrome: Post pacemaker implantation day 1 Anticoagulation to be resumed as per cardiothoracic recommendations Atrial fibrillation with rapid ventricular response: Difficult to control in the past even with metoprolol, Cardizem, digoxin, amiodarone. Required cardioversion last time On sotalol 80 mg at home. Amiodarone discontinued in the past because of transaminitis. Currently on sotalol 80 twice daily, Cardizem on hold Appreciate carddiology recommendations. Gian vas score 4. Eliquis held in the past because of recurrent falls. Start Eliquis 5 mg twice daily tonight Keep potassium around 4, Mag over 2. Appreciate Dr. Wan's and Dr. Urbina's recommendation and help. Congestive heart failure: Diastolic in nature. Last echocardiogram from August 2020 showed an EF of 70%, hypertrophy of IAS, mild to moderate MR. One dose of Lasix today Strict input output charting, daily weights. Saravia catheterization. UTI: History of UTI with Klebsiella in the past. Urine cultures and consistent with Enterobacter. Sensitive to ceftriaxone. Currently on Zosyn COPD: No exacerbation currently, no active wheezing DuoNebs every 6 hour. Sleep apnea: Uses BiPAP at home. Currently not able to use at retirement because of unavailability of parts. Type 2 diabetes mellitus: HbA1c 6.5 Insulin sliding scale Full code. Lovenox for DVT prophylaxis. Protonix for PUD prophylaxis. Cardiac diet. Attestations Medical Necessity Statement*: Patient requires hospitalization for acute respiratory failure Coding Level of Care Code Acute Cook Specialty Foreign Food for [facility] Diagnoses Tachycardia-bradycardia syndrome I49.5 Paroxysmal atrial fibrillation with RVR I48.0 CHF (congestive heart failure), NYHA class III I50.32 Congestive heart failure type: diastolic Congestive heart failure chronicity: chronic Acute UTI N39.0 COPD (chronic obstructive pulmonary disease) J44.9 COPD type: unspecified COPD DM type 2 (diabetes mellitus, type 2) E11.9
[2021-05-30 17:38] LABS: Glucose Point of Care 153 mg/dL (70-110)
[2021-05-30] MEDS: piperacillin-tazobactam 3.375 GM in sodium chloride 0.9% (plus) 50 ML IV (18:07)
[2021-05-30] MEDS: pantoprazole 40 mg SDV IVP (18:07)
[2021-05-30] MEDS: insulin lispro 100 unit/1 mL SUBCUT (18:08)
--- NOTE | 2021-05-30 18:23 | PC.NURSE ---
Patient was brought to unit at around 0930 intubated and sedated. Heartrate was between 60-130's and unable to read BP. OG and central line placed. Patients skin was pale, cool and diaphoretic. Pupils are pinpoint and reactive. Blanchable stage 1 pressure ulcer was noted to buttocks. All belongings were placed in closet. Including clothes, glasses, hearing aides, chargers and bags.
[2021-05-30 21:13] LABS: Glucose Point of Care 134 mg/dL (70-110)
[2021-05-31] VITALS (103 sets, daily range): BP systolic 107–175; BP diastolic 44–105; PULSE 0–86; RESP 0–26; TEMP 36.3–38.2; O2SAT 72–100
[2021-05-31] MEDS: piperacillin-tazobactam 3.375 GM in sodium chloride 0.9% (plus) 50 ML IV ×3 (01:17→17:11)
[2021-05-31 05:11] LABS: Basophils % 0.2 %; Hematocrit 27.9 % (37.0-47.0); Hemoglobin 8.4 g/dL (11.5-15.3); Lymphocytes # 3.7 10^3/uL (0.8-4.8); Lymphocytes % 26.7 %; Mean Corpuscular HGB Conc 30.1 g/dL (30.0-36.0); Mean Corpuscular Hemoglobin 28.6 pg (28.0-34.0); Mean Corpuscular Volume 94.9 fl (81-99); Mean Platelet Volume 10.8 fL (7.4-10.4); Monocytes # 1.4 10^3/uL (0.2-0.9); Monocytes % 9.8 %; Neutrophils # 8.67 10^3/uL (1.8-7.7); Neutrophils % 61.7 %; Nucleated Red Blood Cells % 0 %; Platelet Count 258 10^3/cmm (130-400); Red Blood Count 2.94 10^6/uL (4.1-5.3); Red Cell Distribution Width 13.4 % (12.1-15.1)
[2021-05-31] MEDS: pantoprazole 40 mg SDV IVP ×2 (05:20→17:11)
[2021-05-31 05:21] LABS: INR 1.13 (0.8-1.2)
[2021-05-31 05:27] LABS: Ammonia 18 umol/L (11-51); Lactate (Lactic Acid level) 1.3 mmol/L (0.5-2.2)
--- NOTE | 2021-05-31 05:38 | PC.NURSE ---
Shift Note Frequent safety and comfort rounds performed throughout the night. All vital signs remained stable on minimal vent settings. Patient is on no sedation. Patient will open her eyes and track movements with her eyes, but only followed commands once during the shift. Every other time the patient was assessed, she would not follow commands. Patient will not shake her head yes or no to answer questions at this time. Overall, patient had an uneventful night.
[2021-05-31 05:57] LABS: Alanine Aminotransferase 15 U/L (0-33); Albumin Level 2.7 g/dL (3.5-5.2); Alkaline Phosphatase 110 IU/L (35-105); Anion Gap 22.9 (5-19); Aspartate Amino Transferase 24 U/L (0-32); Blood Urea Nitrogen 40 mg/dL (8-23); C Reactive Protein 27.5 mg/L (0.0-4.9); Carbon Dioxide 26 mmol/L (22-29); Chloride 99 mmol/L (98-107); Globulin 2.6 g/dL (1.3-4.6); Glucose 133 mg/dL (65-115); Magnesium 1.8 mg/dL (1.7-2.3); Osmolality Calculated 310 mOsm/kg (285-295); Potassium 3.9 mmol/L (3.5-5.1); Sodium 144 mmol/L (136-145); Total Bilirubin 0.3 mg/dL (0.15-1.2); Total Protein 5.3 g/dL (6.6-8.7)
--- NOTE | 2021-05-31 06:00 | ECG_ITS ---
[facility] Test Date: 2021-05-31 Pat Name: La Arnada Department: Room: [facility] Gender: Female V Groove Cutter: : 1940 Requested By: Benigno Palencia Order Number: [id number] Iglesia MD: Jerod Hall M.D. Measurements Intervals [place] Rate: 65 P: 108 UT: 141 QRS: -80 QRSD: 139 T: 241 QT: 512 QTc: 533 Interpretive Statements ELECTRONIC ATRIAL PACEMAKER LEFT AXIS DEVIATION [QRS AXIS < -30] INTRAVENTRICULAR CONDUCTION DELAY [130+ ms QRS DURATION] POSSIBLE ANTERIOR MYOCARDIAL INFARCTION , OF INDETERMINATE AGE Compared to ECG 05/30/2021 17:32:08 Left-axis deviation now present Intraventricular conduction delay now present Sinus rhythm no longer present Right-axis deviation no longer present Right bundle-branch block no longer present T-wave abnormality no longer present Possible ischemia no longer present Myocardial infarct finding still present Electronically Signed On 05-31-2021 17:41:59 CLAIM TECHNICIAN by Jerod Hall M.D. [id number]
[2021-05-31 06:18] LABS: Creatine Phosphokinase 21 U/L (26-192)
[2021-05-31 06:25] LABS: NT Pro B Type Natriuretic Pept 6190 pg/mL (0-450); Procalcitonin 0.24 ng/mL (0-0.5)
--- NOTE | 2021-05-31 07:00 | XR_ITS ---
WS: [id number] XR chest 1V portable [id number] REASON FOR EXAM: sob FINDINGS: Endotracheal tube, nasogastric tube, right jugular, and central venous catheter remain in proper posi tion. No significant cardiomegaly. Bilateral lower lung opacities and bilateral pleural effusions. Elevation of the right hemidiaphragm. Considering difference in positioning of the patient most likely no significant interval change sayda red to 05/30/2021. XR/XR chest 1V portable [id number] IMPRESSION: Stable abnormal chest.
[2021-05-31 07:54] LABS: Glucose Point of Care 134 mg/dL (70-110)
[2021-05-31] MEDS: sotalol 80 mg Tablet PO ×2 (07:59→17:10)
[2021-05-31] MEDS: ferrous gluconate 324 mg Tablet PO ×2 (07:59→17:10)
[2021-05-31] MEDS: aspirin 81 mg EC Tablet PO (07:59)
[2021-05-31] MEDS: dilTIAZem ER (24HR) 120 mg Capsule PO (07:59)
[2021-05-31] MEDS: polyethylene glycol 3350 Pkt 17 gm PO ×2 (07:59→17:11)
--- NOTE | 2021-05-31 08:11 | CT_ITS ---
WS: [id number] CTA HEAD AND NECK TECHNIQUE: Contrast enhanced CTA of the head and neck with coronal and sagittal reformatted images an d maximum intensity projection (MIP) images. NASCET criteria utilized. CLINICAL INFORMATION: ams COMPARISON: None. DLP: 1798.[address] scans at [facility] use at least one of these dose optimization techniques: automated e xposure control; mA and/or kV adjustment per patient size (includes targeted exams where dose is matc hed to clinical indication); or iterative reconstruction. FINDINGS: RIGHT: RIGHT common carotid artery is patent. Moderate calcified atheromatous plaque RIGHT carotid bu lb extending into the ICA. RIGHT proximal ICA stenosis measures approximately 70% extending 1 to 1.5 cm from the bifurcation. RIGHT ICA remains patent to the skull base. LEFT: LEFT common carotid artery is patent. No significant LEFT ICA stenosis. LEFT ICA is patent to t he skull base. INTRACRANIAL CTA: Codominant and patent vertebral arteries bilaterally. Basilar artery is patent. Persistent bilateral commercial parts professional. Normal vascularity to the [employer] territory bilaterally. Both ICAs are patent at the skull base. Cavernous carotid calcification. Normal vascularity to the AC A and MCA territories bilaterally. No evidence of high-grade proximal stenosis or aneurysm. Partially visualized small layering RIGHT pleural effusion with compressive atelectasis/infiltrates i n the RIGHT upper lobe. Opacification LEFT mastoid air cells. Mucosal thickening RIGHT mastoid tip. Opacification of the LEFT middle ear. Normal posterior nasopharynx. Mild spondylitic changes cervical spine. Slight anterolist hesis C4 on C5. CT/CT angio headneck* [id number] IMPRESSION: 1. RIGHT proximal ICA stenosis measuring approximately 70% with moderate RIGHT proximal ICA calcification. 2. No significant LEFT ICA stenosis. 3. Codominant and patent vertebral arteries. 4. Somewhat diminutive basilar artery with dominant anterior circulation. Pers istent bilateral commercial parts professional 5. No flow-limiting intracranial stenosis. 6. Opacification LEFT mastoid air cells and LEFT middle ear. 7. Mild LEFT maxillary sinusitis. 8. Small layering RIGHT pleural effusion partially visualized compressive atel ectasis in the RIGHT upper lobe.
--- NOTE | 2021-05-31 08:12 | CT_ITS ---
WS: [id number] CT HEAD TECHNIQUE: Noncontrast CT of the head obtained from the skullbase to the vertex. CLINICAL INFORMATION: ams COMPARISON: May 30, 2021 DLP: 856.[address] scans at [facility] use at least one of these dose optimization techniques: automated e xposure control; mA and/or kV adjustment per patient size (includes targeted exams where dose is matc hed to clinical indication); or iterative reconstruction. FINDINGS: No evidence of intracranial hemorrhage or mass effect. Ventricular system and basal cisterns are gould nt. Mild small vessel changes with moderate parenchymal volume loss. No extra-axial fluid collections . No evidence of mass or mass effect. Intracranial vascular calcification. Diffuse opacification LEFT mastoid air cells. Slight opacification RIGHT mastoid tip. CT/CT head wo con* [id number] IMPRESSION: 1. No evidence of intracranial hemorrhage or mass effect. 2. Mild small vessel changes. Moderate parenchymal volume loss. 3. Diffuse complete opacification LEFT mastoid air cells unchanged from Februa 2021. Recommend correlation for mastoiditis. Slight mucosal thickening R IGHT mastoid tip. 4. No acute intracranial findings and no changes from May 30, 2021.
[2021-05-31] MEDS: ipratropium-albuterol 3 mL Neb INHALATION (08:35)
--- NOTE | 2021-05-31 09:31 | PC.PT ---
Pt remains intubated, will follow and provide treatment as appropriate. PT on hold for now per nsg. Pt may be extubated today or tomorrow. Pt is not following nurses commands at this time.
--- NOTE | 2021-05-31 09:40 | P.PN_ITS ---
Subjective Subjective: Interval history: Postop day #4 status post dual-lead pacemaker implantation. Patient required intubation due to somnolence and was found to be hyper cardia related to hypo ventilation. Apparently, she became agitated just prior to that event and was not cooperative. I do note on exam today that she does have some swelling at her pacemaker site though the dressing is clean and dry. Upon review the CT scan which was performed yesterday, there is indeed a hematoma in this area. Currently, she is looking around the room while remaining orally intubated. Vitals/I&O/Wt Last Vital Signs Temp 99.7 F H 05/31/21 04:01 Pulse 62 05/31/21 09:00 Resp 12 05/31/21 08:36 BP 146/63 05/31/21 09:00 Pulse Ox 97 05/31/21 09:00 05/30/21 05/31/21 05/31/21 22:59 06:59 14:59 Intake Total 50 / 150 50 / 200 Output Total 700 / 700 450 / 1150 Balance -650 / -550 -400 / -950 Weight last 48 hrs Weight 172 lb Weight 168 lb Physical Exam Chest: OTHER: Localized swelling at the pacemaker site which was not present on the first 2 postop days. This does appear to probably represent a hematoma and may be related to her period of agitation prior to requiring intubation. Dressings remain clean and dry. Urinary Catheter Management: Saravia: Cath Placed During This Visit: yes Reason for Continuing Indwelling Catheter: Accurate Measurement of Urinary Out put in Critically Ill Patients Urinary Catheter Date of Insertion: 05/25/21 Urinary Catheter Time of Insertion: 17:45 Data : 05/31/21 04:00 05/31/21 04:00 Micro: Microbiology 05/30/21 17:15 Blood Culture - Preliminary Blood SPECIMEN COLLECTED 05/30/21 17:22 Blood Culture - Preliminary Blood SPECIMEN COLLECTED A&P Assessment and plan (1) Status post placement of cardiac pacemaker: Status: Acute Plan Postop day #4 status post pacemaker. Postop confusion. There is a hematoma at the pacemaker site. Surgical dressing is intact, clean and dry. Attestations Medical Necessity Statement*: Postop day #4 status post dual-lead pacemaker implantation due to tachybradycardia syndrome. Coding Level of Care Code Acute Manager Community Development for [employer] Diagnoses Status post placement of cardiac pacemaker Z95.0
[2021-05-31] MEDS: metOLazone 5 MG Tablet PO (10:02)
[2021-05-31] MEDS: FUROsemide 10 mg/mL SDV 4mL 40 MG IVP ×2 (10:02→17:39)
[2021-05-31 11:16] LABS: Glucose Point of Care 138 mg/dL (70-110)
[2021-05-31] MEDS: iodixanol 320 mg/mL 100mL Btl IV (13:21)
--- NOTE | 2021-05-31 14:51 | PM.PN ---
Subjective Subjective: Interval history: Patient was seen multiple times throughout the morning, currently intubated, sedated on 30% FiO2, she is alert, tracks me around the room, follows commands squeezes my fingers is able to nod, She was reexamined early in the morning, she was extubated to 2 to 3 L nasal cannula, alert to person, not to place, not to time, she is able to squeeze my fingers, follow commands, she is able to say a few words here and there, afebrile, normotensive Vitals/I&O/Wt Last Vital Signs Temp 99.7 F H 05/31/21 10:00 Pulse 61 05/31/21 10:15 Resp 16 05/31/21 10:40 BP 130/54 05/31/21 10:15 Pulse Ox 95 05/31/21 10:40 05/30/21 05/31/21 05/31/21 22:59 06:59 14:59 Intake Total 50 / 150 50 / 200 50 / 50 Output Total 700 / 700 450 / 1150 Balance -650 / -550 -400 / -950 50 / 50 Weight last 48 hrs Weight 78.018 kg Weight 76.204 kg Physical Exam Const: COMMON NORMALS: no acute distress Resp: COMMON NORMALS: normal respiratory effort, No retractions, No use of accessory muscles and clear to auscultation bilaterally AUSCULTATION: clear to auscultation bilaterally Cardio: COMMON NORMALS: regular rate, regular rhythm, S1 normal heart sound present and S2 normal heart sound present RATE: regular rate RHYTHM: regular rhythm HEART SOUNDS: S1 normal heart sound present and S2 normal heart sound present GI: COMMON NORMALS: Normal to inspection, nondistended, normoactive bowel sounds present, Soft to palpation, non-tender, No hepatosplenomegaly present, no masses and no bruits PALPATION: Yes Soft to palpation and Yes No hepatosplenomegaly present Extremity: COMMON NORMALS: no pedal edema Urinary Catheter Management: Saravia: Cath Placed During This Visit: yes Reason for Continuing Indwelling Catheter: Accurate Measurement of Urinary Output in Critically Ill Patients Urinary Catheter Date of Insertion: 05/25/21 Urinary Catheter Time of Insertion: 17:45 Data : 05/31/21 04:00 05/31/21 04:00 Micro: Microbiology 05/30/21 14:00 Gram Stain - Final Sputum - Expectorated Sputum 05/30/21 17:15 Blood Culture - Preliminary Blood SPECIMEN COLLECTED 05/30/21 17:22 Blood Culture - Preliminary Blood SPECIMEN COLLECTED A&P Assessment and plan (1) Tachycardia-bradycardia syndrome: Status: Acute (2) Paroxysmal atrial fibrillation with RVR: Status: Acute (3) CHF (congestive heart failure), NYHA class III: Status: Acute Qualifiers: Congestive heart failure type: diastolic Congestive heart failure chronicity: chronic Qualified Code(s): I50.32 - Chronic diastolic (congestive) heart failure (4) Acute UTI: Status: Acute (5) COPD (chronic obstructive pulmonary disease): Status: Acute Qualifiers: COPD type: unspecified COPD Qualified Code(s): J44.9 - Chronic obstructive pulmonary disease, unspecified (6) DM type 2 (diabetes mellitus, type 2): Status: Acute Plan Acute hypoxic respiratory failure/nonresponsive -Extubated 2 to 3 L -Possible risk aspiration, speech therapy eval -Keep n.p.o. -BiPAP schedule during the night -CTA head and neck, to evaluate for possible embolic CVA -Protonix for GI prophylaxis -Eliquis for DVT prophylaxis on hold given anemia -Full code Tachybradycardia syndrome: Post pacemaker implantation day 1, has a pocket hematoma Anticoagulation currently on hold Atrial fibrillation with rapid ventricular response: Difficult to control in the past even with metoprolol, Cardizem, digoxin, amiodarone. Required cardioversion last time On sotalol 80 mg at home. Amiodarone discontinued in the past because of transaminitis. Currently on sotalol 80 twice daily, on Cardizem Appreciate carddiology recommendations. Gian vas score 4. Eliquis held in the past because of recurrent falls. Eliquis currently on hold due to anemia, pocket hematoma Keep potassium around 4, Mag over 2. Appreciate Dr. Wan's and Dr. Urbina's recommendation and help. Congestive heart failure: Diastolic in nature. Last echocardiogram from August 2020 showed an EF of 70%, hypertrophy of IAS, mild to moderate MR. 2 doses of Lasix today Strict input output charting, daily weights. Saravia catheterization. UTI: History of UTI with Klebsiella in the past. Urine cultures and consistent with Enterobacter. Sensitive to ceftriaxone. Currently on Zosyn COPD: No exacerbation currently, no active wheezing DuoNebs every 6 hour. Sleep apnea: Uses BiPAP at home. Currently not able to use at snf because of unavailability of parts. Type 2 diabetes mellitus: HbA1c 6.5 Insulin sliding scale Full code. Lovenox for DVT prophylaxis. Protonix for PUD prophylaxis. Cardiac diet. Attestations Medical Necessity Statement*: Patient requires hospitalization for respiratory failure Coding Level of Care Code Acute Disaster Recovery Consultant for [facility] Fwd Diagnoses Tachycardia-bradycardia syndrome I49.5 Paroxysmal atrial fibrillation with RVR I48.0 CHF (congestive heart failure), NYHA class III I50.32 Congestive heart failure type: diastolic Congestive heart failure chronicity: chronic Acute UTI N39.0 COPD (chronic obstructive pulmonary disease) J44.9 COPD type: unspecified COPD DM type 2 (diabetes mellitus, type 2) E11.9
--- NOTE | 2021-05-31 15:09 | ANES.PROC ---
Anesthesia Procedures Procedure/Date: 05/31/21 Central Venous Insert: Central Venous Line: Right IJ Time Out Performed: Yes Consent: from other, risks and benefits reviewed and patient agrees to proceed Central Line: New Anesthesia monitors: pulse oximetry, EKG, BP cuff and oxygen Vein cannulated: right internal jugular Ultrasound used: to identify patency to vessel and to visualize needle entry to vein Post procedure: Obtain Chest X-Ray Additional Comments: Using sterile technique, flash of blood, nonpulsatile, dark red blood, ultrasound confirmed placement, chest x-ray showed central line in right atrium, retracted 2 to 3 cm
[2021-05-31 17:35] LABS: Glucose Point of Care 186 mg/dL (70-110)
[2021-05-31] MEDS: insulin lispro 100 unit/1 mL SUBCUT (17:40)
--- NOTE | 2021-05-31 18:14 | PM.PN ---
Subjective Subjective: Interval history: Patient is extubated awake and alert, she is hard of hearing she has asked me that can we charge her hearing aid Vitals/I&O/Wt Last Vital Signs Temp 99.7 F H 05/31/21 10:00 Pulse 60 05/31/21 17:00 Resp 18 05/31/21 17:00 BP 144/64 05/31/21 17:00 Pulse Ox 100 05/31/21 17:00 05/31/21 05/31/21 05/31/21 06:59 14:59 22:59 Intake Total 50 / 200 50 / 50 Output Total 450 / 1150 575 / 575 Balance -400 / -950 50 / 50 -575 / -525 Weight last 48 hrs Weight 172 lb Weight 168 lb Physical Exam Chest: OTHER: GENERAL: Patient is unresponsive she opens her eyes try to track but does not move her extremities NECK: No jugular vein distension. HEENT: No cyanosis. No icterus. No pallor. Left pacemaker site is swollen HEART: Irregularly irregularS1 and S2. No murmur, rub or gallop. LUNGS: Clear to auscultate bilaterally. ABDOMEN: Soft, nontender and nondistended. Positive bowel sounds. No guarding, rebound or tenderness. [] CENTRAL NERVOUS SYSTEM: Unresponsive opens her eyes and track but does not move her extremities EXTREMITIES: Lower extremities without edema bilaterally. Urinary Catheter Management: Saravia: Cath Placed During This Visit: yes Reason for Continuing Indwelling Catheter: Accurate Measurement of Urinary Output in Critically Ill Patients Urinary Catheter Date of Insertion: 05/25/21 Urinary Catheter Time of Insertion: 17:45 Data : 05/31/21 04:00 05/31/21 04:00 Micro: Microbiology 05/30/21 17:15 Blood Culture - Preliminary Blood NEGATIVE TO DATE 05/30/21 17:22 Blood Culture - Preliminary Blood NEGATIVE TO DATE 05/30/21 14:00 Gram Stain - Final Sputum - Expectorated Sputum A&P Assessment and plan (1) Status post placement of cardiac pacemaker: Working in a good condition. Pocket hematoma was noted. Anticoagulation on hold Status: Acute (2) Atrial fibrillation and flutter: Rate controlled status post pacemaker placement continue sotalol Status: Acute (3) CHF (congestive heart failure), NYHA class III: Well compensated. 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
--- NOTE | 2021-05-31 18:52 | PC.NURSE ---
Patient extubated by RT Brooks with this nurse at bedside at 1100 this morning. Patient placed on 3L NC with O2 stat of 100% Patient had no complains of pain at this time. Patient A&Ox1- may be due to lack of hearing aids making communication more difficult. notified and patient to get a CT later today.
[2021-05-31 22:16] LABS: Glucose Point of Care 85 mg/dL (70-110)
[2021-05-31] MEDS: hyDROXYzine 25 mg Capsule PO (23:54)
[2021-06-01] VITALS (83 sets, daily range): BP systolic 86–148; BP diastolic 43–96; PULSE 58–109; RESP 13–27; TEMP 36.6–36.9; O2SAT 83–100
[2021-06-01] MEDS: piperacillin-tazobactam 3.375 GM in sodium chloride 0.9% (plus) 50 ML IV ×3 (01:04→19:08)
[2021-06-01 04:49] LABS: Basophils % 0.3 %; Eosinophils # 0.1 10^3/uL (0.0-0.8); Eosinophils % 0.6 %; Hematocrit 28.3 % (37.0-47.0); Hemoglobin 8.6 g/dL (11.5-15.3); Lymphocytes # 2.7 10^3/uL (0.8-4.8); Mean Corpuscular HGB Conc 30.4 g/dL (30.0-36.0); Mean Corpuscular Hemoglobin 28.3 pg (28.0-34.0); Mean Corpuscular Volume 93.1 fl (81-99); Mean Platelet Volume 10.3 fL (7.4-10.4); Monocytes # 1.5 10^3/uL (0.2-0.9); Monocytes % 10.6 %; Neutrophils # 9.65 10^3/uL (1.8-7.7); Neutrophils % 68.4 %; Nucleated Red Blood Cells % 0 %; Platelet Count 240 10^3/cmm (130-400); Red Blood Count 3.04 10^6/uL (4.1-5.3); Red Cell Distribution Width 13.9 % (12.1-15.1); White Blood Count 14.1 10^3/uL (4.0-10.0)
--- NOTE | 2021-06-01 05:06 | XRR_ITS ---
PROCEDURE INFORMATION: Exam: XR Chest Exam date and time: 06/01/2021 5:06 AM Age: 81 years old Clinical indication: Shortness of breath; Patient HX: F/u resp distress. ; Additional info: SOB TECHNIQUE: Imaging protocol: XR of the chest. Views: 1 view. COMPARISON: CR XR chest 1V portable [id number] 05/31/2021 4:11 AM FINDINGS: Tubes, catheters and devices: A central venous line is placed via the right internal jugular vein with its tip at the level of the superior cavoatrial junction. A sequential bipolar pacemaker is placed via the left subclavian vein. EKG leads overlie the chest. Lungs: There is some indistinctness of the pulmonary vasculature and hazy opacities present in the lower hemithoraces bilaterally, findings that suggests pulmonary edema. There is volume loss seen in the right hemithorax likely representing a component of atelectasis as well. Pleural spaces: Unremarkable. No pleural effusion. No pneumothorax. Heart/Mediastinum: Unremarkable. No cardiomegaly. Bones/joints: Unremarkable. XR/XR chest 1V portable [id number] IMPRESSION: Indistinct pulmonary vasculature with hazy opacities present in the lower hemithoraces, findings that may represent pulmonary edema.
[2021-06-01 05:07] LABS: Lactate (Lactic Acid level) 0.6 mmol/L (0.5-2.2)
[2021-06-01] MEDS: pantoprazole 40 mg SDV IVP ×2 (05:14→20:38)
[2021-06-01 05:23] LABS: Alanine Aminotransferase 14 U/L (0-33); Albumin Level 2.9 g/dL (3.5-5.2); Alkaline Phosphatase 124 IU/L (35-105); Anion Gap 14.9 (5-19); Aspartate Amino Transferase 26 U/L (0-32); Blood Urea Nitrogen 37 mg/dL (8-23); Calcium 8.3 mg/dL (8.5-10.5); Carbon Dioxide 37 mmol/L (22-29); Chloride 96 mmol/L (98-107); Globulin 2.5 g/dL (1.3-4.6); Glucose 101 mg/dL (65-115); Magnesium 1.8 mg/dL (1.7-2.3); NT Pro B Type Natriuretic Pept 4483 pg/mL (0-450); Osmolality Calculated 307 mOsm/kg (285-295); Phosphorus 4.5 mg/dL (2.5-4.5); Potassium 3.9 mmol/L (3.5-5.1); Sodium 144 mmol/L (136-145); Total Bilirubin 0.3 mg/dL (0.15-1.2); Total Protein 5.4 g/dL (6.6-8.7)
--- NOTE | 2021-06-01 05:52 | PC.NURSE ---
Shift Note Frequent safety and comfort rounds continue. Orders and or nursing care completed as indicated. Patient monitored for response to intervention and treatment(s). Patient placed on BiPap for the night and tolerated it well. All vital signs remained stable. Education provided on turning, coughing, and deep breathing Q2H to help prevent hospital acquired pneumonia. Patient verbalized understanding. Will continue to monitor.
--- NOTE | 2021-06-01 06:00 | ECG_ITS ---
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 Measurements Intervals [place] Rate: 61 P: 59 LA: 161 QRS: 15 QRSD: 146 T: 243 QT: 458 QTc: 464 Interpretive Statements SINUS RHYTHM RIGHT BUNDLE BRANCH BLOCK MODERATE T-WAVE ABNORMALITY, CONSIDER LATERAL ISCHEMIA MODERATE T-WAVE ABNORMALITY, CONSIDER INFERIOR ISCHEMIA Right bundle-branch block now present T-wave abnormality now present Possible ischemia now present Atrial-paced complex(es) or rhythm no longer present Left-axis deviation no longer present Intraventricular conduction delay no longer present Myocardial infarct finding no longer present Electronically Signed On 06-03-2021 8:57:08 SILK SCREEN ETCHER by Christina Jama M.D. [id number]
[2021-06-01 07:12] LABS: Glucose Point of Care 92 mg/dL (70-110)
[2021-06-01] MEDS: sotalol 80 mg Tablet PO ×2 (08:18→18:51)
[2021-06-01] MEDS: dilTIAZem ER (24HR) 120 mg Capsule PO (08:18)
[2021-06-01] MEDS: polyethylene glycol 3350 Pkt 17 gm PO (08:18)
[2021-06-01] MEDS: aspirin 81 mg EC Tablet PO (08:18)
[2021-06-01] MEDS: ferrous gluconate 324 mg Tablet PO ×2 (08:18→18:51)
[2021-06-01] MEDS: bumetanide 0.25 mg/mL SDV 4 mL 1 MG IVP ×2 (09:45→21:34)
[2021-06-01] MEDS: potassium chloride ER 20 mEq Tablet 40 MEQ PO ×2 (09:45→18:52)
[2021-06-01] MEDS: metOLazone 5 MG Tablet 10 MG PO (09:45)
[2021-06-01] MEDS: magnesium sulfate premix 2 GM/50 ML PIGGYBACK IV (09:45)
[2021-06-01 11:41] LABS: Glucose Point of Care 106 mg/dL (70-110)
--- NOTE | 2021-06-01 12:32 | PC.SOCIAL ---
IMM UPDATED IMM dated and initialed and copy given to patient.
--- NOTE | 2021-06-01 14:14 | P.PN_ITS ---
Subjective Subjective: Interval history: Patient was seen this morning, multiple times, is at bedside, she did well overnight, she did well with swallowing, no fevers, no nausea, no vomiting, has not had a bowel movement, she has not gotten up out of bed, she is not exactly sure what happened, denies any chest pain, no slurring of her words, no paresthesias, no focal weakness, she does tell me that this is happened before, it was because she was not using BiPAP, is at bedside, he is concerned that the BiPAP at [facility] is not working Vitals/I&O/Wt Last Vital Signs Temp 97.9 F 06/01/21 04:00 Pulse 109 H 06/01/21 14:00 Resp 18 06/01/21 14:00 BP 127/68 06/01/21 11:00 Pulse Ox 83 L 06/01/21 14:00 05/31/21 06/01/21 06/01/21 22:59 06:59 14:59 Intake Total 230 / 280 50 / 330 100 / 100 Output Total 2425 / 2425 1250 / 3675 750 / 750 Balance -2195 / -2145 -1200 / -3345 -650 / -650 Weight last 48 hrs Weight 79.061 kg Weight 78.018 kg Physical Exam Const: COMMON NORMALS: no acute distress and patient oriented x3 Resp: COMMON NORMALS: normal respiratory effort, No retractions and No use of accessory muscles AUSCULTATION: crackles Cardio: COMMON NORMALS: regular rate, regular rhythm, S1 normal heart sound present and S2 normal heart sound present RATE: regular rate RHYTHM: regular rhythm HEART SOUNDS: S1 normal heart sound present and S2 normal heart sound present GI: COMMON NORMALS: Normal to inspection, nondistended, normoactive bowel sounds present, Soft to palpation, non-tender and No hepatosplenomegaly present PALPATION: Yes Soft to palpation and Yes No hepatosplenomegaly present Extremity: NARRATIVE EXTREMITY EXAM: 1+ pitting edema bilaterally Neuro: COMMON NORMALS: patient oriented x3 Psych: COMMON NORMALS: mental status grossly normal Urinary Catheter Management: Saravia: Cath Placed During This Visit: yes Reason for Continuing Indwelling Catheter: Accurate Measurement of Urinary Output in Critically Ill Patients Urinary Catheter Date of Insertion: 05/25/21 Urinary Catheter Time of Insertion: 17:45 Data : 06/01/21 04:20 02/05/22 04:20 Micro: Microbiology 05/30/21 14:00 Gram Stain - Final Sputum - Expectorated Sputum Sputum Culture - Preliminary 05/30/21 17:15 Blood Culture - Preliminary Blood NEGATIVE TO DATE 05/30/21 17:22 Blood Culture - Preliminary Blood NEGATIVE TO DATE A&P Assessment and plan (1) Tachycardia-bradycardia syndrome: Status: Acute (2) Paroxysmal atrial fibrillation with RVR: Status: Acute (3) CHF (congestive heart failure), NYHA class III: Status: Acute Qualifiers: Congestive heart failure type: diastolic Congestive heart failure chronicity: chronic Qualified Code(s): I50.32 - Chronic diastolic (congestive) heart failure (4) Acute UTI: Status: Acute (5) COPD (chronic obstructive pulmonary disease): Status: Acute Qualifiers: COPD type: unspecified COPD Qualified Code(s): J44.9 - Chronic obstructive pulmonary disease, unspecified (6) DM type 2 (diabetes mellitus, type 2): Status: Acute Plan Acute hypoxic respiratory failure/nonresponsive -Extubated 2 to 3 L, currently on 4 L -Possible risk aspiration, speech therapy eval, did well with regular consistency -On Zosyn for possible aspiration pneumonia -Cardiac diet -BiPAP schedule during the night -CTA head and neck negative for embolic stroke, CT of the head negative for acute stroke -Elevated BNP, likely fluid overload, continue Lasix, metolazone, daily dosing, -4 L -Protonix for GI prophylaxis -Eliquis for DVT prophylaxis on hold given anemia, SCDs -Full code Right carotid artery stenosis RIGHT proximal ICA stenosis measuring approximately 70% with moderate RIGHT proximal ICA calcification. -Continue aspirin, statin, with close follow-up with cardiothoracic surgery as outpatient Acute anemia -Hemoglobin has dropped to 8.3 -No complaints of bloody or black stools -Eliquis currently on hold -Protonix, Carafate -Iron studies are pending, Hemoccult stool Tachybradycardia syndrome: Post pacemaker implantation day has developed a pocket hematoma, continue to monitor Anticoagulation currently on hold Atrial fibrillation with rapid ventricular response: Difficult to control in the past even with metoprolol, Cardizem, digoxin, amiodarone. Required cardioversion last time On sotalol 80 mg at home. Amiodarone discontinued in the past because of transaminitis. Currently on sotalol 80 twice daily, on Cardizem Appreciate carddiology recommendations. Gian vas score 4. Eliquis held in the past because of recurrent falls. Eliquis currently on hold due to anemia, pocket hematoma Keep potassium around 4, Mag over 2. Appreciate Dr. Wan's and Dr. Urbina's recommendation and help. Congestive heart failure: Diastolic in nature. Last echocardiogram from August 2020 showed an EF of 70%, hypertrophy of IAS, mild to moderate MR. Continue to daily dose Lasix Strict input output charting, daily weights. Saravia catheterization. UTI: History of UTI with Klebsiella in the past. Urine cultures and consistent with Enterobacter. Sensitive to ceftriaxone. Currently on Zosyn COPD: No exacerbation currently, no active wheezing DuoNebs every 6 hour. Sleep apnea: Uses BiPAP at home. [facility] because of un[facility] of parts. Type 2 diabetes mellitus: HbA1c 6.5 Insulin sliding scale Full code. Lovenox for DVT prophylaxis. Protonix for PUD prophylaxis. Cardiac diet. Attestations Medical Necessity Statement*: Patient requires hospitalization for fluid overload, hypercarbia Critical Care Time: 45 Coding Level of Care Code Acute Counter Pocket Trimmer for [facility] Fwd Diagnoses Tachycardia-bradycardia syndrome I49.5 Paroxysmal atrial fibrillation with RVR I48.0 CHF (congestive heart failure), NYHA class III I50.32 Congestive heart failure type: diastolic Congestive heart failure chronicity: chronic Acute UTI N39.0 COPD (chronic obstructive pulmonary disease) J44.9 COPD type: unspecified COPD DM type 2 (diabetes mellitus, type 2) E11.9
--- NOTE | 2021-06-01 16:06 | PM.PN ---
Subjective Subjective: Interval history: Remains in sinus rhythm paced she is more awake today, Vitals/I&O/Wt Last Vital Signs Temp 97.9 F 06/01/21 04:00 Pulse 109 H 06/01/21 14:00 Resp 18 06/01/21 14:00 BP 127/68 06/01/21 11:00 Pulse Ox 83 L 06/01/21 14:00 06/01/21 06/01/21 06/01/21 06:59 14:59 22:59 Intake Total 50 / 330 100 / 100 Output Total 1250 / 3675 750 / 750 Balance -1200 / -3345 -650 / -650 Weight last 48 hrs Weight 174 lb 4.8 oz Weight 172 lb Physical Exam Chest: OTHER: GENERAL: Patient is awake but sleepy NECK: No jugular vein distension. HEENT: No cyanosis. No icterus. No pallor. Left pacemaker site is swollen HEART: Regular S1 and S2. No murmur, rub or gallop. LUNGS: Clear to auscultate bilaterally. ABDOMEN: Soft, nontender and nondistended. Positive bowel sounds. No guarding, rebound or tenderness. [] CENTRAL NERVOUS SYSTEM: Unresponsive opens her eyes and track but does not move her extremities EXTREMITIES: Lower extremities without edema bilaterally. Urinary Catheter Management: Saravia: Cath Placed During This Visit: yes Reason for Continuing Indwelling Catheter: Accurate Measurement of Urinary Output in Critically Ill Patients Urinary Catheter Date of Insertion: 05/25/21 Urinary Catheter Time of Insertion: 17:45 Data : 06/01/21 04:20 06/01/21 04:20 Micro: Microbiology 05/30/21 14:00 Gram Stain - Final Sputum - Expectorated Sputum Sputum Culture - Preliminary 05/30/21 17:15 Blood Culture - Preliminary Blood NEGATIVE TO DATE 05/30/21 17:22 Blood Culture - Preliminary Blood NEGATIVE TO DATE A&P Assessment and plan (1) Status post placement of cardiac pacemaker: Working in a good condition. Pocket hematoma was noted. Anticoagulation on hold Status: Acute (2) Atrial fibrillation and flutter: Appear to be in sinus rhythm continue sotalol Status: Acute (3) CHF (congestive heart failure), NYHA class III: Well compensated. Status: Acute Qualifiers: Congestive heart failure type: diastolic Congestive heart failure chronicity: chronic Qualified Code(s): I50.32 - Chronic diastolic (congestive) heart failure (4) Unresponsive: Improved neurological status. 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
[2021-06-01 17:16] LABS: Ferritin 231 ng/mL (15-150); Iron 22 ug/dL (37-145); Percent Saturation 10.7 % (20-50); Total Iron Binding Capacity 204 mcg/dl; Unsaturated Iron Binding 182 ug/dL (112-347)
--- NOTE | 2021-06-01 17:59 | PC.NURSE ---
report called to CSU nurse, patient to be transferred to CSU room 105
[2021-06-01 18:17] LABS: Magnesium 2.2 mg/dL (1.7-2.3)
[2021-06-01 18:44] LABS: Glucose Point of Care 250 mg/dL (70-110)
[2021-06-01] MEDS: sucralfate 1 gm Tablet PO (18:51)
[2021-06-01] MEDS: insulin lispro 100 unit/1 mL SUBCUT ×2 (18:52→21:25)
[2021-06-01] MEDS: atorvastatin 40 mg Tablet PO (20:38)
[2021-06-01] MEDS: ipratropium-albuterol 3 mL Neb INHALATION (21:20)
[2021-06-02] VITALS (22 sets, daily range): BP systolic 96–139; BP diastolic 41–59; PULSE 58–77; RESP 16–28; TEMP 36.4–36.9; O2SAT 85–100
[2021-06-02 00:27] LABS: Glucose Point of Care 256 mg/dL (70-110)
[2021-06-02] MEDS: piperacillin-tazobactam 3.375 GM in sodium chloride 0.9% (plus) 50 ML IV ×3 (00:42→18:50)
[2021-06-02 03:40] LABS: Basophils % 0.3 %; Eosinophils # 0.1 10^3/uL (0.0-0.8); Eosinophils % 0.6 %; Hematocrit 30.4 % (37.0-47.0); Hemoglobin 9.2 g/dL (11.5-15.3); Lymphocytes # 3.3 10^3/uL (0.8-4.8); Lymphocytes % 26.1 %; Mean Corpuscular HGB Conc 30.3 g/dL (30.0-36.0); Mean Corpuscular Hemoglobin 28.5 pg (28.0-34.0); Mean Corpuscular Volume 94.1 fl (81-99); Mean Platelet Volume 10.7 fL (7.4-10.4); Monocytes # 1.7 10^3/uL (0.2-0.9); Monocytes % 13.6 %; Neutrophils # 7.44 10^3/uL (1.8-7.7); Neutrophils % 58.2 %; Nucleated Red Blood Cells % 0.2 %; Platelet Count 278 10^3/cmm (130-400); Red Blood Count 3.23 10^6/uL (4.1-5.3); Red Cell Distribution Width 13.6 % (12.1-15.1); White Blood Count 12.8 10^3/uL (4.0-10.0)
[2021-06-02 04:02] LABS: Alanine Aminotransferase 13 U/L (0-33); Albumin Level 3.3 g/dL (3.5-5.2); Alkaline Phosphatase 119 IU/L (35-105); Anion Gap 10.1 (5-19); Aspartate Amino Transferase 20 U/L (0-32); Blood Urea Nitrogen 36 mg/dL (8-23); C Reactive Protein 40.2 mg/L (0.0-4.9); Calcium 8.4 mg/dL (8.5-10.5); Chloride 91 mmol/L (98-107); Globulin 2.6 g/dL (1.3-4.6); Glucose 59 mg/dL (65-115); Magnesium 2.4 mg/dL (1.7-2.3); NT Pro B Type Natriuretic Pept 4361 pg/mL (0-450); Osmolality Calculated 294 mOsm/kg (285-295); Phosphorus 4.5 mg/dL (2.5-4.5); Potassium 5.1 mmol/L (3.5-5.1); Sodium 139 mmol/L (136-145); Total Bilirubin 0.3 mg/dL (0.15-1.2); Total Protein 5.9 g/dL (6.6-8.7)
[2021-06-02 04:27] LABS: Carbon Dioxide 43 mmol/L (22-29)
--- NOTE | 2021-06-02 06:00 | ECG_ITS ---
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 Measurements Intervals [place] Rate: 59 P: 160 CT: 161 QRS: -83 QRSD: 126 T: -36 QT: 414 QTc: 413 Interpretive Statements ELECTRONIC ATRIAL PACEMAKER LEFT AXIS DEVIATION [QRS AXIS < -30] RIGHT BUNDLE BRANCH BLOCK POSSIBLE ANTERIOR MYOCARDIAL INFARCTION , OF INDETERMINATE AGE Compared to ECG 06/01/2021 06:05:35 Left-axis deviation now present Myocardial infarct finding now present Sinus rhythm no longer present Right bundle-branch block no longer present T-wave abnormality no longer present Possible ischemia no longer present Electronically Signed On 06-02-2021 17:03:34 CHEESEMAKING LABORER by Christina Jama M.D. [id number]
[2021-06-02] MEDS: sucralfate 1 gm Tablet PO ×2 (06:28→18:51)
[2021-06-02] MEDS: pantoprazole 40 mg SDV IVP ×2 (06:28→18:50)
[2021-06-02 06:38] LABS: Glucose Point of Care 82 mg/dL (70-110)
--- NOTE | 2021-06-02 08:49 | PM.PN ---
Subjective Subjective: Interval history: Ms. Aranda is now back on the cardiac stepdown unit. Her hematoma appears to be not quite as prominent at her pacemaker pocket. I did change the dressing and the incision line is clean, dry, and intact. There is some ecchymosis on the medial aspect of her proximal left arm. No evidence for active infection. Good pacemaker function. We have removed her immobilizer. She appears to be alert and oriented this morning. I do recommend that she continue to limit elevating her left arm above eye level for the next week. Hopefully, there will be no further episodes of confusion during his hospital stay. Vitals/I&O/Wt Last Vital Signs Temp 98.5 F 06/01/21 15:01 Pulse 60 06/02/21 07:00 Resp 28 H 06/02/21 07:00 BP 108/54 06/02/21 07:00 Pulse Ox 85 L 06/02/21 07:00 06/01/21 06/02/21 06/02/21 22:59 06:59 14:59 Intake Total 360 / 460 50 / 510 50 / 50 Output Total 1800 / 2550 1800 / 4350 Balance -1440 / -2090 -1750 / -3840 50 / 50 Weight last 48 hrs Weight 174 lb 6.4 oz Weight 174 lb 4.8 oz Physical Exam Chest: OTHER: Pacemaker hematoma appears to not be quite as prominent. The incision line remains clean, dry, and intact. Dressing was changed. Urinary Catheter Management: Saravia: Cath Placed During This Visit: yes Reason for Continuing Indwelling Catheter: Acute Urinary Retention or Obstruction Urinary Catheter Date of Insertion: 05/25/21 Urinary Catheter Time of Insertion: 17:45 Data : 06/02/21 02:44 06/02/21 02:44 Micro: Microbiology 05/30/21 14:00 Gram Stain - Final Sputum - Expectorated Sputum Sputum Culture - Preliminary A&P Assessment and plan (1) Status post placement of cardiac pacemaker: Pacemaker pocket hematoma status post pacemaker implantation and status post episode of confusion and combativeness during a hypoventilation episode about 3 days postop. Hematoma appears to be stable. Incision is clean, dry, and intact. No evidence for infection. Status: Acute Attestations Medical Necessity Statement*: Status post pacemaker implantation for tachybradycardia syndrome. Status post confusion and combativeness following hypoventilation episode requiring intubation mechanical ventilation, now resolved. Coding Level of Care Code Acute Vice President And Portfolio Manager for [facility] Fwd Diagnoses Status post placement of cardiac pacemaker Z95.0
[2021-06-02] MEDS: ipratropium-albuterol 3 mL Neb INHALATION ×3 (09:21→20:43)
[2021-06-02] MEDS: budesonide 0.5 mg/2 mL Neb INHALATION ×2 (09:21→20:43)
[2021-06-02] MEDS: folic acid 1 mg Tablet PO (10:15)
[2021-06-02] MEDS: sotalol 80 mg Tablet PO ×2 (10:16→18:51)
[2021-06-02] MEDS: aspirin 81 mg EC Tablet PO (10:16)
[2021-06-02] MEDS: dilTIAZem ER (24HR) 120 mg Capsule PO (10:16)
[2021-06-02] MEDS: multivitamin therapeutic Tablet 1 TAB PO (10:16)
[2021-06-02] MEDS: ferrous gluconate 324 mg Tablet PO ×2 (10:16→18:51)
[2021-06-02] MEDS: acetaZOLAMIDE 250 mg Tablet PO (10:16)
[2021-06-02 12:06] LABS: Glucose Point of Care 251 mg/dL (70-110)
[2021-06-02] MEDS: insulin lispro 100 unit/1 mL SUBCUT ×2 (13:35→21:05)
--- NOTE | 2021-06-02 15:32 | P.PN_ITS ---
Subjective Subjective: Interval history: Hospital course, labs appreciated. On examination patient laying comfortably in bed. Denies any nausea, vomiting, headache. States she needs physical therapy. Currently on 2-4 liters oxygen supplementation saturating 93%. Tolerated BiPAP well overnight. Received 2 mg of Bumex and 5 mg of metolazone yesterday. Vitals/I&O/Wt Last Vital Signs Temp 98.5 F 06/02/21 12:00 Pulse 60 06/02/21 15:06 Resp 22 H 06/02/21 15:06 BP 114/42 06/02/21 12:00 Pulse Ox 96 06/02/21 15:06 06/02/21 06/02/21 06/02/21 06:59 14:59 22:59 Intake Total 50 / 510 100 / 100 Output Total 1800 / 4350 200 / 200 Balance -1750 / -3840 -100 / -100 Weight last 48 hrs Weight 79.107 kg Weight 79.061 kg Physical Exam Narrative: EXAM NARRATIVE: General: No acute distress, AO x3, on 2 L, pleasant, hard of hearing, at bedside HEENT: PERRLA, pupils bilaterally equal and reactive Chest: Normal vesicular breath sounds, no added sounds, equal good air entry bilaterally CVS: S1-S2 irregularly irregular, no murmurs, tachycardia, no gallops, no rubs Abdomen: Soft, nontender, no organomegaly, bowel sounds present Neuro: No focal deficits, no facial deformity, AO x3, power 5/5 in all limbs Urinary Catheter Management: Saravia: Cath Placed During This Visit: yes Reason for Continuing Indwelling Catheter: Acute Urinary Retention or Obstruction Urinary Catheter Date of Insertion: 05/25/21 Urinary Catheter Time of Insertion: 17:45 Data : 06/02/21 02:44 06/02/21 02:44 Micro: Microbiology 05/30/21 14:00 Gram Stain - Final Sputum - Expectorated Sputum Sputum Culture - Final 06/02/21 09:50 Occult Blood (FIT) - Final Stool A&P Assessment and plan (1) Hypercapnic respiratory failure: Status: Acute (2) Tachycardia-bradycardia syndrome: Status: Acute (3) Status post placement of cardiac pacemaker: Status: Acute (4) Pacemaker pocket hematoma: Status: Acute (5) Paroxysmal atrial fibrillation with RVR: Status: Acute (6) CHF (congestive heart failure), NYHA class III: Status: Acute Qualifiers: Congestive heart failure type: diastolic Congestive heart failure chronicity: chronic Qualified Code(s): I50.32 - Chronic diastolic (congestive) heart failure (7) Acute UTI: Status: Acute (8) COPD (chronic obstructive pulmonary disease): Status: Acute Qualifiers: COPD type: unspecified COPD Qualified Code(s): J44.9 - Chronic obstructive pulmonary disease, unspecified (9) DM type 2 (diabetes mellitus, type 2): Status: Acute (10) Unresponsive: Secondary to hypercapnic respiratory failure. Post extubation. Resolved. Status: Acute (11) Anemia: Status: Acute Plan Unresponsive: Hypoxic hypercapnic respiratory failure: Intubated on 05/30 -Extubated on 05/31. Continue with Zosyn for possible of aspiration pneumonia. CT head and CTA head and neck results appreciated. Negative for any acute stroke. Right carotid artery stenosis: Seen on CTA. We'll need to follow-up with CT surgery as an outpatient. Acute anemia: Hemoglobin stable currently. Stool for occult blood positive. Continue Protonix and Carafate. Oral iron supplementation. Most likely patient will need an EGD and colonoscopy as an outpatient. Tachybradycardia syndrome: Post pacemaker implantation day has developed a pocket hematoma, continue to monitor Anticoagulation currently on hold Atrial fibrillation with rapid ventricular response: Difficult to control in the past even with metoprolol, Cardizem, digoxin, amiodarone. Required cardioversion last time Continue with oral Cardizem and sotalol. Appreciate cardiology and cardiothoracic surgery recommendations. Not on anticoagulation given history of recurrent falls, anemia and now pacemaker pocket hematoma Congestive heart failure: Diastolic in nature. Last echocardiogram from August 2020 showed an EF of 70%, hypertrophy of IAS, mild to moderate MR. Continue to daily dose Lasix Strict input output charting, daily weights. Saravia catheterization. UTI: History of UTI with Klebsiella in the past. Urine cultures and consistent with Enterobacter. Sensitive to ceftriaxone. Currently on Zosyn COPD: No exacerbation currently, no active wheezing DuoNebs every 6 hour. Sleep apnea: Uses BiPAP at home. Currently not able to use at group home because of unavailability of parts. Type 2 diabetes mellitus: HbA1c 6.5 Insulin sliding scale Full code. Lovenox for DVT prophylaxis. Protonix for PUD prophylaxis. Cardiac diet. Discharge planning: If continues to remain stable during next 24 hours can plan to discharge back to SNF. Will confirm with case management regarding family concerns of BiPAP at group home. Attestations Medical Necessity Statement*: Requires further hospitalization for management of postextubation for hypercapnic respiratory failure, tachybradycardia syndrome post pacemaker implantation, anemia, pacemaker pocket hematoma Time Spent in Patient Care: Greater than 35 minutes Coding Level of Care Code Acute Building Trades Instructor for g Fwd Diagnoses Tachycardia-bradycardia syndrome I49.5 Paroxysmal atrial fibrillation with RVR I48.0 CHF (congestive heart failure), NYHA class III I50.32 Congestive heart failure type: diastolic Congestive heart failure chronicity: chronic Acute UTI N39.0 COPD (chronic obstructive pulmonary disease) J44.9 COPD type: unspecified COPD DM type 2 (diabetes mellitus, type 2) E11.9 Status post placement of cardiac pacemaker Z95.0 Unresponsive R41.89 Hypercapnic respiratory failure J96.92 Pacemaker pocket hematoma T82.837A Anemia D64.9
--- NOTE | 2021-06-02 17:01 | P.PN_ITS ---
Subjective Subjective: Interval history: Moved out of ICU yesterday. Remains in sinus rhythm left arm bruise and pacemaker site is also bruised due to pacemaker hematoma anticoagulation on hold, she is back to baseline mental status causey. She has started using CPAP Vitals/I&O/Wt Last Vital Signs Temp 98.5 F 06/02/21 12:00 Pulse 60 06/02/21 15:06 Resp 22 H 06/02/21 15:06 BP 114/42 06/02/21 12:00 Pulse Ox 96 06/02/21 15:06 06/02/21 06/02/21 06/02/21 06:59 14:59 22:59 Intake Total 50 / 510 100 / 100 Output Total 1800 / 4350 200 / 200 Balance -1750 / -3840 -100 / -100 Weight last 48 hrs Weight 174 lb 6.4 oz Weight 174 lb 4.8 oz Physical Exam Chest: OTHER: GENERAL: Patient is awake oriented she has told me she does not like to go to prison but her cannot take care of her NECK: No jugular vein distension. HEENT: No cyanosis. No icterus. No pallor. Left pacemaker site is swollen HEART: Regular S1 and S2. No murmur, rub or gallop. LUNGS: Clear to auscultate bilaterally. Left chest and left arm bruising due to pacemaker pocket hematoma ABDOMEN: Soft, nontender and nondistended. Positive bowel sounds. No guarding, rebound or tenderness. [] CENTRAL NERVOUS SYSTEM: Unresponsive opens her eyes and track but does not move her extremities EXTREMITIES: Lower extremities without edema bilaterally. Urinary Catheter Management: Saravia: Cath Placed During This Visit: yes Reason for Continuing Indwelling Catheter: Acute Urinary Retention or Obstruction Urinary Catheter Date of Insertion: 05/25/21 Urinary Catheter Time of Insertion: 17:45 Data : 06/02/21 02:44 06/02/21 02:44 Micro: Microbiology 05/30/21 14:00 Gram Stain - Final Sputum - Expectorated Sputum Sputum Culture - Final 06/02/21 09:50 Occult Blood (FIT) - Final Stool A&P Assessment and plan (1) Status post placement of cardiac pacemaker: -Improving pacemaker hematoma causey though bruising has been seen which is expected. Continue to hold anticoagulation Status: Acute (2) Atrial fibrillation and flutter: In sinus rhythm continue sotalol, obtain twelve-lead EKG to assess QT QTc patient is on 80 mg of sotalol twice daily, anticoagulation on hold due to pocket hematoma Status: Acute (3) CHF (congestive heart failure), NYHA class III: Well compensated continue Status: Acute Qualifiers: Congestive heart failure type: diastolic Congestive heart failure chronicity: chronic Qualified Code(s): I50.32 - Chronic diastolic (congestive) heart failure (4) Unresponsive: Much improved continue CPAP Status: Acute Attestations Medical Necessity Statement*: Patient require continuation hospitalization for above defined care. Coding Level of Care Code Established Pt Acute [employer]ing [employer] Feeder for Dayg Fwd Patient Type Established History Detailed Exam Detailed Medical Decision Making Moderate Complexity Diagnoses Status post placement of cardiac pacemaker Z95.0 Atrial fibrillation and flutter I48.91; I48.92 CHF (congestive heart failure), NYHA class III I50.32 Congestive heart failure type: diastolic Congestive heart failure chronicity: chronic Unresponsive R41.89
[2021-06-02 17:39] LABS: Glucose Point of Care 125 mg/dL (70-110)
[2021-06-02 20:46] LABS: Glucose Point of Care 259 mg/dL (70-110)
--- NOTE | 2021-06-02 20:52 | PC.NURSE ---
Shift Note Frequent safety and comfort rounds continue. Orders and/or nursing care completed as indicated. Patient monitored for response to intervention and treatment(s). Dr. Blair inspected and changed the dressing around the pacemaker site, informed on the noted moderate pocket size hematoma on the pacemaker area, he is aware of this before, order to remove the shoulder immobilizer and reinforcement on pt not to elevate left arm above the eye level. Education provided includes activity restrictions of left arm, up ad leeann with PT and nsg, removal of will catheters, using her IS and flutter valve and BIPAP at HS. Patient and/or novelties sales representative teaches back. Will continue to monitor.
[2021-06-02] MEDS: atorvastatin 40 mg Tablet PO (21:06)
[2021-06-02] MEDS: hyDROXYzine 25 mg Capsule PO (23:03)
[2021-06-03] VITALS (9 sets, daily range): BP systolic 97–131; BP diastolic 47–64; PULSE 58–63; RESP 15–23; TEMP 36.6–37; O2SAT 94–100
[2021-06-03] MEDS: piperacillin-tazobactam 3.375 GM in sodium chloride 0.9% (plus) 50 ML IV ×2 (01:43→10:06)
[2021-06-03] MEDS: ipratropium-albuterol 3 mL Neb INHALATION ×2 (03:42→08:54)
[2021-06-03 04:21] LABS: Basophils # 0.1 10^3/uL (0.0-0.1); Basophils % 0.4 %; Eosinophils # 0.1 10^3/uL (0.0-0.8); Eosinophils % 0.7 %; Hematocrit 28.8 % (37.0-47.0); Hemoglobin 8.7 g/dL (11.5-15.3); Lymphocytes # 4.2 10^3/uL (0.8-4.8); Lymphocytes % 31.3 %; Mean Corpuscular HGB Conc 30.2 g/dL (30.0-36.0); Mean Corpuscular Hemoglobin 28.2 pg (28.0-34.0); Mean Corpuscular Volume 93.2 fl (81-99); Mean Platelet Volume 10.4 fL (7.4-10.4); Monocytes # 1.4 10^3/uL (0.2-0.9); Monocytes % 10.7 %; Neutrophils # 7.42 10^3/uL (1.8-7.7); Neutrophils % 55.6 %; Nucleated Red Blood Cells % 0.2 %; Platelet Count 273 10^3/cmm (130-400); Red Blood Count 3.09 10^6/uL (4.1-5.3); Red Cell Distribution Width 13.7 % (12.1-15.1); White Blood Count 13.3 10^3/uL (4.0-10.0)
[2021-06-03 04:42] LABS: Alanine Aminotransferase 10 U/L (0-33); Alkaline Phosphatase 113 IU/L (35-105); Anion Gap 15.4 (5-19); Aspartate Amino Transferase 22 U/L (0-32); Blood Urea Nitrogen 35 mg/dL (8-23); Calcium 9.1 mg/dL (8.5-10.5); Carbon Dioxide 35 mmol/L (22-29); Chloride 97 mmol/L (98-107); Globulin 2.7 g/dL (1.3-4.6); Glucose 115 mg/dL (65-115); Magnesium 2.2 mg/dL (1.7-2.3); Osmolality Calculated 305 mOsm/kg (285-295); Potassium 4.4 mmol/L (3.5-5.1); Sodium 143 mmol/L (136-145); Total Bilirubin 0.3 mg/dL (0.15-1.2); Total Protein 5.7 g/dL (6.6-8.7)
[2021-06-03] MEDS: pantoprazole 40 mg SDV IVP (05:29)
[2021-06-03] MEDS: sucralfate 1 gm Tablet PO (06:33)
[2021-06-03 06:51] LABS: Glucose Point of Care 128 mg/dL (70-110)
[2021-06-03] MEDS: budesonide 0.5 mg/2 mL Neb INHALATION (08:54)
[2021-06-03] MEDS: acetaZOLAMIDE 250 mg Tablet PO (10:05)
[2021-06-03] MEDS: ferrous gluconate 324 mg Tablet PO (10:05)
[2021-06-03] MEDS: multivitamin therapeutic Tablet 1 TAB PO (10:05)
[2021-06-03] MEDS: aspirin 81 mg EC Tablet PO (10:05)
[2021-06-03] MEDS: sotalol 80 mg Tablet PO (10:05)
[2021-06-03] MEDS: dilTIAZem ER (24HR) 120 mg Capsule PO (10:05)
[2021-06-03] MEDS: folic acid 1 mg Tablet PO (10:06)
--- NOTE | 2021-06-03 11:26 | PM.DCS ---
Discharge Providers Date of Admission: 05/25/21 14:36 Date of Discharge: June 03, 2021 Attending Provider at Admission: Jesus Manuel Dixon MD Attending Provider at Discharge: Jesus Manuel Dixon MD Consults: Cardiology: Dr. Urbina Cardiothoracic surgery: Primary Care Provider: Bakari Urbina MD Diagnoses at Discharge Discharge Diagnosis (1) Status post placement of cardiac pacemaker: Status: Acute (2) Atrial fibrillation and flutter: Status: Acute (3) CHF (congestive heart failure), NYHA class III: Status: Acute Qualifiers: Congestive heart failure type: diastolic Congestive heart failure chronicity: chronic Qualified Code(s): I50.32 - Chronic diastolic (congestive) heart failure (4) Unresponsive: Status: Acute Reason for Visit Reason for Visit: AFIB WITH RVR Hospital Course Hospital Course History as per H&P: La Aranda is a 81 year old female with past medical history of COPD, sleep apnea on BiPAP ventilation nightly which she has not been using at [facility] currently because of nonavailability of some parts, hypertension, type 2 diabetes mellitus, atrial fibrillation, COVID-19 infection in 2019 who was recently in hospital at [facility] multiple times over the last 2 months for hypercapnic respiratory failure for which she was even intubated 2 times and then discharged to SNF where she has been since early this month was sent over to the ER today because of palpitations. Patient follows up with Dr. Jama for atrial fibrillation. On review of her chart it seems patient atrial fibrillation was difficult to control in the past and she has failed multiple medications including metoprolol, Cardizem, amiodarone and digoxin and needed cardioversion with spiritism of sinus bradycardia. Currently she is on sotalol at home as she developed transaminitis while being on amiodarone. Patient denies any nausea, vomiting, headache, lightheadedness, dizziness, syncope, chest pain, difficulty in breathing. States she is tired. In the ER patient was given 60 mg of oral sotalol and then started on IV Cardizem. During my examination she is on 5 of IV Cardizem. Blood work showed white count of 16.4, hemoglobin of 11.6, D-dimer of 0.9, sodium of 141, carbon dioxide of 31, creatinine of 0.7, alkaline phosphatase of 125, baseline troponin of 68 with a positive delta of 1, proBNP of 5000, procalcitonin of 0.07, UA showing positive nitrate, 1+ leuk esterase with CTA done as below. Hospital course: Patient went to the hospital for further management of atrial fibrillation with rapid ventricular response. She was started on IV Cardizem along with continuing on her home dose of sotalol. Patient's heart rate was very erratic response of bradycardia for which he even required dopamine infusion for a short while. For concerns of tachybradycardia syndrome cardiothoracic surgery was consulted and she underwent pacemaker implantation on 05/27. She was also found to have a UTI. Urine culture grew Enterobacter. She thought course of antibiotics with ceftriaxone for Enterobacter. Her hospital stay was complicated by her developing hypercapnic hypoxic respiratory failure which led to unresponsiveness for which she was intubated on 05/30. She was eventually extubated back to nasal cannula on 05/31. CT head along with CTA head and neck was done which ruled out any acute abnormality. There was slight concern for aspiration pneumonia for which she was continued on Zosyn. Sputum, blood cultures remain negative. Patient also developed pacemaker pocket hematoma. Her anticoagulation was withheld. In past patient was not on anticoagulation because of history of frequent falls and GI bleed. Decision was made to continue holding anticoagulation. Patient required monitor blood transfusion. Her hemoglobin remained stable. Stool for occult blood was found to be positive. She needs to f/u with surgery as out patient for EGD. She is being discharged on protonix. She is been discharged in hemodynamically stable condition back to [facility] on oral sotalol and Cardizem. Lisinopril has been withheld on discharge. Physical Exam Narrative: EXAM NARRATIVE: General: No acute distress, AO x3, on 2 L, pleasant, hard of hearing, at bedside HEENT: PERRLA, pupils bilaterally equal and reactive Chest: Normal vesicular breath sounds, no added sounds, equal good air entry bilaterally CVS: S1-S2 irregularly irregular, no murmurs, tachycardia, no gallops, no rubs Abdomen: Soft, nontender, no organomegaly, bowel sounds present Neuro: No focal deficits, no facial deformity, AO x3, power 5/5 in all limbs Urinary Catheter Management: Saravia: Cath Placed During This Visit: yes, but has since been removed by the nurse Reason for Continuing Indwelling Catheter: Decision to DC Catheter Urinary Catheter Date of Insertion: 05/25/21 Urinary Catheter Time of Insertion: 17:45 Date Urinary Catheter Removed: 06/02/21 Time Urinary Catheter Discontinued: 11:00 Discharge Data Studies Completed and Pending Completed Studies During Hospitalization Category Date Time Status CT angio head neck [CT angio headneck* 14117/14180] Cat Scan 05/31/21 08:[address] chest wo con 54480 Routine Cat Scan 05/30/21 13:[address] head wo con* 20952 Routine Cat Scan 05/31/21 08:[address] head wo con* [id number] Stat Cat Scan 05/30/21 11:43 Completed CTA chest [CT angio chest PE protcl 24123] Urgent Cat Scan 05/25/21 15:17 Completed CXRP [XR chest 1V portable 11367] Routine Exams 05/27/21 14:37 Completed XR chest 1V portable [id number] Routine Exams 05/29/21 07:00 Completed XR chest 1V portable [id number] Routine Exams 05/31/21 07:00 Completed XR chest 1V portable [id number] Routine Exams 06/01/21 05:06 Completed XR chest 1V portable [id number] Stat Exams 05/30/21 09:13 Completed XR chest 1V portable [id number] Urgent Exams 05/25/21 11:08 Completed Pending at discharge Category Date Time Status Blood Culture Stat Lab 05/30/21 17:15 Results Radiology Impressions Chest CTA 05/25/21 15:17 IMPRESSION: 1. No pulmonary embolus. 2. There is mild peribronchial wall thickening; query viral infection/bronchitis, chronic bronchitis and/or asthma. 3. Mild mediastinal and bilateral hilar lymphadenopathy. 4. Cardiomegaly with coronary artery disease. 5. There is mild prominence of the wall of the proximal stomach with slight adjacent stranding. This may reflect gastritis. 6. Possible hepatic cirrhosis. 7. Indeterminate left renal lesion. Recommend nonemergent CT or MRI renal mass protocol with and without contrast to better characterize. 8. Colonic diverticula are noted. C-Arm Fluoroscopy 05/27/21 10:58 IMPRESSION: Pacemaker placement as above. Chest CT 05/30/21 13:16 IMPRESSION: Interval development of bilateral pleural effusions and an increase in the consolidative changes in the left lower lung. Head/Neck CTA 05/31/21 08:11 IMPRESSION: 1. RIGHT proximal ICA stenosis measuring approximately 70% with moderate RIGHT proximal ICA calcification. 2. No significant LEFT ICA stenosis. 3. Codominant and patent vertebral arteries. 4. Somewhat diminutive basilar artery with dominant anterior circulation. Persistent bilateral ethnology teacher 5. No flow-limiting intracranial stenosis. 6. Opacification LEFT mastoid air cells and LEFT middle ear. 7. Mild LEFT maxillary sinusitis. 8. Small layering RIGHT pleural effusion partially visualized compressive atelectasis in the RIGHT upper lobe. Head CT 05/31/21 08:12 IMPRESSION: 1. No evidence of intracranial hemorrhage or mass effect. 2. Mild small vessel changes. Moderate parenchymal volume loss. 3. Diffuse complete opacification LEFT mastoid air cells unchanged from May 30, 2021. Recommend correlation for mastoiditis. Slight mucosal thickening RIGHT mastoid tip. 4. No acute intracranial findings and no changes from May 30, 2021. Chest X-Ray 06/01/21 05:06 IMPRESSION: Indistinct pulmonary vasculature with hazy opacities present in the lower hemithoraces, findings that may represent pulmonary edema. Laboratory Results WBC 13.3 10^3/uL (4.0-10.0) H 06/03/21 04:05 RBC 3.09 10^6/uL (4.1-5.3) L 06/03/21 04:05 Hgb 8.7 g/dL (11.5-15.3) L 06/03/21 04:05 Hct 28.8 % (37.0-47.0) L 06/03/21 04:05 MCV 93.2 fl (81-99) 06/03/21 04:05 MCH 28.2 pg (28.0-34.0) 06/03/21 04:05 MCHC 30.2 g/dL (30.0-36.0) 06/03/21 04:05 RDW 13.7 % (12.1-15.1) 06/03/21 04:05 Plt Count 273 10^3/cmm (130-400) 06/03/21 04:05 MPV 10.4 fL (7.4-10.4) 06/03/21 04:05 Neut % (Auto) 55.6 % 06/03/21 04:05 Lymph % (Auto) 31.3 % 06/03/21 04:05 [place] % (Auto) 10.7 % 06/03/21 04:05 Eos % (Auto) 0.7 % 06/03/21 04:05 Baso % (Auto) 0.4 % 06/03/21 04:05 Neut # (Auto) 7.42 10^3/uL (1.8-7.7) 06/03/21 04:05 Lymph # (Auto) 4.2 10^3/uL (0.8-4.8) 06/03/21 04:05 [place] # (Auto) 1.4 10^3/uL (0.2-0.9) H 06/03/21 04:05 Eos # (Auto) 0.1 10^3/uL (0.0-0.8) 06/03/21 04:05 Baso # (Auto) 0.1 10^3/uL (0.0-0.1) 06/03/21 04:05 Nucleated RBC % (auto) 0.2 % 06/03/21 04:05 Nucleated RBCs # 0.0 /100WBC 06/03/21 04:05 PT 14.80 SECONDS (12.1-14.9) 05/31/21 04:00 INR 1.13 (0.8-1.2) 05/31/21 04:00 D-Dimer 0.93 ug/mIFEU (0-0.59) H 05/25/21 14:44 Specimen Type Arterial 05/30/21 09:36 Sample Site Radial, left 05/30/21 09:36 ABG pH 7.43 (7.35-7.45) 05/30/21 09:36 ABG pCO2 47.2 mmHg (35-45) H 05/30/21 09:36 ABG pO2 270.0 mmHg (80.0-100.0) H 05/30/21 09:36 ABG HCO3 31.0 mmol/L (22-26) H 05/30/21 09:36 ABG O2 Saturation > 100.0 05/30/21 09:36 ABG Base Excess 5.8 mmol/L (-2.0-2.0) H 05/30/21 09:36 Jean Paul Test Pos 05/30/21 09:36 A-a O2 Gradient 49.9 mmHg (5-10) H 05/30/21 09:36 Hematocrit 31.5 % (37-47) L 05/30/21 09:36 Hgb O2 Saturation 98.8 % (95-100) 05/30/21 09:36 Carboxyhemoglobin 0.6 %THgb (0.4-20.1) 05/30/21 09:36 Methemoglobin 1.0 % (0.4-1.5) 05/30/21 09:36 Total Hemoglobin 10.3 g/dL (12-16) L 05/30/21 09:36 Sodium 139.0 mmol/L (131-143) 05/30/21 09:36 Potassium 5.7 mmol/L (3.5-5.0) H 05/30/21 09:36 Glucose 271.0 mg/dL (70-115) H 05/30/21 09:36 Ionized Calcium 1.2 mmol/L (1.1-1.4) 05/30/21 09:36 O2 Delivery Device Vent 05/30/21 09:36 FiO2 100.0 % 05/30/21 09:36 Tidal Volume 0.45 05/30/21 09:36 PEEP 8.0 cmH20 05/30/21 09:36 Alignment Technician ID Caak 05/30/21 09:36 Sodium 143 mmol/L (136-145) 06/03/21 04:05 Potassium 4.4 mmol/L (3.5-5.1) 06/03/21 04:05 Chloride 97 mmol/L (98-107) L 06/03/21 04:05 Carbon Dioxide 35 mmol/L (22-29) H 06/03/21 04:05 Anion Gap 15.4 (5-19) 06/03/21 04:05 BUN 35 mg/dL (8-23) H 06/03/21 04:05 Creatinine 1.2 mg/dL (0.5-0.9) H 06/03/21 04:05 GFR Calculation Not Reportable 06/03/21 04:05 Glucose 115 mg/dL (65-115) 06/03/21 04:05 POC Glucose 128 mg/dL (70-110) H 06/03/21 06:26 Estimat Average Glucose 140 05/26/21 04:30 Hemoglobin A1c 6.5 % (4.0-6.0) H 05/26/21 04:30 Calculated Osmolality 305 mOsm/kg (285-295) H 06/03/21 04:05 Lactate 0.6 mmol/L (0.5-2.2) 06/01/21 04:20 Calcium 9.1 mg/dL (8.5-10.5) 06/03/21 04:05 Phosphorus 3.0 mg/dL (2.5-4.5) 06/03/21 04:05 Magnesium 2.2 mg/dL (1.7-2.3) 06/03/21 04:05 Iron 22 ug/dL (37-145) L 06/01/21 04:20 TIBC 204 mcg/dl 06/01/21 04:20 % Saturation 10.7 % (20-50) L 06/01/21 04:20 Unsat Iron Binding 182 ug/dL (112-347) 06/01/21 04:20 Ferritin 231 ng/mL (15-150) H 06/01/21 04:20 Total Bilirubin 0.3 mg/dL (0.15-1.2) 06/03/21 04:05 AST 22 U/L (0-32) 06/03/21 04:05 ALT 10 U/L (0-33) 06/03/21 04:05 Alkaline Phosphatase 113 IU/L (35-105) H 06/03/21 04:05 Ammonia 18 umol/L (11-51) 05/31/21 04:00 Creatine Kinase 21 U/L (26-192) L 05/31/21 04:00 Troponin T Baseline 68 ng/L (0-10) H 05/25/21 12:52 Troponin T 120 Minute 69.54 ng/L (0-10) H 05/25/21 14:44 Delta Troponin T 1.54 ABS# (0-10) 05/25/21 14:44 Troponin T Hi Sens 6Hr 68.08 ng/L (0-10) H 05/25/21 18:17 Troponin T Hi Sens 6Hr Delta 0.08 ng/L (0-12) 05/25/21 18:17 C-Reactive Protein 40.2 mg/L (0.0-4.9) H 06/02/21 02:44 NT-Pro-B Natriuret Pep 4361 pg/mL (0-450) H 06/02/21 02:44 Total Protein 5.7 g/dL (6.6-8.7) L 06/03/21 04:05 Albumin 3.0 g/dL (3.5-5.2) L 06/03/21 04:05 Globulin 2.7 g/dL (1.3-4.6) 06/03/21 04:05 Procalcitonin 0.24 ng/mL (0-0.5) 05/31/21 04:00 TSH 1.46 uIU/mL (0.27-4.20) 05/25/21 12:52 Urine Color Straw (Yellow) 05/27/21 07:40 Urine Appearance Sl hazy (CLEAR) 05/27/21 07:40 Urine pH 5 (5-7) 05/27/21 07:40 Ur Specific Baker 1.005 (1.005-1.030) 05/27/21 07:40 Urine Protein Neg (Negative) 05/27/21 07:40 Urine Glucose (UA) Norm (Normal) 05/27/21 07:40 Urine Ketones Negative (Negative) 05/27/21 07:40 Urine Blood Neg (Negative) 05/27/21 07:40 Urine Nitrate Negative (Negative) 05/27/21 07:40 Urine Bilirubin Neg (Negative) 05/27/21 07:40 Urine Urobilinogen Norm mg/dL (Negative) 05/27/21 07:40 Ur Leukocyte Esterase 2+ (Negative) H 05/27/21 07:40 Urine RBC 0-4 /hpf (0-2) H 05/27/21 07:40 Urine WBC 25-40 /hpf (0-5) H 05/27/21 07:40 Ur Squamous Epith Cells 5-10 /hpf (0-5) H 05/27/21 07:40 Amorphous Sediment Not Reportable 05/27/21 07:40 Urine Bacteria Trace /hpf (NONE) 05/27/21 07:40 Digoxin 1.1 ng/mL (0.6-1.2) 05/26/21 10:30 SARS-CoV-2 Ag (Rapid) Negative (Negative) 05/28/21 16:00 Blood Type O Positive 05/27/21 08:00 Rho(D) Type Positive 05/27/21 08:00 Antibody Screen Negative 05/27/21 08:00 Crossmatch See Detail 05/27/21 08:00 Microbiology 05/30/21 14:00 Sputum - Expectorated Sputum Gram Stain - Final 05/30/21 14:00 Sputum - Expectorated Sputum Sputum Culture - Final 06/02/21 09:50 Stool Occult Blood (FIT) - Final 05/30/21 17:15 Blood Blood Culture - Preliminary NEGATIVE TO DATE 05/30/21 17:22 Blood Blood Culture - Preliminary NEGATIVE TO DATE 05/27/21 07:40 Urine,Clean Catch Urine Culture - Final 05/25/21 12:28 Urine,Clean Catch Urine Culture - Final Enterobacter cloacae Vitals Last Vital Signs Temp 98.6 F 06/03/21 08:21 Pulse 63 06/03/21 08:55 Resp 22 H 06/03/21 08:51 BP 131/64 06/03/21 08:21 Pulse Ox 99 06/03/21 08:51 Discharge Plan Discharge Patient Disposition: Xfer SNF Condition: Stable Prescriptions: New sotalol 80 mg Tablet 80 mg PO BID 30 Days Qty: 60 0RF diltiazem HCl 120 mg Capsule,Extended Release 24hr 120 mg PO DAILY 30 Days Qty: 30 0RF pantoprazole [Protonix] 40 mg tablet,delayed release (DR/EC) 40 mg PO Q12H 14 Days Qty: 28 0RF amoxicillin-pot clavulanate [Augmentin] 500-125 mg tablet 1 tab PO BID Qty: 10 0RF levofloxacin 500 mg tablet 500 mg PO Q48H 5 Days Qty: 3 0RF Continued aspirin [Adult Low Dose Aspirin] 81 mg tablet,delayed release (DR/EC) 81 mg PO DAILY 0RF fluticasone propion-salmeterol 250-50 mcg/dose blister with device 1 inh inhalation BID 0RF ferrous sulfate 324 mg (65 mg iron) tablet,delayed release (DR/EC) 324 mg PO DAILY 0RF melatonin 1 mg tablet 1 mg PO BEDTIME 0RF coenzyme Q10 10 mg Capsule 10 mg PO DAILY Qty: 0 0RF metformin 500 mg tablet extended release 24 hr 500 mg PO DAILY 0RF Rx Instructions: TAKE WITH EVENING MEAL glucosamine-chondroitin [Osteo Bi-Flex] 250-200 mg Tablet 1 tab PO DAILY 0RF albuterol sulfate [Ventolin HFA] 90 mcg/actuation Hfa Aerosol Inhaler 2 puff inhalation Q4H PRN (Reason: Shortness Of Breath) 0RF folic acid 1 mg Tablet 1 mg PO DAILY Qty: 30 0RF multivitamin Tablet 1 tab PO DAILY 0RF albuterol sulfate 2.5 mg /3 mL (0.083 %) Solution For Nebulization 2.5 mg INHALATION Q6H PRN (Reason: Shortness Of Breath) 0RF Milk of Magnesia 400 mg/5 mL Suspension 30 ml PO DAILY PRN (Reason: Constipation) 0RF Calcium + Vitamin D 600 mg calcium- 200 unit Tablet 1 tab PO DAILY 0RF Novolog Flexpen U-100 Insulin 100 unit/mL (3 mL) Insulin Pen See Rx Instructions .ROUTE .COMPLEX 0RF Rx Instructions: PER SLIDING SCALE Changed Lasix 20 mg Tablet 40 mg PO DAILY Qty: 0 0RF Discontinued sotalol 80 mg tablet 40 mg PO DAILY 0RF lisinopril 10 mg tablet 10 mg PO DAILY Qty: 90 2RF Rx Instructions: Disreagard twice a day prescription. Discharge Orders: Discharge Order (Routine); Ordered 06/03/21 Ordered By: Jesus Manuel Dixon Referrals: Bakari Urbina MD [Primary Care Provider] - 7-10 days Hong Allison MD [Physician] - 2 weeks (possible EGD, anemia, positive FOBT) Christina Jama MD [Physician] - 7-10 days Discharge Diet: Cardiac Discharge Activity: Resume usual activity and Increase activity as tolerated Patient Instructions: Opioid Safety Activity Restrictions/Additional Instructions: Please follow-up with your primary care provider within next 1 week to 10 days. Repeat BMP. Follow-up with cardiology within next 1 week. Follow-up with Dr. Allison/surgery within next 2 weeks for possible EGD given anemia and positive FOBT. Discharge Attestations Time Spent in Discharge Care*: greater than 30 min Specific Discharge Activities: educating patient, educating and/or supporting family/caregiver, discussing with clinical case manager/social workers/dc planners, documenting/other paperwork and evaluating patient/reviewing data Status at Discharge: Cognitive status at discharge: cognitively intact, Behavioral status at discharge: cooperative, Functional status at discharge: uses cane/walker, Overall status at discharge: patient is not back to baseline Quality Metrics Clinical Quality Measures [ No reported AMI, CVA or VTE this stay] Coding Level of Care Code Acute Chg FW DC note Diagnoses Status post placement of cardiac pacemaker Z95.0 Atrial fibrillation and flutter I48.91; I48.92 CHF (congestive heart failure), NYHA class III I50.32 Congestive heart failure type: diastolic Congestive heart failure chronicity: chronic Unresponsive R41.89
--- NOTE | 2021-06-03 11:35 | PC.SOCIAL ---
IMM Update pg 2 of IMM updated and reviewed w/ patient. Copy provided and copy in chart updated.
[2021-06-03 11:37] LABS: Glucose Point of Care 339 mg/dL (70-110)
[2021-06-03] MEDS: insulin lispro 100 unit/1 mL SUBCUT (11:43)
--- NOTE | 2021-06-03 14:01 | PC.NURSE ---
Patient left to return to SNF. Patient IV removed. [facility] d/c by RODOLFO Carpenter. Report called, patient VS stable upon departure. All belongings were sent home.
--- NOTE | 2021-06-03 18:25 | PM.PN ---
Subjective Subjective: Interval history: Appear to be sleepy but overall doing very well, pacemaker swelling/hematoma has improved. Remains anemic but has not dropped further. Vitals/I&O/Wt Last Vital Signs Temp 98.6 F 06/03/21 08:21 Pulse 60 06/03/21 13:57 Resp 18 06/03/21 13:57 BP 127/55 06/03/21 13:57 Pulse Ox 98 06/03/21 13:57 06/03/21 06/03/21 06/03/21 06:59 14:59 22:59 Intake Total 260 / 600 236 / 236 Balance 260 / 400 236 / 236 Weight last 48 hrs Weight 174 lb 6.4 oz Physical Exam Chest: OTHER: GENERAL: Patient is awake oriented she has told me she does not like to go to skilled nursing but her cannot take care of her NECK: No jugular vein distension. HEENT: No cyanosis. No icterus. No pallor. Left pacemaker site is swollen HEART: Regular S1 and S2. No murmur, rub or gallop. LUNGS: Clear to auscultate bilaterally. Left chest and left arm bruising due to pacemaker pocket hematoma ABDOMEN: Soft, nontender and nondistended. Positive bowel sounds. No guarding, rebound or tenderness. CENTRAL NERVOUS SYSTEM: Unresponsive opens her eyes and track but does not move her extremities EXTREMITIES: Lower extremities without edema bilaterally. Urinary Catheter Management: Saravia: Cath Placed During This Visit: yes, but has since been removed by the nurse Reason for Continuing Indwelling Catheter: Decision to DC Catheter Urinary Catheter Date of Insertion: 05/25/21 Urinary Catheter Time of Insertion: 17:45 Date Urinary Catheter Removed: 06/02/21 Time Urinary Catheter Discontinued: 11:00 Data : 06/03/21 04:05 06/03/21 04:05 Micro: Microbiology 05/30/21 14:00 Gram Stain - Final Sputum - Expectorated Sputum Sputum Culture - Final A&P Assessment and plan (1) Status post placement of cardiac pacemaker: Improving. Continue management as per surgery Status: Acute (2) Atrial fibrillation and flutter: Remains in sinus rhythm continue sotalol. Status: Acute (3) CHF (congestive heart failure), NYHA class III: Well compensated continue Status: Acute Qualifiers: Congestive heart failure type: diastolic Congestive heart failure chronicity: chronic Qualified Code(s): I50.32 - Chronic diastolic (congestive) heart failure (4) Unresponsive: Much improved continue CPAP Status: Acute Attestations Medical Necessity Statement*: Follow-up with cardiology in 6 to 7 days Coding Level of Care Code Established Pt Acute [employer] for Chg Fwd Patient Type Established History Detailed Exam Detailed Medical Decision Making Moderate Complexity Diagnoses Status post placement of cardiac pacemaker Z95.0 Atrial fibrillation and flutter I48.91; I48.92 CHF (congestive heart failure), NYHA class III I50.32 Congestive heart failure type: diastolic Congestive heart failure chronicity: chronic Unresponsive R41.89
== END 2021-06-03 14:18 | disposition skilled nursing facility (03) | DRG 242 ==
LOC: ER 14:37 → CSU 16:18 → ICU 05-30 09:17 → CSU 06-01 18:08
PROVIDERS: Family Medicine; Thoracic Surgery (Cardiothoracic Vascular Surgery); Admitting Provider Student in an Organized Health Care Education/Training Program; Emergency Provider Emergency Medicine; PCP Internal Medicine; Visit Provider Student in an Organized Health Care Education/Training Program
PROC: 0JH636Z Insertion of Pacemaker, Dual Chamber into Chest Subcutaneous Tissue and Fascia, Percutaneous Approach (ICD-10-PCS; principal; 2021-05-27 12:00)
DX: I49.5 Sick sinus syndrome (principal); J96.21 Acute and chronic respiratory failure with hypoxia; J96.02 Acute respiratory failure with hypercapnia; J69.0 Pneumonitis due to inhalation of food and vomit; I50.32 Chronic diastolic (congestive) heart failure; N39.0 Urinary tract infection, site not specified; L76.32 Postprocedural hematoma of skin and subcutaneous tissue following other procedure; I11.0 Hypertensive heart disease with heart failure; E78.5 Hyperlipidemia, unspecified; J44.9 Chronic obstructive pulmonary disease, unspecified; I48.0 Paroxysmal atrial fibrillation; Z87.01 Personal history of pneumonia (recurrent); E11.9 Type 2 diabetes mellitus without complications; Z87.891 Personal history of nicotine dependence; G47.33 Obstructive sleep apnea (adult) (pediatric); Z99.89 Dependence on other enabling machines and devices; Z86.16 Personal history of COVID-19; I34.0 Nonrheumatic mitral (valve) insufficiency; Z87.440 Personal history of urinary (tract) infections; Z79.4 Long term (current) use of insulin; Z79.84 Long term (current) use of oral hypoglycemic drugs; Z79.51 Long term (current) use of inhaled steroids; Z79.82 Long term (current) use of aspirin; B96.89 Other specified bacterial agents as the cause of diseases classified elsewhere; D64.9 Anemia, unspecified; Y83.8 Other surgical procedures as the cause of abnormal reaction of the patient, or of later complication, without mention of misadventure at the time of the procedure; Z91.19 Patient's noncompliance with other medical treatment and regimen; R41.89 Other symptoms and signs involving cognitive functions and awareness
CPT/HCPCS: 31500; 36415; 36416; 36592; 36600; 51702; 70450; 70496; 70498; 71045; 71250; 71275; 76000; 80048; 80051; 80053; 80162; 81001; 81003; 82140; 82274; 82330; 82550; 82728; 82805; 82962; 83036; 83540; 83550; 83605; 83735; 83880; 84100; 84145; 84443; 84484; 85025; 85378; 85610; 86140; 86850; 86900; 86920; 87040; 87070; 87077; 87086; 87186; 87205; 87426; 92523; 92610; 93005; 94002; 94003; 94640; 94660; 94664; 94799; 96365; 96366; 96367; 96372; 97110; 97161; 97162; 97165; 97530; 99285; C1751; C1779; C1786; C9113; J0690; J0696; J1160; J1265; J1650; J1815; J1940; J2543; J2704; J3475; J3490; J7040; J7626; Q9967